=== PATIENT | male | born 1940 | race Caucasian/White ===

== ENCOUNTER 2018-06-21 07:09 | Emergency (ER) | payer MEDICARE, OTHER, SELFPAY ==
--- NOTE | 2018-06-21 07:14 | NUR.NOTE ---
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 last night wile sleeping the biopsy stite started to bleed
--- NOTE | 2018-06-21 07:15 | W.ED.GENAD ---
Discharge Plan Disposition Patient Disposition: HOME Condition: Good Discharge Details Chief Complaint: Laceration Clinical Impression: Postoperative wound hematoma Primary Care Provider: Jessa Cool ED Provider: Carlos Garcia [place] Meds and New Rx's Prescriptions: Continued multivitamin [Daily Vitamin] 1 EACH tablet 1 ea PO DAILY RF: 0 cholecalciferol (vitamin D3) [Vitamin D3] 400 UNIT capsule 400 unit PO DAILY RF: 0 atorvastatin 80 MG tablet 40 mg PO DAILY RF: 0 aspirin [Aspir-81] 81 MG tablet,delayed release (DR/EC) 81 mg PO DAILY RF: 0 Discharge Instructions Additional Instructions: Dressing changes as previously instructed. Direct pressure if further bleeding. Let Dr. Abdul know of your ED visit. Follow-up per his instructions. Return to ED if unable to control bleeding, fever, signs of infection such as increased pain, redness, drainage. Referrals: Fox Abdul MD [MD CONSULTING PHYSICIAN] - Medical Decision Making Direct pressure held. Oozing stopped almost immediately. No active bleeding. Sutures intact. No evidence of infection. Dressing change done. Will have patient follow-up with Dr. Abdul. HPI General Mode of arrival: ambulatory. Date/Time Provider Initiated Documentation: 06/21/18 07:14. Limitations to Documentation: no limitations. Information obtained by: patient. HPI Narrative: Patient here with bleeding from previous procedure. He had a growth removed by Dr. Abdul on Tuesday. Overnight he bled through the dressing. He was supposed to start dressing changes today. He is not on blood thinners other than a baby aspirin a day. He presents to be sure that he did not open up the incision site. Related Data Home Medications Medication Instructions Recorded Confirmed cholecalciferol (vitamin D3) 400 unit PO DAILY 05/29/13 06/21/18 [Vitamin D3] multivitamin [Daily Vitamin] 1 ea PO DAILY 05/29/13 06/21/18 atorvastatin 40 mg PO DAILY tab-cap 04/20/16 06/21/18 aspirin [Aspir-81] 81 mg PO DAILY 10/29/17 06/21/18 Allergies Allergy/AdvReac Type Severity Reaction Status Date / Time No Known Allergies Allergy Unverified 06/21/18 07:18 Review of Systems Constitutional Denies chills and Denies fever(s) Hematologic/Lymphatic Denies easy bleeding and Reports easy bruising [facility] Medical History Compartment syndrome DIVERTICULOSIS Deep venous thrombosis Gout Hyperlipidemia Melanosis coli Peripheral venous insufficiency Polyp of colon Psoriasis STROKE Surgical History BACK OPERATION (~04/2008) Colonoscopy - IV Sedation (06/10/10) Colonoscopy - IV Sedation (06/18/16) Family History Mother Dementia Father Alzheimer's disease Sister Alzheimer's disease Parkinson's disease Social History Smoking/Tobacco Use Status: Former Tobacco Use Exam Const General: cooperative, comfortable and no acute distress Orientation: alert and oriented x3 HENMT Head: normocephalic, hematoma and other (incision frontal scalp intact; slight oozing; hematoma/bruising noted) Skin General skin exam: ecchymosis, no erythema and no fluctuance Other: Incision is clean and intact. Oozing from hematoma underneath.
[2018-06-21 07:17] VITALS: BP 144/68; PULSE 68; RESP 18; TEMP 36.6; O2SAT 99
== END 2018-06-21 07:36 | disposition home or self-care (01) ==
LOC: ER 07:53
PROVIDERS: Emergency Provider Emergency Medicine; PCP Family Medicine
DX: L76.31 Postprocedural hematoma of skin and subcutaneous tissue following a dermatologic procedure (principal); Y83.8 Other surgical procedures as the cause of abnormal reaction of the patient, or of later complication, without mention of misadventure at the time of the procedure
CPT/HCPCS: 99281

== ENCOUNTER 2018-09-11 07:39 | Emergency (ER) | payer MEDICARE, OTHER, SELFPAY ==
[2018-09-11 07:48] VITALS: BP 102/61; PULSE 72; RESP 16; TEMP 36.1; O2SAT 98
--- NOTE | 2018-09-11 08:20 | DI.COMBO_ITS ---
SYMPTOM/DIAGNOSIS: SWELLING, PAIN LT FOOT AND ANKLE, H/O DVT, SKIN WOUND OVER MEDIAL MALLEOLUS LEFT LOWER EXTREMITY ULTRASOUND: The deep veins of the left lower extremity were evaluated sonographically. 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 One of the deep femoral veins does appear to be non compressed suggesting thrombus. The other femoral vein shows compression. The common femoral and popliteal veins show normal compression, augmentation and color flow. The saphenofemoral junction appears intact without evidence of thrombus. Note is made of a benign appearing lymph node measuring 4 by 2 by 0.8 cm. in the left inguinal region. 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 The findings were discussed with the ER on the date of the examination. LEFT ANKLE: Three views. No acute fracture or dislocation is seen. Degenerative changes are seen about the ankle. No radiopaque foreign bodies are seen in the soft tissues. IMPRESSION: No acute abnormality.
--- NOTE | 2018-09-11 08:23 | W.ED.GENAD ---
Discharge Plan Disposition Patient Disposition: HOME Condition: Stable Discharge Details Chief Complaint: Cellulitis Clinical Impression: DVT (deep venous thrombosis), Cellulitis Primary Care Provider: Jessa Cool ED Provider: Nuria Aparicio Home Meds and New Rx's Prescriptions: New Eliquis 5 mg tablet See Rx Instructions .ROUTE .COMPLEX Qty: 70 RF: 0 doxycycline hyclate 100 mg tablet 100 mg PO BID Qty: 19 RF: 0 No Action multivitamin [Daily Vitamin] 1 EACH tablet 1 ea PO DAILY RF: 0 cholecalciferol (vitamin D3) [Vitamin D3] 400 UNIT capsule 400 unit PO DAILY RF: 0 atorvastatin 80 MG tablet 40 mg PO DAILY RF: 0 aspirin [Aspir-81] 81 MG tablet,delayed release (DR/EC) 81 mg PO DAILY RF: 0 Discharge Instructions Instructions: Doxycycline (By mouth), Apixaban (By mouth), Cellulitis (ED), Deep Venous Thrombosis (ED) Additional Instructions: Please return immediately to the emergency department if you develop any new or worsening symptoms or if you become otherwise concerned. It is extremely important that you make an appointment to be seen soon as possible by your primary care doctor in follow-up for this visit. 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 On exam patient is well and nontoxic appearing. Left ankle with superficial abrasion to the medial malleolus, chronic skin changes to the medial ankle and generally to the left foot and left lower leg that patient attributes to DVT with compartment syndrome in the past. Erythema surrounding the medial malleolus the patient reports as new. Generalized edema of the foot and ankle that patient reports as somewhat worse than usual. No posterior calf tenderness. Concern for cellulitis, less concern for bony involvement or DVT but plan for screening labs, x-rays, ultrasound. Doubt gout. Exam/history is not consistent with sepsis, septic arthritis. On ultrasound, area of the femoral vein was found to be noncompressible, suggesting thrombus. I discussed patient presentation and results with hematology on-call [facility], who reviewed patient's medical records from his prior admission there. They recommended anticoagulation with Eliquis 10 mg twice daily for 1 week, then 5 mg twice daily. I also discussed the patient with patient PCP office, who will see patient in follow-up. Plan to treat for cellulitis with doxycycline. I had a lengthy discussion with patient regarding return to emergency department precautions, home care, and importance of outpatient follow-up with his PCP. Patient verbalized understanding the plan was amenable. Patient was discharged home with clear plan for outpatient follow-up. All questions were answered. Medical Records Medical records reviewed: Yes I reviewed the patient's medical records. Imaging Data Radiologic Study: Attestation: I personally reviewed and interpreted this imaging study as follows: Radiologist's impression: LEFT LOWER EXTREMITY ULTRASOUND: The deep veins of the left lower extremity were evaluated sonographically. 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 One of the deep femoral veins does appear to be non compressed suggesting thrombus. The other femoral vein shows compression. The common femoral and popliteal veins show normal compression, augmentation and color flow. The saphenofemoral junction appears intact without evidence of thrombus. Note is made of a benign appearing lymph node measuring 4 by 2 by 0.8 cm. in the left inguinal region. 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 The findings were discussed with the ER on the date of the examination. LEFT ANKLE: Three views. No acute fracture or dislocation is seen. Degenerative changes are seen about the ankle. No radiopaque foreign bodies are seen in the soft tissues. IMPRESSION: No acute abnormality. Lab Data Lab results reviewed: Yes I reviewed the patient's lab results. Laboratory Tests Range/Units 09/11/18 09/11/18 09/11/18 08:27 08:27 08:27 WBC (4.4-10.8) k/cumm 3.73 L RBC (4.50-6.00) m/cumm 3.82 L Hgb (13.5-17.5) g/dL 12.0 L Hct (40.0-50.0) % 35.4 L MCV (80-95) fL 92.7 MCH (27.0-33.0) pg 31.4 MCHC (32.0-36.0) g/dL 33.9 RDW (11.8-14.1) % 15.5 H Plt Count (130-400) x1000/uL 114 L MPV (8.0-11.0) fL 11.8 H Immature Gran % 1.1 Neutrophils % 48.8 Lymphocytes % 28.7 Monocytes % 16.9 Eosinophils % 4.0 Basophils % 0.5 Absolute Neutrophils (1.2-6.7) k/cumm 1.82 Absolute Lymphocytes (1.2-3.4) k/cumm 1.07 L Absolute Monocytes (0.11-0.7) k/cumm 0.63 Absolute Eosinophils (0.0-0.7) k/cumm 0.15 Absolute Basophils (0.0-0.2) k/cumm 0.02 Differential Comment Diff reviewed RBC Morphology Normal PT (9.3-11.0) sec 11.3 H INR (0.9-1.1) 1.1 Sodium (136-145) mmol/L 137 Potassium (3.5-5.1) mmol/L 4.0 Chloride (98-107) mmol/L 101 Carbon Dioxide (21.0-32.0) mmol/L 26.7 Anion Gap (3-11) mmol/L 9.3 BUN (7-18) mg/dL 16 Creatinine (0.70-1.30) mg/dL 1.10 Estimated GFR/1.73 m2 (mL/min/1.73m2) >= 60.00 Glucose (70-100) mg/dL 137 H Calcium (8.5-10.1) mg/dL 8.9 Total Bilirubin (0.2-1.0) mg/dL 1.3 H AST (15-37) U/L 26 ALT (12-78) U/L 32 Alkaline Phosphatase (46-116) U/L 68 Total Protein (6.4-8.2) g/dL 7.4 Albumin (3.4-5.0) g/dL 3.4 She is HPI General Mode of arrival: ambulatory. Date/Time Provider Initiated Documentation: 09/11/18 08:09. Limitations to Documentation: no limitations. Information obtained by: patient, RN notes reviewed and old records reviewed. HPI Narrative: Adan Terrell is a 78-year-old man with a history of CVA, high cholesterol, gout, DVT left leg resulting in compartment syndrome in the past presenting to the emergency department with left ankle pain and swelling. 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 He wears an AFO because of this. Patient reports that he noticed swelling to his left ankle approximately 6 days ago. He also developed pain diffusely in the left ankle over the past 2 to 3 days. He noticed a small abrasion to the inner aspect of his left ankle a few days ago that he believes is from his AFO strap. He denies any trauma. Patient takes aspirin daily but is no longer prescribed blood thinners. He feels otherwise well in his usual state of health. No fevers, shortness of breath, cough, other pain, vomiting, diarrhea. Related Data Home Medications Medication Instructions Recorded Confirmed cholecalciferol (vitamin D3) 400 unit PO DAILY 05/29/13 09/11/18 [Vitamin D3] multivitamin [Daily Vitamin] 1 ea PO DAILY 05/29/13 09/11/18 atorvastatin 40 mg PO DAILY tab-cap 04/20/16 09/11/18 aspirin [Aspir-81] 81 mg PO DAILY 10/29/17 09/11/18 apixaban [Eliquis] See Rx Instructions .ROUTE 09/11/18 .COMPLEX #70 tab doxycycline hyclate 100 mg PO BID #19 tab 09/11/18 Previous Rx's Medication Instructions Recorded apixaban [Eliquis] See Rx Instructions .ROUTE 09/11/18 .COMPLEX #70 tab doxycycline hyclate 100 mg PO BID #19 tab 09/11/18 Allergies Allergy/AdvReac Type Severity Reaction Status Date / Time No Known Allergies Allergy Unverified 09/11/18 07:51 General Stated Complaint: Cellulitis ELY: 3 Review of Systems Review of Systems Constitutional: denies fevers Eyes: denies eye pain ENT: denies facial pain, dental pain, sore throat Cardiovascular: denies chest pain Respiratory: denies SOB, cough GI: denies abdominal pain, vomiting, diarrhea : denies flank pain MSK: denies back pain, neck pain, myalgias, reports left ankle pain and swelling Skin: Reports chronic rash to the left ankle, worse in the past few days Neuro: denies headaches, reports left foot/ankle numbness and weakness at baseline, unchanged [facility] Medical History Compartment syndrome DIVERTICULOSIS Deep venous thrombosis Gout Hyperlipidemia Melanosis coli Peripheral venous insufficiency Polyp of colon Psoriasis STROKE Family History Mother Dementia Father Alzheimer's disease Sister Alzheimer's disease Parkinson's disease Social History Smoking/Tobacco Use Status: Former Tobacco Use Drug use: Never Do you feel safe in your relationship?: Yes Exam Narrative Exam Narrative: Constitutional: well and [id number], pleasant, conversing normally HENT: head atraumatic/normocephalic/normal inspection, mucous membranes moist Eyes: conjunctiva normal, sclera normal, pupils 3mm b/l Neck: no stridor, normal ROM, trachea midline Chest: normal inspection Resp: normal work of breathing, LCTAB Cardio: normal rate, normal rhythm, no murmur appreciated Back: normal inspection, no rash Skin: warm, dry, normal color, no rash Neuro: alert, not altered, grossly non-focal, normal tone Ext: Left ankle with superficial abrasion to the medial malleolus, chronic skin changes to the medial ankle and generally to the left foot and left lower leg that patient attributes to DVT with compartment syndrome in the past. Erythema surrounding the medial malleolus the patient reports as new. Generalized edema of the foot and ankle that patient reports as somewhat worse than usual. No posterior calf tenderness. Well healed surgical scars medial and lateral left lower leg. Compartments soft. Psych: normal mood, normal affect, normal behavior Course Vital Signs Temperature 36.1 C L 09/11/18 07:48 Pulse 72 09/11/18 07:48 Respiratory Rate 16 09/11/18 07:48 Blood Pressure 102/61 09/11/18 07:48 Pulse Oximetry 98 09/11/18 07:48 Temperature 36.1 C L 09/11/18 07:48 Temperature Source Skin 09/11/18 07:48 Pulse 72 09/11/18 07:48 Respiratory Rate 16 09/11/18 07:48 Respiratory Effort Non-Labored 09/11/18 07:48 Blood Pressure 102/61 09/11/18 07:48 Blood Pressure Position Sitting 09/11/18 07:48 Pulse Oximetry 98 09/11/18 07:48 Oxygen Delivery Method Room Air 09/11/18 07:48 Oxygen Flow Rate 0 09/11/18 07:48 Pain Level 7 09/11/18 07:48
--- NOTE | 2018-09-11 08:30 | ED.GENADUL_ITS ---
Discharge Plan Disposition Patient Disposition: HOME Condition: Stable Discharge Details Chief Complaint: Cellulitis Clinical Impression: DVT (deep venous thrombosis), Cellulitis Primary Care Provider: Jessa Cool ED Provider: Nuria Aparicio Home Meds and New Rx's Prescriptions: New Eliquis 5 mg tablet See Rx Instructions .ROUTE .COMPLEX Qty: 70 RF: 0 doxycycline hyclate 100 mg tablet 100 mg PO BID Qty: 19 RF: 0 No Action multivitamin [Daily Vitamin] 1 EACH tablet 1 ea PO DAILY RF: 0 cholecalciferol (vitamin D3) [Vitamin D3] 400 UNIT capsule 400 unit PO DAILY RF: 0 atorvastatin 80 MG tablet 40 mg PO DAILY RF: 0 aspirin [Aspir-81] 81 MG tablet,delayed release (DR/EC) 81 mg PO DAILY RF: 0 Discharge Instructions Instructions: Doxycycline (By mouth), Apixaban (By mouth), Cellulitis (ED), Deep Venous Thrombosis (ED) Additional Instructions: Please return immediately to the emergency department if you develop any new or worsening symptoms or if you become otherwise concerned. It is extremely important that you make an appointment to be seen soon as possible by your primary care doctor in follow-up for this visit. 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 On exam patient is well and nontoxic appearing. Left ankle with superficial abrasion to the medial malleolus, chronic skin changes to the medial ankle and generally to the left foot and left lower leg that patient attributes to DVT with compartment syndrome in the past. Erythema surrounding the medial malleolus the patient reports as new. Generalized edema of the foot and ankle that patient reports as somewhat worse than usual. No posterior calf tenderness. Concern for cellul itis, less concern for bony involvement or DVT but plan for screening labs, x- rays, ultrasound. Doubt gout. Exam/history is not consistent with sepsis, septic arthritis. On ultrasound, area of the femoral vein was found to be noncompressible, suggesting thrombus. I discussed patient presentation and results with hematology on-call [facility], who reviewed patient's medical records from his prior admission there. They recommended anticoagulation with Eliquis 10 mg twice daily for 1 week, then 5 mg twice daily. I also discussed the patient with patient PCP office, who will see patient in follow-up. Plan to treat for cellulitis with doxycycline. I had a lengthy discussion with patient regarding return to emergency department precautions, home care, and importance of outpatient follow-up with his PCP. Patient verbalized understanding the plan was amenable. Patient was discharged home with clear plan for outpatient follow-up. All questions were answered. Medical Records Medical records reviewed: Yes I reviewed the patient's medical records. Imaging Data Radiologic Study: Attestation: I personally reviewed and interpreted this imaging study as follows: Radiologist's impression: LEFT LOWER EXTREMITY ULTRASOUND: The deep veins of the left lower extremity were evaluated sonographically. 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 One of the deep femoral veins does appear to be non compressed suggesting thrombus. The other femoral vein shows compression. The common femoral and popliteal veins show normal compression, augmentation and color flow. The saphenofemoral junction appears intact without evidence of thrombus. Note is made of a benign appearing lymph node measuring 4 by 2 by 0.8 cm. in the left inguinal region. 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 The findings were discussed with the ER on the date of the examination. LEFT ANKLE: Three views. No acute fracture or dislocation is seen. Degenerative changes are seen about the ankle. No radiopaque foreign bodies are seen in the soft tissues. IMPRESSION: No acute abnormality. Lab Data Lab results reviewed: Yes I reviewed the patient's lab results. Laboratory Tests Range/Units 09/11/18 09/11/18 09/11/18 08:27 08:27 08:27 WBC (4.4-10.8) k/cumm 3.73 L RBC (4.50-6.00) m/cumm 3.82 L Hgb (13.5-17.5) g/dL 12.0 L Hct (40.0-50.0) % 35.4 L MCV (80-95) fL 92.7 MCH (27.0-33.0) pg 31.4 MCHC (32.0-36.0) g/dL 33.9 RDW (11.8-14.1) % 15.5 H Plt Count (130-400) x1000/uL 114 L MPV (8.0-11.0) fL 11.8 H Immature Gran % 1.1 Neutrophils % 48.8 Lymphocytes % 28.7 Monocytes % 16.9 Eosinophils % 4.0 Basophils % 0.5 Absolute Neutrophils (1.2-6.7) k/cumm 1.82 Absolute Lymphocytes (1.2-3.4) k/cumm 1.07 L Absolute Monocytes (0.11-0.7) k/cumm 0.63 Absolute Eosinophils (0.0-0.7) k/cumm 0.15 Absolute Basophils (0.0-0.2) k/cumm 0.02 Differential Comment Diff reviewed RBC Morphology Normal PT (9.3-11.0) sec 11.3 H INR (0.9-1.1) 1.1 Sodium (136-145) mmol/L 137 Potassium (3.5-5.1) mmol/L 4.0 Chloride (98-107) mmol/L 101 Carbon Dioxide (21.0-32.0) mmol/L 26.7 Anion Gap (3-11) mmol/L 9.3 BUN (7-18) mg/dL 16 Creatinine (0.70-1.30) mg/dL 1.10 Estimated GFR/1.73 m2 (mL/min/1.73m2) >= 60.00 Glucose (70-100) mg/dL 137 H Calcium (8.5-10.1) mg/dL 8.9 Total Bilirubin (0.2-1.0) mg/dL 1.3 H AST (15-37) U/L 26 ALT (12-78) U/L 32 Alkaline Phosphatase (46-116) U/L 68 Total Protein (6.4-8.2) g/dL 7.4 Albumin (3.4-5.0) g/dL 3.4 She is HPI General Mode of arrival: ambulatory . Date/Time Provider Initiated Documentation: 09/11/18 08:09 . Limitations to Documentation: no limitations . Information obtained by: patient, RN notes reviewed and old records reviewed . HPI Narrative: Adan Terrell is a 78-year-old man with a history of CVA, high cholesterol, gout, DVT left leg resulting in compartment syndrome in the past presenting to the emergency department with left ankle pain and swelling. 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 He wears an AFO because of this. Patient reports that he noticed swelling to his left ankle approximately 6 days ago. He also developed pain diffusely in the left ankle over the past 2 to 3 days. He noticed a small abrasion to the inner aspect of his left ankle a few days ago that he believes is from his AFO strap. He denies any trauma. Patient takes aspirin daily but is no longer prescribed blood thinners. He feels otherwise well in his usual state of health. No fevers, shortness of breath, cough, other pain, vomiting, diarrhea. Related Data Home Medications Medication Instructions Recorded Confirmed cholecalciferol (vitamin D3) 400 unit PO DAILY 05/29/13 09/11/18 [Vitamin D3] multivitamin [Daily Vitamin] 1 ea PO DAILY 05/29/13 09/11/18 atorvastatin 40 mg PO DAILY tab-cap 04/20/16 09/11/18 aspirin [Aspir-81] 81 mg PO DAILY 10/29/17 09/11/18 apixaban [Eliquis] See Rx Instructions .ROUTE 09/11/18 .COMPLEX #70 tab doxycycline hyclate 100 mg PO BID #19 tab 09/11/18 Previous Rx's Medication Instructions Recorded apixaban [Eliquis] See Rx Instructions .ROUTE 09/11/18 .COMPLEX #70 tab doxycycline hyclate 100 mg PO BID #19 tab 09/11/18 Allergies Allergy/AdvReac Type Severity Reaction Status Date / Time No Known Allergies Allergy Unverified 09/11/18 07:51 General Stated Complaint: Cellulitis ELY: 3 Review of Systems Review of Systems Constitutional: denies fevers Eyes: denies eye pain ENT: denies facial pain, dental pain, sore throat Cardiovascular: denies chest pain Respiratory: denies SOB, cough GI: denies abdominal pain, vomiting, diarrhea : denies flank pain MSK: denies back pain, neck pain, myalgias, reports left ankle pain and swelling Skin: Reports chronic rash to the left ankle, worse in the past few days Neuro: denies headaches, reports left foot/ankle numbness and weakness at baseline, unchanged [facility] Medical History Compartment syndrome DIVERTICULOSIS Deep venous thrombosis Gout Hyperlipidemia Melanosis coli Peripheral venous insufficiency Polyp of colon Psoriasis STROKE Family History Mother Dementia Father Alzheimer's disease Sister Alzheimer's disease Parkinson's disease Social History Smoking/Tobacco Use Status: Former Tobacco Use Drug use: Never Do you feel safe in your relationship?: Yes Exam Narrative Exam Narrative: Constitutional: well and [id number], pleasant, conversing normally HENT: head atraumatic/normocephalic/normal inspection, mucous membranes moist Eyes: conjunctiva normal, sclera normal, pupils 3mm b/l Neck: no stridor, normal ROM, trachea midline Chest: normal inspection Resp: normal work of breathing, LCTAB Cardio: normal rate, normal rhythm, no murmur appreciated Back: normal inspection, no rash Skin: warm, dry, normal color, no rash Neuro: alert, not altered, grossly non-focal, normal tone Ext: Left ankle with superficial abrasion to the medial malleolus, chronic skin changes to the medial ankle and generally to the left foot and left lower leg that patient attributes to DVT with compartment syndrome in the past. Erythema surrounding the medial malleolus the patient reports as new. Generalized edema of the foot and ankle that patient reports as somewhat worse than usual. No posterior calf tenderness. Well healed surgical scars medial and lateral left lower leg. Compartments soft. Psych: normal mood, normal affect, normal behavior Course Vital Signs Temperature 36.1 C L 09/11/18 07:48 Pulse 72 09/11/18 07:48 Respiratory Rate 16 09/11/18 07:48 Blood Pressure 102/61 09/11/18 07:48 Pulse Oximetry 98 09/11/18 07:48 Temperature 36.1 C L 09/11/18 07:48 Temperature Source Skin 09/11/18 07:48 Pulse 72 09/11/18 07:48 Respiratory Rate 16 09/11/18 07:48 Respiratory Effort Non-Labored 09/11/18 07:48 Blood Pressure 102/61 09/11/18 07:48 Blood Pressure Position Sitting 09/11/18 07:48 Pulse Oximetry 98 09/11/18 07:48 Oxygen Delivery Method Room Air 09/11/18 07:48 Oxygen Flow Rate 0 09/11/18 07:48 Pain Level 7 09/11/18 07:48
[2018-09-11 08:42] LABS: Abs Immature Grans 0.04 k/cumm (0.0-0.09); Absolute Basophil Count 0.02 k/cumm (0.0-0.2); Absolute Eosinophil Count 0.15 k/cumm (0.0-0.7); Absolute Lymphocyte Count 1.07 k/cumm (1.2-3.4); Absolute Monocyte Count 0.63 k/cumm (0.11-0.7); Absolute Neutrophil Count 1.82 k/cumm (1.2-6.7); Basophils % 0.5; HCT 35.4 % (40.0-50.0); Immature Grans % 1.1; Lymphocytes % 28.7; Mean Corp. HGB Concentration 33.9 g/dL (32.0-36.0); Mean Corpuscular Hemoglobin 31.4 pg (27.0-33.0); Mean Corpuscular Volume 92.7 fL (80-95); Mean Platelet Volume 11.8 fL (8.0-11.0); Monocytes % 16.9; Neutrophils % 48.8; RBC 3.82 m/cumm (4.50-6.00); RBC Distribution Width 15.5 % (11.8-14.1); White Blood Cell Count 3.73 k/cumm (4.4-10.8)
[2018-09-11 08:59] LABS: INR 1.1 (0.9-1.1); Prothrombin Time 11.3 sec (9.3-11.0)
[2018-09-11 09:01] LABS: Platelet Count 114 x1000/uL (130-400)
[2018-09-11 09:02] LABS: Diff Comment Diff Reviewed; RBC Morphology Normal
[2018-09-11 09:03] LABS: ALT 32 U/L (12-78); AST 26 U/L (15-37); Albumin 3.4 g/dL (3.4-5.0); Alkaline Phosphatase 68 U/L (46-116); Anion Gap 9.3 mmol/L (3-11); BUN 16 mg/dL (7-18); Bilirubin, Total 1.3 mg/dL (0.2-1.0); CO2 26.7 mmol/L (21.0-32.0); Calcium 8.9 mg/dL (8.5-10.1); Chloride 101 mmol/L (98-107); Glucose 137 mg/dL (70-100); Sodium 137 mmol/L (136-145); Total Protein 7.4 g/dL (6.4-8.2)
[2018-09-11 14:00] VITALS: BP 118/48; PULSE 65; RESP 16; TEMP 36.1; O2SAT 99
[2018-09-11] MEDS: Apixaban 5 MG TAB 10 MG PO (14:05)
[2018-09-11] MEDS: Doxycycline Hyclate 100 MG CAP PO (14:05)
== END 2018-09-11 14:09 | disposition home or self-care (01) ==
PROVIDERS: Emergency Provider Student in an Organized Health Care Education/Training Program; PCP Family Medicine
DX: I82.412 Acute embolism and thrombosis of left femoral vein (principal); L03.116 Cellulitis of left lower limb; G57.82 Other specified mononeuropathies of left lower limb; M21.372 Foot drop, left foot; Z86.73 Personal history of transient ischemic attack (TIA), and cerebral infarction without residual deficits; Z79.82 Long term (current) use of aspirin
CPT/HCPCS: 36415; 80053; 99284; 73610; 85025; 85610; 93971

== ENCOUNTER 2018-09-14 13:10 | Outpatient (REF) | payer MEDICARE, OTHER, SELFPAY | END 2018-09-14 13:30 | LOC: LBN 13:10 | PROVIDERS: PCP Family Medicine; Visit Provider Podiatrist | DX: L03.115 Cellulitis of right lower limb (principal); L97.319 Non-pressure chronic ulcer of right ankle with unspecified severity | CPT/HCPCS: 87077; 87070; 87186; 87205 ==

== ENCOUNTER 2018-09-19 01:55 | Outpatient (RCR) | payer MEDICARE, OTHER, SELFPAY ==
[2018-09-14] MEDS: cefTRIAXone 2 GM/50 ML BAG IVPB (12:34)
[2018-09-14] MEDS: Normal Saline Flush 10 ML SYR IVP (12:35)
[2018-09-15] MEDS: cefTRIAXone 2 GM/50 ML BAG IVPB (13:03)
[2018-09-15] MEDS: Normal Saline Flush 10 ML SYR IVP (13:03)
[2018-09-16 12:50] VITALS: TEMP 36.5
[2018-09-16] MEDS: cefTRIAXone 2 GM/50 ML BAG IVPB (13:04)
[2018-09-17] MEDS: cefTRIAXone 2 GM/50 ML BAG IVPB (12:55)
[2018-09-17 13:00] VITALS: TEMP 36.5
[2018-09-18] MEDS: cefTRIAXone 2 GM/50 ML BAG IVPB (13:11)
[2018-09-18] MEDS: Normal Saline Flush 10 ML SYR IVP (13:12)
== END 2018-10-13 23:59 | disposition home or self-care (01) ==
LOC: INF 01:55
PROVIDERS: PCP Family Medicine; Visit Provider Podiatrist
DX: L03.116 Cellulitis of left lower limb (principal)
CPT/HCPCS: 96365

== ENCOUNTER 2018-09-19 13:30 | Outpatient (CLI) | payer MEDICARE, OTHER, SELFPAY ==
[2018-09-19 13:52] LABS: HCT 36.4 % (40.0-50.0); Mean Corpuscular Hemoglobin 30.8 pg (27.0-33.0); Mean Corpuscular Volume 93.6 fL (80-95); Mean Platelet Volume 12.3 fL (8.0-11.0); Platelet Count 179 x1000/uL (130-400); RBC 3.89 m/cumm (4.50-6.00); RBC Distribution Width 15.2 % (11.8-14.1); White Blood Cell Count 3.43 k/cumm (4.4-10.8)
[2018-09-19 14:43] LABS: Anion Gap 8.1 mmol/L (3-11); BUN 22 mg/dL (7-18); CO2 28.9 mmol/L (21.0-32.0); Calcium 9.1 mg/dL (8.5-10.1); Chloride 102 mmol/L (98-107); Estimated GFR 58.86 (mL/min/1.73m2); Glucose 135 mg/dL (70-100); Potassium 4.4 mmol/L (3.5-5.1); Sodium 139 mmol/L (136-145)
== END 2018-09-19 13:50 ==
PROVIDERS: PCP Family Medicine; Visit Provider Family Medicine
DX: I82.409 Acute embolism and thrombosis of unspecified deep veins of unspecified lower extremity (principal); R60.0 Localized edema
CPT/HCPCS: 80048; 85027

== ENCOUNTER 2018-09-26 00:50 | Outpatient (CLI) | payer MEDICARE, OTHER, SELFPAY ==
--- NOTE | 2018-09-26 12:48 | DI.US_ITS ---
SYMPTOM/DIAGNOSIS: ACUTE DVT LT LOWER EXTREMITY, I82.402 LEFT LOWER EXTREMITY ULTRASOUND: Comparison is made with 09/11/18. There is now thrombus seen extending into the common femoral vein where previously the clot was seen in one of a duplicated femoral vein. Clot is also seen in the profunda femoral vein. IMPRESSION: Extension of previously noted thrombus into the common femoral and profunda femoral veins.
== END 2018-09-26 01:10 ==
PROVIDERS: PCP Family Medicine; Visit Provider Family Medicine
DX: I82.412 Acute embolism and thrombosis of left femoral vein
CPT/HCPCS: 93971

== ENCOUNTER 2018-10-23 16:44 | Outpatient (REF) | payer MEDICARE, OTHER, SELFPAY | END 2018-10-23 17:04 | LOC: NCHCN 16:44 | PROVIDERS: PCP Family Medicine; Visit Provider Family Medicine | DX: R60.0 Localized edema (principal); I82.409 Acute embolism and thrombosis of unspecified deep veins of unspecified lower extremity ==

== ENCOUNTER 2018-10-24 09:00 | Outpatient (CLI) | payer MEDICARE, OTHER, SELFPAY ==
[2018-10-24 09:25] LABS: HCT 33.5 % (40.0-50.0); HGB 10.9 g/dL (13.5-17.5); Mean Corp. HGB Concentration 32.5 g/dL (32.0-36.0); Mean Corpuscular Volume 95.2 fL (80-95); Mean Platelet Volume 12.2 fL (8.0-11.0); Platelet Count 142 x1000/uL (130-400); RBC 3.52 m/cumm (4.50-6.00); RBC Distribution Width 15.7 % (11.8-14.1)
[2018-10-24 10:36] LABS: Anion Gap 9.2 mmol/L (3-11); BUN 22 mg/dL (7-18); CO2 26.8 mmol/L (21.0-32.0); CREATININE 1.01 mg/dL (0.70-1.30); Calcium 8.6 mg/dL (8.5-10.1); Chloride 103 mmol/L (98-107); Glucose 155 mg/dL (70-100); Sodium 139 mmol/L (136-145)
== END 2018-10-24 09:20 ==
PROVIDERS: PCP Family Medicine; Visit Provider Family Medicine
DX: R60.0 Localized edema (principal); I82.409 Acute embolism and thrombosis of unspecified deep veins of unspecified lower extremity
CPT/HCPCS: 36415; 80048; 85027

== ENCOUNTER 2018-10-30 01:52 | Outpatient (RCR) | payer MEDICARE, OTHER, SELFPAY ==
--- NOTE | 2018-11-05 11:40 | PDOC.CMPRO ---
Care Management Progress Note CM rec'd call from [facility] RN, Mirian stating Dr. Mcdonald had requested patient be seen over the weekend. Mirian reported Dr. Mcdonald was unavailable over the weekend and she required H&P and demographic information prior to opening [facility] for services. JAMES faxed available documentation to Mirian though updated recent documents were unavailable to this junior technical writer.
== END 2018-11-12 23:59 | disposition home or self-care (01) ==
LOC: INF 01:52
PROVIDERS: PCP Family Medicine; Visit Provider Podiatrist
DX: L97.501 Non-pressure chronic ulcer of other part of unspecified foot limited to breakdown of skin (principal); L97.901 Non-pressure chronic ulcer of unspecified part of unspecified lower leg limited to breakdown of skin; I87.2 Venous insufficiency (chronic) (peripheral)
CPT/HCPCS: 99211

== ENCOUNTER 2018-11-28 16:35 | Outpatient (CLI) | payer MEDICARE, OTHER, SELFPAY ==
[2018-11-28 16:54] LABS: HCT 36.4 % (40.0-50.0); HGB 12.3 g/dL (13.5-17.5); Mean Corp. HGB Concentration 33.8 g/dL (32.0-36.0); Mean Corpuscular Hemoglobin 31.9 pg (27.0-33.0); Mean Corpuscular Volume 94.5 fL (80-95); Mean Platelet Volume 12.4 fL (8.0-11.0); Platelet Count 145 x1000/uL (130-400); RBC 3.85 m/cumm (4.50-6.00); RBC Distribution Width 15.6 % (11.8-14.1); White Blood Cell Count 3.32 k/cumm (4.4-10.8)
[2018-11-28 17:34] LABS: Iron 49 ug/dL (50-175); Total Iron Binding Capacity 159 ug/dL (250-450); Transferrin Sat 31 % (20-55)
[2018-11-28 18:01] LABS: Ferritin 737 ng/mL (8-388); Folate 19.8 ng/mL (8.6-20.0); Vitamin B12 949 pg/mL (193-986)
== END 2018-11-28 16:55 ==
PROVIDERS: PCP Family Medicine; Visit Provider Family Medicine
DX: D64.9 Anemia, unspecified (principal)
CPT/HCPCS: 36415; 85027; 82607; 82728; 82746; 83540; 83550

== ENCOUNTER 2019-12-10 03:03 | Outpatient (CLI) | payer MEDICARE, OTHER, SELFPAY ==
[2019-12-10 12:40] LABS: HCT 38.3 % (40.0-50.0); HGB 12.5 g/dL (13.5-17.5); Mean Corp. HGB Concentration 32.6 g/dL (32.0-36.0); Mean Corpuscular Hemoglobin 30.7 pg (27.0-33.0); Mean Corpuscular Volume 94.1 fL (80-95); Mean Platelet Volume 12.5 fL (8.0-11.0); Platelet Count 213 x1000/uL (130-400); RBC 4.07 m/cumm (4.50-6.00); RBC Distribution Width 15.8 % (11.8-14.1)
[2019-12-10 12:56] LABS: ALT 55 U/L (16-63); AST 35 U/L (15-37); Albumin 3.7 g/dL (3.4-5.0); Alkaline Phosphatase 71 U/L (46-116); BUN 15 mg/dL (7-18); Bilirubin, Total 0.8 mg/dL (0.2-1.0); CREATININE 1.03 mg/dL (0.70-1.30); Calculated LDL 51 mg/dL (<100); Chloride 106 mmol/L (98-107); Cholesterol 88 mg/dL (<200); Glucose 98 mg/dL (74-106); HDL Cholesterol 27 mg/dL (40-60); Potassium 4.3 mmol/L (3.5-5.1); Sodium 141 mmol/L (136-145); Total Protein 7.2 g/dL (6.4-8.2); Triglyceride 53 mg/dL (<150)
[2019-12-10 13:06] LABS: Hemoglobin A1C 6.5 % (3.8-5.6)
== END 2019-12-10 03:23 ==
PROVIDERS: PCP Family Medicine; Visit Provider Family Medicine
DX: E78.5 Hyperlipidemia, unspecified (principal); E11.9 Type 2 diabetes mellitus without complications; D46.9 Myelodysplastic syndrome, unspecified
CPT/HCPCS: 36415; 80053; 80061; 85027; 83036

== ENCOUNTER 2020-08-04 15:18 | Outpatient (REF) | payer MEDICARE, OTHER, SELFPAY ==
[2020-08-06 13:59] LABS: COVID-19 RT-PCR UVMMC Result Negative (Negative)
== END 2020-08-04 15:19 | disposition home or self-care (01) ==
LOC: NCHCN 15:18
PROVIDERS: PCP Family Medicine; Visit Provider Acupuncturist
DX: Z20.822 Contact with and (suspected) exposure to COVID-19 (principal); J06.9 Acute upper respiratory infection, unspecified
CPT/HCPCS: U0003

== ENCOUNTER 2020-08-11 15:36 | Outpatient (REF) | payer MEDICARE, OTHER, SELFPAY ==
[2020-08-11 15:38] LABS: HCT 33.8 % (40.0-50.0); HGB 11.2 g/dL (13.5-17.5); MCH 30.9 pg (27.0-33.0); MCHC 33.1 % (32.0-36.0); MCV 93.1 fL (80-95); RBC 3.63 10^6/uL (4.36-5.78); RDW 15.3 % (11.8-14.1); RDW-SD 52.6 fL
[2020-08-11 16:36] LABS: ALT 38 U/L (16-63); AST 28 U/L (15-37); Albumin 2.7 g/dL (3.4-5.0); Alkaline Phosphatase 95 U/L (46-116); Anion Gap 7.9 mmol/L (3-11); BUN 18 mg/dL (7-18); Bilirubin, Total 0.7 mg/dL (0.2-1.0); CO2 28.1 mmol/L (21.0-32.0); CREATININE 0.8 mg/dL (0.70-1.30); Calcium 8.9 mg/dL (8.5-10.1); Chloride 107 mmol/L (98-107); Folate 16.6 ng/mL (8.6-20.0); Glucose 142 mg/dL (74-106); Potassium 4.5 mmol/L (3.5-5.1); Sodium 143 mmol/L (136-145); TSH (W/Ref FT4) 0.77 uIU/mL (0.36-3.74); Vitamin B12 1116 pg/mL (193-986)
== END 2020-08-11 15:37 | disposition home or self-care (01) ==
LOC: NCHCN 15:36
PROVIDERS: PCP Family Medicine; Visit Provider Family Medicine
DX: R53.1 Weakness (principal); R26.89 Other abnormalities of gait and mobility
CPT/HCPCS: 80053; 85027; 82607; 82746; 84443

== ENCOUNTER 2020-08-27 02:00 | Outpatient (CLI) | payer MEDICARE, OTHER, SELFPAY ==
--- NOTE | 2020-08-27 | DI.RAD_ITS ---
EXAM: XR KNEE LT 3V AP,LAT,LATONYA CLINICAL HISTORY: LT KNEE JOINT PAIN, M25.562. TECHNIQUE: 2D digital imaging was performed. COMPARISON: No exams were available for comparison FINDINGS: There is no evidence of acute fracture although there does appear to be a joint effusion and loose in tra-articular bodies in the suprapatellar bursa. There is advanced osteoarthritic degenerative change with [id number] in the lateral compartment; le ss so in the medial compartment. Patellofemoral compartment exhibits moderate-advanced degenerative changes. In please sclerosis noted within the lateral proximal metaphysis of the tibia, questionable significance. IMPRESSION: Advanced osteoarthritic degenerative changes. There appears to be element of mild valgus deformity. DATA REPOSITORY: RADIATION DOSE DELIVERED:
== END 2020-08-27 02:20 ==
PROVIDERS: PCP Family Medicine; Visit Provider Family Medicine
DX: M25.562 Pain in left knee (principal); M17.12 Unilateral primary osteoarthritis, left knee
CPT/HCPCS: 73562

== ENCOUNTER 2020-09-18 15:18 | Outpatient (REF) | payer MEDICARE, SELFPAY ==
[2020-09-18 15:26] LABS: HCT 37.8 % (40.0-50.0); MCH 30.3 pg (27.0-33.0); MCHC 31.7 % (32.0-36.0); MCV 95.5 fL (80-95); Platelet Count 243 10^3/uL (130-400); RBC 3.96 10^6/uL (4.36-5.78); RDW 16.5 % (11.8-14.1); RDW-SD 58.2 fL; WBC 3.01 10^3/uL (4.4-10.8)
[2020-09-18 15:51] LABS: Hemoglobin A1C 6.3 % (<5.7)
[2020-09-18 16:02] LABS: BUN 17 mg/dL (7-18); Chloride 104 mmol/L (98-107); Glucose 126 mg/dL (74-106); Potassium 4.4 mmol/L (3.5-5.1); Sodium 141 mmol/L (136-145)
[2020-09-18 16:34] LABS: Uric Acid 5.6 mg/dL (3.5-7.2)
[2020-09-22 20:39] LABS: Ferritin 1265 ng/mL (26-388)
== END 2020-09-18 15:19 | disposition home or self-care (01) ==
LOC: NCHCN 15:18
PROVIDERS: PCP Family Medicine; Visit Provider Family Medicine
DX: E11.9 Type 2 diabetes mellitus without complications (principal); M10.9 Gout, unspecified; R53.1 Weakness
CPT/HCPCS: 80048; 85027; 82728; 83036; 84550

== ENCOUNTER 2020-10-07 15:07 | Outpatient (REF) | payer MEDICARE, OTHER, SELFPAY ==
[2020-10-07 16:02] LABS: ESR 8 mm/hr (0-20)
[2020-10-07 16:12] LABS: C-Reactive Protein 1.01 mg/dL (0.0-0.3)
[2020-10-07 16:45] LABS: Iron 55 ug/dL (65-175); Total Iron Binding Capacity 159 ug/dL (250-450); Transferrin Sat 35 % (20-55)
[2020-10-07 17:22] LABS: Ferritin 750 ng/mL (26-388)
[2020-10-15 16:23] LABS: Result Summary NEGATIVE; Specimen WB Whole Blood
== END 2020-10-07 15:08 | disposition home or self-care (01) ==
LOC: NCHCN 15:07
PROVIDERS: PCP Family Medicine; Visit Provider Family Medicine
DX: E83.110 Hereditary hemochromatosis (principal); R03.1 Nonspecific low blood-pressure reading; R63.4 Abnormal weight loss; R79.0 Abnormal level of blood mineral; R79.82 Elevated C-reactive protein (CRP)
CPT/HCPCS: 85652; 81256; 82728; 83540; 83550; 86140

== ENCOUNTER → 2020-10-10 09:41 | Outpatient (BNVA) | payer MEDICARE, OTHER, SELFPAY | PROVIDERS: PCP Family Medicine; Referring Provider Family Medicine; Visit Provider Student in an Organized Health Care Education/Training Program | DX: M17.12 Unilateral primary osteoarthritis, left knee (principal); M21.062 Valgus deformity, not elsewhere classified, left knee; Z79.01 Long term (current) use of anticoagulants | CPT/HCPCS: 99214 ==

== ENCOUNTER 2020-10-20 17:24 | Emergency (ER) | payer MEDICARE, OTHER, SELFPAY ==
[2020-10-20 17:26] VITALS: BP 127/72; PULSE 69; RESP 18; TEMP 36.7; O2SAT 96
--- NOTE | 2020-10-20 17:48 | W.ED.GENAD ---
Discharge Plan Disposition Patient Disposition: HOME Condition: Stable Discharge Details Clinical Impression: Posttraumatic wound infection, Cellulitis of forearm, left Primary Care Provider: Jessa Cool ED Provider: Karina Bass Home Meds and New Rx's Prescriptions: New clindamycin HCl 150 mg capsule 450 mg PO TID 7 Days Qty: 63 RF: 0 Continued tamsulosin 0.4 mg capsule 0.4 mg PO DAILY RF: 0 multivitamin [Daily Vitamin] 1 EACH tablet 1 ea PO DAILY RF: 0 cholecalciferol (vitamin D3) [Vitamin D3] 400 UNIT capsule 400 unit PO DAILY RF: 0 atorvastatin 80 MG tablet 40 mg PO DAILY RF: 0 Eliquis 5 mg tablet See Rx Instructions .ROUTE .COMPLEX Qty: 70 RF: 0 Discharge Instructions Instructions: Cellulitis (ED) Additional Instructions: Keep wound clean and dry. Cover wound with bandage if risk of contamination. Otherwise you can keep the wound open to air if resting at home to allow edges to dry and heal. Apply the topical antibiotic ointment to the affected area twice daily. Your antibiotic prescription has been sent electronically to your pharmacy. Call the pharmacy to make sure your prescription is ready before pickup. Take the prescription as directed. Call your primary care doctor's office tomorrow to schedule follow-up appointment for reevaluation in the next 2 to 3 days. Return to the emergency department with any worsening or new concerning symptoms such as fever, increased pain, redness or swelling. Discharge Data Discharge Date/Time-TO BE ENTERED AT DEPARTURE: 10/20/20 18:23 Discharge Physician: Karina Bass Medical Decision Making 80-year-old male presents with left forearm wound sustained 2 months ago now with concern for wound infection. He has a large crust noted to the left dorsal forearm with surrounding erythema, wrist edema, but without significant tenderness and no green discharge noted at this time. There is no evidence of abscess. He is neurovascularly intact. He appears nontoxic. I do not see indication for labs or imaging at this time. Bactroban was applied to the wound and he was given the tube to go. He is given a dose of clindamycin here and prescription sent electronically to his pharmacy. He was advised to rest and elevate his left arm as much as possible. He was advised to call his primary care doctor this week for reevaluation. Patient was placed on care management list to help arrange for a follow-up appointment with his PCP later this week for reevaluation. Usual and customary return precautions given prior to discharge. Medical Records Medical records reviewed: Yes I reviewed the patient's medical records. HPI General Mode of arrival: ambulatory. Date/Time Provider Initiated Documentation: 10/20/20 17:30. Limitations to Documentation: no limitations. Information obtained by: patient. HPI Narrative: Patient is a 80-year-old male with a history of DVT on Eliquis, hyperlipidemia, CVA who presents with redness and swelling around and green drainage from a forearm wound that has been present for the past 2 months. Patient states he tripped and fell hitting his left forearm on the bed frame over 2 months ago for which she was seen at the urgent care at that time and his wound was dressed. He states he had been changing it daily but recently he changes it every 2 to 3 days. He states that the past several days he noticed that there is more swelling and redness around the wound, swelling around his wrist and then green discharge coming from inside the scab of the wound. He denies any fever. He denies any new injury. Related Data Home Medications Medication Instructions Recorded Confirmed cholecalciferol (vitamin D3) 400 unit PO DAILY 05/29/13 10/20/20 [Vitamin D3] multivitamin [Daily Vitamin] 1 ea PO DAILY 05/29/13 10/20/20 atorvastatin 40 mg PO DAILY tab-cap 04/20/16 10/20/20 Eliquis See Rx Instructions .ROUTE 09/11/18 10/20/20 .COMPLEX #70 tab tamsulosin 0.4 mg capsule 0.4 mg PO DAILY 10/10/20 10/20/20 clindamycin HCl 450 mg PO TID 7 Days #63 cap 10/20/20 Previous Rx's Medication Instructions Recorded Eliquis See Rx Instructions .ROUTE 09/11/18 .COMPLEX #70 tab clindamycin HCl 450 mg PO TID 7 Days #63 cap 10/20/20 Allergies Allergy/AdvReac Type Severity Reaction Status Date / Time No Known Allergies Allergy Unverified 10/20/20 17:33 General Stated Complaint: Cellulitis ELY: 3 Review of Systems All systems reviewed & are unremarkable except as noted in HPI and below Constitutional Constitutional: Reports as per HPI, Denies chills and Denies fever(s) Eyes Eyes: Denies blurry vision ENT Ears, Nose, Mouth, and Throat: Denies dizziness, Denies sore throat and Denies throat swelling Cardiovascular Cardiovascular: Denies chest pain and Denies dyspnea Respiratory Respiratory: Denies cough and Denies dyspnea Gastrointestinal Gastrointestinal: Denies abdominal pain, Denies diarrhea and Denies vomiting Genitourinary Genitourinary: Denies hematuria and Denies dysuria Musculoskeletal Musculoskeletal: Denies back pain and Denies numbness Integumentary/Breasts Skin/Breast: Reports lesions and Denies rash Neurologic Neurologic: Denies dizziness, Denies localized weakness and Denies numbness Allergic/Immunologic Allergic/Immunologic: Denies throat swelling [facility] Medical History (Updated 10/20/20 @ 17:50 by Karina Bass DO) Compartment syndrome Deep venous thrombosis DIVERTICULOSIS Gout Hyperlipidemia Melanosis coli Peripheral venous insufficiency LEFT LEG Polyp of colon TUBULAR ADENOMA [id number] ADENOMA Psoriasis STROKE EMBOLIC Surgical History BACK OPERATION (~04/2008) Colonoscopy - IV Sedation (06/10/10) [id number] ADENOMA 06/18/16 no pathological features from ascending colon polyp Colonoscopy - IV Sedation (06/18/16) [id number] ADENOMA 06/18/16 no pathological features from ascending colon polyp Family History Mother Dementia Father Alzheimer's disease Sister Alzheimer's disease Parkinson's disease Social History Smoking/Tobacco Use Status: Former Tobacco Use Smoking risk assessment performed?: Yes Alcohol Intake: current Alcohol Intake frequency: a few times a month Alcohol type: beer Drug use: Never Substance use type: does not use Details: quit smoking 30 yrs ago Do you feel safe in your relationship?: Yes Exam Const General: cooperative and no acute distress HENMT Head: normal to inspection Mouth: oral mucosae normal Eyes General: appearance normal, both eyes and all related structures Neck Neck: normal visual inspection Resp Effort & Inspection: normal respiratory effort and able to speak in complete sentences Cardio Rate: regular rate Skin General skin exam: no rashes or lesions noted Neuro General: patient alert, patient awake and patient oriented x3 Motor: muscle tone normal throughout Extrem Elbow/forearm/wrist images: 1. Green brown crust 2. Erythema 3. Nonpitting edema of L wrist Other: Left radial and ulnar pulses intact. Psych Appearance: grossly normal Affect: normal affect Course Vital Signs Vital signs: Vital Signs Temperature 98.1 F 10/20/20 17:26 Pulse 69 10/20/20 17:26 Respiratory Rate 18 10/20/20 17:26 Blood Pressure 127/72 10/20/20 17:26 Pulse Oximetry 96 10/20/20 17:26 Temperature 98.1 F 10/20/20 17:26 Temperature Source Oral 10/20/20 17:26 Pulse 69 10/20/20 17:26 Respiratory Rate 18 10/20/20 17:26 Respiratory Effort 10/20/20 17:35 Blood Pressure 127/72 10/20/20 17:26 Blood Pressure Position Sitting 10/20/20 17:26 Pulse Oximetry 96 10/20/20 17:26 Oxygen Delivery Method Room Air 10/20/20 17:26 Oxygen Flow Rate 0 10/20/20 17:26 Pain Level 0 10/20/20 17:26
[2020-10-20] MEDS: Clindamycin 150 MG CAP 450 MG PO (18:07)
== END 2020-10-20 18:23 | disposition home or self-care (01) ==
PROVIDERS: Emergency Provider Physician Assistant; PCP Family Medicine
DX: L03.114 Cellulitis of left upper limb (principal); S51.812A Laceration without foreign body of left forearm, initial encounter; W01.190A Fall on same level from slipping, tripping and stumbling with subsequent striking against furniture, initial encounter
CPT/HCPCS: 90471; 99284; 99283

== ENCOUNTER 2021-01-03 09:47 | Inpatient (IN) | payer MEDICARE, OTHER, SELFPAY ==
[2021-01-03] VITALS (17 sets, daily range): BP systolic 97–116; BP diastolic 40–61; PULSE 59–75; RESP 10–26; TEMP 36.5–36.6; O2SAT 95–99
--- NOTE | 2021-01-03 | DI.RAD_ITS ---
Exam(s) XR HIP PELVIS ADULT BL EXAM: XR HIP PELVIS ADULT BL CLINICAL HISTORY: trauma, fall injury pain. TECHNIQUE: 2D digital imaging was performed. COMPARISON: No exams were available for comparison FINDINGS: There is no evidence of pelvic or hip fractures. Sacroiliac joints appear unremarkable. Degenerativ e disc disease in the lower lumbar spine noted. IMPRESSION: No fracture evident. DATA REPOSITORY: RADIATION DOSE DELIVERED:
--- NOTE | 2021-01-03 09:45 | RT.EKG_ITS ---
APPROVED REPORT Exam: Resting ECG Reason for Exam: generalized weakness Patient Location: E HR:62 bpm ECG Measurements Heart Rate 62 AXIS VT 339 P -85 QRSd 89 QRS 76 QT 413 T 84 QTc 420 Conclusion Sinus or ectopic atrial rhythm...P axis (-45,135) Prolonged VT interval...VT >220, V-rate 50- 90 Nonspecific T abnormalities, lateral leads...T <-0.10mV, I aVL V5 V6 Physician: No stemi, no significant st elevation or depression
--- NOTE | 2021-01-03 09:45 | DI.RAD_ITS ---
Exam(s) XR CHEST 2V PA LATERAL EXAM: XR CHEST 2V PA LATERAL CLINICAL HISTORY: weakness. TECHNIQUE: 2D digital imaging was performed. COMPARISON: No exams were available for comparison FINDINGS: Heart size is normal. The mediastinum is not widened. No infiltrates nor pleural effusions. No pulmonary edema. On the lateral view there is a nodule noted anteriorly behind the sternum, measuring approximately 7- 8 millimeters. Probably a granuloma. Not evident on the frontal view. IMPRESSION: 7-8 millimeter retrosternal lung nodule, probably a granuloma.No infiltrates nor pleural effusions. DATA REPOSITORY: RADIATION DOSE DELIVERED:
--- NOTE | 2021-01-03 09:45 | RT.EKG_ITS ---
APPROVED REPORT Exam: Resting ECG Reason for Exam: weakness Patient Location: E HR:67 bpm ECG Measurements Heart Rate 67 AXIS ME 337 P -45 QRSd 88 QRS 74 QT 377 T 82 QTc 399 Conclusion Sinus or ectopic atrial rhythm...P axis (-45,135) Prolonged ME interval...ME >220, V-rate 50- 90 No stemi
--- NOTE | 2021-01-03 09:45 | DI.CT_ITS ---
Exam(s) CT HEAD WO EXAM: CT HEAD WO CLINICAL HISTORY: multiple falls. TECHNIQUE: Imaging Protocol: Axial computed tomography images with coronal and sagittal reformatted images were created and reviewed COMPARISON: No exams were available for comparison FINDINGS: There are no skull fractures nor fluid in the visualized paranasal sinuses. Some mucosal thickening is noted in the left sphenoid sinus. There is no evidence of intracranial hemorrhage, mass effect, or shift of midline structures. There are no extra-axial fluid collections. The ventricles are not enlarged or shifted and there is no blo od within the ventricular system nor within the basal cisterns. Periventricular hypodensity consistent with chronic small vessel disease noted. No evidence of obvio us acute infarct. Calcification in the vertebral arteries at the skull base noted as well as within the intracavernous internal carotid arteries. IMPRESSION: No acute intracranial findings on this noninfused CT scan of the brain. Chronic small-vessel white matter ischemic changes. No obvious acute infarct. No evidence of intrac ranial hemorrhage. RADIATION DOSE DELIVERED: 703.79mGy.cm Total DLP DATA REPOSITORY: All CT scans at this facility are submitted to the National Radiology Data Registry (NRDR) Dose Index Registry (DIR) with the [employer] ([employer]). RADIATION OPTIMIZATION: All CT scans at this facility use at least one of these dose optimization te chniques: automated exposure control; mA and/or kV adjustment per patient size (includes targeted exa ms where dose is matched to clinical indication); or iterative reconstruction.
--- NOTE | 2021-01-03 09:55 | ED.GENADUL_ITS ---
Discharge Plan Disposition Patient Disposition: [facility] INPATIENT Condition: Stable Discharge Details Chief Complaint: GenMedical Clinical Impression: COVID, Falls, Rhabdomyolysis, Weakness Admit Date/Time: 01/03/21 11:38 Admit Provider: Sergio Garcia Attending Provider: Sergio Garcia Primary Care Provider: Jessa Cool ED Provider: Mary Khoury Discharge Instructions Activity:: Activity as Tolerated Equipment/Supplies:: No Equipment Needed Diet:: As Tolerated Discharge Orders Discharge Orders: Discharge Order (Routine); Ordered 01/08/21 Ordered By: Yvonne Fernandez Discharge Data Discharge Date/Time-TO BE ENTERED AT DEPARTURE: 01/03/21 16:37 Medical Decision Making <PASCUAL Huntley - Last Filed: 01/10/21 20:45> Patient is a pleasant 80-year-old gentleman presenting today with chief complaint of weakness. Reports over the past several days he has been developing progressively worsening generalized weakness. Is not noted any focal deficits. No headache. States that he fell twice during a light last night had difficulty getting up. Was able to crawl to a chair to assist himself up last night. However, he was found down by a neighbor who sees him daily this morning who contacted EMS. He denies striking his head. Denies any loss of consciousness. He remembers the fall but is not able to say why he fell. Patient lives in an air conditioned home and has not had any fluid intake in the past several days. Denies any chest pain or shortness of breath. Past medical history pertinent for DVT, hyperlipidemia, peripheral venous insufficiency, CVA. Patient is anticoagulated on Eliquis, unknown he last took this. Initial exam, patient alert and oriented. Not appreciate any immediate neurologic deficit. Patient is covered in feces and states that he suffered incontinence after his fall this morning. Labs reviewed. No leukocytosis. Hemoglobin 12.4 which is baseline for the patient. Lactate within normal limits. Sodium slightly low at 132. Mag is low at 1.7. AST and ALT are both slightly elevated at 90 and 70 respectively which is new for the patient. He does have an elevated CK of 3387. Troponin within normal limits. Primarily concern for rhabdomyolysis at this time. UA is pending. FINDINGS: Brain: Singh-white matter differentiation is normal. There is no mass effect or midline shift. There is no intra-axial hemorrhage. There are mild nonspecific patchy foci of periventricular and subcortical white matter hypodensities, probably due to chronic microvascular ischemic changes.. There is parenchymal volume loss with compensatory dilatation of ventricles, sulci and basilar cisterns. There is no extra-axial fluid collection. Cerebral ventricles: No ventriculomegaly. Paranasal sinuses: Visualized sinuses are unremarkable. No fluid levels. Mastoid air cells: Visualized mastoid air cells are well aerated. Bones/joints: No acute fracture. Soft tissues: Unremarkable. IMPRESSION: No acute intracranial abnormality. Consult with hospitalist regarding admission for rhabdomyolysis. Patient will need continued hydration as well as likely physical therapy evaluation. UA is still pending. He agrees to admission. Patient agrees to this as well. I did discuss CODE STATUS with the patient he would like to be a DNR/DNI. At the time of admission, routine COVID-19 testing was performed and found to be positive. Patient has had no symptoms. Fully vaccinated. Updated hospitalist on this. <John Malhotra DO - Last Filed: 01/03/21 19:08> Patient was seen and assessed in conjunction with Mary Gaffney. Please refer to her physical exam HPI assessment and plan. The patient presented demonstrating weakness, with both an acute and chronic component. Differential and concern is for potential stroke versus other atypical neurologic abnormality. CT scan shows no acute process. [facility] neurology at this time recommends holding off on TPA. Patient will be admitted for further management. I independently performed a history and physical examination of the patient and discussed the management with the midlevel provider. I agree with the current plan of management at the time of signing. HPI <PASCUAL Huntley - Last Filed: 01/10/21 20:45> General Mode of arrival: EMS . Date/Time Provider Initiated Documentation: 01/03/21 09:51 . Limitations to Documentation: no limitations . Information obtained by: patient, EMS and RN notes reviewed . History of Present Illness 80 year old M presents to the emergency department with the chief complaint of fall, weakness, described as moderate, with intensity rated at 1 (patient denies any pain at this time). Quality is described as other (generalized weakness), Patient started experiencing this day(s) No relieving factors improve symptom(s), No exacerbating factors reported . Patient notes weakness; denies confusion, chest pain, fever/chills, headaches, malaise, nausea/vomiting, rash, shortness of breath and syncope. Patient did receive the following treatments prior to arrival, none Related Data Home Medications Medication Instructions Recorded Confirmed cholecalciferol (vitamin D3) 2,000 unit PO DAILY 05/29/13 01/08/21 [Vitamin D3] multivitamin [Daily Vitamin] 1 ea PO DAILY 05/29/13 01/08/21 atorvastatin 40 mg PO DAILY tab-cap 04/20/16 01/08/21 Eliquis See Rx Instructions .ROUTE 09/11/18 01/08/21 .COMPLEX #70 tab tamsulosin 0.4 mg capsule 0.4 mg PO DAILY 10/10/20 01/08/21 acetaminophen 650 mg PO Q4H PRN 01/08/21 01/08/21 ascorbic acid (vitamin C) 1 g PO BID 01/08/21 01/08/21 docusate sodium [Colace] 100 mg PO TID PRN 01/08/21 01/08/21 magnesium 400 mg PO HS PRN 01/08/21 01/08/21 melatonin 6 mg PO HS PRN 01/08/21 01/08/21 zinc sulfate 220 mg PO QAM 01/08/21 01/08/21 Previous Rx's Medication Instructions Recorded Eliquis See Rx Instructions .ROUTE 09/11/18 .COMPLEX #70 tab Allergies Allergy/AdvReac Type Severity Reaction Status Date / Time No Known Allergies Allergy Unverified 10/20/20 17:33 General ELY: 3 Review of Systems <PASCUAL Huntley - Last Filed: 01/10/21 20:45> Constitutional Constitutional: Reports as per HPI, Denies chills, Denies fever(s), Denies headache(s) and Reports lethargy Eyes Eyes: Denies change in vision ENT Ears, Nose, Mouth, and Throat: Denies dizziness and Denies headache(s) Cardiovascular Cardiovascular: Reports as per HPI, Denies dyspnea and Denies dyspnea on exertion Respiratory Respiratory: Reports as per HPI, Denies chest congestion, Denies cough, Denies pain on inspiration, Denies pain with cough, Denies dyspnea and Denies dyspnea on exertion Gastrointestinal Gastrointestinal: Reports as per HPI, Denies abdominal pain, Denies diarrhea, De nies nausea and Denies vomiting Genitourinary Genitourinary: Denies system reviewed and no additional complaints, except as documented (denies change in urinary habits) Musculoskeletal Musculoskeletal: Reports as per HPI and Denies back pain Integumentary/Breasts Skin/Breast: Reports as per HPI, Denies rash, Denies skin swelling, Denies skin ulcer and Reports sores (breakdown on areas from pressure) Neurologic Neurologic: Reports as per HPI, Denies dizziness and Denies headache(s) PFSH <PASCUAL Huntley - Last Filed: 01/10/21 20:45> Medical History (Updated 01/10/21 @ 20:45 by PASCUAL Huntley) Compartment syndrome Deep venous thrombosis DIVERTICULOSIS Gout Hyperlipidemia Melanosis coli Peripheral venous insufficiency LEFT LEG Polyp of colon TUBULAR ADENOMA [id number] ADENOMA Psoriasis STROKE EMBOLIC Surgical History BACK OPERATION (~04/2008) Colonoscopy - IV Sedation (06/10/10) [id number] ADENOMA 06/18/16 no pathological features from ascending colon polyp Colonoscopy - IV Sedation (06/18/16) [id number] ADENOMA 06/18/16 no pathological features from ascending colon polyp Family History Mother Dementia Father Alzheimer's disease Sister Alzheimer's disease Parkinson's disease Social History Smoking/Tobacco Use Status: Former Tobacco Use Smoking risk assessment performed?: Yes Alcohol Intake: current Alcohol Intake frequency: a few times a month Alcohol type: beer Drug use: Never Substance use type: does not use Details: quit smoking 30 yrs ago Do you feel safe at home: Yes Do you feel safe in your relationship?: Yes Exam <PASCUAL Huntley - Last Filed: 01/10/21 20:45> Const General: cooperative, comfortable, no acute distress, well developed and ill appearing acutely Nutritional Appearance: average body habitus and well nourished Orientation: alert, awake and oriented x3 HENMT Head: normal to inspection, no palpable skull fracture, normocephalic and atraumatic Ears: hearing grossly normal bilaterally, external ears normal and TM's normal bilaterally Face and sinus: normal facial exam Mouth: mucous membranes dry (patient appears dry) Eyes General: appearance normal, both eyes and all related structures Neck Neck: normal visual inspection, full ROM and no meningeal signs Chest Chest: normal inspection of the chest, normal palpation of entire chest wall and no crepitus Resp Effort & Inspection: normal respiratory effort, able to speak in complete sentences and no respiratory distress Auscultation: clear to auscultation bilaterally, no rales, no rhonchi and no wheezes Cardio Rate: regular rate Rhythm: regular rhythm Heart Sounds: S1 normal and S2 normal GI Inspection: normal to inspection, no edema and non-distended Palpation: soft, no hepatosplenomegaly, not firm, no guarding, not rigid and nontender Auscultation: normal bowel sounds Back/Spine/Pelvis Thoracic/Lumbar Spine: thoracic and lumbar spine normal to inspection Skin General skin exam: erythema (small areas of pressure erythema ankle, knee, elbow) Neuro General: patient alert, patient awake and patient oriented x3 Cognition: normal cognition Speech: speech normal Motor: muscle tone normal throughout, no pronator drift, no movement abnormalities noted and no fasciculations Sensory Exam: no sensory deficits noted Extrem General: normal to inspection, capillary refill normal, no pedal edema, no calf tenderness and normal gait Psych Appearance: grossly normal and well kempt Mental Status: mental status grossly normal Speech and Movement: speech and movement normal
[2021-01-03] MEDS: Normal Saline 1,000 ML 1000 ML IV (10:33)
[2021-01-03 10:41] LABS: HCT 36.8 % (40.0-50.0); HGB 12.4 g/dL (13.5-17.5); MCH 30.1 pg (27.0-33.0); MCHC 33.7 % (32.0-36.0); MCV 89.3 fL (80-95); Nucleated RBC 0 %; RBC 4.12 10^6/uL (4.36-5.78); RDW 15.9 % (11.8-14.1); RDW-SD 51.8 fL; WBC 5.27 10^3/uL (4.4-10.8)
[2021-01-03 10:52] LABS: INR 1.3 (0.9-1.1); PTT Activated 32.8 sec (21.0-27.5); Prothrombin Time 12.7 sec (9.3-11.0)
[2021-01-03 10:54] LABS: ALT 70 U/L (16-63); AST 90 U/L (15-37); Albumin 3.7 g/dL (3.4-5.0); Alkaline Phosphatase 71 U/L (46-116); Anion Gap 5.5 mmol/L (3-11); BUN 23 mg/dL (7-18); Bilirubin, Total 1.2 mg/dL (0.2-1.0); CO2 25.5 mmol/L (21.0-32.0); CREATININE 1.3 mg/dL (0.70-1.30); Calcium 8.4 mg/dL (8.5-10.1); Chloride 101 mmol/L (98-107); Estimated GFR 53.39 (mL/min/1.73m2); Glucose 90 mg/dL (74-106); Magnesium 1.7 mg/dL (1.8-2.4); Potassium 4.1 mmol/L (3.5-5.1); Sodium 132 mmol/L (136-145); Total Protein 7.5 g/dL (6.4-8.2); Troponin I < 0.05 ng/mL (<0.06)
[2021-01-03 11:01] LABS: Absolute Eosinophil Count 0.11 10^3/uL (0.0-0.7); Absolute Lymphocyte Count 0.69 10^3/uL (1.2-3.4); Absolute Monocyte Count 1.11 10^3/uL (0.1-0.8); Absolute Neutrophil Count 3.37 10^3/uL (1.2-6.7); Bands % 5; Platelet Count 254 10^3/uL (130-400); TSH (W/Ref FT4) 1.75 uIU/mL (0.36-3.74)
[2021-01-03 11:02] LABS: Creatine Kinase 2287 U/L (39-308); Diff Comment Manual Differential
[2021-01-03 11:03] LABS: Poikilocytes 1+
--- NOTE | 2021-01-03 11:07 | DI.VRAD_ITS ---
PROCEDURE INFORMATION: Exam: CT Head Without Contrast Exam date and time: 01/03/2021 9:55 AM Age: 80 years old Clinical indication: Injury or trauma; Fall; Blunt trauma (contusions or hematomas); Consciousness not specified TECHNIQUE: Imaging protocol: Computed tomography of the head without contrast. COMPARISON: No relevant prior studies available. FINDINGS: Brain: Singh-white matter differentiation is normal. There is no mass effect or midline shift. There is no intra-axial hemorrhage. There are mild nonspecific patchy foci of periventricular and subcortical white matter hypodensities, probably due to chronic microvascular ischemic changes.. There is parenchymal volume loss with compensatory dilatation of ventricles, sulci and basilar cisterns. There is no extra-axial fluid collection. Cerebral ventricles: No ventriculomegaly. Paranasal sinuses: Visualized sinuses are unremarkable. No fluid levels. Mastoid air cells: Visualized mastoid air cells are well aerated. Bones/joints: No acute fracture. Soft tissues: Unremarkable. IMPRESSION: No acute intracranial abnormality. Dictated and Authenticated by: Herimnio Lockwood MD. Ordering:MADI Hernandez MD
[2021-01-03 11:45] LABS: Source Nasal/Nares
--- NOTE | 2021-01-03 11:49 | DI.VRAD_ITS ---
PROCEDURE INFORMATION: Exam: XR Chest Exam date and time: 01/03/2021 9:55 AM Age: 80 years old Clinical indication: Other: Weakness TECHNIQUE: Imaging protocol: XR of the chest. Views: 2 views. COMPARISON: No relevant prior studies available. FINDINGS: Lungs: Lungs are hyperinflated . No focal consolidation. Pleural spaces: No pleural effusion. No pneumothorax. Heart/Mediastinum: No cardiomegaly. Bones/joints: No acute osseous abnormality. IMPRESSION: No acute pulmonary process. Dictated and Authenticated by: Herminio Lockwood MD. Ordering:MADI Hernandez MD
--- NOTE | 2021-01-03 12:31 | HPE_ITS ---
Date of service: 01/03/21 Time of Service: 12:33 Assessment and Plan Assessment and plan (1) Ambulatory dysfunction: Status: Acute Assessment and plan: generalized weakness, most likely d/t viral infection PT/OT fall precautions (2) COVID: Status: Acute Assessment and plan: no respiratory symptoms fully vaccinated will give monoclonal antibodies (3) Urinary retention: Status: Acute Assessment and plan: place christian catheter increase tamsulosin (4) Rhabdomyolysis: Status: Acute Assessment and plan: IV hydration follow kidney functions closely avoid nephrotoxic medication follow CPK with fluid bolus as needed. (5) Fall: Status: Acute Assessment and plan: from weakness likely d/t viral infection some skin areas to monitor- right shoulder, left medial malleolous. no obvious deformity or injury but c/o bilateral shoulder and hip pain. shoulder with full range of motion, will image hips and pelvis. apap as needed for pain. (6) DVT prophylaxis: Status: Acute Assessment and plan: fully anticoagulated on apixaban (7) Discharge planning issues: Status: Acute Assessment and plan: could benefit from life line case management following for discharge planning will likely discharge to home with home health services. discussed with DR Garcia History of Present Illness History of Present Illness Chief Complaint: fall injury Narrative: This is a 80 year old male who lives independant who reports he was in his usual state of health and a few days ago developed progressive weakness to the point he was finding it difficult to ambulate and was having falls at home. He denies any unilateral weakness, headache, dizziness or syncope. he denies injury on his falls and states there was no LOC or head injury. On his last fall he was unable to get up and stayed on the floor until his neighbor who checks in on him daily arrived. He states he was down for hours. His work up in the ED shows cpk at 2200, slightly elevated transaminitis, and negative imaging. He was given IV fluid bolus and hospitalist services was called to admit him for ambulatory dysfunction, rhabdomyolysis. On routine covid screening for admission found to be positive. He was asymptomatic from a respiratory standpoint. Review of Systems All systems reviewed & are unremarkable except as noted in HPI and below Constitutional Constitutional: Denies fever(s), Reports frequent falls, Reports lethargy and Reports weakness Cardiovascular Cardiovascular: Denies chest pain, Denies syncope, Denies rapid heart rate and Denies dyspnea Respiratory Respiratory: Denies cough and Denies dyspnea Gastrointestinal Gastrointestinal: Denies abdominal pain and Denies change in stool character Genitourinary Genitourinary: Reports difficulty urinating Musculoskeletal Musculoskeletal: Reports myalgias, Reports arthralgias (bilateral shoulder and hips) and Reports muscle weakness Integumentary/Breasts Skin/Breast: Reports sores (pressure to right shoulder and medial left ankle) Neurologic Neurologic: Denies syncope, Reports frequent falls and Reports weakness [facility] Medical History (Updated 01/03/21 @ 16:30 by Yvonne Fernandez NP) Compartment syndrome Deep venous thrombosis DIVERTICULOSIS Gout Hyperlipidemia Melanosis coli Peripheral venous insufficiency LEFT LEG Polyp of colon TUBULAR ADENOMA [id number] ADENOMA Psoriasis STROKE EMBOLIC Surgical History BACK OPERATION (~04/2008) Colonoscopy - IV Sedation (06/10/10) [id number] ADENOMA 06/18/16 no pathological features from ascending colon polyp Colonoscopy - IV Sedation (06/18/16) [id number] ADENOMA 06/18/16 no pathological features from ascending colon polyp Family History Mother Dementia Father Alzheimer's disease Sister Alzheimer's disease Parkinson's disease Social History Smoking/Tobacco Use Status: Former Tobacco Use Smoking risk assessment performed?: Yes Alcohol Intake: current Alcohol Intake frequency: a few times a month Alcohol type: beer Drug use: Never Substance use type: does not use Details: quit smoking 30 yrs ago Do you feel safe in your relationship?: Yes Meds Allergies and Home Medications Allergies Allergy/AdvReac Type Severity Reaction Status Date / Time No Known Allergies Allergy Unverified 10/20/20 17:33 Home Medications Medication Instructions Recorded Confirmed Type cholecalciferol (vitamin D3) 400 unit PO DAILY 05/29/13 01/03/21 History [Vitamin D3] multivitamin [Daily Vitamin] 1 ea PO DAILY 05/29/13 01/03/21 History atorvastatin 40 mg PO DAILY tab-cap 04/20/16 01/03/21 History Eliquis See Rx Instructions .ROUTE 04/29/19 08/21/21 Rx .COMPLEX #70 tab tamsulosin 0.4 mg capsule 0.4 mg PO DAILY 10/10/20 01/03/21 History Exam Const General: cooperative, comfortable and frail appearing Nutritional Appearance: thin Orientation: alert, awake and oriented x3 HENMT Head: normal to inspection, normocephalic and atraumatic Mouth: oral mucosae normal Chest Chest: normal inspection of the chest Resp Effort & Inspection: normal respiratory effort Auscultation: clear to auscultation bilaterally Cardio Rate: regular rate Rhythm: regular rhythm GI Inspection: normal to inspection Palpation: soft Auscultation: normal bowel sounds Skin Lesions: lesion noted (right shoulder and left ankle) Neuro General: patient alert, patient awake and patient oriented x3 Cognition: normal cognition Speech: speech normal Motor: muscle tone normal throughout Extrem General: normal to inspection and full ROM Results Labs Result diagrams: 01/04/21 07:24 01/04/21 07:24 Labs: Laboratory Results - last 24 hr 01/03/21 01/03/21 01/03/21 10:30 10:30 10:30 WBC RBC Hgb Hct MCV MCH MCHC RDW Plt Count MPV Immature Gran % Neutrophils % Band Neutrophils % Lymphocytes % Monocytes % Eosinophils % Basophils % Nucleated RBC % Absolute Neutrophils Absolute Lymphocytes Absolute Monocytes Absolute Eosinophils Absolute Basophils RBC Morphology Poikilocytosis PT 12.7 H INR 1.3 H APTT 32.8 H VBG Lactate 1.0 Sodium Potassium Chloride Carbon Dioxide Anion Gap BUN Creatinine Estimated GFR/1.73 m2 Glucose Calcium Magnesium Total Bilirubin AST ALT Alkaline Phosphatase Creatine Kinase 2287 H Troponin I Total Protein Albumin TSH 1.75 COVID-19 Source 01/03/21 01/03/21 01/03/21 10:30 10:30 11:40 WBC 5.27 RBC 4.12 L Hgb 12.4 L Hct 36.8 L MCV 89.3 MCH 30.1 MCHC 33.7 RDW 15.9 H Plt Count 254 MPV 13.0 H Immature Gran % 0.0 Neutrophils % 59.0 Band Neutrophils % 5 Lymphocytes % 13.0 Monocytes % 21.0 Eosinophils % 2.0 Basophils % 0.0 Nucleated RBC % 0 Absolute Neutrophils 3.37 Absolute Lymphocytes 0.69 L Absolute Monocytes 1.11 H Absolute Eosinophils 0.11 Absolute Basophils 0.00 RBC Morphology See Below Poikilocytosis 1+ PT INR APTT VBG Lactate Sodium 132 L Potassium 4.1 Chloride 101 Carbon Dioxide 25.5 Anion Gap 5.5 BUN 23 H Creatinine 1.3 Estimated GFR/1.73 m2 53.39 Glucose 90 Calcium 8.4 L Magnesium 1.7 L Total Bilirubin 1.2 H AST 90 H ALT 70 H Alkaline Phosphatase 71 Creatine Kinase Troponin I < 0.05 Total Protein 7.5 Albumin 3.7 TSH COVID-19 Source Nasal/Nares Last Vital Signs Temp 36.6 C 01/03/21 10:01 Pulse 63 01/03/21 11:16 Resp 12 01/03/21 11:20 BP 97/45 L 01/03/21 11:16 Pulse Ox 99 01/03/21 11:20
[2021-01-03 12:39] LABS: COVID-19 PCR POSITIVE (Negative)
[2021-01-03 13:37] LABS: Troponin I < 0.05 ng/mL (<0.06)
[2021-01-03 17:25] LABS: Creatine Kinase 7986 U/L (39-308)
[2021-01-03 17:30] LABS: Bilirubin Negative (Negative); Blood Large (Negative); Clarity Clear (Clear); Glucose Negative (Negative); Ketones 15 mg/dL (Negative); Leukocyte Esterase Negative (Negative); Nitrite Negative (Negative); Urobilinogen 0.2 EU/dL (Up TO 0.2); pH 5.5 (5-8)
[2021-01-03 17:52] LABS: Bacteria Negative HPF (Negative); C & S Indicated? No; Casts 0-2 Hyaline LPF (Negative); Crystals Negative HPF (Negative); Epithelial Cells Negative HPF (Negative); Mucus Trace (Negative); WBC Negative HPF (0-5)
[2021-01-03] MEDS: Lidocaine 2% Jelly 11 ML SYR UR (18:41)
[2021-01-03] MEDS: Lactated Ringers 500 ML IV (18:42)
[2021-01-03] MEDS: Normal Saline 500 ML 50 ML IV (18:51)
[2021-01-03] MEDS: Normal Saline Flush 10 ML SYR IVP (19:36)
[2021-01-03] MEDS: Apixaban 5 MG TAB PO (20:20)
[2021-01-03] MEDS: Atorvastatin 40 MG TAB PO (20:20)
[2021-01-03] MEDS: Acetaminophen 325 MG TAB 650 MG PO (20:21)
[2021-01-03] MEDS: Lactated Ringers 1,000 ML 125 ML IV (22:50)
[2021-01-04 01:00] VITALS: BP 98/52; PULSE 55; RESP 12; TEMP 36.6; O2SAT 99
[2021-01-04 06:31] VITALS: BP 110/47; PULSE 57; TEMP 37; O2SAT 100
[2021-01-04] MEDS: Lactated Ringers 1,000 ML 125 ML IV ×3 (06:33→21:20)
[2021-01-04 07:35] LABS: Abs Immature Grans 0.03 10^3/uL (0.0-0.06); HCT 34.2 % (40.0-50.0); HGB 11.6 g/dL (13.5-17.5); MCH 30.8 pg (27.0-33.0); MCHC 33.9 % (32.0-36.0); MCV 90.7 fL (80-95); MPV 12.2 fL (8.0-11.0); Nucleated RBC 0 %; RBC 3.77 10^6/uL (4.36-5.78); RDW 15.9 % (11.8-14.1); RDW-SD 53.2 fL; WBC 5.06 10^3/uL (4.4-10.8)
[2021-01-04] MEDS: Apixaban 5 MG TAB PO ×2 (07:49→20:40)
[2021-01-04] MEDS: Acetaminophen 325 MG TAB 650 MG PO (07:49)
[2021-01-04] MEDS: Multivitamin TAB 1 TAB PO (07:49)
[2021-01-04] MEDS: Cholecalciferol (Vitamin D3) 400 UNIT TAB PO (07:50)
[2021-01-04] MEDS: Tamsulosin 0.4 MG CAPCR 0.8 MG PO (07:50)
[2021-01-04 08:07] LABS: Absolute Basophil Count 0.05 10^3/uL (0.0-0.2); Absolute Lymphocyte Count 1.11 10^3/uL (1.2-3.4); Absolute Monocyte Count 1.47 10^3/uL (0.1-0.8); Absolute Neutrophil Count 2.33 10^3/uL (1.2-6.7); Bands % 1; Diff Comment Manual Differential; Platelet Count 210 10^3/uL (130-400)
[2021-01-04 08:08] LABS: Poikilocytes 1+
[2021-01-04 08:20] LABS: ALT 110 U/L (16-63); AST 318 U/L (15-37); Albumin 3.1 g/dL (3.4-5.0); Alkaline Phosphatase 59 U/L (46-116); Anion Gap 7.3 mmol/L (3-11); BUN 17 mg/dL (7-18); Bilirubin, Total 0.9 mg/dL (0.2-1.0); CO2 25.7 mmol/L (21.0-32.0); Calcium 8.1 mg/dL (8.5-10.1); Chloride 106 mmol/L (98-107); Glucose 85 mg/dL (74-106); Potassium 4.6 mmol/L (3.5-5.1); Sodium 139 mmol/L (136-145); Total Protein 6.2 g/dL (6.4-8.2)
[2021-01-04 08:38] LABS: Creatine Kinase 7597 U/L (39-308)
--- NOTE | 2021-01-04 11:44 | PGE_ITS ---
Date of Service Date of service: 01/04/21 Time of Service: 11:44 Assessment and Plan Assessment and plan (1) Ambulatory dysfunction: Status: Acute Assessment and plan: generalized weakness, most likely d/t viral infection PT/OT fall precautions (2) COVID: Status: Acute Assessment and plan: no respiratory symptoms fully vaccinated will give monoclonal antibodies (3) Urinary retention: Status: Acute Assessment and plan: place christian catheter increase tamsulosin (4) Rhabdomyolysis: Status: Acute Assessment and plan: IV hydration follow kidney functions closely avoid nephrotoxic medication follow CPK with fluid bolus as needed. (5) Fall: Status: Acute Assessment and plan: from weakness likely d/t viral infection some skin areas to monitor- right shoulder, left medial malleolous. no obvious deformity or injury but c/o bilateral shoulder and hip pain. shoulder with full range of motion, will image hips and pelvis. apap as needed for pain. (6) DVT prophylaxis: Status: Acute Assessment and plan: fully anticoagulated on apixaban (7) Discharge planning issues: Status: Acute Assessment and plan: could benefit from life line case management following for discharge planning will likely discharge to home with home health services. discussed with DR Garcia Subjective Subjective Patient reports: no new complaints and afebrile Interval history since last seen: christian was placed for urinary retention Exam Const General: cooperative, comfortable and frail appearing Nutritional Appearance: thin Orientation: alert, awake and oriented x3 HENMT Head: normal to inspection, normocephalic and atraumatic Mouth: oral mucosae normal Chest Chest: normal inspection of the chest Resp Effort & Inspection: normal respiratory effort Auscultation: clear to auscultation bilaterally Cardio Rate: regular rate Rhythm: regular rhythm GI Inspection: normal to inspection Palpation: soft Auscultation: normal bowel sounds Skin Lesions: lesion noted (right shoulder and left ankle) Neuro General: patient alert, patient awake and patient oriented x3 Cognition: normal cognition Speech: speech normal Motor: muscle tone normal throughout Extrem General: normal to inspection and full ROM Objective Last Vital Signs Temp 37.0 C 01/04/21 06:31 Pulse 57 L 01/04/21 06:31 Resp 12 01/04/21 01:00 BP 110/47 L 01/04/21 06:31 Pulse Ox 100 01/04/21 06:31 Laboratory Results - last 24 hr 01/03/21 01/03/21 01/03/21 11:40 13:05 16:05 WBC RBC Hgb Hct MCV MCH MCHC RDW Plt Count MPV Immature Gran % Neutrophils % Band Neutrophils % Lymphocytes % Monocytes % Eosinophils % Basophils % Nucleated RBC % Absolute Neutrophils Absolute Lymphocytes Absolute Monocytes Absolute Eosinophils Absolute Basophils RBC Morphology Poikilocytosis Sodium Potassium Chloride Carbon Dioxide Anion Gap BUN Creatinine Estimated GFR/1.73 m2 Glucose Calcium Total Bilirubin AST ALT Alkaline Phosphatase Creatine Kinase 7986 H Troponin I < 0.05 Total Protein Albumin Urine Color Urine Clarity Urine pH Ur Specific [place] Urine Protein Urine Ketones Urine Blood Urine Nitrite Urine Bilirubin Urine Urobilinogen Ur Leukocyte Esterase Urine RBC Urine WBC Ur Epithelial Cells Urine Crystals Urine Bacteria Urine Casts Urine Mucus Ur Culture Indicated? Urine Glucose COVID-19 Source Nasal/Nares SARS-CoV-2 (PCR) POSITIVE A* 01/03/21 01/04/21 01/04/21 17:15 07:24 07:24 WBC 5.06 RBC 3.77 L Hgb 11.6 L Hct 34.2 L MCV 90.7 MCH 30.8 MCHC 33.9 RDW 15.9 H Plt Count 210 MPV 12.2 H Immature Gran % See Differential Neutrophils % 45.0 Band Neutrophils % 1 Lymphocytes % 22.0 Monocytes % 29.0 Eosinophils % 2.0 Basophils % 1.0 Nucleated RBC % 0 Absolute Neutrophils 2.33 Absolute Lymphocytes 1.11 L Absolute Monocytes 1.47 H Absolute Eosinophils 0.10 Absolute Basophils 0.05 RBC Morphology See Below Poikilocytosis 1+ Sodium 139 Potassium 4.6 Chloride 106 Carbon Dioxide 25.7 Anion Gap 7.3 BUN 17 D Creatinine 1.0 Estimated GFR/1.73 m2 >= 60.00 Glucose 85 Calcium 8.1 L Total Bilirubin 0.9 AST 318 H ALT 110 H Alkaline Phosphatase 59 Creatine Kinase 7597 H Troponin I Total Protein 6.2 L Albumin 3.1 L Urine Color Yellow Urine Clarity Clear Urine pH 5.5 Ur Specific [place] 1.020 Urine Protein 30 H Urine Ketones 15 H Urine Blood Large H Urine Nitrite Negative Urine Bilirubin Negative Urine Urobilinogen 0.2 Ur Leukocyte Esterase Negative Urine RBC 3-5 H Urine WBC Negative Ur Epithelial Cells Negative Urine Crystals Negative Urine Bacteria Negative Urine Casts 0-2 Hyaline Urine Mucus Trace Ur Culture Indicated? No Urine Glucose Negative COVID-19 Source SARS-CoV-2 (PCR)
[2021-01-04 12:28] VITALS: BP 108/55; PULSE 55; RESP 20; TEMP 36.1; O2SAT 97
[2021-01-04 16:25] VITALS: BP 125/66; PULSE 62; RESP 20; TEMP 37.1; O2SAT 99
[2021-01-04] MEDS: Atorvastatin 40 MG TAB PO (20:40)
[2021-01-04 23:59] VITALS: BP 108/56; PULSE 68; RESP 18; TEMP 38; O2SAT 96
[2021-01-05] MEDS: Acetaminophen 325 MG TAB 650 MG PO ×3 (00:05→23:00)
[2021-01-05 05:01] VITALS: BP 125/46; PULSE 57; RESP 17; TEMP 36.3; O2SAT 98
[2021-01-05] MEDS: Lactated Ringers 1,000 ML 125 ML IV (05:09)
[2021-01-05 07:20] LABS: Abs Immature Grans 0.03 10^3/uL (0.0-0.06); HCT 31.2 % (40.0-50.0); HGB 10.6 g/dL (13.5-17.5); MCH 30.5 pg (27.0-33.0); MCV 89.7 fL (80-95); Nucleated RBC 0 %; RBC 3.48 10^6/uL (4.36-5.78); RDW 15.9 % (11.8-14.1); RDW-SD 52.7 fL; WBC 3.22 10^3/uL (4.4-10.8)
[2021-01-05 07:44] LABS: Absolute Lymphocyte Count 1.13 10^3/uL (1.2-3.4); Absolute Monocyte Count 0.81 10^3/uL (0.1-0.8); Absolute Neutrophil Count 1.26 10^3/uL (1.2-6.7); Bands % 1; Diff Comment Manual Differential; Metamyelocytes % 1; Platelet Count 177 10^3/uL (130-400)
[2021-01-05 07:45] LABS: Anisocytosis 2+
[2021-01-05 07:46] LABS: Poikilocytes 2+
[2021-01-05 08:03] LABS: ALT 98 U/L (16-63); AST 246 U/L (15-37); Alkaline Phosphatase 63 U/L (46-116); Anion Gap 9.8 mmol/L (3-11); BUN 13 mg/dL (7-18); Bilirubin, Total 0.9 mg/dL (0.2-1.0); CO2 25.2 mmol/L (21.0-32.0); CREATININE 0.9 mg/dL (0.70-1.30); Calcium 8.1 mg/dL (8.5-10.1); Chloride 105 mmol/L (98-107); Glucose 92 mg/dL (74-106); Potassium 4.1 mmol/L (3.5-5.1); Sodium 140 mmol/L (136-145)
[2021-01-05 08:04] LABS: Creatine Kinase 3263 U/L (39-308)
[2021-01-05] MEDS: Apixaban 5 MG TAB PO ×2 (08:18→20:28)
[2021-01-05] MEDS: Tamsulosin 0.4 MG CAPCR 0.8 MG PO (08:19)
[2021-01-05] MEDS: Multivitamin TAB 1 TAB PO (08:19)
[2021-01-05] MEDS: Cholecalciferol (Vitamin D3) 400 UNIT TAB PO (08:19)
[2021-01-05 08:23] VITALS: BP 141/57; PULSE 55; RESP 16; TEMP 37; O2SAT 98
--- NOTE | 2021-01-05 10:45 | PT.INIE ---
Date of service: 01/05/21 Time of Service: 10:45 PT Notes Visit Reasons: Rhabmyolysis Physical Therapy Inpatient Initial Evaluation Date: 01/05/2021 Referring Doctor: Briseyda Moreno NP PT Orders: PT CONSULT: Eval/treat. Precautions: Fall. Standard. Activity as tolerated. COVID precautions. Patient Profile/Admitting Diagnosis: Adan is a 80-year-old male who presented to the ED on 01/03/2021 due to generalized weakness and fall x 2 on 01/02/2021. He is diagnosed with ambulatory dysfunction, COVID-19 infection, urinary retention, rhabdomyolysis, and repeated falls. PMHX: Medical History (Updated 01/03/21 @ 16:30 by Yvonne Fernandez NP) Compartment syndrome Deep venous thrombosis DIVERTICULOSIS Gout Hyperlipidemia Melanosis coli Peripheral venous insufficiency LEFT LEG Polyp of colon TUBULAR ADENOMA [id number] ADENOMA Psoriasis STROKE EMBOLIC Surgical History BACK OPERATION (~04/2008) Colonoscopy - IV Sedation (06/10/10) [id number] ADENOMA 06/18/16 no pathological features from ascending colon polyp Colonoscopy - IV Sedation (06/18/16) [id number] ADENOMA 06/18/16 no pathological features from ascending colon polyp Social History/Home Situation: Lives alone in a a privte home with 4 steps to enter, rails on both sides. He has 12 steps to he basement, rails on both sides where he does laundry. He has a lady who comes in once a week for house chores. Independent with all other ADLs. Still drives. Equipment Owned/DME: FWW, S[employer] Subjective: Feels chilly. Reports being terribly weak. Hopeful that he can get to a level where he was abl;e to engage in intermediate to advance level balance exercises as an out patient at [facility]. Objective: General Observation: Chills. Asthenic. Seated on chair. IV access in L UE. Mental Status: Alert and oriented as to person, place, time, and purpose. Able to pay attention, focus, and respond appropriately. Pain: Reports generalized body ache ROM: Right Upper Extremity: Shoulder Flexion WFL. Shoulder abduction WFL. Elbow flexion WFL. Wrist flexion WFL. Functional opening and closing of hand WFL. Left Upper Extremity: Shoulder Flexion WFL. Shoulder abduction WFL. Elbow flexion WFL. Wrist flexion WFL. Functional opening and closing of hand WFL. Right Lower Extremity: Hip flexion WFL. Hip abduction WFL. Knee flexion WFL. Ankle dorsiflexion WFL. Ankle plantarflexion WFL. Left Lower Extremity: Hip flexion WFL. Hip abduction WFL. Knee flexion WFL. Ankle dorsiflexion WFL. Ankle plantarflexion WFL. Strength: Right Upper Extremity: Shoulder flexors 4/5. Shoulder abductors 4/5. Elbow flexors 4/5. Elbow extensors 4/5. Welfare Project Manager strong. Left Upper Extremity: Shoulder flexors 4/5. Shoulder abductors 4/5. Elbow flexors 4/5. Elbow extensors 4/5. Welfare Project Manager strong. Right Lower Extremity: Hip flexors 4-/5. Hip abductors 4-/5. Knee flexors 4-/5. Knee extensors 4-/5. Ankle dorsiflexors 4-/5. Ankle plantarflexors 4-/5. Left Lower Extremity: Hip flexors 4/5. Hip abductors 4/5. Knee flexors 4/5. Knee extensors 4/5. Ankle dorsiflexors 4/5. Ankle plantarflexors 4/5. Bed Mobility/Transfers: Supine to sit SBA with HOB at 30 degrees Sit to stand moderate assist Stand to sit with minimal assist Bed to bedside minimal assist Bed to reclining minimal assist Gait: Instructed patient with level surface ambulation of feet requiring minimal assist. Trunk anteroflexed. Mari decreased. Step height decreased. Step length decreased. No LOB. Mild to moderate SOB. Denies dizziness. Balance: Static Sitting: Normal Dynamic Sitting: Good Static Standing: Fair Dynamic Standing: Fair Special Tests: Mobility Limitations Standardized Measure [facility] AM-PAC 6 clicks Basic Mobility Inpatient Short Form: Raw Score: 18 CMS Score: 47% deficit Informed Consent/Education: Patient was instructed in purpose of PT consult and plan of care. Agreeable to proceed with established PT POC to achieve personal goals. Assessment: Functional mobility decline requiring use of FWW to reduce fall risk. reports fatugue and weakness after ambulation activity. Patient presents with clinical signs and symptoms consistent with current/admitting diagnoses that have resulted to mobility limitations, gait instability, generalized weakness, and overall ADL decline as demonstrated by the following impairment level findings: 1. Decreased strength to B UE/LE major muscle groups with R more affected than the L 2. Impaired standing balance 3. Impaired activity tolerance 4. Shortness of breath 5. Fatigue Impairments are contributing to the following functional limitations: 1. Decline in bed mobility skills 2. Decline in transfer skills 3. Difficulty with ambulation without assistive device and physical assistance 4. Increased completion time for mobility ADL performance 5. Increased risk for falls 6. Difficulty with managing steps alone safely Patient is assessed as a 99417 moderate complexity based on the following: History: -year-old with past medical history as indicated above Examination: Demonstrable impairment in strength, balance, and mobility level with underlying impairments and functional limitations as exhibited above as well as deficit score of 47% utilizing the [facility] Mobility Inpatient Short Form Presentation: Evolving Decision Makin moderate complexity Goals: Goals X1 week 1. Supine-Sit independent 2. Sit-Supine independent 3. Sit-Stand independent 4. Stand-Sit independent with FWW 5. Bed-Chair independent with FWW 6. Chair-Bed independent with FWW 7. Independent gait on level surface with use of FWW for at least 300 feet without report of pain nor dyspnea 8. Independent stair negotiation while holding onto B rails for at least 12 steps without report of pain nor dyspnea 9. Independent with home exercise program 10. Good static and dynamic standing balance/tolerance Plan of Care/Treatment Plan: 1-2x/day, 7 days/week x 1 week. Plan of care has been reviewed with the BLOCK BOLTER MULE OPERATOR providing the service under Physical Therapy direction. Initiate Physical Therapy intervention for pain management as needed, strengthening, bed mobility, transfers, gait, stairs, balance training, and use of assistive device. DISCHARGE RECOMMENDATIONS: Patient will benefit from senior living facility placement for continued skilled physical therapy services in order to progress mobility level, strength, and balance in preparation for a safe discharge to home. TREATMENT CODE/TIME: 98172 x 30 minutes, 25275 x 27 minutes beginning at 10:45 AM. Thank you for the opportunity to participate in the care of this patient. Luz Hurtado PT, DPT, CLT [facility] [place], [place]
--- NOTE | 2021-01-05 12:21 | PDOC.CMIN ---
- If Service Date Differs Date of service: 01/05/21 Time of Service: 12:21 Care Management Initial Assess REASON FOR HOSPITALIZATION:: rhabdomyolysis PAST MEDICAL HISTORY/PAST SURGICAL HISTORY:: Medical History. Compartment syndrome. Deep venous thrombosis. DIVERTICULOSIS. Gout. Hyperlipidemia. Melanosis coli. Peripheral venous insufficiency. LEFT LEG. Polyp of colon. TUBULAR ADENOMA. [id number] ADENOMA. Psoriasis. STROKE. EMBOLIC. Surgical History. BACK OPERATION (~04/2008). Colonoscopy - IV Sedation (06/10/10). [id number] ADENOMA. 06/18/16 no pathological features from ascending colon polyp. Colonoscopy - IV Sedation (06/18/16). [id number] ADENOMA. 06/18/16 no pathological features from ascending colon polyp PREVIOUS FUNCTIONAL STATUS/SOCIAL/FAMILY SUPPORTS:: Adan lives in [facility], [facility]. He has a neighbor who checks in on him daily. He is independent at baseline. CURRENT FUNCTIONAL STATUS:: Adan is currently under precautions for Covid 19. He was found to be Covid+ from routine testing upon admission. CM will not be able to visit in person at this time. Per report, he does not have any respiratory symptoms at this time, and he is receiving monoclonal antibodies currently. His provider feels that he would benefit from [facility], as well as home health services at this time. CM will discuss this with Adan, and will continue to follow. ADVANCE DIRECTIVES:: Adan has a COLST form on file, which states that he is full code, but changed this to DNR/DNI on this admission, in the ED. Has patient been provided with info about the portal/API?: Yes Did the patient sign up for the portal?: No CODE STATUS:: DNR/DNI INSURANCE COVERAGE / FINANCIAL ISSUES:: [employer] CURRENT HOME/COMMUNITY SERVICES/EQUIPMENT:: No current services. His neighbor checks on him daily. PRIMARY CARE PHYSICIAN:: Jessa Cool POTENTIAL DISCHARGE NEEDS:: Evaluations for further needs, discuss [facility], follow up appointments. PATIENT/FAMILY EDUCATION NEEDS:: Review discharge instructions, discussion of self care needs including ask me three. ANTICIPATED BARRIERS TO DISCHARGE:: Evaluate for safe disposition to home. TRANSPORTATION:: Via private vehicle by family vs EMS (Covid + patients cannot utilize RCT). PLAN:: Anticipate Adan will return home when medically cleared. He may benefit from services, and if he is agreeable, CM will coordinate. CM will offer information regarding [facility]. He will follow up with his PCP and discharge plan of care. CM will continue to follow.
[2021-01-05] MEDS: Lactated Ringers 1,000 ML 150 ML IV ×2 (14:00→20:27)
[2021-01-05 14:40] VITALS: BP 104/59; PULSE 65; RESP 18; TEMP 36.8; O2SAT 97
--- NOTE | 2021-01-05 16:04 | PHA.REVIEW ---
Pharmacy Admission Review - Admission Clinical Review (Last Reviewed 10/13/20 @ 08:06 by Donald Jaramillo MD) Discharge planning issues (Acute) DVT prophylaxis (Acute) Fall (Acute) Rhabdomyolysis (Acute) Urinary retention (Acute) COVID (Acute) Ambulatory dysfunction (Acute) No Known Allergies Allergy (Unverified 10/20/20 17:33) Resuscitation Status DNR/DNI Height 6 ft 5 in Weight 92.6 kg - Renal Dosing Renal Dosing: BUN 13 mg/dL (7-18) 01/05/21 06:17 Creatinine 0.9 mg/dL (0.70-1.30) 01/05/21 06:17 Medications needing adjustments: Reviewed (Crcl ~85 mL/min current meds okay) - Anticoagulation Anticoagulation: Hgb 10.6 g/dL (13.5-17.5) L 01/05/21 06:17 Hct 31.2 % (40.0-50.0) L 01/05/21 06:17 Plt Count 177 10^3/uL (130-400) 01/05/21 06:17 INR 1.3 (0.9-1.1) H 01/03/21 10:30 Creatinine 0.9 mg/dL (0.70-1.30) 01/05/21 06:17 DVT Prophylaxis: N/A Therapeutic Anticoagulation: Reviewed Medications: Apixaban - Opiate Usage Evaluate Pain Scale/Pains Meds: N/A - Relevant Labs Sodium 140 mmol/L (136-145) 01/05/21 06:17 Potassium 4.1 mmol/L (3.5-5.1) 01/05/21 06:17 Chloride 105 mmol/L (98-107) 01/05/21 06:17 Magnesium 1.7 mg/dL (1.8-2.4) L 01/03/21 10:30 Electrolytes, C-Reactive P, ESR: Intervened (mag a little low on admission, does not look like any replacement was given, will mention to provider) - DM Control DM Control: Glucose 92 mg/dL (74-106) 01/05/21 06:17 Insulin Dosing: N/A - Heart Failure/PR Heart Failure/PR: Troponin I < 0.05 ng/mL (<0.06) 01/03/21 13:05 EF%, MAGNO's, B-Blockers, Diuretics: Reviewed - BP Control BP Control: Blood Pressure 104/59 Blood Pressure 141/57 Blood Pressure 125/46 If elevated: Reviewed (BP has been low most of admission so far, with an occasional normal or high level.) - Qtc Review If Elevated: N/A (QTc 420 on most recent EKG this admission.) - IV to PO Switch IV Medications: Reviewed - Home Meds Home Med List reviewed: Intervened (Looks like most recent apixaban dosing was 2.5 mg BID per external med history vs 5 mg BID as listed on the home med list. Will mention to provider.) - Current meds Current Medication Order Review: Reviewed - Comments Comments/Follow Ups: Watch BP, mag, labs and for med changes.
[2021-01-05 17:05] VITALS: BP 124/70; PULSE 57; RESP 17; TEMP 37; O2SAT 99
--- NOTE | 2021-01-05 17:11 | W.PM.PROGNOT ---
Date of Service Date of service: 01/05/21 Time of Service: 17:12 Assessment and Plan Assessment and plan (1) COVID: Start date: 01/05/21 Start time: 17:21 Status: Acute Assessment and plan: no respiratory symptoms fully vaccinated received mononuculo antibodies Also increased it D to 2000 mg Add Vitamin C, melatonin (2) Ambulatory dysfunction: Start date: 01/05/21 Start time: 17:27 Status: Acute Assessment and plan: generalized weakness, most likely d/t viral infection PT/OT fall precautions (3) Urinary retention: Start date: 01/05/21 Start time: 17:29 Status: Acute Assessment and plan: place christian catheter increase tamsulosin D/c christian after 3 day increase in tamsulosin with voiding trial (4) Rhabdomyolysis: Start date: 01/05/21 Start time: 17:31 Status: Acute Assessment and plan: IV hydration increase to 150 ml Renal function is normal avoid nephrotoxic medication follow CPK is improving (5) Fall: Start date: 01/05/21 Start time: 17:32 Status: Acute Assessment and plan: Weakness from COVID some skin areas to monitor- right shoulder, left medial malleolous. no obvious deformity or injury but c/o bilateral shoulder and hip pain. shoulder with full range of motion, will image hips and pelvis. apap as needed for pain. (6) DVT prophylaxis: Start date: 01/05/21 Start time: 17:33 Status: Acute Assessment and plan: fully anticoagulated on apixaban (7) Discharge planning issues: Start date: 01/05/21 Start time: 17:33 Status: Acute Assessment and plan: could benefit from [facility] case management following for discharge planning will likely discharge to home with home health services. discussed with DR Gacria Subjective Subjective Patient reports: feels better Interval history since last seen: Patient states feeling better, but continues to have body aches and fatigue. Increase vitamin d, added vit c, added zinc, and melatonin to regimen. CPK is down to 3K from 7K. He states no problem with breathing, Denies CP, SOB, n/v/d. He would like to go home. Increased fluids to 150 an hour. Sitting up in chair and appears to be in no distress. Exam Narrative Exam Narrative: Examined patient over video and through phone conversation. He was sitting up in chair. He stated no SOB. He did feel fatigued with body aches and RECINOS. I explained that this could last for weeks. He also did not understand why he was still here. It was explained about rhabdo and that he needed to be with in acceptable level for him to go home. He is not requiring oxygen. He appears to be comfortable on video and No acute distress. Objective Last Vital Signs Temp 37.0 C 01/05/21 17:05 Pulse 57 L 01/05/21 17:05 Resp 17 01/05/21 17:05 BP 124/70 01/05/21 17:05 Pulse Ox 99 01/05/21 17:05 Laboratory Results - last 24 hr 01/05/21 01/05/21 06:17 06:17 WBC 3.22 L D RBC 3.48 L Hgb 10.6 L Hct 31.2 L MCV 89.7 MCH 30.5 MCHC 34.0 RDW 15.9 H Plt Count 177 MPV 13.0 H Immature Gran % See Differential Neutrophils % 38.0 Band Neutrophils % 1 Lymphocytes % 35.0 Monocytes % 25.0 Eosinophils % 0.0 Basophils % 0.0 Metamyelocytes % 1 Nucleated RBC % 0 Absolute Neutrophils 1.26 Absolute Lymphocytes 1.13 L Absolute Monocytes 0.81 H Absolute Eosinophils 0.00 Absolute Basophils 0.00 RBC Morphology See Below Poikilocytosis 2+ Anisocytosis 2+ Sodium 140 Potassium 4.1 Chloride 105 Carbon Dioxide 25.2 Anion Gap 9.8 BUN 13 Creatinine 0.9 Estimated GFR/1.73 m2 >= 60.00 Glucose 92 Calcium 8.1 L Total Bilirubin 0.9 AST 246 H ALT 98 H Alkaline Phosphatase 63 Creatine Kinase 3263 H Total Protein 6.0 L Albumin 3.0 L
[2021-01-05 20:23] VITALS: BP 129/64; PULSE 63; RESP 18; TEMP 37.1; O2SAT 99
[2021-01-05] MEDS: Atorvastatin 40 MG TAB PO (20:28)
[2021-01-05] MEDS: Ascorbic Acid 500 MG TAB 1000 MG PO (20:28)
[2021-01-05] MEDS: Melatonin 3 MG TAB 6 MG PO (23:00)
[2021-01-05] MEDS: Magnesium Oxide 400 MG TAB PO (23:00)
[2021-01-06 03:22] VITALS: BP 101/51; PULSE 54; RESP 18; TEMP 36.7; O2SAT 96
[2021-01-06] MEDS: Lactated Ringers 1,000 ML 150 ML IV (03:25)
[2021-01-06 08:58] VITALS: BP 114/65; PULSE 53; RESP 18; TEMP 36.4; O2SAT 100
[2021-01-06] MEDS: Zinc Sulfate 220 MG TAB PO (09:02)
[2021-01-06] MEDS: Apixaban 5 MG TAB PO ×2 (09:02→20:26)
[2021-01-06] MEDS: Multivitamin TAB 1 TAB PO (09:02)
[2021-01-06] MEDS: Ascorbic Acid 500 MG TAB 1000 MG PO ×2 (09:02→20:26)
[2021-01-06] MEDS: Tamsulosin 0.4 MG CAPCR 0.8 MG PO (09:02)
[2021-01-06] MEDS: Cholecalciferol (Vitamin D3) 400 UNIT TAB 2000 UNIT PO (09:03)
[2021-01-06] MEDS: Lactated Ringers 1,000 ML 60 ML IV (09:17)
--- NOTE | 2021-01-06 11:14 | W.PM.PROGNOT ---
Date of Service Date of service: 01/06/21 Time of Service: 11:14 Assessment and Plan Assessment and plan (1) Ambulatory dysfunction: Status: Acute Assessment and plan: generalized weakness, most likely d/t viral infection PT/OT fall precautions (2) COVID: Status: Acute Assessment and plan: no respiratory symptoms fully vaccinated will give monoclonal antibodies (3) Urinary retention: Status: Acute Assessment and plan: place christian catheter increase tamsulosin (4) Rhabdomyolysis: Status: Acute Assessment and plan: IV hydration follow kidney functions closely avoid nephrotoxic medication follow CPK with fluid bolus as needed. (5) Fall: Status: Acute Assessment and plan: from weakness likely d/t viral infection some skin areas to monitor- right shoulder, left medial malleolous. no obvious deformity or injury but c/o bilateral shoulder and hip pain. shoulder with full range of motion, will image hips and pelvis. apap as needed for pain. (6) DVT prophylaxis: Status: Acute Assessment and plan: fully anticoagulated on apixaban (7) Discharge planning issues: Status: Acute Assessment and plan: could benefit from [facility] case management following for discharge planning will likely discharge to home with home health services. discussed with DR Garcia Subjective Subjective Interval history since last seen: dry cough, no shortness of breath or hypoxia working with PT, still weak eating and drinking, Exam Const General: cooperative, comfortable and frail appearing Nutritional Appearance: thin Orientation: alert, awake and oriented x3 HENMT Head: normal to inspection, normocephalic and atraumatic Mouth: oral mucosae normal Chest Chest: normal inspection of the chest Resp Effort & Inspection: normal respiratory effort Auscultation: clear to auscultation bilaterally Cardio Rate: regular rate Rhythm: regular rhythm GI Inspection: normal to inspection Palpation: soft Auscultation: normal bowel sounds Skin Lesions: lesion noted (right shoulder and left ankle) Neuro General: patient alert, patient awake and patient oriented x3 Cognition: normal cognition Speech: speech normal Motor: muscle tone normal throughout Extrem General: normal to inspection and full ROM Objective Last Vital Signs Temp 36.4 C L 01/06/21 08:58 Pulse 53 L 01/06/21 08:58 Resp 18 01/06/21 08:58 BP 114/65 01/06/21 08:58 Pulse Ox 100 01/06/21 08:58
--- NOTE | 2021-01-06 13:58 | PT.INTREAT ---
Date of service: 01/06/21 Time of Service: 10:00 PT Notes Visit Reasons: Rhabmyolysis Inpatient Physical Therapy Treatment Note [facility] Date: 01/06/2021 PRECAUTIONS: Fall SUBJECTIVE: Adan is pleasant and agreeable to participating in PT. He reports that he feels very weak, and that he cannot safely return home at this time as he lives alone. He indicates that he is worried about his monthly bills and that he needs to get home to balance his checkbook and pay his bills. He does report that he has a neighbor that may be willing to bring them in for him to do while he is here. OBJECTIVE: PAIN: Patient c/o back pain with gait training and of R hip pain with ther ex completion BED MOBILITY/TRANSFERS Sit-stand: Min A Stand-sit: CGA GAIT Assistive Device: FWW Weight bearing: Full Assist: CGA Distance: 8 steps F/B + 30' Deviation: Slow pacing, forward flexed posture, stiff back THEREX: Patient was instructed in a seated UE and LE strengthening program, as per flow sheet. Patient c/o global stiffness prior to ther ex, easing with exercise completion. ASSESSMENT: Patient tolerated session with complaint R hip and back pain and global stiffness. He was able to tolerate a progression in his ther ex program, although continues to require assist with transfers and CGA with gait training for safety. PLAN: Continue with global strengthening and conditioning for continued progression toward baseline level of function. TREATMENT CODE/TIME: 45 minutes; 16247 x2, 69146 (10:00)
[2021-01-06 14:38] VITALS: BP 157/74; PULSE 61; RESP 20; TEMP 36.6; O2SAT 97
[2021-01-06] MEDS: Acetaminophen 325 MG TAB 650 MG PO ×2 (14:43→22:28)
--- NOTE | 2021-01-06 15:12 | CMPROGNOTE_ITS ---
- If Service Date Differs Date of service: 01/06/21 Time of Service: 15:12 Care Management Progress Note S/O: Adan continues to remain on Covid19 precautions. CM called and discussed discharge plans with Adan. Per PT, he will require short term rehab prior to returning home. There are currently no local facilities which will accept a Covid positive patient. Per provider, he is not yet medically cleared, but if he becomes medically cleared and still requires rehab, he may enter [facility] for a rad rt time until he has a safe disposition home. Adan reports that he was 'very independent' prior to this admission, and plans to return home once he is stable enough to do so. He stated that he has had [facility] in the past, and is considering re activating it. CM provided a brochure for [facility], through his RN, to give him additional information. CM will continue to follow. A: Adan is a 80 year old male admitted to [facility] on 01/03/21 with Rhabdomyolysis. P: Anticipate Adan will return home when medically cleared vs SWB1 if necessary. He may benefit from services, which CM will coordinate. CM offered information regarding [facility]. He will follow up with his PCP and discharge plan of care. CM will continue to follow.
[2021-01-06 20:23] VITALS: BP 116/60; PULSE 53; RESP 18; TEMP 35.9; O2SAT 100
[2021-01-06] MEDS: Atorvastatin 40 MG TAB PO (20:26)
[2021-01-06] MEDS: Melatonin 3 MG TAB 6 MG PO (22:28)
[2021-01-06] MEDS: Magnesium Oxide 400 MG TAB PO (22:28)
[2021-01-07 01:27] VITALS: BP 125/65; PULSE 51; RESP 17; TEMP 35.8; O2SAT 99
[2021-01-07] MEDS: Lactated Ringers 1,000 ML 60 ML IV ×2 (01:34→15:52)
[2021-01-07 06:16] VITALS: BP 119/61; PULSE 54; RESP 18; TEMP 35.4; O2SAT 99
[2021-01-07] MEDS: Ascorbic Acid 500 MG TAB 1000 MG PO ×2 (08:27→20:51)
[2021-01-07] MEDS: Zinc Sulfate 220 MG TAB PO (08:27)
[2021-01-07] MEDS: Apixaban 5 MG TAB PO ×2 (08:27→20:51)
[2021-01-07] MEDS: Tamsulosin 0.4 MG CAPCR 0.8 MG PO (08:27)
[2021-01-07] MEDS: Multivitamin TAB 1 TAB PO (08:28)
[2021-01-07] MEDS: Cholecalciferol (Vitamin D3) 400 UNIT TAB 2000 UNIT PO (08:28)
[2021-01-07 08:29] VITALS: BP 122/68; PULSE 52; RESP 16; TEMP 36; O2SAT 99
[2021-01-07 08:34] LABS: Anion Gap 8.1 mmol/L (3-11); BUN 13 mg/dL (7-18); CO2 26.9 mmol/L (21.0-32.0); CREATININE 0.8 mg/dL (0.70-1.30); Calcium 8.3 mg/dL (8.5-10.1); Chloride 107 mmol/L (98-107); Glucose 92 mg/dL (74-106); HCT 30.9 % (40.0-50.0); HGB 10.3 g/dL (13.5-17.5); MCHC 33.3 % (32.0-36.0); MCV 90.1 fL (80-95); Platelet Count 160 10^3/uL (130-400); Potassium 4.2 mmol/L (3.5-5.1); RBC 3.43 10^6/uL (4.36-5.78); RDW 16.2 % (11.8-14.1); RDW-SD 53.4 fL; Sodium 142 mmol/L (136-145); WBC 3.28 10^3/uL (4.4-10.8)
[2021-01-07 08:37] LABS: Iron 35 ug/dL (65-175); Total Iron Binding Capacity 110 ug/dL (250-450); Transferrin Sat 32 % (20-55)
[2021-01-07 09:00] LABS: Creatine Kinase 572 U/L (39-308)
--- NOTE | 2021-01-07 10:19 | W.PM.PROGNOT ---
Date of Service Date of service: 01/07/21 Time of Service: 10:19 Assessment and Plan Assessment and plan (1) Ambulatory dysfunction: Status: Acute Assessment and plan: generalized weakness, most likely d/t viral infection PT/OT fall precautions (2) COVID: Status: Acute Assessment and plan: no respiratory symptoms fully vaccinated will give monoclonal antibodies (3) Urinary retention: Status: Acute Assessment and plan: place christian catheter increase tamsulosin (4) Rhabdomyolysis: Status: Acute Assessment and plan: IV hydration follow kidney functions closely avoid nephrotoxic medication follow CPK with fluid bolus as needed. (5) Fall: Status: Acute Assessment and plan: from weakness likely d/t viral infection some skin areas to monitor- right shoulder, left medial malleolous. no obvious deformity or injury but c/o bilateral shoulder and hip pain. shoulder with full range of motion, will image hips and pelvis. apap as needed for pain. (6) DVT prophylaxis: Status: Acute Assessment and plan: fully anticoagulated on apixaban (7) Discharge planning issues: Status: Acute Assessment and plan: could benefit from [facility] case management following for discharge planning will likely discharge to home with home health services. discussed with DR Garcia Subjective Subjective Patient reports: no new complaints, feels better, tolerating liquids well, tolerating a regular diet and afebrile; denies shortness of breath Interval history since last seen: dry cough, no shortness of breath or hypoxia working with PT, still weak eating and drinking, Exam Const General: cooperative, comfortable and frail appearing Nutritional Appearance: thin Orientation: alert, awake and oriented x3 HENMT Head: normal to inspection, normocephalic and atraumatic Mouth: oral mucosae normal Chest Chest: normal inspection of the chest Resp Effort & Inspection: normal respiratory effort Auscultation: clear to auscultation bilaterally Cardio Rate: regular rate Rhythm: regular rhythm GI Inspection: normal to inspection Palpation: soft Auscultation: normal bowel sounds Skin Lesions: lesion noted (right shoulder and left ankle) Neuro General: patient alert, patient awake and patient oriented x3 Cognition: normal cognition Speech: speech normal Motor: muscle tone normal throughout Extrem General: normal to inspection and full ROM Objective Last Vital Signs Temp 36 C L 01/07/21 08:29 Pulse 52 L 01/07/21 08:29 Resp 16 01/07/21 08:29 BP 122/68 01/07/21 08:29 Pulse Ox 99 01/07/21 08:29 Laboratory Results - last 24 hr 01/07/21 01/07/21 01/07/21 08:05 08:05 08:05 WBC 3.28 L RBC 3.43 L Hgb 10.3 L Hct 30.9 L MCV 90.1 MCH 30.0 MCHC 33.3 RDW 16.2 H Plt Count 160 MPV 13.0 H Sodium 142 Potassium 4.2 Chloride 107 Carbon Dioxide 26.9 Anion Gap 8.1 BUN 13 Creatinine 0.8 Estimated GFR/1.73 m2 >= 60.00 Glucose 92 Calcium 8.3 L Iron 35 L TIBC 110 L Transferrin % Sat 32 Creatine Kinase 572 H
[2021-01-07 11:41] VITALS: BP 136/45; PULSE 51; RESP 16; TEMP 36.3; O2SAT 99
--- NOTE | 2021-01-07 12:04 | PT.INTREAT ---
Date of service: 01/07/21 Time of Service: 09:55 PT Notes Visit Reasons: Rhabmyolysis Inpatient Physical Therapy Treatment Note [facility] Date: 01/07/2021 PRECAUTIONS: Fall SUBJECTIVE: Adan is pleasant and agreeable to participating in PT. He reports that he continues to feel weak, and that he feels about the same as he did yesterday. OBJECTIVE: Aqua-K to low back for pain/stiffness relief PAIN: Patient c/o back stiffness with gait training and of R hip pain with ther ex completion. BED MOBILITY/TRANSFERS Sit-stand: CGA Stand-sit: SBA GAIT Assistive Device: FWW Weight bearing: Full Assist: CGA Distance: ~90' Deviation: Slow pacing, forward flexed posture, stiff back THEREX: Patient was instructed in a seated UE and LE strengthening program, as per flow sheet. He also completes standing mini squats and weight shifts, and functional [id number]. Patient c/o global stiffness prior to ther ex, easing with exercise completion as well as of R hip pain with ther ex. He tolerated a progression in his ther ex program, tolerating increased reps with all exercises. ASSESSMENT: Patient tolerated session with complaint R hip and back pain and global stiffness. He was able to tolerate a progression in gait distance with FWW support and CGA, as well as in his ther ex program. PLAN: Continue with global strengthening and conditioning for continued progression toward baseline level of function. TREATMENT CODE/TIME: 50 minutes; 00470, [id number] x2 (09:55)
--- NOTE | 2021-01-07 16:04 | PDOC.CMPRO ---
- If Service Date Differs Date of service: 01/07/21 Time of Service: 16:05 Care Management Progress Note S/O: CM spoke to Adan on the phone today, as he remains on precautions for Covid19. He stated that he is doing ok today, but does feel constipated. His RN was in the room with him during the call. He reported that he had a family video call today, which he was very happy about. He stated that he worked with PT today, and was able to walk around the room a few times. He feels that he is improving. CM will continue to follow. A: Adan is a 80 year old male admitted to [facility] on 01/03/21 with Rhabdomyolysis. P: Anticipate Adan will return home when medically cleared vs SWB1 if necessary. He may benefit from services, which CM will coordinate. CM offered information regarding [facility]. He will follow up with his PCP and discharge plan of care. CM will continue to follow.
[2021-01-07 16:18] VITALS: BP 126/65; PULSE 62; RESP 16; TEMP 36.7; O2SAT 99
[2021-01-07] MEDS: Docusate Sodium 100 MG CAP PO (17:22)
[2021-01-07] MEDS: Magnesium Oxide 400 MG TAB PO (20:51)
[2021-01-07] MEDS: Atorvastatin 40 MG TAB PO (20:51)
[2021-01-07] MEDS: Melatonin 3 MG TAB 6 MG PO (20:51)
[2021-01-07 20:54] VITALS: BP 126/56; PULSE 59; RESP 16; TEMP 36.1; O2SAT 99
[2021-01-08] MEDS: Lactated Ringers 1,000 ML 60 ML IV (06:28)
[2021-01-08] MEDS: Acetaminophen 325 MG TAB 650 MG PO (06:39)
[2021-01-08 06:46] VITALS: BP 147/49; PULSE 54; RESP 18; TEMP 36.1; O2SAT 99
[2021-01-08] MEDS: Tamsulosin 0.4 MG CAPCR 0.8 MG PO (08:46)
[2021-01-08] MEDS: Cholecalciferol (Vitamin D3) 400 UNIT TAB 2000 UNIT PO (08:46)
[2021-01-08] MEDS: Zinc Sulfate 220 MG TAB PO (08:46)
[2021-01-08] MEDS: Apixaban 5 MG TAB PO (08:47)
[2021-01-08] MEDS: Ascorbic Acid 500 MG TAB 1000 MG PO (08:47)
[2021-01-08] MEDS: Multivitamin TAB 1 TAB PO (08:48)
--- NOTE | 2021-01-08 09:00 | INDS_ITS ---
Date of service: 01/08/21 Time of Service: 09:33 PT Notes Visit Reasons: Rhabmyolysis Physical Therapy Inpatient Discharge Summary Date: 01/08/2021 Dates of service: 01/05/2021 to 01/07/2021 Referring Doctor: Yvonne Fernandez NP PT Orders: PT CONSULT: Eval/treat Precautions: Fall. Standard. Activity as tolerated. COVID precautions. Patient Profile/Admitting Diagnosis: Adan converted to swing bed level I of care as of today for continued rehabilitation and medical management. Adan is a 80-year-old male who presented to the ED on 01/03/2021 due to generalized weakness and fall x 2 on 01/02/2021. He is diagnosed with ambulatory dysfunction, COVID-19 infection, urinary retention, rhabdomyolysis, and repeated falls. PMHX: Medical History (Updated 01/03/21 @ 16:30 by Yvonne Fernandez NP) Compartment syndrome Deep venous thrombosis DIVERTICULOSIS Gout Hyperlipidemia Melanosis coli Peripheral venous insufficiency LEFT LEG Polyp of colon TUBULAR ADENOMA [id number] ADENOMA Psoriasis STROKE EMBOLIC Surgical History BACK OPERATION (~04/2008) Colonoscopy - IV Sedation (06/10/10) [id number] ADENOMA 06/18/16 no pathological features from ascending colon polyp Colonoscopy - IV Sedation (06/18/16) [id number] ADENOMA 06/18/16 no pathological features from ascending colon polyp Social History/Home Situation: Lives alone in a a private home with 4 steps to enter, rails on both sides. He has 12 steps to the basement, rails on both sides where he does laundry. He has a lady who comes in once a week for house chores. Independent with all other ADLs. Still drives. Equipment Owned/DME: FWW, SPC Subjective: Okay with continuing with PT under swing bed level of care. Feels a lot better. Indicates that he is gaining slowly. States that he had a hard time standing up from the edge of bed with nurses this morning. Agreeable to progressing exercise intensity today using the exercise band. Objective: General Observation: Asthenic. Seated on chair. IV access in R UE. Mental Status: Alert and oriented as to person, place, time, and purpose. Able to pay attention, focus, and respond appropriately. Pain: Denies ROM: Right Upper Extremity: Shoulder Flexion WFL. Shoulder abduction WFL. Elbow flexion WFL. Wrist flexion WFL. Functional opening and closing of hand WFL. Left Upper Extremity: Shoulder Flexion WFL. Shoulder abduction WFL. Elbow flexion WFL. Wrist flexion WFL. Functional opening and closing of hand WFL. Right Lower Extremity: Hip flexion WFL. Hip abduction WFL. Knee flexion WFL. Ankle dorsiflexion WFL. Ankle plantarflexion WFL. Left Lower Extremity: Hip flexion WFL. Hip abduction WFL. Knee flexion WFL. Ankle dorsiflexion absent. Ankle plantarflexion absent. Strength: Right Upper Extremity: Shoulder flexors 4/5. Shoulder abductors 4/5. Elbow flexors 4/5. Elbow extensors 4/5. Greenhouse Specialist strong. Left Upper Extremity: Shoulder flexors 4/5. Shoulder abductors 4/5. Elbow flexors 4/5. Elbow extensors 4/5. Greenhouse Specialist strong. Right Lower Extremity: Hip flexors 4-/5. Hip abductors 4-/5. Knee flexors 4-/5. Knee extensors 4-/5. Ankle dorsiflexors 4-/5. Ankle plantarflexors 4-/5. Left Lower Extremity: Hip flexors 4/5. Hip abductors 4/5. Knee flexors 4/5. Knee extensors 4/5. Ankle dorsiflexors 1/5. Ankle plantarflexors 1/5. THERA EX: Initiated UE/LE strengthening using red exercise band. Worked on increasing ability to perform sit<>stand movement transitions wile at front edge of recliner with good response. Initiated chest expansion exercises combined with deep breathing techniques to maximize respiratory capacity. Bed Mobility/Transfers: Sit to stand stand by assist Stand to sit stand by assist Bed to bedside stand by assist Bed to reclining stand by assist Gait: Instructed patient with level surface ambulation of 100 feet requiring stand by assist inside room. Trunk anteroflexed. Mari increased and much stanle compared to last PT evaluation three days ago. 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 Balance: Static Sitting: Normal Dynamic Sitting: Good Static Standing: Fair Dynamic Standing: Fair Assessment: Improvements in terms of activity tolerance and stability of gait apparent compared to start of care. Patient will benefit from continued services to achieve modified independence with all mobility ADLs in anticipation of going home alone whenever cleared by hospitalist. Exercise tolerance improving. Patient presents with clinical signs and symptoms consistent with current/admitting diagnoses that have resulted to mobility limitations, gait instability, generalized weakness, and overall ADL decline as demonstrated by the following impairment level findings: 1. Decreased strength to B UE/LE major muscle groups with R more affected than the L 2. Impaired standing balance 3. Impaired activity tolerance 4. Shortness of breath 5. Fatigue Impairments are continuing to contribute to the following functional limitations: 1. Difficulty with ambulation without assistive device 2. Increased completion time for mobility ADL performance 3. Increased risk for falls 4. Difficulty with managing steps alone safely Goals: Goals X1 week 1. Supine-Sit independent NOT MET 2. Sit-Supine independent NOT MET 3. Sit-Stand independent NOT MET 4. Stand-Sit independent with FWW NOT MET 5. Bed-Chair independent with FWW NOT MET 6. Chair-Bed independent with FWW NOT MET 7. Independent gait on level surface with use of FWW for at least 300 feet without report of pain nor dyspnea NOT MET 8. Independent stair negotiation while holding onto B rails for at least 12 steps without report of pain nor dyspnea ONCE COVID PRECAUTIONS ARE LIFTED --NOT MET 9. Independent with home exercise program NOT MET 10. Good static and dynamic standing balance/tolerance NOT MET DISCHARGE RECOMMENDATIONS: Patient will benefit from home health PT services in order to progress mobility level using least restrictive assistive ambulatory device, assess home safety, identify additional equipment needs, and establish a functional maintenance program that will increase ability of patient to remain at home. TREATMENT CODE/TIME: GA Thank you for the opportunity to participate in the care of this patient. Luz Hurtado PT, DPT, CLT [facility] [place], [place]
--- NOTE | 2021-01-08 10:11 | DSE_ITS ---
Date of service: 01/08/21 Time of Service: 10:11 DS: Diagnosis Discharge Diagnosis (1) Ambulatory dysfunction: Status: Acute (2) COVID: Status: Acute (3) Urinary retention: Status: Acute (4) Rhabdomyolysis: Status: Acute (5) Fall: Status: Acute Discharge Plan Disposition Patient Disposition: [facility] SWING BED LEVEL 1 Condition: Stable Discharge Details Reason For Visit: Rhabmyolysis Admit Date/Time: 01/03/21 11:38 Admit Provider: Sergio Garcia Attending Provider: Sergio Garcia Primary Care Provider: Jessa [facility] Course Hospital Course: This is a 80 year old male who lives independent who reports he was in his usual state of health but suddenly developed progressive weakness to the point he was finding it difficult to ambulate and was having falls at home. On his last fall he was unable to get up and waited on the ground till his neighbor showed up to check on him. He was transported by EMS to ED for evaluation. His work up in the ED shows cpk at 2200, slightly elevated transaminitis, and negative imaging. He was given IV fluid bolus and hospitalist services admitted him for ambulatory dysfunction, rhabdomyolysis. On routine covid screening for admission he was found to be positive. He was asymptomatic from a respiratory standpoint. He was given casirivimab/imdevimab and his respiratory status remained stable. he had no oxygen requirements. He began working with physical therapy and slowly progressing. His CPK did raise to 7000k but began normalizing with IV fluids, but his kidney function remained normal. His IV fluids were discontinued. He was eating and drinking. he has been working with physical therapy and remains too weak to safely be discharged to home. recommendations are for swing level rehab. he will not be accepted at any other facility as he is covid positive. he will remain here for ongoing PT/OT until he is stable for discharge to home. will likely need home health services at discharge. discharged with DR Garcia Home Meds and New Rx's Prescriptions: No Action tamsulosin 0.4 mg capsule 0.4 mg PO DAILY RF: 0 multivitamin [Daily Vitamin] 1 EACH tablet 1 ea PO DAILY RF: 0 cholecalciferol (vitamin D3) [Vitamin D3] 400 UNIT capsule 2,000 unit PO DAILY RF: 0 atorvastatin 80 MG tablet 40 mg PO DAILY RF: 0 ascorbic acid (vitamin C) 1,000 mg Tablet 1 g PO BID RF: 0 melatonin 3 mg Tablet 6 mg PO HS PRNRF: 0 acetaminophen 650 mg Tablet 650 mg PO Q4H PRNRF: 0 docusate sodium [Colace] 100 mg Capsule 100 mg PO TID PRNRF: 0 zinc sulfate 220 mg Capsule 220 mg PO QAM RF: 0 magnesium 200 mg Tablet 400 mg PO HS PRNRF: 0 Eliquis 5 mg tablet See Rx Instructions .ROUTE .COMPLEX Qty: 70 RF: 0 Discharge Instructions Instructions: Rhabdomyolysis (DC) Activity:: Activity as Tolerated Equipment/Supplies:: No Equipment Needed Diet:: As Tolerated Discharge Orders Discharge Orders: Discharge Order (Routine); Ordered 01/08/21 Ordered By: Yvonne Fernandez Discharge Data Discharge Date/Time-TO BE ENTERED AT DEPARTURE: 01/08/21 13:47 DS: Summary Time Spent with Patient providing and/or coordinating discharge services: Greater than 30 minutes Status at Discharge Functional status at discharge: uses cane/walker Overall status at discharge: patient is progressing back to baseline Mental Status: mental status grossly normal Speech and Movement: speech and movement normal Mood: congruent mood Affect: normal affect Exam Const General: cooperative, comfortable and frail appearing Nutritional Appearance: thin Orientation: alert, awake and oriented x3 HENMT Head: normal to inspection, normocephalic and atraumatic Mouth: oral mucosae normal Chest Chest: normal inspection of the chest Resp Effort & Inspection: normal respiratory effort Auscultation: clear to auscultation bilaterally Cardio Rate: regular rate Rhythm: regular rhythm GI Inspection: normal to inspection Palpation: soft Auscultation: normal bowel sounds Skin Lesions: lesion noted (right shoulder and left ankle) Neuro General: patient alert, patient awake and patient oriented x3 Cognition: normal cognition Speech: speech normal Motor: muscle tone normal throughout Extrem General: normal to inspection and full ROM Psych Mental Status: mental status grossly normal Speech and Movement: speech and movement normal Mood: congruent mood Affect: normal affect DS: Data Vitals/I&O Vitals and I&O: Vital Signs Temperature 36.1 C L 01/08/21 06:46 Temperature Source Tympanic 01/08/21 06:46 Pulse 54 L 01/08/21 06:46 Pulse Rhythm Regular 01/07/21 16:37 Pulse 64 01/03/21 11:20 Respiratory Rate 18 01/08/21 06:46 Respiratory Effort Non-Labored 01/08/21 02:14 Respiratory Depth Normal 01/08/21 02:14 Respiratory Pattern Normal 01/08/21 02:14 Blood Pressure 147/49 H 01/08/21 06:46 Blood Pressure Mean 58 01/03/21 11:16 Blood Pressure Position Supine 01/03/21 10:01 Pulse Oximetry 99 01/08/21 06:46 Oxygen Delivery Method Room Air 01/08/21 06:46 Oxygen Flow Rate 0 01/08/21 06:46 Pain Level 6 01/08/21 06:46 Intake & Output 01/07/21 01/07/21 01/08/21 11:59 23:59 11:59 Intake Total 1417 / 2995 1578 / 2995 1316 / 1316 Output Total 1750 / 2775 1025 / 2775 2650 / 2650 Balance -333 / 220 553 / 220 -1334 / -1334 Intake: IV 977 / 1835 858 / 1835 876 / 876 Oral 440 / 1160 720 / 1160 440 / 440 Output: Urine 1750 / 2775 1025 / 2775 2650 / 2650 Other: Urine Color Yellow Pale Yellow Yellow Urine Appearance Clear Clear Clear Comment done during am care Stool Size Moderate Stool Characteristics Formed [place] PFSH Medical History (Updated 01/03/21 @ 16:30 by Yvonne Fernandez NP) Compartment syndrome Deep venous thrombosis DIVERTICULOSIS Gout Hyperlipidemia Melanosis coli Peripheral venous insufficiency LEFT LEG Polyp of colon TUBULAR ADENOMA [id number] ADENOMA Psoriasis STROKE EMBOLIC Surgical History BACK OPERATION (~04/2008) Colonoscopy - IV Sedation (06/10/10) [id number] ADENOMA 06/18/16 no pathological features from ascending colon polyp Colonoscopy - IV Sedation (06/18/16) [id number] ADENOMA 06/18/16 no pathological features from ascending colon polyp Family History Mother Dementia Father Alzheimer's disease Sister Alzheimer's disease Parkinson's disease Social History Smoking/Tobacco Use Status: Former Tobacco Use Smoking risk assessment performed?: Yes Alcohol Intake: current Alcohol Intake frequency: a few times a month Alcohol type: beer Drug use: Never Substance use type: does not use Details: quit smoking 30 yrs ago Do you feel safe in your relationship?: Yes
[2021-01-08] MEDS: Normal Saline Flush 10 ML SYR IVP (10:53)
[2021-01-08 12:10] VITALS: BP 105/56; PULSE 56; RESP 16; TEMP 36.5; O2SAT 99
--- NOTE | 2021-01-08 16:34 | CMPROGNOTE_ITS ---
- If Service Date Differs Date of service: 01/08/21 Time of Service: 16:34 Care Management Progress Note S/O: Per provider, Adan is medically cleared, and is ready to transition to SWB1. CM called Adan to discuss this with him, go over the contract, and answer any questions that he had about him going into swing bed from his acute status. 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 CM brought the paper to his RN to bring in to him, as well as a copy of his SWB packet, which he agreed to verbally. He will be in SWB for 7-10 days to continue to work with PT in order to gain strength and independence with mobility prior to returning home. CM will continue to follow. A: Adan is a 80 year old male admitted to [facility] on 01/03/21 with Rhabdomyolysis. P: Anticipate Adan will enter SWB1 to continue working with PT. He may benefit from services, which CM will coordinate. CM offered information regarding [facility]. He will follow up with his PCP and discharge plan of care. CM will continue to follow.
== END 2021-01-08 13:47 | disposition swing bed (61) | DRG 178 ==
LOC: ER 10:17 → MS 13:34
PROVIDERS: Nurse Practitioner Acute Care; Admitting Provider Family Medicine; Emergency Provider Physician Assistant; PCP Family Medicine; Visit Provider Family Medicine
DX: U07.1 COVID-19 (principal); M62.82 Rhabdomyolysis; R53.1 Weakness; R29.6 Repeated falls; R33.9 Retention of urine, unspecified; R26.2 Difficulty in walking, not elsewhere classified; W19.XXXA Unspecified fall, initial encounter; Z86.718 Personal history of other venous thrombosis and embolism; E78.5 Hyperlipidemia, unspecified; I87.2 Venous insufficiency (chronic) (peripheral); Z86.73 Personal history of transient ischemic attack (TIA), and cerebral infarction without residual deficits; Z79.01 Long term (current) use of anticoagulants; M10.9 Gout, unspecified; K57.90 Diverticulosis of intestine, part unspecified, without perforation or abscess without bleeding; L40.9 Psoriasis, unspecified; Z87.891 Personal history of nicotine dependence
CPT/HCPCS: 36415; 36416; 73521; 80048; 80053; 82550; 82962; 85027; 87635; 93005; 96360; 97110; 97162; 97530; 99285; 70450; 71046; 81003; 81015; 83540; 83550; 83605; 83735; 84443; 84484; 85025; 85610; 85730; 93010; 99223; 99232; 99233; 99239; J3490

== ENCOUNTER 2021-01-08 13:47 | Inpatient (IN) | payer MEDICARE, OTHER, SELFPAY ==
[2021-01-08 15:18] VITALS: BP 147/63; PULSE 52; RESP 16; TEMP 36.2; O2SAT 100
[2021-01-08 15:23] VITALS: BP 147/63; PULSE 52; RESP 16; TEMP 36.2; O2SAT 100
[2021-01-08 15:28] VITALS: BP 147/63; PULSE 56; RESP 16; TEMP 36.2; O2SAT 100
--- NOTE | 2021-01-08 15:31 | W.PM.HP.N ---
Date of service: 01/08/21 Time of Service: 15:32 Assessment and Plan Assessment and plan (1) Ambulatory dysfunction: Status: Acute Assessment and plan: admitted to [facility] level care for PT/OT. (2) Urinary retention: Status: Acute Assessment and plan: indwelling christian catheter placed (3) Rhabdomyolysis: Status: Resolved Assessment and plan: resolved now (4) COVID: Status: Acute Assessment and plan: no respiratory symptoms fully vaccinated received monoclonal antibodies (5) DVT prophylaxis: Status: Acute Assessment and plan: fully anticoagulated on apixaban (6) Discharge planning issues: Status: Acute Assessment and plan: could benefit from [facility] case management following for discharge planning will likely discharge to home with home health services. discussed with DR Garcia History of Present Illness History of Present Illness Chief Complaint: generalized weakness Narrative: This is a 80 year old male who lives independent who reports he was in his usual state of health but suddenly developed progressive weakness to the point he was finding it difficult to ambulate and was having falls at home. On his last fall he was unable to get up and waited on the ground till his neighbor showed up to check on him. He was transported by EMS to ED for evaluation. His work up in the ED shows cpk at 2200, slightly elevated transaminitis, and negative imaging. He was given IV fluid bolus and hospitalist services admitted him for ambulatory dysfunction, rhabdomyolysis. On routine covid screening for admission he was found to be positive. He was asymptomatic from a respiratory standpoint. He was given casirivimab/imdevimab and his respiratory status remained stable. he had no oxygen requirements. He began working with physical therapy and slowly progressing. His CPK did raise to 7000k but began normalizing with IV fluids, but his kidney function remained normal. His IV fluids were discontinued. He was eating and drinking. he has been working with physical therapy and remains too weak to safely be discharged to home. recommendations are for [facility] level rehab. he will not be accepted at any other facility as he is covid positive. he will remain here for ongoing PT/OT until he is stable for discharge to home. will likely need home health services at discharge. Review of Systems All systems reviewed & are unremarkable except as noted in HPI and below [facility] Medical History (Updated 01/08/21 @ 15:36 by Yvonne Fernandez NP) Compartment syndrome Deep venous thrombosis DIVERTICULOSIS Gout Hyperlipidemia Melanosis coli Peripheral venous insufficiency LEFT LEG Polyp of colon TUBULAR ADENOMA [id number] ADENOMA Psoriasis STROKE EMBOLIC Surgical History BACK OPERATION (~04/2008) Colonoscopy - IV Sedation (06/10/10) [id number] ADENOMA 06/18/16 no pathological features from ascending colon polyp Colonoscopy - IV Sedation (06/18/16) [id number] ADENOMA 06/18/16 no pathological features from ascending colon polyp Family History Mother Dementia Father Alzheimer's disease Sister Alzheimer's disease Parkinson's disease Social History Smoking/Tobacco Use Status: Former Tobacco Use Smoking risk assessment performed?: Yes Alcohol Intake: current Alcohol Intake frequency: a few times a month Alcohol type: beer Drug use: Never Substance use type: does not use Details: quit smoking 30 yrs ago Do you feel safe in your relationship?: Yes Meds Allergies and Home Medications Allergies Allergy/AdvReac Type Severity Reaction Status Date / Time No Known Allergies Allergy Unverified 10/20/20 17:33 Home Medications Medication Instructions Recorded Confirmed Type cholecalciferol (vitamin D3) 2,000 unit PO DAILY 05/29/13 01/08/21 History [Vitamin D3] multivitamin [Daily Vitamin] 1 ea PO DAILY 05/29/13 01/08/21 History atorvastatin 40 mg PO DAILY tab-cap 04/20/16 01/08/21 History Eliquis See Rx Instructions .ROUTE 09/11/18 01/08/21 Rx .COMPLEX #70 tab tamsulosin 0.4 mg capsule 0.4 mg PO DAILY 10/10/20 01/08/21 History acetaminophen 650 mg PO Q4H PRN 01/08/21 01/08/21 History ascorbic acid (vitamin C) 1 g PO BID 01/08/21 01/08/21 History docusate sodium [Colace] 100 mg PO TID PRN 01/08/21 01/08/21 History magnesium 400 mg PO HS PRN 01/08/21 01/08/21 History melatonin 6 mg PO HS PRN 01/08/21 01/08/21 History zinc sulfate 220 mg PO QAM 01/08/21 01/08/21 History Exam Const General: cooperative, comfortable, no acute distress and frail appearing Nutritional Appearance: thin Orientation: alert, awake and oriented x3 HENMT Head: normal to inspection, normocephalic and atraumatic Mouth: oral mucosae normal Resp Effort & Inspection: normal respiratory effort Auscultation: clear to auscultation bilaterally Cardio Rate: regular rate Rhythm: regular rhythm GI Inspection: normal to inspection Palpation: soft Skin General skin exam: no rashes or lesions noted Neuro General: patient alert, patient awake, patient oriented x3 and no focal motor deficits Extrem General: normal to inspection, full ROM and no pedal edema Results Last Vital Signs Temp 36.2 C L 01/08/21 15:18 Pulse 52 L 01/08/21 15:18 Resp 16 01/08/21 15:18 BP 147/63 H 01/08/21 15:18 Pulse Ox 100 01/08/21 15:18
--- NOTE | 2021-01-08 16:41 | IN_ITS ---
Date of service: 01/08/21 Time of Service: 16:41 PT Notes Swing Level I Physical Therapy Initial Evaluation Date: 01/08/2021 Referring Doctor: Yvonne Fernandez NP PT Orders: PT CONSULT: Eval/treat Precautions: Fall. Standard. Activity as tolerated. COVID precautions. Patient Profile/Admitting Diagnosis: Adan converted to swig bed level I of care as of today for continued rehabilitation and medical management. Adan is a 80-year-old male who presented to the ED on 01/03/2021 due to generalized weakness and fall x 2 on 01/02/2021. He is diagnosed with ambulatory dysfunction, COVID-19 infection, urinary retention, rhabdomyolysis, and repeated falls. PMHX: Medical History (Updated 01/03/21 @ 16:30 by Yvonne Fernandez NP) Compartment syndrome Deep venous thrombosis DIVERTICULOSIS Gout Hyperlipidemia Melanosis coli Peripheral venous insufficiency LEFT LEG Polyp of colon TUBULAR ADENOMA [id number] ADENOMA Psoriasis STROKE EMBOLIC Surgical History BACK OPERATION (~04/2008) Colonoscopy - IV Sedation (06/10/10) [id number] ADENOMA 06/18/16 no pathological features from ascending colon polyp Colonoscopy - IV Sedation (06/18/16) [id number] ADENOMA 06/18/16 no pathological features from ascending colon polyp Social History/Home Situation: Lives alone in a a private home with 4 steps to enter, rails on both sides. He has 12 steps to the basement, rails on both sides where he does laundry. He has a lady who comes in once a week for house chores. Independent with all other ADLs. Still drives. Equipment Owned/DME: FWW, SPC Subjective: Feels a lot better. Indicates that he is gaining slowly. States that he had a hard time standing up from the edge of bed with nurses this morning. Agreeable to progressing exercise intensity today using the exercise band. Objective: General Observation: Asthenic. Seated on chair. IV access in R UE. Mental Status: Alert and oriented as to person, place, time, and purpose. Able to pay attention, focus, and respond appropriately. Pain: Denies ROM: Right Upper Extremity: Shoulder Flexion WFL. Shoulder abduction WFL. Elbow flexion WFL. Wrist flexion WFL. Functional opening and closing of hand WFL. Left Upper Extremity: Shoulder Flexion WFL. Shoulder abduction WFL. Elbow flexion WFL. Wrist flexion WFL. Functional opening and closing of hand WFL. Right Lower Extremity: Hip flexion WFL. Hip abduction WFL. Knee flexion WFL. Ankle dorsiflexion WFL. Ankle plantarflexion WFL. Left Lower Extremity: Hip flexion WFL. Hip abduction WFL. Knee flexion WFL. Ankle dorsiflexion absent. Ankle plantarflexion absent. Strength: Right Upper Extremity: Shoulder flexors 4/5. Shoulder abductors 4/5. Elbow flexors 4/5. Elbow extensors 4/5. Flame Hardening Machine Setter strong. Left Upper Extremity: Shoulder flexors 4/5. Shoulder abductors 4/5. Elbow f lexors 4/5. Elbow extensors 4/5. Flame Hardening Machine Setter strong. Right Lower Extremity: Hip flexors 4-/5. Hip abductors 4-/5. Knee flexors 4-/5. Knee extensors 4-/5. Ankle dorsiflexors 4-/5. Ankle plantarflexors 4-/5. Left Lower Extremity: Hip flexors 4/5. Hip abductors 4/5. Knee flexors 4/5. Knee extensors 4/5. Ankle dorsiflexors 1/5. Ankle plantarflexors 1/5. THERA EX: Initiated UE/LE strengthening using red exercise band. Worked on increasing ability to perform sit<>stand movement transitions wile at front edge of recliner with good response. Initiated chest expansion exercises combined with deep breathing techniques to maximize respiratory capacity. Bed Mobility/Transfers: Sit to stand stand by assist Stand to sit stand by assist Bed to bedside stand by assist Bed to reclining stand by assist Gait: Instructed patient with level surface ambulation of 100 feet requiring stand by assist inside room. Trunk anteroflexed. Mari increased and much stanle compared to last PT evaluation three days ago. 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 Balance: Static Sitting: Normal Dynamic Sitting: Good Static Standing: Fair Dynamic Standing: Fair Special Tests: Mobility Limitations Standardized Measure [facility] AM-PAC 6 clicks Basic Mobility Inpatient Short Form: Raw Score: 23 CMS Score: 11% deficit Informed Consent/Education: Patient was instructed in purpose of PT consult and continued plan of care. Agreeable to proceed with established PT POC to achieve personal goals. Assessment: Improvements in terms of activity tolerance and stability of gait apparent compared to start of care. Patient will benefit from continued services to achieve modified independence with all mobility ADLs in anticipation of going home alone whenever cleared by hospitalist. Exercise tolerance improving. Patient presents with clinical signs and symptoms consistent with current/admitting diagnoses that have resulted to mobility limitations, gait in stability, generalized weakness, and overall ADL decline as demonstrated by the following impairment level findings: 1. Decreased strength to B UE/LE major muscle groups with R more affected than the L 2. Impaired standing balance 3. Impaired activity tolerance 4. Shortness of breath 5. Fatigue Impairments are contributing to the following functional limitations: 1. Difficulty with ambulation without assistive device and physical assistance 2. Increased completion time for mobility ADL performance 3. Increased risk for falls 4. Difficulty with managing steps alone safely Patient is assessed as a 58972 moderate complexity based on the following: History: -year-old with past medical history as indicated above Examination: Demonstrable impairment in strength, balance, and mobility level with underlying impairments and functional limitations as exhibited above as well as deficit score of 47% utilizing the [facility] Mobility Inpatient Short Form Presentation: Evolving Decision Makin moderate complexity Goals: Goals X1 week 1. Supine-Sit independent 2. Sit-Supine independent 3. Sit-Stand independent 4. Stand-Sit independent with FWW 5. Bed-Chair independent with FWW 6. Chair-Bed independent with FWW 7. Independent gait on level surface with use of FWW for at least 300 feet without report of pain nor dyspnea 8. Independent stair negotiation while holding onto B rails for at least 12 steps without report of pain nor dyspnea ONCE COVID PRECAUTIONS ARE LIFTED 9. Independent with home exercise program 10. Good static and dynamic standing balance/tolerance Plan of Care/Treatment Plan: 1-2x/day, 7 days/week x 1 week. Plan of care has been reviewed with the CHAMBER [employer] DIVISION MANAGER providing the service under Physical Therapy direction. Initiate Physical Therapy intervention for pain management as needed, strengthening, bed mobility, transfers, gait, stairs, balance training, and use of assistive device. DISCHARGE RECOMMENDATIONS: Patient will benefit from home health PT services in order to progress mobility level using least restrictive assistive ambulatory device, assess home safety, identify additional equipment needs, and establish a functional maintenance program that will increase ability of patient to remain at home. TREATMENT CODE/TIME: 92171 x 15 minutes, 68150 x 15 minutes, 57038 x 16 minutes beginning at 9:33 AM. Thank you for the opportunity to participate in the care of this patient. Luz Hurtado PT, DPT, CLT [facility] [place], [place]
--- NOTE | 2021-01-08 16:46 | PDOC.CMPRO ---
- If Service Date Differs Date of service: 01/08/21 Time of Service: 16:46 Care Management Progress Note S/O: Per provider, Adan is medically cleared, and is ready to transition to SWB1. CM called Adan to discuss this with him, go over the contract, and answer any questions that he had about him going into swing bed from his acute status. 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 CM brought the paper to his RN to bring in to him, as well as a copy of his SWB packet, which he agreed to verbally. He will be in SWB for 7-10 days to continue to work with PT in order to gain strength and independence with mobility prior to returning home. CM will continue to follow. A: Adan is a 80 year old male admitted to [facility] on 01/03/21 with Rhabdomyolysis. P: Anticipate Adan will enter SWB1 to continue working with PT. He may benefit from services, which CM will coordinate. CM offered information regarding [facility]. He will follow up with his PCP and discharge plan of care. CM will continue to follow.
--- NOTE | 2021-01-08 16:47 | CMSCP_ITS ---
- If Service Date Differs Date of service: 01/08/21 Time of Service: 16:47 Swingbed Plan of Care Plan of care: SWING BED PROGRAM ACTIVITIES/DISCHARGE PLAN OF CARE ACTIVITIES PLAN Date: 01/08/21 Identified Need: Individualized needs. Adan likes to read, and enjoys reading t he paper. He likes to video chat with family/friends when available. Intervention/Plan: CM will provide Adan with the paper as often as possible. CM will also provide him with books to read while in SWB. He has a TV in his room, as well as a phone. He has the option to video chat with his family/friends when requested. Initials KM DISCHARGE PLAN Date: 01/08/21 Identified Need: Gain strength and independence with mobility prior to returning home with supports. Intervention/Plan: Adan will work with PT daily to progress toward his goal of returning home once he is more independent with mobility. Initials HONORIO
--- NOTE | 2021-01-08 16:54 | CM.SBPSYCH ---
- If Service Date Differs Date of service: 01/08/21 Time of Service: 16:54 SB Psychosocial/Act.Assessment - Hospital Admission Admission Date: 01/03/21 Admission From:: Home Diagnosis:: Rhabdomyolysis - Swing Bed Admission Swing Bed Admit Date:: 01/08/21 Swing Bed Level of Care: Level 1/SNF - Social Supports PREVIOUS FUNCTIONAL STATUS/SOCIAL/FAMILY SUPPORTS:: Adan lives in [facility], alone. He has a neighbor who checks in on him daily. He is independent at baseline. - Prior to Admission Living Arrangements/Environment Prior to Admission:: Adan lives alone in a house in [place], [place]. He has a neighbor who lives across the street and checks on him daily. He used to have [employer], but let it lapse. He intends to reactivate it. 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 Reading:: Adan is an avid reader, spending most of his time reading, mostly fiction. - Present Functional Status Physical Abilities:: limited currently Cognitive:: intact Communication:: very good, clear communication verbally Behavior:: appropriate, cooperative - Medical History PAST MEDICAL HISTORY/PAST SURGICAL HISTORY:: Medical History. Compartment syndrome. Deep venous thrombosis. DIVERTICULOSIS. Gout. Hyperlipidemia. Melanosis coli. Peripheral venous insufficiency. LEFT LEG. Polyp of colon. TUBULAR ADENOMA. [id number] ADENOMA. Psoriasis. STROKE. EMBOLIC. Surgical History. BACK OPERATION (~04/2008). Colonoscopy - IV Sedation (06/10/10). [id number] ADENOMA. 06/18/16 no pathological features from ascending colon polyp. Colonoscopy - IV Sedation (06/18/16). [id number] ADENOMA. 06/18/16 no pathological features from ascending colon polyp - Admission Data Reason for Swing Bed Admission:: Adan continues to require rehab in order to gain strength and independence with mobility. Discharge Plan:: Adan will return home when he has met his goals with PT to gain strength and independence with mobility. Assessment: Adan will enter SWB 1 to continue to work with PT daily in order to gain strength and independence with mobility. Once he has met his goals, he will return home with new RN, PT, OT, BIOFUELS PRODUCT MANAGER. has provided information for [employer], which he plans to reactivate upon discharge. Statuary Painter: Clemencia Hamilton Date Assessment was completed:: 01/08/21
[2021-01-08] MEDS: Docusate Sodium 100 MG CAP PO ×2 (17:18→21:33)
[2021-01-08] MEDS: Diclofenac 1% Gel 100 GM TUBE TP ×2 (17:18→21:34)
[2021-01-08] MEDS: Melatonin 3 MG TAB 6 MG PO (21:32)
[2021-01-08] MEDS: Magnesium Oxide 400 MG TAB PO (21:32)
[2021-01-08] MEDS: Acetaminophen 325 MG TAB 650 MG PO (21:32)
[2021-01-08] MEDS: Apixaban 5 MG TAB PO (21:33)
[2021-01-08] MEDS: Ascorbic Acid 500 MG TAB 1000 MG PO (21:33)
[2021-01-08] MEDS: Atorvastatin 40 MG TAB PO (21:33)
[2021-01-08] MEDS: Normal Saline Flush 10 ML SYR IVP (21:34)
[2021-01-08 21:40] VITALS: BP 105/48; PULSE 65; RESP 18; TEMP 36.2; O2SAT 98
[2021-01-08 22:16] VITALS: O2SAT 95
--- NOTE | 2021-01-09 | DI.CT_ITS ---
Exam(s) CT LOWER EXTREMITY RT WO EXAM: CT LOWER EXTREMITY RT WO CLINICAL HISTORY: Fall. Right greater trochanter area pain. TECHNIQUE: Imaging Protocol: Axial computed tomography images with coronal and sagittal reformatted images were created and reviewed. COMPARISON: CR XR HIP PELVIS ADULT BL from 01/03/2021 CR XR HIP PELVIS ADULT BL from 01/03/2021 FINDINGS: Bones: The osseous structures and articular surfaces are intact. Bony alignment is satisfactory. N o cellulitic or osteomyelitic changes are identified. Degenerative changes are seen at the hip. The bones are osteopenic. No lytic or sclerotic lesions are identified. Soft Tissues: There is a hematoma involving the right gluteus medius muscle. There is a Moore esme ter in place. Atherosclerosis is present. Small bilateral hydroceles are present. IMPRESSION: 1. No acute fracture or dislocation. 2. Hematoma involving the right gluteus medius muscle. RADIATION DOSE DELIVERED: 224.92mGy.cm Total DLP 224.92mGy.cm Total DLP 224.92mGy.cm Total DLP 224.92mGy.cm Total DLP DATA REPOSITORY: All CT scans at this facility are submitted to the National Radiology Data Registry (NRDR) Dose Index Registry (DIR) with the [employer] (ACR). RADIATION OPTIMIZATION: All CT scans at this facility use at least one of these dose optimization te chniques: automated exposure control; mA and/or kV adjustment per patient size (includes targeted exa ms where dose is matched to clinical indication); or iterative reconstruction.
[2021-01-09 02:15] VITALS: BP 164/87; PULSE 96; RESP 32; TEMP 36.8; O2SAT 95
[2021-01-09] MEDS: Acetaminophen 325 MG TAB 650 MG PO (04:33)
[2021-01-09] MEDS: Tamsulosin 0.4 MG CAPCR 0.8 MG PO (08:36)
[2021-01-09] MEDS: Ascorbic Acid 500 MG TAB 1000 MG PO ×2 (08:36→21:33)
[2021-01-09] MEDS: Zinc Sulfate 220 MG TAB PO (08:36)
[2021-01-09] MEDS: Cholecalciferol (Vitamin D3) 1,000 UNIT TAB 2000 UNITS PO (08:37)
[2021-01-09] MEDS: Apixaban 5 MG TAB PO ×2 (08:37→21:35)
[2021-01-09] MEDS: Multivitamin TAB 1 TAB PO (08:37)
[2021-01-09] MEDS: Diclofenac 1% Gel 100 GM TUBE TP ×4 (08:38→21:36)
[2021-01-09 08:58] VITALS: BP 113/60; PULSE 53; RESP 16; TEMP 36.2; O2SAT 99
--- NOTE | 2021-01-09 09:02 | PT.INTREAT ---
Date of service: 01/09/21 Time of Service: 07:25 PT Notes Visit Reasons: SWINGBED Inpatient Physical Therapy Treatment Note [facility] Date: 01/09/2021 PRECAUTIONS: Fall SUBJECTIVE: Adan states that he isn't sure how he's feeling today, but that he is feeling stronger OBJECTIVE: Aqua-K to low back for pain/stiffness relief PAIN: Patient c/o R hip pain with ther ex completion and gait training. BED MOBILITY/TRANSFERS Supine-sit: I with HOB flat Sit-stand: CGA/SBA Stand-sit: SBA Bed-chair: SBA Chair-bed: SBA GAIT Assistive Device: FWW Weight bearing: Full Assist: SBA Distance: 60' x2 Deviation: Slow pacing, anteroflexed posture, R hip pain, seated rest x1 THEREX: Patient was instructed in a seated resisted UE and LE strengthening program, as per flow sheet. He also completes functional [id number]. Patient c/o global stiffness prior to ther ex, easing with exercise completion as well as of R hip pain with ther ex. ASSESSMENT: Patient tolerated session with complaint R hip pain with ther ex and gait training, limiting his ability to progress at this time. He demonstrates ability to complete transfers with SBA only, demonstrating increased strength. PLAN: Continue with global strengthening and conditioning for continued progression toward baseline level of function. TREATMENT CODE/TIME: 50 minutes; 50898 x2, 19040 (07:25)
--- NOTE | 2021-01-09 09:14 | OT.INIE ---
Occupational Therapy Notes Inpatient Occupational Therapy Evaluation Date: 01/09/21 Referring Doctor:Dr. Garcia OT Orders: Non-URgent Precautions: Fall, DNR/DNI, COVID restrictions PATIENT PROFILE/ADMITTING DIAGNOSIS: Pt is a 80 year old male who was admitted to [facility] for the following dx including COVID, DVT prophylaxis, Fall, Rhabdomyolysis, Urinary retention, COVID, ambulatory dysfunction, cellulitis for (L) forearm. Past Medical History: Medical History (Updated 01/08/21 @ 15:36 by Yvonne Fernandez NP) Compartment syndrome Deep venous thrombosis DIVERTICULOSIS Gout Hyperlipidemia Melanosis coli Peripheral venous insufficiency LEFT LEG Polyp of colon TUBULAR ADENOMA [id number] ADENOMA Psoriasis STROKE EMBOLIC Surgical History BACK OPERATION (~04/2008) Colonoscopy - IV Sedation (06/10/10) [id number] ADENOMA 06/18/16 no pathological features from ascending colon polyp Colonoscopy - IV Sedation (06/18/16) [id number] ADENOMA 06/18/16 no pathological features from ascending colon polyp Social History/Home Situation: Pt states that he lives alone in a private home. He has 4 steps to enter and he reports that he has stairs to the 2nd floor of his home which he does not go up too and stairs to his basement. He is concerned about the stairs to his basement as this is where his shower and laundry room is. He notes that this is his biggest limitation about returning home and his increased pain in his hip which his decreasing his functional (I) for his (B) LE. Equipment owned/DME: fabiana curtis, [employer] SUBJECTIVE: Pt was sitting in chair when OT arrived. He was agreeable to OT session and notes that he is feeling ok today. OBJECTIVE: General Observation: Pleasant, no IV connected Mental Status: A&Ox3 Pain: c/o pain in (R) hip ROM: RUE AROM WFL L UE AROM WFL STRENGTH: RUE 4/5 throughout LUE 4/5 throughout FUNCTIONAL MOBILITY/ADLS: Sit-supine SBA Sit-Stand SBA BATHING Pt would like to hold on this as he is wanting to finish his breakfast. DRESSING Pt was sitting in chair when OT arrived he attempted to don and doff his socks which he is unable to perform due to pain. TOILETING NT but pt states that he has been able to perform this with (A) to the bathroom. EATING Pt was sitting in chair when OT arrived, he had his breakfast and was able to bring food to mouth (I). He is able to drink (I). BALANCE: Static sitting Good Dynamic Sitting Good SPECIAL TESTS: Daily Activity Limitations Standardized Measure [facility] AM -PAC ?6 clicks? Daily Activity Inpatient Short Form: Raw score: 19 Standardized score: 40.22 CMS score: 42.80% INFORMED CONSENT/EDUCATION: Pt instructed in purpose of OT Consult and plan of care. ASSESSMENT: Patient is a 80-year-old male referred to occupational therapy services with diagnosis of COVID, DVT prophylaxis, Fall, Rhabdomyolysis, Urinary retention, COVID, ambulatory dysfunction, cellulitis for (L) forearm. Patient presents with clinical signs and symptoms consistent with dx, as demonstrated by the following impairment level findings/functional limitations: Impairments in ADL/IADL and leisure activities, pain in (R) hip, unable to perform his (R) LE dressing, decreased functional activity tolerance, inability to reach his feet without pain. AMPAC score 19 Patient is assessed as a Moderate 68141 complexity based on the following: History: see above Examination: see functional limitations as noted above Presentation: evolving Decision Making: AMPAC score 19 GOALS Goals x1 week 1. Grooming standing at sink (I) with brushing teeth 2. Dressing sitting in chair (I) UE/LE 3. Toileting (I) 5. Eating (I) PLAN OF CARE/TREATMENT PLAN: 1x/day, 5 days/ week x 1week Initiate Occupational Therapy Services for bathing, dressing, grooming, toileting, eating, transfer training. DISCHARGE RECOMMENDATIONS Home with HH OT for assessment of pts bathroom set up for adaptive equipment recommendations and increased functional (I) and safety. TREATMENT TIME/MINUTES/CODES 38551, 30 minutes (08:45) Zulma Lorenzana OTR/[facility]
[2021-01-09] MEDS: Acetaminophen 500 MG TAB 1000 MG PO ×2 (14:27→21:33)
--- NOTE | 2021-01-09 17:08 | DI.VRAD_ITS ---
PROCEDURE INFORMATION: Exam: CT Right Lower Extremity Without Contrast, Hip Exam date and time: 01/09/2021 3:50 PM Age: 80 years old Clinical indication: Hip; Patient HX: Fall, right greater trochanter area pain TECHNIQUE: Imaging protocol: CT of the Right lower extremity without contrast was performed. Exam focused on the hip. COMPARISON: CR XR HIP PELVIS ADULT BL 01/03/2021 3:29 PM FINDINGS: Tubes, catheters and devices: Moore catheter drains the bladder. Bones/joints: Bone mineralization appears decreased. Alignment is anatomic. No evidence for fracture. Soft tissues: There is increased attenuation and enlargement of the anterior aspect of the right gluteus medius muscle consistent with hematoma. Vasculature: Moderate to severe atherosclerotic change present in the vasculature. Reproductive: Minimal bilateral hydroceles present. IMPRESSION: Right-sided hematoma of the anterior gluteus medius muscle. No evidence for fracture. Dictated and Authenticated by: Abiola Champion MD. Ordering:MADIHA Hill MD
[2021-01-09] MEDS: Normal Saline Flush 10 ML SYR IVP (17:18)
[2021-01-09 17:44] VITALS: BP 105/60; PULSE 55; RESP 20; TEMP 36.1; O2SAT 99
[2021-01-09] MEDS: Melatonin 3 MG TAB 6 MG PO (21:33)
[2021-01-09] MEDS: Magnesium Oxide 400 MG TAB PO (21:35)
[2021-01-09] MEDS: Atorvastatin 40 MG TAB PO (21:35)
[2021-01-10] MEDS: Cholecalciferol (Vitamin D3) 1,000 UNIT TAB 2000 UNITS PO (09:16)
[2021-01-10] MEDS: Tamsulosin 0.4 MG CAPCR 0.8 MG PO (09:16)
[2021-01-10] MEDS: Ascorbic Acid 500 MG TAB 1000 MG PO ×2 (09:16→19:55)
[2021-01-10] MEDS: Apixaban 5 MG TAB PO ×2 (09:16→19:56)
[2021-01-10] MEDS: Zinc Sulfate 220 MG TAB PO (09:17)
[2021-01-10] MEDS: Normal Saline Flush 10 ML SYR IVP ×2 (09:17→21:24)
[2021-01-10] MEDS: Acetaminophen 500 MG TAB 1000 MG PO ×3 (09:17→19:55)
[2021-01-10] MEDS: Diclofenac 1% Gel 100 GM TUBE TP ×3 (09:17→19:58)
[2021-01-10] MEDS: Multivitamin TAB 1 TAB PO (09:17)
[2021-01-10 09:32] VITALS: BP 110/65; PULSE 58; RESP 18; TEMP 35.7; O2SAT 97
--- NOTE | 2021-01-10 10:59 | PT.INTREAT ---
PT Notes Visit Reasons: Priti- Joel positive 01/10/2021 SUBJECTIVE: Adan states his biggest complaint is of R hip pain. Otherwise doing much better. OBJECTIVE: TRANSFERS Sit to stand: SBA Stand to sit: SBA GAIT Device: FWW Weight bearing: Full Assist: SBA Distance: 75'x2 Deviation: R hip discomfort slowing him down, forward flexed at trunk THEREX: Seated resisted UE strengthening exercises as noted on flow sheet. See flow sheet for specifics. ASSESSMENT: Tolerates PT well today. Encouraged continued use of FWW to take pressure off the R hip. Ends with heat to the R hip. PLAN: Continue current POC. Treatment time: 35 minutes India Sawyer PTA Clinic location: [facility] [place], [place]
[2021-01-10] MEDS: Melatonin 3 MG TAB 6 MG PO (21:24)
[2021-01-10] MEDS: Magnesium Oxide 400 MG TAB PO (21:24)
[2021-01-11 06:58] VITALS: BP 103/53; PULSE 55; RESP 14; TEMP 36.4; O2SAT 99
[2021-01-11] MEDS: Tamsulosin 0.4 MG CAPCR 0.8 MG PO (08:58)
[2021-01-11] MEDS: Apixaban 5 MG TAB PO ×2 (09:02→19:57)
[2021-01-11] MEDS: Ascorbic Acid 500 MG TAB 1000 MG PO ×2 (09:02→19:57)
[2021-01-11] MEDS: Zinc Sulfate 220 MG TAB PO (09:02)
[2021-01-11] MEDS: Multivitamin TAB 1 TAB PO (09:02)
[2021-01-11] MEDS: Cholecalciferol (Vitamin D3) 1,000 UNIT TAB 2000 UNITS PO (09:02)
[2021-01-11] MEDS: Diclofenac 1% Gel 100 GM TUBE TP ×4 (09:03→19:57)
[2021-01-11] MEDS: Acetaminophen 500 MG TAB 1000 MG PO ×2 (09:03→19:57)
--- NOTE | 2021-01-11 12:04 | PT.INTREAT ---
PT Notes Visit Reasons: Rabdo- Covid positive 01/11/2021 SUBJECTIVE: Pt stating he wants to go home. He feels he can manage at home at this point. No difficulty getting out of bed this morning. He does not have pain in the R hip today mostly stiffness from sitting too long. He was able to lift his R leg out of bed without help or pain this morning. OBJECTIVE: TRANSFERS Sit to stand: I Stand to sit: I GAIT Device: FWW Weight bearing: Full Assist: S Distance: 100'x2 Deviation: No pain complaints THEREX: Seated UE strengthening utilizing thera band. Refer to flow sheet. Pt performing LE strengthening independently ASSESSMENT: No pain complaints throughout. Able to independently get up out of chair today. Functionally it appears that Adan is back to baseline level of function. Encouraged pt to utilize FWW at home to unweight the right hip as necessary. He may benefit from outpatient referral once he tests negative for COVID. PLAN: Recommend home with services. Will follow up tomorrow for recheck. Direct time: 30 minutes [id number], [id number] India Sawyer PTA Clinic location: [facility] [place], [place]
[2021-01-11 19:59] VITALS: BP 117/66; PULSE 60; RESP 18; TEMP 36.4; O2SAT 98
[2021-01-11] MEDS: Magnesium Oxide 400 MG TAB PO (22:30)
[2021-01-11] MEDS: Melatonin 3 MG TAB 6 MG PO (22:30)
--- NOTE | 2021-01-12 08:06 | OT.INTREAT ---
Date of service: 01/12/21 Time of Service: 07:35 Occupational Therapy Notes Occupational Therapy Inpatient Treatment Note Date: 01/12/21 PRECAUTIONS: Fall, standard, DNR/DNI SUBJECTIVE: Pt was lying in bed when OT arrived, he was agreeable to OT session and notes that he is doing well. OBJECTIVE: PAIN:c/o pain in (R) hip FUNCTIONAL MOBILITY Rolling L/R: (I) Supine-sit: (I) Sit-stand: CGA Stand-sit: CGA Bed-Chair: CGA DRESSING: Lower Extremity: OT educated and trained pt in donning and doffing his socks with a sock aide. He is able to perform this at baseline but with his hip pain this is bothersome to him. OT provided pt with sock aide and step by step instructions. He is able to perform this (I). He is tall and the ropes are shorter which does still present with some hip bend but overall he tolerated this well. OT will continue to work with pt on his socks and LE dressing and monitor as symptoms allow. ASSESSMENT/PLAN: Pt is doing better, he notes that he is moving more and his hip is sore but he is doing well. He notes that he is (I) with bathing he just does a sponge bath sitting in his chair. He is not interested in performing his bathing but was receptive to performance of his sock aide today. TREATMENT CODES/TIME: 38903m1, 25 minutes (07:35) Zulma Lorenzana, OTR/L [facility]
[2021-01-12] MEDS: Diclofenac 1% Gel 100 GM TUBE TP ×3 (08:11→19:49)
[2021-01-12] MEDS: Ascorbic Acid 500 MG TAB 1000 MG PO ×2 (08:11→19:49)
[2021-01-12] MEDS: Tamsulosin 0.4 MG CAPCR 0.8 MG PO (08:12)
[2021-01-12] MEDS: Multivitamin TAB 1 TAB PO (08:12)
[2021-01-12] MEDS: Cholecalciferol (Vitamin D3) 1,000 UNIT TAB 2000 UNITS PO (08:12)
[2021-01-12] MEDS: Zinc Sulfate 220 MG TAB PO (08:12)
[2021-01-12] MEDS: Acetaminophen 500 MG TAB 1000 MG PO ×3 (08:12→19:49)
[2021-01-12] MEDS: Apixaban 5 MG TAB PO ×2 (08:12→19:49)
[2021-01-12 08:21] VITALS: BP 132/65; PULSE 54; RESP 16; O2SAT 99
[2021-01-12] MEDS: Polyethylene Glycol 3350 17 GM PACKET PO (09:44)
[2021-01-12] MEDS: Docusate Sodium 100 MG CAP PO ×2 (09:44→19:48)
--- NOTE | 2021-01-12 15:52 | PT.INTREAT ---
Date of service: 01/12/21 Time of Service: 11:10 PT Notes Visit Reasons: Rabdo- Covid positive Inpatient Physical Therapy Treatment Note [facility] Date: 01/12/2021 PRECAUTIONS: COVID+ SUBJECTIVE: Adan is pleasant and agreeable to participating in PT. He reports that he is feeling much better and stronger and is looking forward to going home, hopefully tomorrow. He reports that his only concerns about going home are his low toilet and having a flight of stairs to get to the shower. OBJECTIVE: PAIN: No c/o pain BED MOBILITY/TRANSFERS Sit-stand: I Stand-sit: I GAIT: Assistive Device: FWW Weight bearing: Full Assist: S Distance: 60' x2 Deviation: No pain THEREX: Patient was instructed in a seated resisted UE strengthening and standing LE program, as per flow sheet. He also completes functional [id number] x10. TOILETING: Patient practiced sit<>stand transfers from low toilet surface for home setup simulation. ASSESSMENT: Patient tolerated session well, without complaint. He demonstrates improved strength, tolerating increased reps with his ther ex program, as well as improved activity tolerance, requiring fewer rests between exercises. PLAN: Continue with global strengthening for improved mobility and activity tolerance, and add stair training when off COVID precautions. TREATMENT CODE/TIME: 30 minutes; 72004, 45482 (11:10)
[2021-01-12] MEDS: Milk of Magnesia 30 ML CUP PO (19:48)
[2021-01-12] MEDS: Melatonin 3 MG TAB 6 MG PO (21:27)
[2021-01-12] MEDS: Magnesium Oxide 400 MG TAB PO (21:27)
[2021-01-13 09:08] VITALS: BP 121/61; PULSE 60; RESP 20; TEMP 36; O2SAT 98
[2021-01-13] MEDS: Acetaminophen 500 MG TAB 1000 MG PO ×2 (09:47→19:13)
[2021-01-13] MEDS: Tamsulosin 0.4 MG CAPCR 0.8 MG PO (09:48)
[2021-01-13] MEDS: Cholecalciferol (Vitamin D3) 1,000 UNIT TAB 2000 UNITS PO (09:48)
[2021-01-13] MEDS: Zinc Sulfate 220 MG TAB PO (09:48)
[2021-01-13] MEDS: Ascorbic Acid 500 MG TAB 1000 MG PO ×2 (09:49→19:13)
[2021-01-13] MEDS: Multivitamin TAB 1 TAB PO (09:50)
[2021-01-13] MEDS: Normal Saline Flush 10 ML SYR IVP (09:50)
[2021-01-13] MEDS: Apixaban 5 MG TAB PO ×2 (09:50→19:14)
[2021-01-13] MEDS: Diclofenac 1% Gel 100 GM TUBE TP ×2 (09:53→19:12)
--- NOTE | 2021-01-13 11:25 | PT.INPN ---
Date of service: 01/13/21 Time of Service: 11:25 PT Notes Visit Reasons: Rabdo- Covid positive Swing Level I Physical Therapy Progress Note Date: 01/13/2021 Date of service: 01/05/2021 through 01/13/2021 Referring Doctor: Yvonne Fernandez NP PT Orders: PT CONSULT: Eval/treat Precautions: Fall. Standard. Activity as tolerated. Cleared to walk in the hallway with FWW and needed assisatnce as of today. Patient Profile/Admitting Diagnosis: Adan converted to [facility] bed level I of care as of today for continued rehabilitation and medical management. Adan is a 80-year-old male who presented to the ED on 01/03/2021 due to generalized weakness and fall x 2 on 01/02/2021. He is diagnosed with ambulatory dysfunction, COVID-19 infection, urinary retention, rhabdomyolysis, and repeated falls. Subjective: Reports that he is confident about going home alone anytime. Agreeable to PT coming in to continue working with him and address some safety issues he may have at home. Reports discomfort on the R hip with ambulation at about 3-4/10. Objective: General Observation: Asthenic. Supine in bed. IV access in R UE. Mental Status: Alert and oriented as to person, place, time, and purpose. Able to pay attention, focus, and respond appropriately. Pain: 3-4/10 pain in R hip and thigh. ROM: Right Upper Extremity: Shoulder Flexion WFL. Shoulder abduction WFL. Elbow flexion WFL. Wrist flexion WFL. Functional opening and closing of hand WFL. Left Upper Extremity: Shoulder Flexion WFL. Shoulder abduction WFL. Elbow flexion WFL. Wrist flexion WFL. Functional opening and closing of hand WFL. Right Lower Extremity: Hip flexion WFL. Hip abduction WFL. Knee flexion WFL. Ankle dorsiflexion WFL. Ankle plantarflexion WFL. Left Lower Extremity: Hip flexion WFL. Hip abduction WFL. Knee flexion WFL. Ankle dorsiflexion absent. Ankle plantarflexion absent. Strength: Right Upper Extremity: Shoulder flexors 4/5. Shoulder abductors 4/5. Elbow flexors 4/5. Elbow extensors 4/5. Distribution Clerk strong. Left Upper Extremity: Shoulder flexors 4/5. Shoulder abductors 4/5. Elbow flexors 4/5. Elbow extensors 4/5. Distribution Clerk strong. Right Lower Extremity: Hip flexors 4/5. Hip abductors 4/5. Knee flexors 4/5. Knee extensors 4/5. Ankle dorsiflexors 4-/5. Ankle plantarflexors 4-/5. Left Lower Extremity: Hip flexors 4/5. Hip abductors 4/5. Knee flexors 4/5. Knee extensors 4/5. Ankle dorsiflexors 1/5. Ankle plantarflexors 1/5. Bed Mobility/Transfers: Sit to stand independent Stand to sit independent Bed to bedside independent Bed to reclining independent Gait: Instructed patient with level surface ambulation of 250 feet+ 300 feet requiring supervision. Trunk anteroflexed. Mari increased and much stanle compared to last PT evaluation three days ago. 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 Stairs: Up and down 18 x 4 steps and 12 x 6 steps while holding onto B rails with step-to gait pattern and supervision only. THERA EX: Worked on standing level strengthening exercises to achive increased I with mobility ADLs: heel raises, partial squats Balance: Static Sitting: Normal Dynamic Sitting: Good Static Standing: Fair Dynamic Standing: Fair Assessment: Improvements in terms of activity tolerance and stability of gait apparent compared to start of care. Patient will benefit from continued services to achieve modified independence with all mobility ADLs in anticipation of going home alone whenever cleared by hospitalist. Exercise tolerance improving. Patient presents with clinical signs and symptoms consistent with current/admitting diagnoses that have resulted to mobility limitations, gait instability, generalized weakness, and overall ADL decline as demonstrated by the following impairment level findings: 1. Decreased strength to B UE/LE major muscle groups with R more affected than the L 2. Impaired standing balance 3. Impaired activity tolerance Impairments are contributing to the following functional limitations: 1. Difficulty with ambulation without assistive device 2. Increased completion time for mobility ADL performance 3. Increased risk for falls 4. Difficulty with managing steps alone safely Patient is assessed as a 46094 moderate complexity based on the following: History: 80-year-old male with past medical history as indicated above Examination: Demonstrable impairment in strength, balance, and mobility level with underlying impairments and functional limitations as exhibited above Presentation: Evolving Decision Makin moderate complexity Goals: Goals X1 week 1. Supine-Sit independent MET 2. Sit-Supine independent MET 3. Sit-Stand independent MET 4. Stand-Sit independent with FWW MET 5. Bed-Chair independent with FWW MET 6. Chair-Bed independent with FWW MET 7. Independent gait on level surface with use of FWW for at least 300 feet without report of pain nor dyspnea NOT MET 8. Independent stair negotiation while holding onto B rails for at least 12 steps without report of pain nor dyspnea ONCE COVID PRECAUTIONS ARE LIFTED NOT MET 9. Independent with home exercise program NOT MET 10. Good static and dynamic standing balance/tolerance NOT MET Plan of Care/Treatment Plan: 1-2x/day, 7 days/week x 1 week. Plan of care has been reviewed with the SHAREPOINT NET DEVELOPER providing the service under Physical Therapy direction. Continue with physical Therapy intervention for pain management as needed, strengthening, bed mobility, transfers, gait, stairs, balance training, and use of assistive device. DISCHARGE RECOMMENDATIONS: Patient will benefit from home health PT services in order to progress mobility level using least restrictive assistive ambulatory device, assess home safety, identify additional equipment needs, and establish a functional maintenance program that will increase ability of patient to remain at home. TREATMENT CODE/TIME: 74028 x 20 minutes, 32749 x 18 minutes beginning at 11:25 AM. Thank you for the opportunity to participate in the care of this patient. Luz Hurtado PT, DPT, CLT [facility] [place], [place]
--- NOTE | 2021-01-13 15:18 | CMDISCH_ITS ---
- If Service Date Differs Date of service: 01/13/21 Time of Service: 15:18 LACE Index Scoring Tool - Questions: Length of Stay (in days): 7 - 13 Acuity (Admit via E.D.?): Yes E.D. Visits: 2 - Answers: Total Score: 10 Risk of Readmission: High Risk Care Management Discharge Reason for Hospitalization: Rhabdo - Covid Positive Discharge Plan: Adan will return home today with new orders for HH RN, PT, OT, CLAY MACHINE OPERATOR. called [facility] today to inform them of his discharge. He will have a friend drive him home via private vehicle. He will follow up with Urology, his PCP, and his discharge plan of care. He is happy to be going home. Patient/Family Education Needs: Review discharge instructions regarding activity levels and medications, discussion of self care needs including ask me three. Services Needed at Discharge: Home Health Care Services ([facility] RN, PT, OT CLAY MACHINE OPERATOR)
--- NOTE | 2021-01-13 15:31 | PT.INTREAT ---
Date of service: 01/13/21 Time of Service: 14:45 PT Notes Visit Reasons: Rabdo- Covid positive Inpatient Physical Therapy Treatment Note [facility] Date: 01/13/2021 PRECAUTIONS: Previously COVID+ (off precautions 01/13) SUBJECTIVE: Adan is pleasant and agreeable to participating in PT. He reports that he continues to struggle with urinating, which is delaying when he can return to home. He feels much stronger and is happy to be able to get out of his room and walk in the hallways. OBJECTIVE: PAIN: No c/o pain BED MOBILITY/TRANSFERS Supine-sit: I Sit-stand: I Stand-sit: I Bed-chair: I Chair-bed: I GAIT: Assistive Device: FWW Weight bearing: Full Assist: S Distance: 750' Deviation: Cueing throughout for improved posture ASSESSMENT: Patient tolerated a progression in gait distance with FWW support and supervision, although requires cueing throughout for improved posture. PLAN: Continue with global strengthening for improved mobility and activity tolerance. TREATMENT CODE/TIME: 20 minutes; 21498 (14:45)
--- NOTE | 2021-01-13 15:42 | W.PM.PROGNOT ---
Date of Service Date of service: 01/13/21 Time of Service: 15:42 Subjective Subjective Interval history since last seen: Patient seen briefly. While he was retaining urine last night, he is not today. He is not interested in the christian catheter. Nursing brought to my attention two wounds on his lower extremities which were present on admission - one on L ankle and the other on R calf. These now appear to have erythema around them to the point that I feel he would benefit from addition of an antibiotic. No wound care consult is available until . The patient is being initiated on keflex. HE agrees to stay for the next 24 hrs to ensure that the erythema looks better prior to his discharge. Objective Last Vital Signs Temp 36 C L 01/13/21 09:08 Pulse 60 01/13/21 09:08 Resp 20 01/13/21 09:08 BP 121/61 01/13/21 09:08 Pulse Ox 98 01/13/21 09:08
[2021-01-13] MEDS: Cephalexin 500 MG CAP PO (19:13)
[2021-01-13] MEDS: Melatonin 3 MG TAB 6 MG PO (21:00)
[2021-01-13] MEDS: Magnesium Oxide 400 MG TAB PO (21:00)
[2021-01-14] MEDS: Cholecalciferol (Vitamin D3) 1,000 UNIT TAB 2000 UNITS PO (08:03)
[2021-01-14] MEDS: Multivitamin TAB 1 TAB PO (08:03)
[2021-01-14] MEDS: Cephalexin 500 MG CAP PO ×2 (08:03→14:32)
[2021-01-14] MEDS: Zinc Sulfate 220 MG TAB PO (08:04)
[2021-01-14] MEDS: Apixaban 5 MG TAB PO (08:04)
[2021-01-14] MEDS: Diclofenac 1% Gel 100 GM TUBE TP (08:04)
[2021-01-14] MEDS: Tamsulosin 0.4 MG CAPCR 0.8 MG PO (08:04)
[2021-01-14] MEDS: Ascorbic Acid 500 MG TAB 1000 MG PO (08:04)
[2021-01-14] MEDS: Normal Saline Flush 10 ML SYR IVP (08:05)
[2021-01-14 08:47] VITALS: BP 120/58; PULSE 74; RESP 19; TEMP 36.6; O2SAT 98
--- NOTE | 2021-01-14 10:23 | PT.INDS ---
Date of service: 01/14/21 Time of Service: 10:23 PT Notes Visit Reasons: Rhabdomyolysis, COVID-19 disease, falls Physical Therapy Inpatient Discharge Summary Date: 01/14/2021 Date of service: 01/08/2021 through 01/14/2021 Referring Doctor: Yvonne Fernandez NP PT Orders: PT CONSULT: Eval/treat Precautions: Fall. Standard. Activity as tolerated. Cleared to walk in the hallway with FWW and needed assisatnce as of today. Patient Profile/Admitting Diagnosis: Adan converted to [facility] bed level I of care as of today for continued rehabilitation and medical management. Adan is a 80-year-old male who presented to the ED on 01/03/2021 due to generalized weakness and fall x 2 on 01/02/2021. He is diagnosed with ambulatory dysfunction, COVID-19 infection, urinary retention, rhabdomyolysis, and repeated falls. Subjective: Reports that he is confident about going home alone anytime. Agreeable to PT coming in to continue working with him and address some safety issues he may have at home. Reports discomfort on the R hip with ambulation at about 3-4/10. Objective: General Observation: Asthenic. Supine in bed. IV access in R UE. Mental Status: Alert and oriented as to person, place, time, and purpose. Able to pay attention, focus, and respond appropriately. Pain: 3-4/10 pain in R hip and thigh. ROM: Right Upper Extremity: Shoulder Flexion WFL. Shoulder abduction WFL. Elbow flexion WFL. Wrist flexion WFL. Functional opening and closing of hand WFL. Left Upper Extremity: Shoulder Flexion WFL. Shoulder abduction WFL. Elbow flexion WFL. Wrist flexion WFL. Functional opening and closing of hand WFL. Right Lower Extremity: Hip flexion WFL. Hip abduction WFL. Knee flexion WFL. Ankle dorsiflexion WFL. Ankle plantarflexion WFL. Left Lower Extremity: Hip flexion WFL. Hip abduction WFL. Knee flexion WFL. Ankle dorsiflexion absent. Ankle plantarflexion absent. Strength: Right Upper Extremity: Shoulder flexors 4/5. Shoulder abductors 4/5. Elbow flexors 4/5. Elbow extensors 4/5. Field Sales Representative strong. Left Upper Extremity: Shoulder flexors 4/5. Shoulder abductors 4/5. Elbow flexors 4/5. Elbow extensors 4/5. Field Sales Representative strong. Right Lower Extremity: Hip flexors 4/5. Hip abductors 4/5. Knee flexors 4/5. Knee extensors 4/5. Ankle dorsiflexors 4-/5. Ankle plantarflexors 4-/5. Left Lower Extremity: Hip flexors 4/5. Hip abductors 4/5. Knee flexors 4/5. Knee extensors 4/5. Ankle dorsiflexors 1/5. Ankle plantarflexors 1/5. Bed Mobility/Transfers: Sit to stand independent Stand to sit independent Bed to bedside independent Bed to reclining independent Gait: Instructed patient with level surface ambulation of 300 feet+ 300 feet requiring supervision. Trunk anteroflexed. Mari increased and much stanle compared to last PT evaluation three days ago. 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 Stairs: Up and down 18 x 4 steps and 12 x 6 steps while holding onto B rails with step-to gait pattern and supervision only. THERA EX: NuStep x 8 minutes with resistance of 9. Balance: Static Sitting: Normal Dynamic Sitting: Good Static Standing: Fair Dynamic Standing: Fair Assessment: Improvements in terms of activity tolerance and stability of gait apparent compared to start of care. Patient will benefit from continued services to achieve modified independence with all mobility ADLs in anticipation of going home alone whenever cleared by hospitalist. Exercise tolerance improving. Patient presents with clinical signs and symptoms consistent with current/admitting diagnoses that have resulted to mobility limitations, gait instability, generalized weakness, and overall ADL decline as demonstrated by the following impairment level findings: 1. Decreased strength to B UE/LE major muscle groups with R more affected than the L 2. Impaired standing balance 3. Impaired activity tolerance Impairments are contributing to the following functional limitations: 1. Difficulty with ambulation without assistive device 2. Increased completion time for mobility ADL performance 3. Increased risk for falls 4. Difficulty with managing steps alone safely Goals: Goals X1 week 1. Supine-Sit independent MET 2. Sit-Supine independent MET 3. Sit-Stand independent MET 4. Stand-Sit independent with FWW MET 5. Bed-Chair independent with FWW MET 6. Chair-Bed independent with FWW MET 7. Independent gait on level surface with use of FWW for at least 300 feet without report of pain nor dyspnea NOT MET 8. Independent stair negotiation while holding onto B rails for at least 12 steps without report of pain nor dyspnea ONCE COVID PRECAUTIONS ARE LIFTED NOT MET 9. Independent with home exercise program NOT MET 10. Good static and dynamic standing balance/tolerance NOT MET DISCHARGE RECOMMENDATIONS: Patient will benefit from home health PT services in order to progress mobility level using least restrictive assistive ambulatory device, assess home safety, identify additional equipment needs, and establish a functional maintenance program that will increase ability of patient to remain at home. TREATMENT CODE/TIME: 73751 x 30 minutes, 65582 x 15 minutes beginning at 10:23 AM. Thank you for the opportunity to participate in the care of this patient. Luz Hurtado PT, DPT, CLT [facility] [place], [place]
--- NOTE | 2021-01-14 14:11 | DSE_ITS ---
Date of service: 01/14/21 Time of Service: 14:11 DS: Diagnosis Discharge Diagnosis (1) COVID-19: Status: Acute (2) Rhabdomyolysis: Status: Resolved (3) Ambulatory dysfunction: Status: Acute (4) Urinary retention: Status: Resolved (5) Traumatic hematoma of buttock: Status: Acute (6) Pulmonary nodule: Status: Chronic Asessment and Plan: will need outpatient follow up (7) Healing wound present on both lower extremities: Status: Chronic Asessment and Plan: with mild surrounding erythema c/w cellulitis Discharge Plan Disposition Patient Disposition: HOME W/HOME HEALTH SERVICE Condition: Improving Discharge Details Reason For Visit: Rhabdomyolysis, COVID-19 disease, falls Admit Date/Time: 01/08/21 13:47 Admit Provider: Sergio Garcia Attending Provider: Sergio Garcia Primary Care Provider: Jessa Cool Hospital Course Hospital Course: Mr Terrell is a 80 year old male with PMHx of prior embolic CVA, DVT on eliquis, PAD, hyperlipidemia on statin therapy, who was fully vaccinated against COVID-19 (Moderna) and was admitted to [facility] hospitalist service on 01/03/21 with rhabdomyolysis and weakness with falls in setting of acute COVID-19 disease as well as statin therapy. The patient was treated with IV hydration. From the stand point of COVID-19, he had only mild respiratory symptoms (cough) and diarrhea. He did not have hypoxia on this admission. When his rhabdomyolysis had resolved, he was transitioned to Swing bed level 1 status on 01/08/21 for continued physical therapy. On 01/13/21, erythema was noted around his chronic BLE wounds with eschar (L ankle, right tibial surface). He was initiated on PO keflex, with which the erythema is already receding. Wound care recommendations at this time are: leave RLE wound open to air. L ankle wound: cleanse and cover with mepilex Q3 days. The patient will need to follow up with general surgery clinic to ensure that these wound continue to heal well. He is ready for discharge home today with new home health RN, PT, OT, SCREW MACHINE SETTER. Care for patient as well as completion of his discharge summary on day of discharge took 40 minutes. Home Meds and New Rx's Prescriptions: New Acetaminophen [Tylenol] 1,000 mg PO TID PRN PRNQty: 0 RF: 0 cephalexin 500 mg Capsule 500 mg PO TID Qty: 21 RF: 0 diclofenac sodium 1 % Gel 2 g topical QID Qty: 100 RF: 0 loperamide 2 mg Capsule 2 mg PO QLOOSE PRNQty: 0 RF: 0 melatonin 3 mg Tablet 6 mg PO HS PRN PRN (Reason: sleep) Qty: 60 RF: 0 Continued tamsulosin 0.4 mg capsule 0.4 mg PO DAILY RF: 0 multivitamin [Daily Vitamin] 1 EACH tablet 1 ea PO DAILY RF: 0 cholecalciferol (vitamin D3) [Vitamin D3] 400 UNIT capsule 400 unit PO DAILY RF: 0 Eliquis 5 mg tablet See Rx Instructions .ROUTE .COMPLEX Qty: 70 RF: 0 Discontinued atorvastatin 80 MG tablet 40 mg PO DAILY RF: 0 Discharge Instructions Instructions: Cephalexin (By mouth), Rhabdomyolysis (DC), COVID-19 (Coronavirus Disease 2019) (DC) Additional Instructions: Follow up with your PCP in 1-2 weeks. Follow up with general surgery for your wounds. Return to the hospital with any fever, bleeding, chest pain, or shortness of breath. Care Plan Goals: Home with new home health nursing, PT, OT, SCREW MACHINE SETTER Referrals: Meera Aly MD [ [facility] STAFF PHYSICIAN] - (bilateral lower extremity wounds) Jessa Cool MD [Primary Care Provider] - Activity:: Activity as Tolerated Equipment/Supplies:: No Equipment Needed Diet:: As Tolerated Discharge Orders Discharge Orders: Discharge Order (Routine); Ordered 01/14/21 Ordered By: Raquel Rajan DS: Summary Time Spent with Patient providing and/or coordinating discharge services: Greater than 30 minutes Status at Discharge Functional status at discharge: uses cane/walker Overall status at discharge: patient is progressing back to baseline Mental Status: mental status grossly normal Speech and Movement: speech and movement normal Mood: congruent mood Affect: normal affect Exam Narrative Exam Narrative: General: Pleasant elderly male, A&Ox3, comfortable in a chair HEENT: EOMI, MMM Heart: RRR, no m/r/g Lungs: CTAB Abdomen: soft, nontender, nondistended Extremities: L medial ankle wound with mild surrounding erythema; mild surrounding erythema wound r tibial surface; both with eschar. +1 pedal pulses B Psych Mental Status: mental status grossly normal Speech and Movement: speech and movement normal Mood: congruent mood Affect: normal affect DS: Data Vitals/I&O Vitals and I&O: Vital Signs Temperature 36.6 C 01/14/21 08:47 Temperature Source Tympanic 01/14/21 08:47 Pulse 74 01/14/21 08:47 Pulse Rhythm Regular 01/09/21 08:58 Respiratory Rate 19 01/14/21 08:47 Respiratory Effort Non-Labored 01/14/21 08:00 Respiratory Depth Normal 01/14/21 08:00 Respiratory Pattern Normal 01/14/21 08:00 Blood Pressure 120/58 L 01/14/21 08:47 Pulse Oximetry 98 01/14/21 08:47 Oxygen Delivery Method Room Air 01/14/21 08:47 Oxygen Flow Rate 0 01/14/21 08:47 Pain Level 0 01/14/21 08:47 Comment 01/13/21 09:08 Intake & Output 01/13/21 01/14/21 01/14/21 23:59 11:59 23:59 Intake Total 200 / 200 480 / 480 Output Total 900 / 3000 675 / 900 225 / 900 Balance -700 / -2800 -195 / -420 -225 / -420 Intake: Oral 200 / 200 480 / 480 Output: Urine 900 / 2275 675 / 900 225 / 900 Other: Urine Color Pale Pale Yellow Yellow Urine Appearance Clear Clear Clear Urine Odor None None Comment no catheter in place unmeasured incontinent and continent of urine. Stool Size Moderate Stool Characteristics Formed Brown Voiding Methods Urinal Urinal Urinal Data Completed and Pending Completed studies during hospitalization [Text1]: CT RLE 01/09/21: 1. No acute fracture or dislocation. 2. Hematoma involving the right gluteus medius muscle. XR R hip: No fracture evident. CT head 01/03/21: No acute intracranial findings on this noninfused CT scan of the brain. Chronic small-vessel white matter ischemic changes. No obvious acute infarct. No evidence of intracranial hemorrhage. CXR 01/03/21: 7-8 millimeter retrosternal lung nodule, probably a granuloma.No infiltrates nor pleural effusion [facility] Medical History (Updated 01/14/21 @ 14:40 by Raquel Rajan MD) Compartment syndrome Deep venous thrombosis DIVERTICULOSIS Gout Hyperlipidemia Melanosis coli Peripheral venous insufficiency LEFT LEG Polyp of colon TUBULAR ADENOMA [id number] ADENOMA Psoriasis STROKE EMBOLIC Surgical History BACK OPERATION (~04/2008) Colonoscopy - IV Sedation (06/10/10) [id number] ADENOMA 06/18/16 no pathological features from ascending colon polyp Colonoscopy - IV Sedation (06/18/16) [id number] ADENOMA 06/18/16 no pathological features from ascending colon polyp Family History Mother Dementia Father Alzheimer's disease Sister Alzheimer's disease Parkinson's disease Social History Smoking/Tobacco Use Status: Former Tobacco Use Smoking risk assessment performed?: Yes Alcohol Intake: current Alcohol Intake frequency: a few times a month Alcohol type: beer Drug use: Never Substance use type: does not use Details: quit smoking 30 yrs ago Do you feel safe at home: Yes Do you feel safe in your relationship?: Yes
--- NOTE | 2021-01-14 14:14 | WOUNDCONS_ITS ---
- If Service Date Differs Date of service: 01/14/21 Time of Service: 13:45 Wound Initial Evaluation Narrative: Consult placed for wounds on bilateral lower extremities. Wound on r outer upper leg, around the fibula head measures 2 cm x 1 cm and is covered by an intact dark brown eschar. no drainage noted, no fluctuance noted. Some induration noted surrounding the primary wound. Redness noted by the MD yesterday and pt was placed on keflex and area was marked. The redness has receeded from the borders slightly. Pt denies pain to the area. The left medial malleolus wound consists of two open areas. The distal area measures 1.5 cm x 0.8 cm. The proximal area measures 1 cm x 0.6 cm. Both areas have no drainage noted. Dry gauze on wound at this time. Slight redness noted around periphery. No induration or increased warmth noted. Redness receeding from prior border as marked. - Wound Left medial malleolus Wound Type: Pressure Ulcer Pressure Ulcer Stage: Eschar/Unstageable Wound Length: 1.5 cm Wound Width: 0.8 cm Wound Drainage Amount: None Additional Other Comments: measurements from distal area. Proximal area measures 1 cm x 0.6 cm. Right outer leg/ fibula head Wound Type: Pressure Ulcer Pressure Ulcer Stage: Eschar/Unstageable Wound Length: 2 cm Wound Width: 1 cm - Pain Pain Level: 0 - Recomendation Recomendation:: Right outer leg/ fibula head- Leave [employer]. Please monitor for increasing signs of infection and report to provider. If area becomes boggy or eschar begins to unattatch, report to provider. Left medial malleolus- Cleanse with ns, pat dry, apply mepilex with border. Change q 3 days and PRN. Please report any increasing signs of infection to provider. Follow up with general surgery for wound check.
[2021-01-14] MEDS: Acetaminophen 500 MG TAB 1000 MG PO (14:32)
--- NOTE | 2021-01-14 14:41 | PDOC.HHF2F ---
Home Health Certification Home Health Certification: 1. Encounter Date and Reason I certify that Adan Terrell was seen by Raquel Rajan on 01/14/21 and that I had a [id number] encounter with this patient that meets the physician face to face encounter requirements. 2. Clinical Findings Supporting Skilled Need and Homebound Status I certify that home health services are medically necessary, include either intermittent assisted and/or physical/speech therapy, and that this patient is homebound in that absences from the home require considerable and taxing effort and are infrequent or of short duration, or are attributable to the need to receive medical care. [X] (a) Attached documentation from encounter provides clinical findings supporting skilled need and homebound status (including what assistance patient requires to leave the home). The encounter with the patient was in whole, or in part, for the following medical condition, which is the primary reason for home health care: Rhabdomyolysis, COVID-19 disease, falls Shelter: recent admission for COVID-19 with rhabdomyolysis, R buttock hematoma while on anticoagulation, h/o DVT. Wounds BLE - will need wound care evaluation. L ankle wound: cleanse and apply mepilex Q3 days. R tibial surface wound - leave open to air. 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 Certification and Authentication I certify that I composed the above information based on my clinical judgement relating to this patient's medical condition and, if applicable, clinical findings communicated to me by the NPP or inpatient physician who performed the Home Health Referral. All further orders will be obtained through Dr Cool (Community Based Physician - PCP)
[2021-01-14 15:48] VITALS: BP 131/67; PULSE 63; RESP 20; TEMP 36.5; O2SAT 100
== END 2021-01-14 17:00 | disposition home health service (06) | DRG 555 ==
PROVIDERS: Admitting Provider Family Medicine; PCP Family Medicine; Visit Provider Family Medicine
DX: R26.2 Difficulty in walking, not elsewhere classified (principal); U07.1 COVID-19; R33.9 Retention of urine, unspecified; S30.0XXD Contusion of lower back and pelvis, subsequent encounter; R91.1 Solitary pulmonary nodule; R29.6 Repeated falls; M10.9 Gout, unspecified; E78.5 Hyperlipidemia, unspecified; K57.30 Diverticulosis of large intestine without perforation or abscess without bleeding; Z86.718 Personal history of other venous thrombosis and embolism; I87.2 Venous insufficiency (chronic) (peripheral); Z86.73 Personal history of transient ischemic attack (TIA), and cerebral infarction without residual deficits; L40.9 Psoriasis, unspecified; W19.XXXD Unspecified fall, subsequent encounter
CPT/HCPCS: 97110; 97162; 97166; 97530; 97535; 99306; 99316; 73700

== ENCOUNTER 2021-01-21 14:35 | Outpatient (REF) | payer MEDICARE, OTHER, SELFPAY | END 2021-01-21 14:36 | disposition home or self-care (01) | LOC: NCHCN 14:35 | PROVIDERS: PCP Family Medicine; Visit Provider Family Medicine | DX: M99.06 Segmental and somatic dysfunction of lower extremity (principal) | CPT/HCPCS: 87070; 87205 ==

== ENCOUNTER → 2021-01-27 10:20 | Outpatient (BNVA) | payer MEDICARE, OTHER, SELFPAY | PROVIDERS: PCP Family Medicine; Referring Provider Family Medicine; Visit Provider Surgery | DX: L89.529 Pressure ulcer of left ankle, unspecified stage (principal); L89.899 Pressure ulcer of other site, unspecified stage | CPT/HCPCS: 99202; 99213 ==

== ENCOUNTER → 2021-02-02 13:57 | Outpatient (BNVA) | payer MEDICARE, OTHER, SELFPAY | PROVIDERS: PCP Family Medicine; Referring Provider Family Medicine; Visit Provider Urology | DX: R33.8 Other retention of urine (principal) | CPT/HCPCS: 99204; 99215 ==

== ENCOUNTER 2021-02-19 01:45 | Outpatient (CLI) | payer MEDICARE, OTHER, SELFPAY ==
--- NOTE | 2021-02-19 | DI.US_ITS ---
Exam(s) US SOFT TISSUE EXTREMITY EXAM: US SOFT TISSUE EXTREMITY CLINICAL HISTORY: ABSCESS RT LOWER LEG L02.415, LOOKING FOR DEPTH/FLUID COLLECTION. TECHNIQUE: Ultrasound was performed using standard protocol. COMPARISON: No exams were available for comparison FINDINGS: Sonographic assessment utilizing grayscale and color Doppler imaging was performed and targeted to th e area of clinical concern. There is edema seen in the soft tissues in the right lower leg. But no drainable focal fluid collect ion is identified. IMPRESSION: No sonographic evidence of a drainable fluid collection in the right lower leg. DATA REPOSITORY:
== END 2021-02-19 02:05 ==
PROVIDERS: PCP Family Medicine; Visit Provider Family Medicine
DX: L02.415 Cutaneous abscess of right lower limb (principal)
CPT/HCPCS: 76881

== ENCOUNTER 2021-02-20 12:39 | Outpatient (REF) | payer MEDICARE, OTHER, SELFPAY ==
[2021-02-20 14:01] LABS: HCT 30.8 % (40.0-50.0); MCH 30.8 pg (27.0-33.0); MCHC 32.5 % (32.0-36.0); MCV 94.8 fL (80-95); MPV 12.7 fL (8.0-11.0); Platelet Count 324 10^3/uL (130-400); RBC 3.25 10^6/uL (4.36-5.78); RDW 16.6 % (11.8-14.1); RDW-SD 58.4 fL; WBC 3.03 10^3/uL (4.4-10.8)
[2021-02-20 14:18] LABS: Iron 64 ug/dL (65-175); Total Iron Binding Capacity 172 ug/dL (250-450); Transferrin Sat 37 % (20-55)
[2021-02-20 14:20] LABS: Hemoglobin A1C 5.8 % (<5.7)
[2021-02-20 14:32] LABS: Ferritin 803 ng/mL (26-388)
== END 2021-02-20 12:40 | disposition home or self-care (01) ==
LOC: NCHCN 12:39
PROVIDERS: PCP Family Medicine; Visit Provider Family Medicine
DX: R63.4 Abnormal weight loss (principal); R79.0 Abnormal level of blood mineral; E11.9 Type 2 diabetes mellitus without complications
CPT/HCPCS: 85027; 82728; 83036; 83540; 83550

== ENCOUNTER → 2021-02-27 11:22 | Outpatient (BNVA) | payer MEDICARE, OTHER, SELFPAY | PROVIDERS: PCP Family Medicine; Referring Provider Family Medicine; Visit Provider Physical Therapy Assistant | DX: S81.801A Unspecified open wound, right lower leg, initial encounter (principal); W19.XXXA Unspecified fall, initial encounter | CPT/HCPCS: 11042 ==

== ENCOUNTER 2021-03-24 01:06 | Outpatient (CLI) | payer MEDICARE, SELFPAY ==
--- NOTE | 2021-03-24 | DI.US_ITS ---
Exam(s) US AAA SCREENING EXAM: US AAA SCREENING CLINICAL HISTORY: SCREENING FOR AAA, FORMER SMOKER, PREVENTIVE HEALTH CARE,Z00.00 COMPARISON: No exams were available for comparison FINDINGS: Abdominal Aorta: Proximal: 2.4 x 2.6 cm Mid: 2.5 x 2.6 cm Distal: 2.0 x 2.4 cm Iliac's: Right: 1.2 x 1.3 cm Left: 1.4 x 1.4 cm Atherosclerosis is present. IMPRESSION: No evidence of abdominal aortic aneurysm. DATA REPOSITORY:
== END 2021-03-24 01:26 ==
PROVIDERS: PCP Family Medicine; Visit Provider Family Medicine
DX: Z13.6 Encounter for screening for cardiovascular disorders (principal); Z87.891 Personal history of nicotine dependence
CPT/HCPCS: 76706

== ENCOUNTER → 2021-04-03 10:01 | Outpatient (BNVA) | payer MEDICARE, OTHER, SELFPAY | PROVIDERS: PCP Family Medicine; Referring Provider Family Medicine; Visit Provider Urology | DX: N40.1 Benign prostatic hyperplasia with lower urinary tract symptoms (principal); R33.8 Other retention of urine | CPT/HCPCS: 81003; 99213 ==

== ENCOUNTER 2021-06-27 10:35 | Emergency (ER) | payer MEDICARE, OTHER, SELFPAY ==
[2021-06-27 10:42] VITALS: BP 91/42; PULSE 74; RESP 16; TEMP 37.3; O2SAT 97
--- NOTE | 2021-06-27 10:57 | W.ED.GENAD ---
Discharge Plan Disposition Patient Disposition: HOME Condition: Stable Discharge Details Clinical Impression: UTI (urinary tract infection), Ureterolithiasis, Weakness, Bilateral leg weakness Primary Care Provider: Jessa Cool ED Provider: Karina Bass Home Meds and New Rx's Prescriptions: New levofloxacin 750 mg tablet 750 mg PO DAILY 4 Days Qty: 4 0RF Continued atorvastatin 40 mg tablet 40 mg PO DAILY 0RF multivitamin [Daily Vitamin] 1 EACH tablet 1 ea PO DAILY 0RF cholecalciferol (vitamin D3) [Vitamin D3] 400 UNIT capsule 400 unit PO DAILY 0RF tamsulosin 0.4 mg capsule 0.8 mg PO DAILY Qty: 180 3RF Acetaminophen [Tylenol] 1,000 mg PO TID PRN PRNQty: 0 0RF Eliquis 5 mg tablet See Rx Instructions .ROUTE .COMPLEX Qty: 70 0RF Rx Instructions: take 10 mg by mouth twice daily for 7 days; then 5 mg twice daily No Action melatonin 3 mg tablet 3 - 6 mg PO HS 0RF Label Comments: TAKE TWO TABLETS BY MOUTH AT BEDTIME NEEDED FOR SLEEP Discharge Instructions Instructions: Kidney Stones (ED), Urinary Tract Infection in Men (ED) Additional Instructions: Your lab work today noted evidence of mild decreased kidney function and a suspected bladder infection. Your imaging today noted evidence of a 5 mm stone within your left lower ureter which is the tube that connects your kidney to your bladder. As you have no associated pain, Dr. Kauffman feels that this is likely a stone that is not causing a blockage within your ureter. He is recommending that you call the urology office on Tuesday to schedule a follow-up appointment for reevaluation. The remainder of your imaging including a chest x-ray and CT scan of your head were unremarkable. Drink plenty of fluids and get plenty of rest. A prescription for an antibiotic has been sent electronically to your pharmacy. You were given 1 dose of an antibiotic here in the emergency department. Take your next dose starting tomorrow. Follow-up with your primary care doctor in 1 week for reevaluation and for recheck of your kidney function if needed. Return to the emergency department with any worsening or new concerning symptoms. 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 Blood pressure hypotensive on arrival, 91/42. This is lower compared to previous blood pressures here. He is oriented x3 and appears comfortable and nontoxic. He has no obvious focal deficits and has range of motion of all extremities but with weakness noted 4/5 in the bilateral lower extremities. Differential diagnosis includes UTI, pneumonia, dehydration, viral syndrome, deconditioning. History and presentation does not appear consistent with CVA but considering patient's age will obtain CT, chest x-ray, screening labs, urinalysis, Covid swab, CK and give fluids and attempt to ambulate. Patient states he would prefer to go home if possible. Labs reviewed. White blood cell count 11.51. Creatinine 2.0, increased from baseline of 0.8. Magnesium 1.7, will replete. Troponin negative. CK 454. Urinalysis notes 10-20 WBCs and RBCs with moderate leukocyte esterase but appears contaminated. CT lumbar spine notes: IMPRESSION: 1. No evidence of acute fracture or injury. 2. Postoperative changes. 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 3. Left ureterovesical junction stone with mild hydroureteronephrosis. 4. Bladder wall thickening as described. CT head and chest x-ray negative for acute findings. Patient reassessed at bedside and he admits to occasional back pain but denies any pain at present. Will obtain repeat clean-catch urine but if unable, will obtain a straight cath urine. Patient was able to ambulate using a walker which he uses at times for ambulation and stated he felt much better. He denied any dizziness and stated leg weakness was significantly improved. Patient states he would like to go home Case and imaging results discussed with Dr. Kauffman and as patient is pain-free, the stone may be nonobstructing. Recommends antibiotics if he has a UTI. If patient remains pain-free and feels comfortable going home, recommend follow-up with urology on Tuesday. Straight cath urine sample notes greater than 50 WBCs, rare bacteria and small leukocyte esterase. We will treat for UTI. Urine culture sent. He was given a dose of Levaquin here and prescription sent electronically to his pharmacy. Patient was placed on Dr. Kauffman's list for follow up. Advised to follow-up with his PCP for further evaluation of his leg weakness if it does not improve or worsens. Usual and customary return precautions given prior to discharge. A repeat BMP and CK was obtained prior to discharge and pt preferred to leave as ride waiting for him prior to results obtained. Patient states he would prefer to go home at this time. Disposition decision made weighing the risks and benefits of hospitalization versus outpatient treatment, the risk for further decompensation, and the patient's wishes. 1700 --CK elevated to 1422, Cr 2.1, slightly increased from 2. Called patient at home and no answer, left message. Attempted second call and patient's friend answered. Advised to bring patient to the ED for plan for admission. Medical Records Medical records reviewed: Yes I reviewed the patient's medical records. Imaging Data Radiologic Study: Radiologist's impression: CT Lumbar Spine Without Contrast Exam date and time: 06/27/2021 11:58 AM Age: 80 years old Clinical indication: Other: Bilat leg weakness, R/O acute injury TECHNIQUE: Imaging protocol: Computed tomography images of the lumbar spine without contrast. Radiation optimization: All CT scans at this facility use at least one of these dose optimization techniques: automated exposure control; mA and/or kV adjustment per patient size (includes targeted exams where dose is matched to clinical indication); or iterative reconstruction. COMPARISON: US AAA SCREENING 03/24/2021 12:46 PM FINDINGS: Vertebrae: No acute lumbar fracture. Old fractures of left L2 and L3 transverse prostheses. There is mild levoscoliosis. There is curvilinear and more diffuse calcification within the thecal sac from L4 distally which is consistent with calcific arachnoiditis. Discs/Spinal canal/Neural foramina: There are diffuse degenerative changes with marginal mainly anterolateral osteophytes, facet degenerative changes, disc height loss, and disc bulges. There is lumbar spinal stenosis which is greatest L3-L4 and L4-L5 and likely moderate. There are postoperative changes with laminectomy at L4-L5. Lungs: Opacities in left greater than right posterior lung bases favored to be atelectasis or scarring. Kidneys and ureters: There are bilateral renal cysts and nonobstructive intrarenal stones. There is mild left hydroureteronephrosis with 5.6 mm stone at ureterovesical junction. There is associated periureteral and perinephric stranding. Bladder: There is bladder wall thickening. This can be related to incomplete distention, cystitis, or chronic outlet obstruction. Please correlate clinically. Vasculature: Atherosclerotic aorta. Soft tissues: Unremarkable. IMPRESSION: 1. No evidence of acute fracture or injury. 2. Postoperative changes. 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 3. Left ureterovesical junction stone with mild hydroureteronephrosis. 4. Bladder wall thickening as described. ?XR Chest Exam date and time: 06/27/2021 12:34 PM Age: 80 years old Clinical indication: Other: Weakness TECHNIQUE: Imaging protocol: XR of the chest. Views: 2 views. COMPARISON: CR XR CHEST 2V PA LATERAL 01/03/2021 10:56 AM FINDINGS: Lungs: Lungs are hyperinflated . No focal consolidation. Pleural spaces: Unremarkable. No pleural effusion. No pneumothorax. Heart/Mediastinum: No significant cardiomegaly. Bones/joints: No acute findings. There are diffuse enthesopathic changes consistent with benign diffuse idiopathic skeletal hyperostosis (DISH). IMPRESSION: No acute finding. CT Head Without Contrast Exam date and time: 06/27/2021 11:58 AM Age: 80 years old Clinical indication: Other: Bilat leg weakness, R/O CVA TECHNIQUE: Imaging protocol: Computed tomography of the head without contrast. Radiation optimization: All CT scans at this facility use at least one of these dose optimization techniques: automated exposure control; mA and/or kV adjustment per patient size (includes targeted exams where dose is matched to clinical indication); or iterative reconstruction. COMPARISON: CT HEAD WO 01/03/2021 10:56 AM FINDINGS: Brain: There is no acute intracranial hemorrhage. There is lucency in the cerebral white matter, likely microvascular disease although non-specific. No evidence of mass. There is no mass effect or midline shift. Singh white differentiation is intact. There are no extra-axial fluid collections. Cerebral ventricles: The ventricles and sulci are enlarged, consistent with volume loss / atrophy. No hydrocephalus. Paranasal sinuses: Minimal scattered mucosal thickening in paranasal sinuses. No air-fluid levels or evidence of acute sinusitis. Mastoid air cells:? No significant mastoid effusion. Vasculature: There is vascular calcification. Bones/joints: Degenerative changes are noted at C1-C2 with partially calcified soft tissue adjacent to odontoid. Soft tissues: Unremarkable as visualized. IMPRESSION: 1. No evidence of acute intracranial abnormality. No evidence of acute infarction, hemorrhage, or mass. 2. Atrophy and microvascular disease. ECG Data Attestation: I personally reviewed and interpreted this ECG (s) as follows: Interpretation: Rate of 77, sinus, no acute ST elevation or depression. QTc 408. HPI General Mode of arrival: ambulatory. Date/Time Provider Initiated Documentation: 06/27/21 10:55. Limitations to Documentation: no limitations. Information obtained by: patient. HPI Narrative: Patient is a 80-year-old male with a history of prior embolic CVA, DVT on eliquis, PAD, hyperlipidemia on statin therapy presents from home for generalized weakness leg symptoms with increased weakness in both legs since this morning. Patient states he had been feeling fine until this morning when he was sitting in a chair and attempted to get up but states he could not due to leg weakness. He states he attempted to move himself from a rocking chair to a smaller chair and lowered himself to the ground but was unable to get up. He states he laid on the ground for approximately 1 hour. He states his neighbor checked on him and called the ambulance. He denies any fall or injury this morning. He states he has not felt significant weakness since his diagnosis of Covid in December and denies any known exposure to Covid. He denies any recent illness including fever, vomiting, diarrhea, coughing, chest pain, abdominal pain, shortness of breath or back pain. He denies any new medications. He states he is normally quite independent at home and drives himself to the store and cooks his own meals. Related Data Home Medications Medication Instructions Recorded Confirmed cholecalciferol (vitamin D3) 10 400 unit PO DAILY 05/29/13 06/27/21 mcg (400 unit) capsule (Vitamin D3) multivitamin (Daily Vitamin) 1 ea PO DAILY 05/29/13 06/27/21 apixaban 5 mg tablet (Eliquis) See Rx Instructions .ROUTE 09/11/18 06/27/21 .COMPLEX #70 tab Acetaminophen [Tylenol] 1,000 mg PO TID PRN PRN #0 01/14/21 06/27/21 atorvastatin 40 mg tablet 40 mg PO DAILY 02/27/21 06/27/21 tamsulosin 0.4 mg capsule 0.8 mg PO DAILY #180 cap 03/23/21 06/27/21 levofloxacin 750 mg tablet 750 mg PO DAILY 4 Days #4 tab 06/27/21 06/27/21 melatonin 3 mg tablet 3 - 6 mg PO HS 06/27/21 06/27/21 Previous Rx's Medication Instructions Recorded apixaban 5 mg tablet (Eliquis) See Rx Instructions .ROUTE 09/11/18 .COMPLEX #70 tab Acetaminophen [Tylenol] 1,000 mg PO TID PRN PRN #0 01/14/21 tamsulosin 0.4 mg capsule 0.8 mg PO DAILY #180 cap 03/23/21 levofloxacin 750 mg tablet 750 mg PO DAILY 4 Days #4 tab 06/27/21 Allergies Allergy/AdvReac Type Severity Reaction Status Date / Time No Known Allergies Allergy Unverified 06/27/21 18:17 paper tape Allergy Intermediate skin Uncoded 06/27/21 18:17 breakdown General Stated Complaint: GenMedical ELY: 3 Review of Systems All systems reviewed & are unremarkable except as noted in HPI and below Constitutional Constitutional: Denies chills, Denies excessive sweating, Denies fatigue, Denies fever(s), Reports weakness and Denies weight loss Eyes Eyes: Reports system reviewed and no additional complaints, except as documented and Denies blurry vision ENT Ears, Nose, Mouth, and Throat: Denies vertigo, Denies dizziness, Denies otalgia, Denies nasal congestion, Denies sore throat and Denies throat swelling Cardiovascular Cardiovascular: Denies chest pain, Denies syncope, Denies rapid heart rate and Denies dyspnea Respiratory Respiratory: Denies chest congestion, Denies cough, Denies pain on inspiration and Denies dyspnea Gastrointestinal Gastrointestinal: Denies abdominal pain, Denies diarrhea and Denies vomiting Genitourinary Genitourinary: Denies hematuria, Denies dysuria and Denies flank pain Musculoskeletal Musculoskeletal: Denies back pain, Denies joint swelling and Reports muscle weakness (bilateral leg weakness) Integumentary/Breasts Skin/Breast: Denies lesions and Denies rash Neurologic Neurologic: Denies behavioral changes, Denies confusion, Denies vertigo, Denies dizziness, Denies syncope, Denies localized weakness and Reports weakness Psychiatric Psychiatric: Denies behavioral changes, Denies confusion and Denies depression Endocrine Endocrine: Denies excessive sweating and Denies fatigue Hematologic/Lymphatic Hematologic/Lymphatic: Denies easy bruising and Denies lymphadenopathy Allergic/Immunologic Allergic/Immunologic: Denies throat swelling PFSH All Active Problems (Updated 06/28/21 @ 15:57 by Raquel Rajan MD) Hydronephrosis (Acute) Ambulatory dysfunction (Acute) Back pain (Acute) UTI (urinary tract infection) (Acute) Ureterolithiasis (Acute) Weakness (Acute) Bilateral leg weakness (Acute) Rhabdomyolysis (Acute) Bilateral leg weakness (Acute) Acute kidney injury (Acute) Fall at home (Acute) Abrasion of sacral region (Acute) BPH loc w urin obs/LUTS (Acute) Leg wound, right (Acute) Pulmonary nodule (Chronic) Traumatic hematoma of buttock (Acute) COVID-19 (Acute) Healing wound present on both lower extremities (Chronic) Falls (Acute) Rhabdomyolysis (Acute) Weakness (Acute) Discharge planning issues (Acute) DVT prophylaxis (Acute) Fall (Acute) COVID (Acute) Ambulatory dysfunction (Acute) Posttraumatic wound infection (Acute) Cellulitis of forearm, left (Acute) Genu valgum, acquired (Acute) Unilateral primary osteoarthritis, left knee (Acute) Personal history of colonic polyps (Acute) Medical History (Updated 06/28/21 @ 15:57 by Raquel Rajan MD) Compartment syndrome Deep venous thrombosis DIVERTICULOSIS Gout Hyperlipidemia Melanosis coli Peripheral venous insufficiency LEFT LEG Polyp of colon TUBULAR ADENOMA [id number] ADENOMA Psoriasis STROKE EMBOLIC Urinary retention Surgical History (Updated 06/28/21 @ 15:49 by Raquel Rajan MD) BACK OPERATION (~04/2008) h/o GBS epidural abscess, treated at [facility] [place] in 2007 Colonoscopy - IV Sedation (06/10/10) [id number] ADENOMA 06/18/16 no pathological features from ascending colon polyp Colonoscopy - IV Sedation (06/18/16) [id number] ADENOMA 06/18/16 no pathological features from ascending colon polyp Family History Mother Dementia Father Alzheimer's disease Sister Alzheimer's disease Parkinson's disease Social History Smoking/Tobacco Use Status: Former Tobacco Use Smoking risk assessment performed?: Yes Alcohol Intake: former Drug use: Never Substance use type: does not use Details: quit smoking 30 yrs ago Do you feel safe at home: Yes Do you feel safe in your relationship?: Yes Exam Const General: cooperative and healthy appearing Orientation: alert and awake HENMT Head: normal to inspection Ears: hearing grossly normal bilaterally, external ears normal and TM's normal bilaterally General nose exam: external nose normal Face and sinus: normal facial exam Mouth: oral mucosae normal Teeth and gingiva: dentition normal Throat: posterior oropharynx normal Eyes General: appearance normal, both eyes and all related structures Eyelids: eyelids normal Pupils: PERRL EOM: EOM intact bilaterally Neck Neck: normal visual inspection Lymphatic: no lymphadenopathy noted Chest Chest: normal inspection of the chest Resp Effort & Inspection: normal respiratory effort and able to speak in complete sentences Auscultation: clear to auscultation bilaterally Cardio Rate: regular rate Rhythm: regular rhythm GI Inspection: normal to inspection Palpation: soft, not firm, no guarding, no hepatosplenomegaly, no masses and nontender Auscultation: normal bowel sounds Male General Exam: Yes normal external exam Penis: normal penis Scrotum: scrotum normal Testes: normal, no testicular mass, no testicular swelling and no testicular tenderness Back/Spine/Pelvis Back: no CVA tenderness Skin General skin exam: no rashes or lesions noted Neuro General: patient alert and patient awake Cognition: normal cognition Speech: speech normal Gait: normal gait Motor: muscle tone normal throughout Sensory Exam: no sensory deficits noted Extrem General: normal to inspection, full ROM and capillary refill normal Psych Appearance: grossly normal Mental Status: mental status grossly normal Speech and Movement: speech and movement normal Affect: normal affect Thought Process: normal Course Vital Signs Vital signs: Vital Signs Temperature 99.1 F 06/27/21 10:42 Pulse 74 06/27/21 10:42 Respiratory Rate 16 06/27/21 10:42 Blood Pressure 91/42 L 06/27/21 10:42 Pulse Oximetry 97 06/27/21 10:42 Temperature 99.1 F 06/27/21 10:42 Temperature Source Temporal Artery Scan 06/27/21 10:42 Pulse 74 06/27/21 10:42 Respiratory Rate 16 06/27/21 10:42 Respiratory Effort Non-Labored 06/27/21 10:48 Blood Pressure 91/42 L 06/27/21 10:42 Blood Pressure Position Sitting 06/27/21 10:42 Pulse Oximetry 97 06/27/21 10:42 Oxygen Delivery Method Room Air 06/27/21 10:42 Oxygen Flow Rate 0 06/27/21 10:42 Pain Level 0 06/27/21 10:42
--- NOTE | 2021-06-27 11:00 | RT.EKG_ITS ---
APPROVED REPORT Exam: Resting ECG Reason for Exam: weakness Patient Location: E HR:77 bpm ECG Measurements Heart Rate 77 AXIS AZ 302 P 119 QRSd 88 QRS 71 QT 359 T 84 QTc 408 Conclusion Sinus rhythm...normal P axis, V-rate 60- 99 Prolonged AZ interval...AZ >220, V-rate 50- 90 Anteroseptal infarct, age indeterminate...Q >35mS, T neg, V1-V2. Sinus. Normal axis. Artifact V1-2. No STEMI. I have reviewed and interpreted ECG and agree with software generated interpretation.
[2021-06-27 11:08] LABS: Abs Immature Grans 0.19 10^3/uL (0.0-0.06); Absolute Basophil Count 0.02 10^3/uL (0.0-0.2); Absolute Eosinophil Count 0.13 10^3/uL (0.0-0.7); Absolute Lymphocyte Count 0.79 10^3/uL (1.2-3.4); Absolute Monocyte Count 1.22 10^3/uL (0.1-0.8); Basophils % 0.2; Eosinophils % 1.1; HCT 34.8 % (40.0-50.0); HGB 11.7 g/dL (13.5-17.5); Immature Grans % 1.7; Lymphocytes % 6.9; MCH 30.3 pg (27.0-33.0); MCHC 33.6 % (32.0-36.0); MCV 90.2 fL (80-95); MPV 12.4 fL (8.0-11.0); Monocytes % 10.6; Neutrophils % 79.5; Nucleated RBC 0 %; RBC 3.86 10^6/uL (4.36-5.78); RDW 15.9 % (11.8-14.1); RDW-SD 52.3 fL; WBC 11.51 10^3/uL (4.4-10.8)
[2021-06-27 11:10] LABS: Absolute Neutrophil Count 9.15 10^3/uL (1.2-6.7)
[2021-06-27 11:21] LABS: ALT 31 U/L (16-63); AST 38 U/L (15-37); Albumin 3.4 g/dL (3.4-5.0); Alkaline Phosphatase 88 U/L (46-116); Anion Gap 8.6 mmol/L (3-11); BUN 37 mg/dL (7-18); Bilirubin, Total 1.3 mg/dL (0.2-1.0); CO2 24.4 mmol/L (21.0-32.0); Calcium 8.8 mg/dL (8.5-10.1); Chloride 101 mmol/L (98-107); Estimated GFR 32.48 (mL/min/1.73m2); Glucose 84 mg/dL (74-106); Magnesium 1.7 mg/dL (1.8-2.4); Potassium 4.3 mmol/L (3.5-5.1); Sodium 134 mmol/L (136-145); Total Protein 7.7 g/dL (6.4-8.2); Troponin I < 50 ng/L (<or=60)
[2021-06-27 11:25] LABS: Diff Comment Agrees w/ Instrument; Platelet Count 308 10^3/uL (130-400); RBC Morphology Normal
[2021-06-27 11:36] VITALS: RESP 20
--- NOTE | 2021-06-27 11:45 | DI.CT_ITS ---
Exam(s) CT HEAD WO EXAM: CT HEAD WO CLINICAL HISTORY: bilateral leg weakness, r/o acute cva. TECHNIQUE: Imaging Protocol: Axial computed tomography images with coronal and sagittal reformatted images were created and reviewed COMPARISON: CT CT HEAD WO from 01/03/2021 FINDINGS: Ventricles and Extra axial spaces: Normal in size and morphology for the patient's age. Hemorrhage: None. Cerebral parenchyma: No acute territorial infarct is present. There are areas of decreased attenuati on in the white matter most consistent with small vessel ischemic disease. Midline shift: None. Brainstem/Cerebellum: Normal. Calvarium: Normal. Visualized Paranasal sinuses/Mastoids: Mild mucosal thickening in the left sphenoid sinus. The remai marita visualized paranasal sinuses are clear as are the mastoid air cells. Soft Tissues: Unremarkable. IMPRESSION: No acute intracranial process. RADIATION DOSE DELIVERED: Total DLP DATA REPOSITORY: All CT scans at this facility are submitted to the National Radiology Data Registry (NRDR) Dose Index Registry (DIR) with the [employer] ([employer]). RADIATION OPTIMIZATION: All CT scans at this facility use at least one of these dose optimization te chniques: automated exposure control; mA and/or kV adjustment per patient size (includes targeted exa ms where dose is matched to clinical indication); or iterative reconstruction.
--- NOTE | 2021-06-27 11:45 | DI.CT_ITS ---
Exam(s) CT LUMBAR SPINE WO EXAM: CT LUMBAR SPINE WO CLINICAL HISTORY: b/l leg weakness, r/o acute injury. TECHNIQUE: Imaging Protocol: Axial computed tomography images with coronal and sagittal reformatted images were created and reviewed COMPARISON: MR MRI - LUMBAR SPINE WO CONTRAST from 08/27/[address] HEAD WO from 06/27/2021 FINDINGS: Bones: The last intervertebral disc space is designated the L5/S1 level for the numbering purpose of this examination. The vertebral body heights are well maintained. There is a mild left convex scolio sis of the lumbar spine. There is also mild reversal of the normal lumbar lordosis. There is no acu te fracture or subluxation. Marked degenerative changes are present throughout the lumbar spine with disc space narrowing, vacuum discs, facet arthropathy and endplate osteophytes. Multilevel central spinal canal stenosis is seen. The findings are most marked at L3-4 and L4-L5. There are old united and nonunited right rib fractures. There also old transverse process fractures in the lumbar spine. Soft Tissues: The visualized SI joints and sacrum are will maintained. The paraspinal soft tissues a re unremarkable. There is a small infiltrate seen in the left lung base. There is a 6 mm stone at th e left UVJ causing mild hydronephrosis. There is bilateral nephrolithiasis. Bilateral renal cysts a re present. There is colonic diverticulosis but no evidence of acute diverticulitis. There is thick ening of the wall of the urinary bladder. This may be due to incomplete distension, cystitis or medical records clerk dawn bladder outlet obstruction. IMPRESSION: 1. No acute fracture or subluxation in the lumbar spine. 2. Marked degenerative changes in the lumbar spine causing central spinal canal stenosis as described above. 3. 6 mm left UVJ stone causing mild hydronephrosis. 4. Urinary bladder wall thickening. This may be due to incomplete distension, cystitis or chronic bl adder outlet obstruction. RADIATION DOSE DELIVERED: 839.74mGy.cm Total DLP 839.74mGy.cm Total DLP DATA REPOSITORY: All CT scans at this facility are submitted to the National Radiology Data Registry (NRDR) Dose Index Registry (DIR) with the [employer] ([employer]). RADIATION OPTIMIZATION: All CT scans at this facility use at least one of these dose optimization te chniques: automated exposure control; mA and/or kV adjustment per patient size (includes targeted exa ms where dose is matched to clinical indication); or iterative reconstruction.
--- NOTE | 2021-06-27 11:55 | DI.RAD_ITS ---
Exam(s) XR CHEST 2V PA LATERAL EXAM: XR CHEST 2V PA LATERAL CLINICAL HISTORY: weakness, r/o acute disease TECHNIQUE: 2D digital imaging was performed of the chest. Four images were obtained. PA and latera l views were obtained. COMPARISON: CR,XR XR CHEST 2V PA LATERAL from 01/03/2021 FINDINGS: MEDIASTINUM: Normal. HEART: Normal. PULMONARY VASCULATURE: Normal. LUNGS: Clear. The calcified granuloma are again seen in appear to lie in the right mid lung. The roseline ngs are hyperinflated suggesting underlying COPD. PLEURAL SPACE: No pleural effusion or pneumothorax. BONE:Within normal limits for the patient's age. OTHER FINDINGS:Normal. IMPRESSION: No acute pulmonary findings. DATA REPOSITORY: RADIATION DOSE DELIVERED:
[2021-06-27 12:14] LABS: Creatine Kinase 454 U/L (39-308)
--- NOTE | 2021-06-27 12:38 | DI.VRAD_ITS ---
PROCEDURE INFORMATION: Exam: CT Head Without Contrast Exam date and time: 06/27/2021 11:58 AM Age: 80 years old Clinical indication: Other: Bilat leg weakness, R/O CVA TECHNIQUE: Imaging protocol: Computed tomography of the head without contrast. Radiation optimization: All CT scans at this facility use at least one of these dose optimization techniques: automated exposure control; mA and/or kV adjustment per patient size (includes targeted exams where dose is matched to clinical indication); or iterative reconstruction. COMPARISON: CT HEAD WO 01/03/2021 10:56 AM FINDINGS: Brain: There is no acute intracranial hemorrhage. There is lucency in the cerebral white matter, likely microvascular disease although non-specific. No evidence of mass. There is no mass effect or midline shift. Singh white differentiation is intact. There are no extra-axial fluid collections. Cerebral ventricles: The ventricles and sulci are enlarged, consistent with volume loss / atrophy. No hydrocephalus. Paranasal sinuses: Minimal scattered mucosal thickening in paranasal sinuses. No air-fluid levels or evidence of acute sinusitis. Mastoid air cells: No significant mastoid effusion. Vasculature: There is vascular calcification. Bones/joints: Degenerative changes are noted at C1-C2 with partially calcified soft tissue adjacent to odontoid. Soft tissues: Unremarkable as visualized. IMPRESSION: 1. No evidence of acute intracranial abnormality. No evidence of acute infarction, hemorrhage, or mass. 2. Atrophy and microvascular disease. Dictated and Authenticated by: Emilee Peralta MD. Ordering:SUZI Collins MD
--- NOTE | 2021-06-27 12:44 | DI.VRAD_ITS ---
PROCEDURE INFORMATION: Exam: XR Chest Exam date and time: 06/27/2021 12:34 PM Age: 80 years old Clinical indication: Other: Weakness TECHNIQUE: Imaging protocol: XR of the chest. Views: 2 views. COMPARISON: CR XR CHEST 2V PA LATERAL 01/03/2021 10:56 AM FINDINGS: Lungs: Lungs are hyperinflated . No focal consolidation. Pleural spaces: Unremarkable. No pleural effusion. No pneumothorax. Heart/Mediastinum: No significant cardiomegaly. Bones/joints: No acute findings. There are diffuse enthesopathic changes consistent with benign diffuse idiopathic skeletal hyperostosis (DISH). IMPRESSION: No acute finding. Dictated and Authenticated by: Emilee Peralta MD. Ordering:SUZI Collins MD
[2021-06-27] MEDS: Normal Saline 500 ML IV (12:50)
--- NOTE | 2021-06-27 12:59 | DI.VRAD_ITS ---
PROCEDURE INFORMATION: Exam: CT Lumbar Spine Without Contrast Exam date and time: 06/27/2021 11:58 AM Age: 80 years old Clinical indication: Other: Bilat leg weakness, R/O acute injury TECHNIQUE: Imaging protocol: Computed tomography images of the lumbar spine without contrast. Radiation optimization: All CT scans at this facility use at least one of these dose optimization techniques: automated exposure control; mA and/or kV adjustment per patient size (includes targeted exams where dose is matched to clinical indication); or iterative reconstruction. COMPARISON: US AAA SCREENING 03/24/2021 12:46 PM FINDINGS: Vertebrae: No acute lumbar fracture. Old fractures of left L2 and L3 transverse prostheses. There is mild levoscoliosis. There is curvilinear and more diffuse calcification within the thecal sac from L4 distally which is consistent with calcific arachnoiditis. Discs/Spinal canal/Neural foramina: There are diffuse degenerative changes with marginal mainly anterolateral osteophytes, facet degenerative changes, disc height loss, and disc bulges. There is lumbar spinal stenosis which is greatest L3-L4 and L4-L5 and likely moderate. There are postoperative changes with laminectomy at L4-L5. Lungs: Opacities in left greater than right posterior lung bases favored to be atelectasis or scarring. Kidneys and ureters: There are bilateral renal cysts and nonobstructive intrarenal stones. There is mild left hydroureteronephrosis with 5.6 mm stone at ureterovesical junction. There is associated periureteral and perinephric stranding. Bladder: There is bladder wall thickening. This can be related to incomplete distention, cystitis, or chronic outlet obstruction. Please correlate clinically. Vasculature: Atherosclerotic aorta. Soft tissues: Unremarkable. IMPRESSION: 1. No evidence of acute fracture or injury. 2. Postoperative changes. 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 3. Left ureterovesical junction stone with mild hydroureteronephrosis. 4. Bladder wall thickening as described. Dictated and Authenticated by: Emilee Peralta MD. Ordering:SUZI Collins MD
[2021-06-27] MEDS: MAGNESIUM SULFATE 1 GM/100 ML BAG IVPB (13:02)
[2021-06-27 13:39] LABS: Bilirubin Negative (Negative); Blood Moderate (Negative); Clarity Sl Cloudy (Clear); Glucose Negative (Negative); Ketones Negative (Negative); Leukocyte Esterase Moderate (Negative); Nitrite Negative (Negative); Specific Gravity 1.015 (1.005-1.025); Urobilinogen 0.2 EU/dL (Up TO 0.2)
[2021-06-27 13:40] VITALS: BP 116/41; PULSE 74; RESP 16; TEMP 37; O2SAT 97
[2021-06-27 13:50] LABS: Epithelial Cells Moderate HPF (Negative)
[2021-06-27 13:51] LABS: Bacteria Rare HPF (Negative); C & S Indicated? No/Sq. Contamination; Casts Negative LPF (Negative); Crystals Negative HPF (Negative); Mucus Moderate (Negative)
[2021-06-27] MEDS: Lidocaine 2% Jelly 6 ML SYR (14:24)
[2021-06-27 14:40] LABS: Bilirubin Negative (Negative); Blood Moderate (Negative); Clarity Sl Cloudy (Clear); Glucose Negative (Negative); Ketones Negative (Negative); Leukocyte Esterase Small (Negative); Nitrite Negative (Negative); Specific Gravity 1.015 (1.005-1.025); Urobilinogen 0.2 EU/dL (Up TO 0.2)
[2021-06-27 14:50] LABS: Bacteria Rare HPF (Negative); C & S Indicated? Yes; Crystals Negative HPF (Negative); Epithelial Cells Negative HPF (Negative); Mucus Negative (Negative); Other Cells Few Renal (Negative); WBC >50 HPF (0-5)
[2021-06-27 15:03] VITALS: BP 117/54; PULSE 75; TEMP 36.6; O2SAT 96
[2021-06-27] MEDS: levoFLOXacin 500 MG, levoFLOXacin 250 MG 750 MG PO (15:08)
--- NOTE | 2021-06-27 15:51 | NUR.NOTE ---
Faxed a referral to Urology for kidney stone and UTI p/Dr. Guerrero, placed in [facility] box
[2021-06-27 16:04] LABS: Anion Gap 6.7 mmol/L (3-11); BUN 37 mg/dL (7-18); CO2 26.3 mmol/L (21.0-32.0); CREATININE 2.1 mg/dL (0.70-1.30); Calcium 8.8 mg/dL (8.5-10.1); Chloride 100 mmol/L (98-107); Creatine Kinase 1422 U/L (39-308); Glucose 145 mg/dL (74-106); Potassium 4.7 mmol/L (3.5-5.1); Sodium 133 mmol/L (136-145)
[2021-06-27 16:05] LABS: COVID-19 PCR Negative (Negative)
[2021-06-27 16:07] LABS: Source Nasal/Nares
== END 2021-06-27 15:30 | disposition home or self-care (01) ==
LOC: ER 15:07
PROVIDERS: Emergency Provider Physician Assistant; PCP Family Medicine
DX: N39.0 Urinary tract infection, site not specified (principal); B96.89 Other specified bacterial agents as the cause of diseases classified elsewhere; N20.1 Calculus of ureter; R53.1 Weakness; Z86.16 Personal history of COVID-19; I95.9 Hypotension, unspecified
CPT/HCPCS: 36415; 80048; 80053; 82550; 87635; 93005; 96361; 96365; 99284; 99285; 70450; 71046; 72131; 81003; 81015; 83735; 84484; 85025; 87086; 93010; J3475

== ENCOUNTER 2021-06-27 18:07 | Inpatient (IN) | payer MEDICARE, OTHER, SELFPAY ==
[2021-06-27] VITALS (94 sets, daily range): BP systolic 95–192; BP diastolic 37–166; PULSE 64–161; RESP 10–28; TEMP 36.4–37.3; O2SAT 88–97
--- NOTE | 2021-06-27 18:10 | ED.GENADUL_ITS ---
Discharge Plan Disposition Patient Disposition: [facility] INPATIENT Condition: Stable Discharge Details Clinical Impression: Rhabdomyolysis, Bilateral leg weakness, Acute kidney injury, Fall at home, Abr asion of sacral region Primary Care Provider: Jessa Cool ED Provider: Karina Bass Home Meds and New Rx's Prescriptions: No Action atorvastatin 40 mg tablet 40 mg PO DAILY 0RF multivitamin [Daily Vitamin] 1 EACH tablet 1 ea PO DAILY 0RF cholecalciferol (vitamin D3) [Vitamin D3] 400 UNIT capsule 400 unit PO DAILY 0RF tamsulosin 0.4 mg capsule 0.8 mg PO DAILY Qty: 180 3RF Acetaminophen [Tylenol] 1,000 mg PO TID PRN PRNQty: 0 0RF melatonin 3 mg tablet 3 - 6 mg PO HS 0RF Label Comments: TAKE TWO TABLETS BY MOUTH AT BEDTIME NEEDED FOR SLEEP Eliquis 5 mg tablet See Rx Instructions .ROUTE .COMPLEX Qty: 70 0RF Rx Instructions: take 10 mg by mouth twice daily for 7 days; then 5 mg twice daily levofloxacin 750 mg tablet 750 mg PO DAILY 4 Days Qty: 4 0RF Medical Decision Making 80-year-old male seen here earlier today for bilateral leg weakness diagnosed with UTI and potentially incidental left UV J stone presents for fall per EMS. He had been called at home by me just prior to his fall to advise him to come to the emergency department for admission for an elevated CK level concerning for rhadbomyolysis. Patient's lab work earlier today noted a UTI and he was started on Levaquin. He had a CK level of 454 and a creatinine of 2, increased from recent 0.8. He additionally had an unremarkable chest x-ray and CT head and a CT lumbar spine which incidentally noted a 5.6 mm left UVJ stone. He had no pain at that time and Dr. Kauffman recommended outpatient follow-up and treatment of UTI. Patient was able to ambulate and felt better and requested to go home. I advised rechecking a CK level prior to discharge and patient's ride was here and he preferred to go home before waiting for results. His CK level resulted 1422 after discharge. I called patient at home and was able to speak with his friend Charan Mancuso advising him to return pt to the ER for admission. While I was on the phone, patient fell in the bathroom. He initially denied any complaints of any recent illness to me earlier today in the ED but now states he has had a couple episodes of watery brown diarrhea this week and 3 episodes total today. This may account for his generalized and worsening leg weakness. He denies any reported syncope or head injury. His vitals are within normal limits, his blood pressure is mildly hypotensive but improved compared to earlier today. He has what appears to be either a superficial abrasion or a stage II ulcer to the sacrum. Denies any pain in this area so potentially less likely acute trauma. He does have surrounding erythema which may indicate more a pressure ulcer. Will refer for CT sacrum to rule out fracture. There is no other evidence of trauma. Will repeat limited to reassess creatinine and CK. Patient is agreeable to admission. Labs and imaging reviewed. White blood cell count 10. Hemoglobin 11. Glucose 72. Creatinine 2.1, CK now up to 1923. CT pelvic notes: IMPRESSION: 1. Degenerative lumbosacral spine changes. 2. No evidence of pelvic fracture or diastasis. No hip fracture or dislocation. 3. Nonspecific bladder wall thickening. Cannot exclude cystitis. There is a small focal air bubble in the superior bladder within a diverticulum. See sagittal image 40. See coronal image 13. Recommend correlation with urinalysis. Patient also is noted to have a 6 mm bladder calculus. 4. Enlarged right inguinal lymph node measuring 2.3 x 2.1 cm. Patient eating and drinking at this time. Discussed at bedside and he is a full code. Previous records note that he is DNR/DNI. Case discussed with hospitalist accepts patient for admission to the hospital for rhabdomyolysis with plan for IV hydration and PT eval. Medical Records Medical records reviewed: Yes I reviewed the patient's medical records. Imaging Data Radiologic Study: Radiologist's impression: CT Pelvis Without Contrast; Skeletal Exam date and time: 06/27/2021 6:44 PM Age: 80 years old Clinical indication: Other: Post fall, abrasion over sacrum, R/O FX TECHNIQUE: Imaging protocol: Computed tomography images of the pelvis without contrast. Exam focused on the skeletal structures. COMPARISON: CR XR HIP PELVIS ADULT BL 01/03/2021 3:29 PM FINDINGS: Stomach and bowel: Unremarkable appearance of large bowel within the colon. Bladder: Nonspecific mild urinary bladder wall thickening circumferentially. Maximal thickness approximately 6 mm. Cannot exclude cystitis. Recommend correlation with urinalysis. There is a posterior left bladder calcification measuring 7 mm suggesting a bladder calculus. There is a small diverticulum of the bladder dome measuring approximately 13 mm. A small air bubble is seen within this diverticulum. Cannot exclude a urinary tract infection. Aorta: Atherosclerotic aortoiliac calcium. Lymph nodes: Nonspecific right inguinal lymph node measuring 2.3 x 2.1 cm. Bones/joints: Severe lower lumbar spine degenerative disease at L4-L5 and L5-S1. No sacral fracture. Sacroiliac joints without diastasis. Mild degenerative changes of the sacroiliac joints. No evidence of pelvic fracture. No diastasis of pubic symphysis. Bilateral hips are unremarkable. No fracture or dislocation. Soft tissues: Unremarkable. IMPRESSION: 1. Degenerative lumbosacral spine changes. 2. No evidence of pelvic fracture or diastasis. No hip fracture or dislocation. 3. Nonspecific bladder wall thickening. Cannot exclude cystitis. There is a small focal air bubble in the superior bladder within a diverticulum. See sagittal image 40. See coronal image 13. Recommend correlation with urinalysis. Patient also is noted to have a 6 mm bladder calculus. 4. Enlarged right inguinal lymph node measuring 2.3 x 2.1 cm. Lab Data Lab results reviewed: Yes I reviewed the patient's lab results. Labs: Laboratory Tests Range/Units 06/27/21 06/27/21 18:10 18:10 WBC (4.4-10.8) 10^3/uL 10.68 RBC (4.36-5.78) 10^6/uL 3.87 L Hgb (13.5-17.5) g/dL 11.5 L Hct (40.0-50.0) % 35.2 L MCV (80-95) fL 91.0 MCH (27.0-33.0) pg 29.7 MCHC (32.0-36.0) % 32.7 RDW (11.8-14.1) % 15.9 H Plt Count (130-400) 10^3/uL 304 MPV (8.0-11.0) fL 12.6 H Immature Gran % 1.7 Neutrophils % 85.7 Lymphocytes % 5.1 Monocytes % 6.7 Eosinophils % 0.6 Basophils % 0.2 Nucleated RBC % % 0 Absolute Neutrophils (1.2-6.7) 10^3/uL 9.15 H Absolute Lymphocytes (1.2-3.4) 10^3/uL 0.55 L Absolute Monocytes (0.1-0.8) 10^3/uL 0.72 Absolute Eosinophils (0.0-0.7) 10^3/uL 0.06 Absolute Basophils (0.0-0.2) 10^3/uL 0.02 Sodium (136-145) mmol/L 133 L Potassium (3.5-5.1) mmol/L 4.5 Chloride (98-107) mmol/L 100 Carbon Dioxide (21.0-32.0) mmol/L 24.3 Anion Gap (3-11) mmol/L 8.7 BUN (7-18) mg/dL 41 H Creatinine (0.70-1.30) mg/dL 2.1 H Estimated GFR/1.73 m2 (mL/min/1.73m2) 30.70 Glucose (74-106) mg/dL 72 L D Calcium (8.5-10.1) mg/dL 8.7 Total Bilirubin (0.2-1.0) mg/dL 1.4 H AST (15-37) U/L 79 H ALT (16-63) U/L 47 Alkaline Phosphatase (46-116) U/L 89 Creatine Kinase (39-308) U/L 1923 H Total Protein (6.4-8.2) g/dL 7.9 Albumin (3.4-5.0) g/dL 3.3 L HPI General Mode of arrival: ambulatory . Date/Time Provider Initiated Documentation: 06/27/21 18:10 . Limitations to Documentation: no limitations . Information obtained by: patient . HPI Narrative: Patient is a 80-year-old male who was seen here earlier today for generalized weakness more significant in his bilateral legs with difficulty standing at home earlier today and found to have a UTI and a nonobstructing 5 mm left UVJ stone presents for fall at home. Patient was called at home after he left here earlier today had a repeat CK and BMP drawn just prior to discharge and declined to wait for results. He was called at home to report that his CK level had increased and was advised to return to the ED for admission to the hospital for potential rhabdomyolysis. A call was placed and message left on his voicemail. A second call was placed and I was speaking to his friend Charan Mancuso over the phone while patient was in the bathroom. While waiting on hold, patient's friend heard a thump in the bathroom and patient had fallen. I advised Charan Mancuso to call 911 if needed or that he bring patient to the hospital himself if able for evaluation for the fall and otherwise for admission for rhabdomyolysis. Patient denies any head injury during the fall. Earlier today patient had denied any recent illness including vomiting or diarrhea. Patient now states he has had a couple episodes of watery brown diarrhea this week and 2 episodes earlier today and one episode this evening just prior to fall. He denies any syncopal episode prior to the fall. He denies chest pain, shortness of breath, abdominal pain, neck pain, back pain, arm or leg pain. Related Data Home Medications Medication Instructions Recorded Confirmed cholecalciferol (vitamin D3) 10 400 unit PO DAILY 05/29/13 06/27/21 mcg (400 unit) capsule (Vitamin D3) multivitamin (Daily Vitamin) 1 ea PO DAILY 05/29/13 06/27/21 apixaban 5 mg tablet (Eliquis) See Rx Instructions .ROUTE 09/11/18 06/27/21 .COMPLEX #70 tab Acetaminophen [Tylenol] 1,000 mg PO TID PRN PRN #0 01/14/21 06/27/21 atorvastatin 40 mg tablet 40 mg PO DAILY 02/27/21 06/27/21 tamsulosin 0.4 mg capsule 0.8 mg PO DAILY #180 cap 03/23/21 06/27/21 levofloxacin 750 mg tablet 750 mg PO DAILY 4 Days #4 tab 06/27/21 06/27/21 melatonin 3 mg tablet 3 - 6 mg PO HS 06/27/21 06/27/21 Previous Rx's Medication Instructions Recorded apixaban 5 mg tablet (Eliquis) See Rx Instructions .ROUTE 09/11/18 .COMPLEX #70 tab Acetaminophen [Tylenol] 1,000 mg PO TID PRN PRN #0 01/14/21 tamsulosin 0.4 mg capsule 0.8 mg PO DAILY #180 cap 03/23/21 levofloxacin 750 mg tablet 750 mg PO DAILY 4 Days #4 tab 06/27/21 Allergies Allergy/AdvReac Type Severity Reaction Status Date / Time No Known Allergies Allergy Unverified 06/27/21 18:17 paper tape Allergy Intermediate skin Uncoded 06/27/21 18:17 breakdown General ELY: 3 Review of Systems All systems reviewed & are unremarkable except as noted in HPI and below Constitutional Constitutional: Reports as per HPI, Denies chills and Denies fever(s) Eyes Eyes: Denies blurry vision ENT Ears, Nose, Mouth, and Throat: Denies dizziness, Denies sore throat and Denies throat swelling Cardiovascular Cardiovascular: Denies chest pain and Denies dyspnea Respiratory Respiratory: Denies cough and Denies dyspnea Gastrointestinal Gastrointestinal: Denies abdominal pain, Reports diarrhea and Denies vomiting Genitourinary Genitourinary: Denies hematuria and Denies dysuria Musculoskeletal Musculoskeletal: Denies back pain and Denies numbness Integumentary/Breasts Skin/Breast: Denies lesions and Denies rash Neurologic Neurologic: Denies dizziness, Denies localized weakness and Denies numbness Allergic/Immunologic Allergic/Immunologic: Denies throat swelling PFSH All Active Problems (Updated 06/27/21 @ 19:47 by Karina Bass DO) UTI (urinary tract infection) (Acute) Ureterolithiasis (Acute) Weakness (Acute) Bilateral leg weakness (Acute) Rhabdomyolysis (Acute) Bilateral leg weakness (Acute) Acute kidney injury (Acute) Fall at home (Acute) Abrasion of sacral region (Acute) BPH loc w urin obs/LUTS (Acute) Leg wound, right (Acute) Pulmonary nodule (Chronic) Traumatic hematoma of buttock (Acute) COVID-19 (Acute) Healing wound present on both lower extremities (Chronic) Falls (Acute) Rhabdomyolysis (Acute) Weakness (Acute) Discharge planning issues (Acute) DVT prophylaxis (Acute) Fall (Acute) COVID (Acute) Ambulatory dysfunction (Acute) Posttraumatic wound infection (Acute) Cellulitis of forearm, left (Acute) Genu valgum, acquired (Acute) Unilateral primary osteoarthritis, left knee (Acute) Personal history of colonic polyps (Acute) Medical History (Updated 06/27/21 @ 19:47 by Karina Bass DO) Compartment syndrome Deep venous thrombosis DIVERTICULOSIS Gout Hyperlipidemia Melanosis coli Peripheral venous insufficiency LEFT LEG Polyp of colon TUBULAR ADENOMA [id number] ADENOMA Psoriasis STROKE EMBOLIC Urinary retention Surgical History BACK OPERATION (~04/2008) Colonoscopy - IV Sedation (06/10/10) [id number] ADENOMA 06/18/16 no pathological features from ascending colon polyp Colonoscopy - IV Sedation (06/18/16) [id number] ADENOMA 06/18/16 no pathological features from ascending colon polyp Family History Mother Dementia Father Alzheimer's disease Sister Alzheimer's disease Parkinson's disease Social History Smoking/Tobacco Use Status: Former Tobacco Use Smoking risk assessment performed?: Yes Alcohol Intake: former Drug use: Never Substance use type: does not use Details: quit smoking 30 yrs ago Do you feel safe at home: Yes Do you feel safe in your relationship?: Yes Exam Const General: cooperative and healthy appearing Orientation: alert, awake and oriented x3 HENMT Head: normal to inspection Ears: hearing grossly normal bilaterally, external ears normal and TM's normal bilaterally General nose exam: external nose normal Face and sinus: normal facial exam Mouth: oral mucosae normal Teeth and gingiva: dentition normal Throat: posterior oropharynx normal Eyes General: appearance normal, both eyes and all related structures Eyelids: eyelids normal Pupils: PERRL EOM: EOM intact bilaterally Neck Neck: normal visual inspection Lymphatic: no lymphadenopathy noted Chest Chest: normal inspection of the chest Resp Effort & Inspection: normal respiratory effort and able to speak in complete sentences Auscultation: clear to auscultation bilaterally Cardio Rate: regular rate Rhythm: regular rhythm GI Inspection: normal to inspection Palpation: soft, not firm, no guarding, no hepatosplenomegaly, no masses and nontender Auscultation: normal bowel sounds Back/Spine/Pelvis Back/spine/pelvis image: 1. 2cm x 2mm superficial laceration noted overlying sacrum, nontender 2. Surrounding erythema, nonblanching, appears more c/w stage 1 ulcer Skin General skin exam: no rashes or lesions noted Neuro General: patient alert, patient awake and patient oriented x3 Cognition: normal cognition Speech: speech normal Gait: normal gait Motor: muscle tone normal throughout Sensory Exam: no sensory deficits noted Extrem General: normal to inspection, full ROM and capillary refill normal Other: No pain with range of motion or tenderness to palpation of bilateral upper or lower extremities. Psych Appearance: grossly normal Mental Status: mental status grossly normal Speech and Movement: speech and movement normal Affect: normal affect Thought Process: normal
--- NOTE | 2021-06-27 18:36 | DI.CT_ITS ---
Exam(s) CT PELVIC WO EXAM: CT PELVIC WO CLINICAL HISTORY: s/p fall, abrasion over sacrum, r/o fx. TECHNIQUE: Imaging Protocol: Axial computed tomography images with coronal and sagittal reformatted images were created and reviewed. COMPARISON: No exams were available for comparison FINDINGS: Bones: The osseous structures and articular surfaces are intact. Bony alignment is satisfactory. N o cellulitic or osteomyelitic changes are identified. Degenerative changes are seen in the lower lum bar spine. Postsurgical changes are seen in the lower lumbar spine. No lytic or sclerotic lesions a re identified. Soft Tissues: There is a 6 mm left UVJ stone causing mild hydronephrosis. There is a trace amount of fluid in the pelvis. There is atherosclerosis of the abdominal aorta and its runoff. There is a sm all focus of air in the urinary bladder. This may be be due to recent catheterization. Infection ca nnot be excluded. Please correlate clinically. There does appear to be mild circumferential thicken ing of the urinary bladder wall. IMPRESSION: 1. No acute fracture or subluxation. 2. 6 mm left UVJ stone with mild hydronephrosis. 3. Nonspecific urinary bladder wall thickening. Cystitis cannot be excluded. There is a small focus of air in the urinary bladder. This may be due to recent catheterization however infection cannot b e excluded. Please correlate clinically. RADIATION DOSE DELIVERED: 380.79mGy.cm Total DLP 380.79mGy.cmTotal DLP DATA REPOSITORY: All CT scans at this facility are submitted to the National Radiology Data Registry (NRDR) Dose Index Registry (DIR) with the [employer] (A[employer]). RADIATION OPTIMIZATION: All CT scans at this facility use at least one of these dose optimization te chniques: automated exposure control; mA and/or kV adjustment per patient size (includes targeted exa ms where dose is matched to clinical indication); or iterative reconstruction.
[2021-06-27] MEDS: Normal Saline 500 ML IV (18:39)
[2021-06-27 18:56] LABS: Abs Immature Grans 0.18 10^3/uL (0.0-0.06); Absolute Basophil Count 0.02 10^3/uL (0.0-0.2); Absolute Eosinophil Count 0.06 10^3/uL (0.0-0.7); Absolute Lymphocyte Count 0.55 10^3/uL (1.2-3.4); Absolute Monocyte Count 0.72 10^3/uL (0.1-0.8); Absolute Neutrophil Count 9.15 10^3/uL (1.2-6.7); Basophils % 0.2; Eosinophils % 0.6; HCT 35.2 % (40.0-50.0); HGB 11.5 g/dL (13.5-17.5); Immature Grans % 1.7; Lymphocytes % 5.1; MCH 29.7 pg (27.0-33.0); MCHC 32.7 % (32.0-36.0); MPV 12.6 fL (8.0-11.0); Monocytes % 6.7; Neutrophils % 85.7; Nucleated RBC 0 %; Platelet Count 304 10^3/uL (130-400); RBC 3.87 10^6/uL (4.36-5.78); RDW 15.9 % (11.8-14.1); RDW-SD 52.5 fL; WBC 10.68 10^3/uL (4.4-10.8)
[2021-06-27 19:11] LABS: ALT 47 U/L (16-63); AST 79 U/L (15-37); Albumin 3.3 g/dL (3.4-5.0); Alkaline Phosphatase 89 U/L (46-116); Anion Gap 8.7 mmol/L (3-11); BUN 41 mg/dL (7-18); Bilirubin, Total 1.4 mg/dL (0.2-1.0); CO2 24.3 mmol/L (21.0-32.0); CREATININE 2.1 mg/dL (0.70-1.30); Calcium 8.7 mg/dL (8.5-10.1); Chloride 100 mmol/L (98-107); Potassium 4.5 mmol/L (3.5-5.1); Sodium 133 mmol/L (136-145); Total Protein 7.9 g/dL (6.4-8.2)
[2021-06-27 19:12] LABS: Creatine Kinase 1923 U/L (39-308)
[2021-06-27 19:20] LABS: Glucose 72 mg/dL (74-106)
--- NOTE | 2021-06-27 19:40 | DI.VRAD_ITS ---
PROCEDURE INFORMATION: Exam: CT Pelvis Without Contrast; Skeletal Exam date and time: 06/27/2021 6:44 PM Age: 80 years old Clinical indication: Other: Post fall, abrasion over sacrum, R/O FX TECHNIQUE: Imaging protocol: Computed tomography images of the pelvis without contrast. Exam focused on the skeletal structures. COMPARISON: CR XR HIP PELVIS ADULT BL 01/03/2021 3:29 PM FINDINGS: Stomach and bowel: Unremarkable appearance of large bowel within the colon. Bladder: Nonspecific mild urinary bladder wall thickening circumferentially. Maximal thickness approximately 6 mm. Cannot exclude cystitis. Recommend correlation with urinalysis. There is a posterior left bladder calcification measuring 7 mm suggesting a bladder calculus. There is a small diverticulum of the bladder dome measuring approximately 13 mm. A small air bubble is seen within this diverticulum. Cannot exclude a urinary tract infection. Aorta: Atherosclerotic aortoiliac calcium. Lymph nodes: Nonspecific right inguinal lymph node measuring 2.3 x 2.1 cm. Bones/joints: Severe lower lumbar spine degenerative disease at L4-L5 and L5-S1. No sacral fracture. Sacroiliac joints without diastasis. Mild degenerative changes of the sacroiliac joints. No evidence of pelvic fracture. No diastasis of pubic symphysis. Bilateral hips are unremarkable. No fracture or dislocation. Soft tissues: Unremarkable. IMPRESSION: 1. Degenerative lumbosacral spine changes. 2. No evidence of pelvic fracture or diastasis. No hip fracture or dislocation. 3. Nonspecific bladder wall thickening. Cannot exclude cystitis. There is a small focal air bubble in the superior bladder within a diverticulum. See sagittal image 40. See coronal image 13. Recommend correlation with urinalysis. Patient also is noted to have a 6 mm bladder calculus. 4. Enlarged right inguinal lymph node measuring 2.3 x 2.1 cm. Dictated and Authenticated by: Hemanth Verdin MD. Ordering:SUZI Collins MD
--- NOTE | 2021-06-27 20:57 | HPE_ITS ---
Assessment and Plan Assessment and plan (1) UTI (urinary tract infection): Status: Acute Assessment and plan: He was started on levofloxacin at home but I think I will start him on amoxicillin here. Because of the tendon risks with levofloxacin other drugs like it I will hold off using it until we get his culture back. He does not appear to be septic at this time. (2) Ureterolithiasis: Status: Acute Assessment and plan: His CT scan showed mild hydronephrosis with a 6 mm UPJ stone. The recent CT scan of his pelvis was interpreted as showing a bladder stone but I think this is in the UV junction. He does not appear to have moved since earlier study today. (3) Weakness: Status: Acute Assessment and plan: Etiology of his weakness is not clear but I think he is dehydrated. He will be given intravenous fluids for the rhabdomyolysis as well as the dehydration. (4) Rhabdomyolysis: Status: Acute Assessment and plan: He was down for some time earlier today but I do not think we can rely on his history to provide that information. He thought he was only down for couple hours. I think it was probably more than that. His CK is up to 1900 now and will be rechecked in the morning. He will be given intravenous fluids to hydrate him and to hopefully reverse his kidney injury. (5) Acute kidney injury: Status: Acute Assessment and plan: His baseline creatinine is about 0.8. It is over 2 now. He will be hydrated and his labs be rechecked in the morning. (6) Abrasion of sacral region: Status: Acute Assessment and plan: He had a CT of his pelvis and no fracture was seen. (7) Diarrhea: Status: Acute Assessment and plan: Stool samples have been ordered. Will await the results of the studies. He will be placed on a regular diet. History of Present Illness History of Present Illness Chief Complaint: weakness Narrative: This 80-year-old male is here because of weakness and falls. He does by himself. He says he lives in the area his whole life. He has no family they are here but has a sister and nephew in [place], nieces and nephews in [facility]. He has never been and has no children. He is not sure who is healthcare agent would be but thinks it might be his niece. When asked him why he was here he says the following and has had a awful day. He was here earlier today and was found to have mildly elevated creatinine and CPK level. He was diagnosed with a urinary tract infection as well as a ureterovesical stone on the left. Is also been having diarrhea. He says he has had diarrhea for the last few days. He may have fallen a week ago but in asking more questions is not really clear that he did fall a week ago. Who presented here earlier today because of weakness and was diagnosed with a urinary tract in [facility] and was discharged on levofloxacin. His repeat CK level came back higher and he was called to come back in but while a friend was on the phone he fell in the bathroom but did not hurt himself. 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 He says he normally gets along very well at home by himself. He has not been around anyone else been sick. Has had no Covid exposure that he is aware of. He has been vaccinated. He has not been traveling. He has not been on any recent antibiotics except for today. He did seem a bit confused about the timeline of his illness. He could not remember who given the antibiotic for his urine but he saw the same doctor here twice today. Review of Systems Constitutional Constitutional: Denies body ache(s), Denies chills, Denies fever(s), Denies headache(s) and Reports weakness ENT Ears, Nose, Mouth, and Throat: Denies headache(s) and Reports disequilibrium Cardiovascular Cardiovascular: Denies chest pain, Denies rapid heart rate, Denies palpitations and Denies dyspnea Respiratory Respiratory: Denies cough, Denies dyspnea and Denies wheezing Gastrointestinal Gastrointestinal: Denies abdominal pain, Reports diarrhea, Denies nausea and Denies vomiting Genitourinary Genitourinary: Denies oliguria, Denies difficulty urinating, Denies nocturia and Denies urinary urgency Neurologic Neurologic: Denies abnormal speech, Denies confusion, Denies headache(s), Repor ts lack of coordination, Denies localized weakness, Reports disequilibrium and Reports weakness Psychiatric Psychiatric: Denies confusion Endocrine Endocrine: Denies palpitations Allergic/Immunologic Allergic/Immunologic: Denies wheezing PFSH All Active Problems (Updated 06/27/21 @ 21:15 by Adan Lawrence MD) Diarrhea (Acute) UTI (urinary tract infection) (Acute) Ureterolithiasis (Acute) Weakness (Acute) Bilateral leg weakness (Acute) Rhabdomyolysis (Acute) Bilateral leg weakness (Acute) Acute kidney injury (Acute) Fall at home (Acute) Abrasion of sacral region (Acute) BPH loc w urin obs/LUTS (Acute) Leg wound, right (Acute) Pulmonary nodule (Chronic) Traumatic hematoma of buttock (Acute) COVID-19 (Acute) Healing wound present on both lower extremities (Chronic) Falls (Acute) Rhabdomyolysis (Acute) Weakness (Acute) Discharge planning issues (Acute) DVT prophylaxis (Acute) Fall (Acute) COVID (Acute) Ambulatory dysfunction (Acute) Posttraumatic wound infection (Acute) Cellulitis of forearm, left (Acute) Genu valgum, acquired (Acute) Unilateral primary osteoarthritis, left knee (Acute) Personal history of colonic polyps (Acute) Medical History (Updated 06/27/21 @ 21:15 by Adan Lawrence MD) Compartment syndrome Deep venous thrombosis DIVERTICULOSIS Gout Hyperlipidemia Melanosis coli Peripheral venous insufficiency LEFT LEG Polyp of colon TUBULAR ADENOMA [id number] ADENOMA Psoriasis STROKE EMBOLIC Urinary retention Surgical History BACK OPERATION (~04/2008) Colonoscopy - IV Sedation (06/10/10) [id number] ADENOMA 06/18/16 no pathological features from ascending colon polyp Colonoscopy - IV Sedation (06/18/16) [id number] ADENOMA 06/18/16 no pathological features from ascending colon polyp Family History Mother Dementia Father Alzheimer's disease Sister Alzheimer's disease Parkinson's disease Social History Smoking/Tobacco Use Status: Former Tobacco Use Smoking risk assessment performed?: Yes Alcohol Intake: former Drug use: Never Substance use type: does not use Details: quit smoking 30 yrs ago Do you feel safe at home: Yes Do you feel safe in your relationship?: Yes Meds Allergies and Home Medications Allergies Allergy/AdvReac Type Severity Reaction Status Date / Time No Known Allergies Allergy Unverified 06/27/21 18:17 paper tape Allergy Intermediate skin Uncoded 06/27/21 18:17 breakdown Home Medications Medication Instructions Recorded Confirmed Type cholecalciferol (vitamin D3) 10 400 unit PO DAILY 05/29/13 06/27/21 History mcg (400 unit) capsule (Vitamin D3) multivitamin (Daily Vitamin) 1 ea PO DAILY 05/29/13 06/27/21 History apixaban 5 mg tablet (Eliquis) See Rx Instructions .ROUTE 09/11/18 06/27/21 Rx .COMPLEX #70 tab Acetaminophen [Tylenol] 1,000 mg PO TID PRN PRN #0 01/14/21 06/27/21 Rx atorvastatin 40 mg tablet 40 mg PO DAILY 02/27/21 06/27/21 History tamsulosin 0.4 mg capsule 0.8 mg PO DAILY #180 cap 03/23/21 06/27/21 Rx levofloxacin 750 mg tablet 750 mg PO DAILY 4 Days #4 tab 06/27/21 06/27/21 Rx melatonin 3 mg tablet 3 - 6 mg PO HS 06/27/21 06/27/21 History Exam Const Other: He appears frail and older than his stated age. [facility] Mouth: oral mucosa abnormal (Mouth is dry) Eyes Pupils: PERRL EOM: EOM intact bilaterally Neck Neck: normal visual inspection and no lymphadenopathy Thyroid: thyroid normal Resp Auscultation: clear to auscultation bilaterally, no rales and no wheezes Cardio Rate: regular rate Rhythm: regular rhythm Heart Sounds: S1 normal, S2 normal, no gallops and no murmurs GI Palpation: soft, no hepatosplenomegaly, no pulsatile masses and nontender Skin Other: He appears to have some chronic skin changes of his left foot and ankle. Neuro Other: He did have difficulty relating some history as noted above. He does have some weakness of his left hand and weakness of dorsiflexion of his left foot. The strength is normal bilaterally. Right upper extremity strength is normal. He can elevate both legs off the exam table without difficulty. Extrem General: normal to inspection, no pedal edema and calf tenderness Results Labs Result diagrams: 06/27/21 18:10 06/27/21 18:10 Labs: Laboratory Results - last 24 hr 06/27/21 06/27/21 18:10 18:10 WBC 10.68 RBC 3.87 L Hgb 11.5 L Hct 35.2 L MCV 91.0 MCH 29.7 MCHC 32.7 RDW 15.9 H Plt Count 304 MPV 12.6 H Immature Gran % 1.7 Neutrophils % 85.7 Lymphocytes % 5.1 Monocytes % 6.7 Eosinophils % 0.6 Basophils % 0.2 Nucleated RBC % 0 Absolute Neutrophils 9.15 H Absolute Lymphocytes 0.55 L Absolute Monocytes 0.72 Absolute Eosinophils 0.06 Absolute Basophils 0.02 Sodium 133 L Potassium 4.5 Chloride 100 Carbon Dioxide 24.3 Anion Gap 8.7 BUN 41 H Creatinine 2.1 H Estimated GFR/1.73 m2 30.70 Glucose 72 L D Calcium 8.7 Total Bilirubin 1.4 H AST 79 H ALT 47 Alkaline Phosphatase 89 Creatine Kinase 1923 H Total Protein 7.9 Albumin 3.3 L Last Vital Signs Temp 36.7 C 06/27/21 18:00 Pulse 74 06/27/21 20:02 Resp 26 H 06/27/21 20:15 BP 97/71 L 06/27/21 20:02 Pulse Ox 88 L 06/27/21 19:12
[2021-06-27 21:39] LABS: TSH (W/Ref FT4) 1.31 uIU/mL (0.36-3.74)
[2021-06-27] MEDS: Normal Saline 1,000 ML 125 ML IV (21:51)
[2021-06-27] MEDS: Melatonin 3 MG TAB PO (22:34)
[2021-06-27] MEDS: Acetaminophen 500 MG TAB 1000 MG PO (22:34)
[2021-06-28] MEDS: traMADol 50 MG TAB PO (01:50)
[2021-06-28 07:24] LABS: Abs Immature Grans 0.21 10^3/uL (0.0-0.06); HCT 32.7 % (40.0-50.0); MCH 30.6 pg (27.0-33.0); MCHC 33.6 % (32.0-36.0); MCV 90.8 fL (80-95); MPV 12.7 fL (8.0-11.0); Nucleated RBC 0 %; RDW-SD 53.5 fL; WBC 12.84 10^3/uL (4.4-10.8)
[2021-06-28 07:27] VITALS: BP 110/65; PULSE 62; RESP 17; TEMP 37.7; O2SAT 96
[2021-06-28] MEDS: Normal Saline 1,000 ML 125 ML IV ×2 (07:40→15:58)
[2021-06-28] MEDS: Apixaban 5 MG TAB PO ×2 (07:41→20:11)
[2021-06-28] MEDS: Tamsulosin 0.4 MG CAPCR 0.8 MG PO (07:41)
[2021-06-28] MEDS: Amoxicillin 875 MG TAB PO (07:41)
[2021-06-28 07:57] LABS: Anion Gap 9.6 mmol/L (3-11); BUN 41 mg/dL (7-18); CO2 21.4 mmol/L (21.0-32.0); CREATININE 2.1 mg/dL (0.70-1.30); Calcium 8.4 mg/dL (8.5-10.1); Chloride 102 mmol/L (98-107); Creatine Kinase 1647 U/L (39-308); Glucose 75 mg/dL (74-106); Magnesium 1.8 mg/dL (1.8-2.4); Potassium 4.3 mmol/L (3.5-5.1); Sodium 133 mmol/L (136-145)
[2021-06-28 08:14] LABS: Absolute Basophil Count 0.13 10^3/uL (0.0-0.2); Absolute Eosinophil Count 0.26 10^3/uL (0.0-0.7); Absolute Lymphocyte Count 0.26 10^3/uL (1.2-3.4); Absolute Monocyte Count 0.64 10^3/uL (0.1-0.8); Absolute Neutrophil Count 11.17 10^3/uL (1.2-6.7); Bands % 3; Platelet Count 244 10^3/uL (130-400)
[2021-06-28 08:15] LABS: Diff Comment Manual Differential; Metamyelocytes % 3; RBC Morphology Normal
--- NOTE | 2021-06-28 08:22 | INITIAL_ITS ---
- If Service Date Differs Date of service: 06/28/21 Time of Service: 08:22 Care Management Initial Assess REASON FOR HOSPITALIZATION:: UTI, Ureterolithiasis, Rhabdomyolysis, Abrasion of sacral region, Weakness, Diarrhea, Dehydration PAST MEDICAL HISTORY/PAST SURGICAL HISTORY:: Diarrhea (Acute). UTI (urinary tract infection) (Acute). Ureterolithiasis (Acute). Weakness (Acute). Bilateral leg weakness (Acute). Rhabdomyolysis (Acute). Bilateral leg weakness (Acute). Acute kidney injury (Acute). Fall at home (Acute). Abrasion of sacral region (Acute). BPH loc w urin obs/LUTS (Acute). Leg wound, right (Acute). Pulmonary nodule (Chronic). Traumatic hematoma of buttock (Acute). COVID-19 (Acute). Healing wound present on both lower extremities (Chronic). Falls (Acute). Rhabdomyolysis (Acute). Weakness (Acute). Discharge planning issues (Acute). DVT prophylaxis (Acute). Fall (Acute). COVID (Acute). Ambulatory dysfunction (Acute). Posttraumatic wound infection (Acute). Cellulitis of forearm, left (Acute). Genu valgum, acquired (Acute). Unilateral primary osteoarthritis, left knee (Acute). Personal history of colonic polyps (Acute). Medical History (Updated 06/27/21 @ 21:15 by Adan Lawrence MD). Compartment syndrome. Deep venous thrombosis. DIVERTICULOSIS. Gout. Hyperlipidemia. Melanosis coli. Peripheral venous insufficiency. LEFT LEG. Polyp of colon. TUBULAR ADENOMA. [id number] ADENOMA. Psoriasis. STROKE. EMBOLIC. Urinary retention. Surgical History . BACK OPERATION (~04/2008). Colonoscopy - IV Sedation (06/10/10). [id number] ADENOMA. 06/18/16 no pathological features from ascending colon polyp. Colonoscopy - IV Sedation (06/18/16). [id number] ADENOMA. 06/18/16 no pathological features from ascending colon polyp PREVIOUS FUNCTIONAL STATUS/SOCIAL/FAMILY SUPPORTS:: Adan lives alone in [facility]. He has never been or had children. He has a neighbor (Natalio Gaspar) that lives across the street, who reportedly checks on him daily at 0900 for coffee. Adan also identifies, Charan Mancuso as a supportive friend of his who lives in [place]. Adan drives and is independent at baseline. CURRENT FUNCTIONAL STATUS:: Adan was sitting up in his chair when CM met with him. He was alert and oriented and easily engaged in conversation. He reports that he's been falling frequently at home. Because of this, he drives himself to Nicanor Reis's office three times a week for PT. He feels out patient PT is working well for him. Adan shares that his primary goal is to be independent at home for as long as possible. He is agreeable to SNF placement for continued PT, but only if absolutely neccessary. ADVANCE DIRECTIVES:: Advance directives on file from 04/2008, Primary HCA is . ALT. Agent is Melissa Harris. Forms provided to pt, he will update if desired. COLST on File Has patient been provided with info about the portal/API?: Yes Did the patient sign up for the portal?: No CODE STATUS:: Full Code INSURANCE COVERAGE / FINANCIAL ISSUES:: [facility]/ [employer] CURRENT HOME/COMMUNITY SERVICES/EQUIPMENT:: Has a LifeLine, FWW and a cane. His neighbor checks on him daily. No community services. No MOW. PRIMARY CARE PHYSICIAN:: Jessa Cool POTENTIAL DISCHARGE NEEDS:: Evaluations for further needs, follow up appointments. PATIENT/FAMILY EDUCATION NEEDS:: Review discharge instructions, limitations, medications and plan to follow up with community providers. ask me three. TRANSPORTATION:: via private vehicle with family PLAN:: Anticipate Adan will discharge to SNF for short term rehab vs return home with New [facility] services when medically ready. Adan will follow up with community providers and discharge plan of care. CM will continue to follow.
[2021-06-28] MEDS: cefTRIAXone 1 GM/50 ML BAG IVPB ×2 (10:47→16:43)
[2021-06-28 15:20] VITALS: BP 122/56; PULSE 67; RESP 17; TEMP 37.9; O2SAT 98
--- NOTE | 2021-06-28 15:32 | W.PM.PROGNOT ---
Date of Service Date of service: 06/28/21 Time of Service: 15:34 Assessment and Plan Assessment and plan (1) UTI (urinary tract infection): Status: Acute Assessment and plan: Complicated UTI, present on admission. Urine C&S with mixed GP fuentes. Has evidence of urinary retention and an obstructive calculus. Now has a borderline fever. Urology is consulted as outpatient, but the patient was not showing signs of infection then and is now, so he might require an intervention. Abx adjusted to high dose ceftriaxone. Voiding trial. Will likely require a christian catheter. Blood cultures pending. (2) Weakness: Status: Acute Assessment and plan: Could be due to his UTI. However, given suspected infection, worsening back pain, h/o back surgery for an epidural abscess, BLE weakness, urinary retention and fecal incontinence, one of my big concerns is recurrence of epidural abscess. MRI lumbar spine w/wo contrast is ordered for first thing tomorrow am. The patient's abx were adjusted to high dose ceftriaxone to treat empirically for this. (3) Rhabdomyolysis: Status: Acute Assessment and plan: CPK better. Continue IVF. (4) Ureterolithiasis: Status: Acute Assessment and plan: 6 mm L UVJ stone with mild hydronephrosis. As above - urology consulted. (5) Hydronephrosis: Status: Acute Assessment and plan: As above (6) Acute kidney injury: Status: Acute Assessment and plan: Cr did not budge overnight with IVF. Could be multifactorial - due to UTI, hydronephrosis, dehydration. Addressing all of the above. (7) Diarrhea: Status: Resolved Assessment and plan: Should it recur, stool studies are pending. (8) Back pain: Status: Acute Assessment and plan: As above (9) Bilateral leg weakness: Status: Acute Assessment and plan: As above (10) Abrasion of sacral region: Status: Acute Assessment and plan: CT pelvis negative. May require a wound care consult (11) Ambulatory dysfunction: Status: Acute Assessment and plan: As above. Rule out lumbar spine pathology. PT consulted. (12) DVT prophylaxis: Status: Acute Assessment and plan: On therapeutic eliquis for h/o DVT/PE. (13) Discharge planning issues: Status: Acute Assessment and plan: FUll code Consult palliative care PT consulted. May require xfer to a tertiary center and SNF on discharge. Subjective Subjective Interval history since last seen: Mr Terrell states that he is feeling a little bit better. No dizziness, chest pain, shortness of breath, nausea. Diarrhea has not recurred. Reports lower back pain. States he has a h/o low back surgery at [facility] in 2007 for an infection. Leg weakness started 3 days ago.Prior to this was going to the gym. Denies saddle anesthesia. Endorses fecal incontinence only with diarrhea. 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 The organism was GBS. Exam Narrative Exam Narrative: General: Pleasant elderly male who is A&Ox3, but forgetful HEENT: EOMI, MMM Heart: RRR, no m/r/g Lungs: CTAB Abdomen: soft, nontender, nondistended Back: lower back midline incision is well-healed. Extremities: 3-4/5 strength in BLEs, +1 pedal pulse in L foot (cold), +2 pedal pulse in R foot; chronic venous stasis dermatitis. Objective Last Vital Signs Temp 37.9 C H 06/28/21 15:20 Pulse 67 06/28/21 15:20 Resp 17 06/28/21 15:20 BP 122/56 L 06/28/21 15:20 Pulse Ox 98 06/28/21 15:20 Laboratory Results - last 24 hr 06/27/21 06/27/21 06/27/21 18:10 18:10 18:10 WBC 10.68 RBC 3.87 L Hgb 11.5 L Hct 35.2 L MCV 91.0 MCH 29.7 MCHC 32.7 RDW 15.9 H Plt Count 304 MPV 12.6 H Immature Gran % 1.7 Neutrophils % 85.7 Band Neutrophils % Lymphocytes % 5.1 Monocytes % 6.7 Eosinophils % 0.6 Basophils % 0.2 Metamyelocytes % Nucleated RBC % 0 Absolute Neutrophils 9.15 H Absolute Lymphocytes 0.55 L Absolute Monocytes 0.72 Absolute Eosinophils 0.06 Absolute Basophils 0.02 RBC Morphology Sodium 133 L Potassium 4.5 Chloride 100 Carbon Dioxide 24.3 Anion Gap 8.7 BUN 41 H Creatinine 2.1 H Estimated GFR/1.73 m2 30.70 Glucose 72 L D Calcium 8.7 Magnesium Total Bilirubin 1.4 H AST 79 H ALT 47 Alkaline Phosphatase 89 Creatine Kinase 1923 H Total Protein 7.9 Albumin 3.3 L TSH 1.31 06/28/21 06/28/21 06:25 06:25 WBC 12.84 H RBC 3.60 L Hgb 11.0 L Hct 32.7 L MCV 90.8 MCH 30.6 MCHC 33.6 RDW 16.0 H Plt Count 244 MPV 12.7 H Immature Gran % See Differential Neutrophils % 84.0 Band Neutrophils % 3 Lymphocytes % 2.0 Monocytes % 5.0 Eosinophils % 2.0 Basophils % 1.0 Metamyelocytes % 3 Nucleated RBC % 0 Absolute Neutrophils 11.17 H Absolute Lymphocytes 0.26 L Absolute Monocytes 0.64 Absolute Eosinophils 0.26 Absolute Basophils 0.13 RBC Morphology Normal Sodium 133 L Potassium 4.3 Chloride 102 Carbon Dioxide 21.4 Anion Gap 9.6 BUN 41 H Creatinine 2.1 H Estimated GFR/1.73 m2 30.70 Glucose 75 Calcium 8.4 L Magnesium 1.8 Total Bilirubin AST ALT Alkaline Phosphatase Creatine Kinase 1647 H Total Protein Albumin TSH
[2021-06-28] MEDS: Lidocaine 2% Jelly 11 ML SYR UR (15:49)
[2021-06-28 15:52] LABS: Lab Add On Test DONE
[2021-06-28 17:20] LABS: Procalcitonin 5.5 ng/mL
[2021-06-28] MEDS: Nystatin POWDER 15 GM JAR TP (22:41)
[2021-06-29] MEDS: Normal Saline 1,000 ML 125 ML IV ×2 (00:16→08:31)
[2021-06-29 04:38] VITALS: BP 109/52; PULSE 64; RESP 15; TEMP 36.7; O2SAT 98
[2021-06-29 07:17] LABS: Abs Immature Grans 0.08 10^3/uL (0.0-0.06); Absolute Basophil Count 0.01 10^3/uL (0.0-0.2); Absolute Eosinophil Count 0.04 10^3/uL (0.0-0.7); Absolute Monocyte Count 0.94 10^3/uL (0.1-0.8); Absolute Neutrophil Count 5.38 10^3/uL (1.2-6.7); Basophils % 0.1; Eosinophils % 0.6; HCT 28.5 % (40.0-50.0); HGB 9.7 g/dL (13.5-17.5); Immature Grans % 1.1; Lymphocytes % 9.8; MCH 30.1 pg (27.0-33.0); MCV 88.5 fL (80-95); MPV 12.9 fL (8.0-11.0); Monocytes % 13.1; Neutrophils % 75.3; Nucleated RBC 0 %; Platelet Count 183 10^3/uL (130-400); RBC 3.22 10^6/uL (4.36-5.78); RDW 16.6 % (11.8-14.1); RDW-SD 53.4 fL; WBC 7.15 10^3/uL (4.4-10.8)
[2021-06-29 07:34] LABS: Anion Gap 9.2 mmol/L (3-11); BUN 30 mg/dL (7-18); CO2 19.8 mmol/L (21.0-32.0); CREATININE 1.2 mg/dL (0.70-1.30); Calcium 8.1 mg/dL (8.5-10.1); Chloride 103 mmol/L (98-107); Creatine Kinase 747 U/L (39-308); Estimated GFR 58.56 (mL/min/1.73m2); Glucose 77 mg/dL (74-106); Magnesium 1.6 mg/dL (1.8-2.4); Potassium 3.8 mmol/L (3.5-5.1); Sodium 132 mmol/L (136-145)
[2021-06-29 07:40] LABS: Diff Comment Diff Reviewed; RBC Morphology Normal
[2021-06-29] MEDS: Tamsulosin 0.4 MG CAPCR 0.8 MG PO (07:42)
[2021-06-29] MEDS: Nystatin POWDER 15 GM JAR TP ×3 (07:43→19:48)
--- NOTE | 2021-06-29 08:00 | DI.MRI_ITS ---
Exam(s) MR LUMBAR SPINE WO/W EXAM: MR LUMBAR SPINE WO/W CLINICAL HISTORY: lower back pain, h/o epidural abscess in 2007. TECHNIQUE: Multiplanar multisequence MRI of the Lumbar spine was performed. COMPARISON: MR MRI - LUMBAR SPINE WO CONTRAST from 08/27/2009 MR MRI - L LOWER EXT WO AND W CON from 09/03/[address] LOWER EXTREMITY RT WO from 01/09/[address] PELVIC WO from 06/27/2021 FINDINGS: Conus medullaris is at normal level. There is no evidence of conus mass nor subjacent clumping of in trathecal nerve roots to suggest arachnoiditis. The distal thecal sac appears unremarkable.There is no evidence of Tarlov intrasacral cysts nor other significant findings within the sacral canal Bones:There are no compression fractures evident. 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 With respect to the individual levels... T12-L1: Unremarkable L1-2: Moderate disc height loss. Mild annular bulging posteriorly. Central canal dimensions are lower normal. No significant foraminal stenosis. L2-3: Mild disc height loss. There is increased signal in the anterior aspect the disc space, without enhancement at this level. Posteriorly there is no significant disc herniation. Central canal dimens ions are lower normal. No significant foraminal stenosis.Mild degenerative changes in the facet joint s. L3-4: This level now exhibits fusion across the disc space, particularly on the right side. There is annular bulging. Mild-moderate central spinal canal stenosis. Moderate-severe foraminal stenosis on t he right side. Mild-moderate foraminal stenosis on the left side. Mild facet arthropathy. L4-5: Advanced disc space narrowing, more so on the right than the left side. There is a disc protrus ion posterolateral right extending posteriorly 5 millimeters, approximately 7 millimeters wide and wi th caudal extension approximately 6 millimeters. This occupies the right lateral recess and impresses the thecal sac. This finding was not evident on the 2010 MRI. Moderate central canal stenosis. Moder ate foraminal stenosis on the right side and left side. Facet arthropathy-moderate. L5-S1: This level exhibits advanced disc space narrowing, relatively uniform. Posterior bony ridging. Central canal dimensions are lower normal. No significant foraminal stenosis. Mild facet degenerativ e changes. Soft tissues: There is a cyst in the prior side superior pole of the left kidney noted. This measur es approximately 5 cm by 3.7 cm. There is a smaller cyst in the posterior cortex of the opposite-rig ht kidney noted which measures approximately 1.5 cm. IMPRESSION: 1. Compared to 2010 there is again evidence of multilevel laminectomies. There is no evidence of new abnormal fluid collection such is epidural abscess, as per request. There has been some progression o f degenerative disc disease. In addition, there is a posterolateral right disc herniation at L4-5 lev el. Also significant canal stenosis and foraminal stenosis at this level. 2. There is some fusion across the L3-4 disc space on the right side mild central canal stenosis. Mod erate-severe foraminal stenosis on the right side. Mild-moderate foraminal stenosis on the left side 3. There is a non expansile bone lesion left side of L3 vertebral body. This has appearance of a prob able hemangioma although is more evident on the 2010 study. Findings discussed by phone with the hospitalist 06/29/2021 p.m. DATA REPOSITORY:
[2021-06-29 08:21] VITALS: BP 115/57; PULSE 54; RESP 17; TEMP 36.2; O2SAT 98
[2021-06-29] MEDS: cefTRIAXone 2 GM/50 ML BAG IVPB (08:31)
--- NOTE | 2021-06-29 09:54 | IN_ITS ---
Date of service: 06/29/21 Time of Service: 09:54 PT Notes Visit Reasons: Acute rhabdomyolysis, SELENE, Fall, Leg weakness Inpatient Physical Therapy Initial Evaluation Date: 06/29/2021 Referring Doctor: Raquel Rajan MD PT Orders: PT CONSULT: Eval/treat Precautions: Fall. Standard. Activity as tolerated. AFO on L with all ambulation activities. Patient Profile/Admitting Diagnosis: Adan is a 80-year-old male who presented to the ED on 06/27/2021 due to BLE weakness and fall. He is diagnosed with urinary tract infection, ureteric lithiasis, rhabdomyolysis, acute kidney injury, abrasion of sacral region, diarrhea, and repeated falls. PMHX: All Active Problems?(Updated 06/27/21 @ 21:15 by Adan Lawrence MD) Diarrhea (Acute) UTI (urinary tract infection) (Acute) Ureterolithiasis (Acute) Weakness (Acute) Bilateral leg weakness (Acute) Rhabdomyolysis (Acute) Bilateral leg weakness (Acute) Acute kidney injury (Acute) Fall at home (Acute) Abrasion of sacral region (Acute) BPH loc w urin obs/LUTS (Acute) Leg wound, right (Acute) Pulmonary nodule (Chronic) Traumatic hematoma of buttock (Acute) COVID-19 (Acute) Healing wound present on both lower extremities (Chronic) Falls (Acute) Rhabdomyolysis (Acute) Weakness (Acute) Discharge planning issues (Acute) DVT prophylaxis (Acute) Fall (Acute) COVID (Acute) Ambulatory dysfunction (Acute) Posttraumatic wound infection (Acute) Cellulitis of forearm, left (Acute) Genu valgum, acquired (Acute) Unilateral primary osteoarthritis, left knee (Acute) Personal history of colonic polyps (Acute) Medical History?(Updated 06/27/21 @ 21:15 by Adan Lawrence MD) Compartment syndrome Deep venous thrombosis DIVERTICULOSIS Gout Hyperlipidemia Melanosis coli Peripheral venous insufficiency LEFT LEG Polyp of colon TUBULAR ADENOMA [id number] ADENOMA Psoriasis STROKE EMBOLIC Urinary retention Surgical History? BACK OPERATION (~04/2008) Colonoscopy - IV Sedation (06/10/10) [id number] ADENOMA 06/18/16 no pathological features from ascending colon polyp Colonoscopy - IV Sedation (06/18/16) [id number] ADENOMA 06/18/16 no pathological features from ascending colon polyp Social History/Home Situation: Lives alone in a a private home with 4 steps to enter, rails on both sides. He has 12 steps to the basement, rails on both sides where he does laundry. He has a lady who comes in once a week for house chores. Independent with all other ADLs. Still drives. Equipment Owned/DME: FWW, SPC Subjective: Agreeable to PT consult. Indincates that he has at least fallen 2-3 times in the past month or so. Objective: General Observation: Asthenic. Supine in bed. Wound dressing to sacrum. Moore catheter in place. Telemetry monitoring in place Mental Status: Alert and oriented as to person, place, time, and purpose. Able to pay attention, focus, and respond appropriately. Pain: Denies ROM: Right Upper Extremity: ? Shoulder Flexion WFL. Shoulder abduction WFL. Elbow flexion WFL. Wrist flexion WFL. Functional opening and closing of hand WFL. Left Upper Extremity:? Shoulder Flexion WFL. Shoulder abduction WFL. Elbow flexion WFL. Wrist flexion WFL. Functional opening and closing of hand WFL. Right Lower Extremity: Hip flexion WFL. Hip abduction WFL. Knee flexion WFL. Ankle dorsiflexion WFL. Ankle plantarflexion WFL. Left Lower Extremity: Hip flexion WFL. Hip abduction WFL. Knee flexion WFL. Ankle dorsiflexion absent. Ankle plantarflexion absent. Strength: Right Upper Extremity: Shoulder flexors 4/5. Shoulder abductors 4/5. Elbow flexors 4/5. Elbow extensors 4/5. Creative Assistant strong. Left Upper Extremity: Shoulder flexors 4/5. Shoulder abductors 4/5. Elbow flexors 4/5. Elbow extensors 4/5. Creative Assistant strong. Right Lower Extremity: Hip flexors 4-/5. Hip abductors 4-/5. Knee flexors 4-/5. Knee extensors 4-/5. Ankle dorsiflexors 4-/5. Ankle plantarflexors 4-/5. Left Lower Extremity: Hip flexors 4/5. Hip abductors 4/5. Knee flexors 4/5. Knee extensors 4/5. Ankle dorsiflexors 1/5. Ankle plantarflexors 1/5. Bed Mobility/Transfers: Sit to stand contact-guard assist Stand to sit stand by assist Bed to reclining contact-guard assist Gait: Instructed patient with level surface ambulation of 40 feet requiring contact-guard inside room. Trunk anteroflexed. Mari i decreased Decreased DF on the L due to pre-existing weakness from previous stroke. Balance: Static Sitting: Normal Dynamic Sitting: Normal Static Standing: Fair Dynamic Standing: Fair Special Tests: Mobility Limitations Standardized Measure [facility] AM-PAC 6 clicks Basic Mobility Inpatient Short Form: Raw Score: 18? CMS Score: 47% deficit ? ? Informed Consent/Education:? Patient was instructed in purpose of PT consult and continued plan of care. Agreeable to proceed with established PT POC to achieve personal goals. Assessment: Adan requires the use of a front wheeled walker and assistance of 1 caregiver for all mobility ADL performance due to functional mobility decline. Patient presents with clinical signs and symptoms consistent with current/admitting diagnoses that have resulted to mobility limitations, gait instability, generalized weakness, and overall ADL decline as demonstrated by the following impairment level findings: 1.? Decreased strength to B UE/LE major muscle groups with R more affected than the L 2.? Impaired standing balance 3.? Impaired activity tolerance 4.? Shortness of breath 5.? Fatigue Impairments are contributing to the following functional limitations: 1.? Difficulty with ambulation without assistive device and physical assistance 2.? Increased completion time for mobility ADL performance 3.? Increased risk for falls 4.? Difficulty with managing steps alone safely Patient is assessed as a 08250 moderate complexity based on the following: History: -year-old? with past medical history as indicated above Examination: Demonstrable impairment in strength, balance, and mobility level with underlying impairments and functional limitations as exhibited above as well as deficit score of 47% utilizing the [facility] Mobility Inpatient Short Form Presentation: Evolving Decision Makin moderate complexity Goals: Goals X1 week 1. Supine-Sit independent 2. Sit-Supine independent 3. Sit-Stand independent 4. Stand-Sit independent with FWW 5. Bed-Chair independent with FWW 6. Chair-Bed independent with FWW 7. Independent gait on level surface with use of FWW for at least 300 feet without report of pain nor dyspnea 8. Independent stair negotiation while holding onto B rails for at least 12 steps without report of pain nor dyspnea? 9. Independent with home exercise program 10. Good static and dynamic standing balance/tolerance Plan of Care/Treatment Plan: 1-2x/day, 7 days/week x 1 week. Plan of care has been reviewed with the ORAL SURGERY ASSISTANT providing the service under Physical Therapy direction. Initiate Physical Therapy intervention for pain management as needed, strengthening, bed mobility, transfers, gait, stairs, balance training, and use of assistive device. DISCHARGE RECOMMENDATIONS: [] Home with no services [] [X] Home with services. Patient will benefit from home health PT services in order to progress mobility level using least restrictive assistive ambulatory device, assess home safety, identify additional equipment needs, and establish a functional maintenance program that will increase ability of patient to remain at home. [] Home with outpatient PT [] [] SNF for continued rehabilitation [] [] Assisted Care [] [] SNF versus LTC based on ability to participate and progress [] TREATMENT CODE/TIME: 12135 x 20 minutes, 70457 x 11 minutes beginning at 9:54 AM. Thank you for the opportunity to participate in the care of this patient. Luz Hurtado PT, DPT, CLT [facility] [place], [place]
[2021-06-29] MEDS: MAGNESIUM SULFATE 2 GM/50 ML BAG IVPB (10:08)
[2021-06-29] MEDS: Normal Saline Flush 10 ML SYR IVP ×4 (11:14→19:47)
--- NOTE | 2021-06-29 11:37 | W.UROLOGYCON ---
Date of service: 06/29/21 Time of Service: 11:37 Assessment and Plan Assessment and plan (1) Ureterolithiasis: Status: Acute Assessment and plan: Based on his image studies, it appears that he does have a left distal ureteral stone. It is hard to find an association of the left ureteral stone with his other symptoms however. He has right sided discomfort, leg weakness and urinary retention. Typically, a distal left ureteral stone would cause left flank or groin pain and urinary frequency or urgency. I do not find any evidence of urinary tract infection that would make me take him to the operating room urgently today. Looking into other possible etiologies for his primary complaints (he is scheduled for an MRI later today) would seem to be a higher priority. I went ahead and discontinued his n.p.o. order for today. We could always make him n.p.o. after midnight for tomorrow depending on the MRI findings. History of Present Illness History of Present Illness Chief Complaint: Left Ureteral stone Narrative: This is a 80-year-old gentleman who was previously seen in my office for issues with urinary retention/incomplete bladder emptying. The patient developed a breakthrough Covid infection in December 2020. He then became dehydrated and weak. He sustained several falls at home and developed a hematoma and ultimately had rhabdo myelolysis. During that hospitalization, he had residual urines over 600 cc. Prior to the admission, he was on tamsulosin 0.4 mg daily. His dose of tamsulosin was doubled and he was able to void on his own. When I saw him for follow-up in the office, his residual urine had dropped to less than 100 cc. He presented to the emergency room this weekend with weakness in both legs and a fall. He has some chronic back pain and new complaints of right hip pain and difficulty raising the right leg. He does not have any left flank or hip pain. He has had urinary frequency in the past, but at this point, he has had difficulty voiding. He has a sensation of needing to void but was unable to initiate a stream. A Moore catheter is currently in place. He tells me that he was having significant diarrhea at the time of his admission. He was not aware of any fever or chills. On his presentation to the emergency room, his urinalysis showed microscopic hematuria and was suggestive of urinary tract infection. His urine culture however is growing gram-positive fuentes. His blood cultures are still pending. A pelvic CT scan demonstrates a left distal ureteral stone at the level of the ureterovesical junction. There is mild hydronephrosis. The kidneys are not imaged on the study. Review of Systems Narrative: No fevers or chills No vision change or dysphasia No diabetes or thyroid dysfunction No shortness of breath, cough or hemoptysis No chest pain or palpitations No nausea, vomiting, hepatitis, ulcers, jaundice No seizures, strokes or peripheral neuropathy Hx DVT. No bleeding disorders or anemia No gout PFSH All Active Problems (Updated 06/28/21 @ 15:57 by Raquel Rajan MD) Hydronephrosis (Acute) Ambulatory dysfunction (Acute) Back pain (Acute) UTI (urinary tract infection) (Acute) Ureterolithiasis (Acute) Weakness (Acute) Bilateral leg weakness (Acute) Rhabdomyolysis (Acute) Bilateral leg weakness (Acute) Acute kidney injury (Acute) Fall at home (Acute) Abrasion of sacral region (Acute) BPH loc w urin obs/LUTS (Acute) Leg wound, right (Acute) Pulmonary nodule (Chronic) Traumatic hematoma of buttock (Acute) COVID-19 (Acute) Healing wound present on both lower extremities (Chronic) Falls (Acute) Rhabdomyolysis (Acute) Weakness (Acute) Discharge planning issues (Acute) DVT prophylaxis (Acute) Fall (Acute) COVID (Acute) Ambulatory dysfunction (Acute) Posttraumatic wound infection (Acute) Cellulitis of forearm, left (Acute) Genu valgum, acquired (Acute) Unilateral primary osteoarthritis, left knee (Acute) Personal history of colonic polyps (Acute) Medical History (Updated 06/28/21 @ 15:57 by Raquel Rajan MD) Compartment syndrome Deep venous thrombosis DIVERTICULOSIS Gout Hyperlipidemia Melanosis coli Peripheral venous insufficiency LEFT LEG Polyp of colon TUBULAR ADENOMA [id number] ADENOMA Psoriasis STROKE EMBOLIC Urinary retention Surgical History (Updated 06/28/21 @ 15:49 by Raquel Rajan MD) BACK OPERATION (~04/2008) h/o GBS epidural abscess, treated at [facility] in 2007 Colonoscopy - IV Sedation (06/10/10) [id number] ADENOMA 06/18/16 no pathological features from ascending colon polyp Colonoscopy - IV Sedation (06/18/16) [id number] ADENOMA 06/18/16 no pathological features from ascending colon polyp Family History Mother Dementia Father Alzheimer's disease Sister Alzheimer's disease Parkinson's disease Social History Smoking/Tobacco Use Status: Former Tobacco Use Smoking risk assessment performed?: Yes Alcohol Intake: former Drug use: Never Substance use type: does not use Details: quit smoking 30 yrs ago Do you feel safe at home: Yes Do you feel safe in your relationship?: Yes Exam Narrative Exam Narrative: He does not appear septic or toxic His vital signs are documented elsewhere There is no CVA tenderness His bladder is not distended. A Moore catheter is in place and is draining clear urine He is awake and alert I reviewed the CT scan on the PACS system. There appears to be a 6 mm stone at the left ureterovesical junction. There is mild hydronephrosis. Results Last Vital Signs Temp 36.2 C L 06/29/21 08:21 Pulse 54 L 06/29/21 08:21 Resp 17 06/29/21 08:21 BP 115/57 L 06/29/21 08:21 Pulse Ox 98 06/29/21 08:21 Labs Result diagrams: 06/29/21 07:00 06/29/21 07:00 Labs: Laboratory Results - last 24 hr 06/28/21 06/28/21 06/28/21 06:25 06:25 06:25 WBC RBC Hgb Hct MCV MCH MCHC RDW Plt Count MPV Immature Gran % Neutrophils % Lymphocytes % Monocytes % Eosinophils % Basophils % Nucleated RBC % Absolute Neutrophils Absolute Lymphocytes Absolute Monocytes Absolute Eosinophils Absolute Basophils RBC Morphology Sodium Potassium Chloride Carbon Dioxide Anion Gap BUN Creatinine Estimated GFR/1.73 m2 Glucose Calcium Magnesium Creatine Kinase C-Reactive Protein 16.90 H Procalcitonin 5.5 Add-On Test Request DONE 06/29/21 06/29/21 07:00 07:00 WBC 7.15 D RBC 3.22 L Hgb 9.7 L Hct 28.5 L MCV 88.5 MCH 30.1 MCHC 34.0 RDW 16.6 H Plt Count 183 MPV 12.9 H Immature Gran % 1.1 Neutrophils % 75.3 Lymphocytes % 9.8 Monocytes % 13.1 Eosinophils % 0.6 Basophils % 0.1 Nucleated RBC % 0 Absolute Neutrophils 5.38 Absolute Lymphocytes 0.70 L Absolute Monocytes 0.94 H Absolute Eosinophils 0.04 Absolute Basophils 0.01 RBC Morphology Normal Sodium 132 L Potassium 3.8 Chloride 103 Carbon Dioxide 19.8 L Anion Gap 9.2 BUN 30 H D Creatinine 1.2 D Estimated GFR/1.73 m2 58.56 Glucose 77 Calcium 8.1 L Magnesium 1.6 L Creatine Kinase 747 H C-Reactive Protein Procalcitonin Add-On Test Request Imaging CT scan - pelvis: report reviewed and image reviewed
[2021-06-29] MEDS: Gadoterate meglumine 20 ML VIAL 17 ML IVP (12:08)
--- NOTE | 2021-06-29 15:41 | PT.INTREAT ---
Date of service: 06/29/21 Time of Service: 14:12 PT Notes Visit Reasons: Acute rhabdomyolysis, SELENE, Fall, Leg weakness Inpatient Physical Therapy Treatment Note [facility] Date: 06/29/2021 PRECAUTIONS: Fall, Activity as tolerated SUBJECTIVE: Adan is pleasant and agreeable to participating in PT. He feels weak and that his mobility has decreased, which he finds frustrating. He understands that he may require short-term rehab prior to returning to home. OBJECTIVE: PAIN: Patient c/o pain in proximal end of R LE BED MOBILITY/TRANSFERS Sit-stand: Min A Stand-sit: SBA GAIT Assistive Device: FWW Weight bearing: Full Assist: SBA Distance: 200' Deviation: Anteroflexed trunk, improved camilla ASSESSMENT: Patient tolerated session without complaint. He was able to tolerate a progression in gait distance with FWW support and SBA. PLAN: Continue with gait training and global strengthening for improved mobility. TREATMENT CODE/TIME: 24 minutes; 51985 x2 (14:12)
[2021-06-29 16:11] VITALS: BP 127/61; PULSE 61; RESP 16; TEMP 36.3; O2SAT 99
--- NOTE | 2021-06-29 16:34 | CMPROGNOTE_ITS ---
- If Service Date Differs Date of service: 06/29/21 Time of Service: 16:34 Care Management Progress Note S/O: Adan was sitting in his chair when CM met with him. He shares with CM that he's been falling frequently and recognizes that his mobility has decreased. He has been seeing [facility] a few times a week. He is agreeable to SNF placement. Referrals are pending at the [facility]. A: 80 year old male admitted to [facility] on 06/27/21 for UTI, Ureterolithiasis, Rhabdomyolysis, Abrasion of sacral region, Weakness, Diarrhea, Dehydration. P:Anticipate Adan will discharge to SNF for short term rehab vs return home with New [facility] services when medically ready. SNF referrals are pending at the [facility]. Adan will follow up with community providers and discharge plan of care. CM will continue to follow.
--- NOTE | 2021-06-29 18:30 | W.PM.PROGNOT ---
Date of Service Date of service: 06/29/21 Time of Service: 18:31 Assessment and Plan Assessment and plan (1) UTI (urinary tract infection): Status: Acute Assessment and plan: Complicated UTI, present on admission. Urine C&S with mixed GP fuentes. Blood cultures are pending. Has evidence of urinary retention and an obstructive calculus. S/p christian catheter. Probably going for cystoscopy/stent tomorrow. Continue empiric ceftriaxone. NPO after midnight. (2) Weakness: Status: Acute Assessment and plan: Could be due to his UTI; however, there is also evidence of disc herniation at L4-L5 pinching nerve root exiting there, per radiology, which is likely contributing to the sx. There is no evidence of epidural abscess. I will discuss the MRI with spine surgery, but per radiology none of the findings were severe. Continue PT. I am starting neurontin and prn methocarbamol. (3) Rhabdomyolysis: Status: Acute Assessment and plan: CPK improved and Cr is much better. D/c IVF. (4) Ureterolithiasis: Status: Acute Assessment and plan: 6 mm L UVJ stone with mild hydronephrosis. As above - probably cysto/stent tomorrow. 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 Could be multifactorial - due to UTI, hydronephrosis, dehydration, rhabdomyolysis. (8) Diarrhea: Status: Resolved (9) Back pain: Status: Acute Assessment and plan: As above (10) Bilateral leg weakness: Status: Acute Assessment and plan: As above (11) Abrasion of sacral region: Status: Acute Assessment and plan: CT pelvis negative. May require a wound care consult (12) Ambulatory dysfunction: Status: Acute Assessment and plan: As above. PT consulted. Will discuss with spine surgery. (13) DVT prophylaxis: Status: Acute Assessment and plan: On therapeutic eliquis for h/o DVT/PE. (14) Discharge planning issues: Status: Acute Assessment and plan: Full code Palliative consulted. PT consulted. Discussed with Dr Llamas and Dr Kauffman. Subjective Subjective Interval history since last seen: No improvement in strength today - still has a hard time getting up from the chair, though was able to work with PT. Denies dizziness, chest pain, shortness of breath, nausea. Endorses painful spasms/episodic pain in his right thigh. Exam Narrative Exam Narrative: General: Pleasant elderly male who is A&Ox3, but forgetful, looks better today HEENT: EOMI, MMM Heart: RRR, no m/r/g Lungs: CTAB Abdomen: soft, nontender, nondistended Extremities: 4/5 strength in BLEs, no edema Objective Last Vital Signs Temp 36.3 C L 06/29/21 16:11 Pulse 61 06/29/21 16:11 Resp 16 06/29/21 16:11 BP 127/61 06/29/21 16:11 Pulse Ox 99 06/29/21 16:11 Laboratory Results - last 24 hr 06/29/21 06/29/21 07:00 07:00 WBC 7.15 D RBC 3.22 L Hgb 9.7 L Hct 28.5 L MCV 88.5 MCH 30.1 MCHC 34.0 RDW 16.6 H Plt Count 183 MPV 12.9 H Immature Gran % 1.1 Neutrophils % 75.3 Lymphocytes % 9.8 Monocytes % 13.1 Eosinophils % 0.6 Basophils % 0.1 Nucleated RBC % 0 Absolute Neutrophils 5.38 Absolute Lymphocytes 0.70 L Absolute Monocytes 0.94 H Absolute Eosinophils 0.04 Absolute Basophils 0.01 RBC Morphology Normal Sodium 132 L Potassium 3.8 Chloride 103 Carbon Dioxide 19.8 L Anion Gap 9.2 BUN 30 H D Creatinine 1.2 D Estimated GFR/1.73 m2 58.56 Glucose 77 Calcium 8.1 L Magnesium 1.6 L Creatine Kinase 747 H Objective Narrative Objective Narrative: MRI lumbar spine w/w/o contrast; 1. Compared to 2009 there is again evidence of multilevel laminectomies. There is no evidence of new abnormal fluid collection such is epidural abscess, as per request. There has been some progression of degenerative disc disease. In addition, there is a posterolateral right disc herniation at L4-5 level. Also significant canal stenosis and foraminal stenosis at this level. 2. There is some fusion across the L3-4 disc space on the right side mild central canal stenosis. Moderate-severe foraminal stenosis on the right side. Mild-moderate foraminal stenosis on the left side 3. There is a non expansile bone lesion left side of L3 vertebral body. This has appearance of a probable hemangioma although is more evident on the 2010 study.
[2021-06-29 19:37] VITALS: BP 118/66; PULSE 65; RESP 17; TEMP 36.6; O2SAT 98
[2021-06-29] MEDS: Gabapentin 100 MG CAP PO (19:47)
[2021-06-29] MEDS: traMADol 50 MG TAB PO (20:04)
[2021-06-29] MEDS: Methocarbamol 750 MG TAB PO (20:38)
[2021-06-29] MEDS: Melatonin 3 MG TAB PO (22:28)
[2021-06-29 23:56] VITALS: BP 116/68; PULSE 66; RESP 17; TEMP 36.6; O2SAT 98
[2021-06-30] VITALS (13 sets, daily range): BP systolic 67–135; BP diastolic 29–75; PULSE 52–59; RESP 11–19; TEMP 35.6–36.8; O2SAT 96–99; BMI 21.4
[2021-06-30 07:10] LABS: Abs Immature Grans 0.11 10^3/uL (0.0-0.06); Absolute Basophil Count 0.01 10^3/uL (0.0-0.2); Absolute Eosinophil Count 0.17 10^3/uL (0.0-0.7); Absolute Lymphocyte Count 1.02 10^3/uL (1.2-3.4); Absolute Monocyte Count 0.82 10^3/uL (0.1-0.8); Absolute Neutrophil Count 3.65 10^3/uL (1.2-6.7); Basophils % 0.2; Eosinophils % 2.9; HCT 27.1 % (40.0-50.0); HGB 9.3 g/dL (13.5-17.5); Immature Grans % 1.9; Lymphocytes % 17.6; MCHC 34.3 % (32.0-36.0); MCV 87.4 fL (80-95); MPV 13.2 fL (8.0-11.0); Monocytes % 14.2; Neutrophils % 63.2; Nucleated RBC 0 %; Platelet Count 173 10^3/uL (130-400); RDW 16.8 % (11.8-14.1); RDW-SD 53.8 fL; WBC 5.78 10^3/uL (4.4-10.8)
[2021-06-30 07:25] LABS: Anion Gap 10.6 mmol/L (3-11); BUN 26 mg/dL (7-18); C-Reactive Protein 15.26 mg/dL (0.0-0.3); CO2 19.4 mmol/L (21.0-32.0); Calcium 8.4 mg/dL (8.5-10.1); Chloride 104 mmol/L (98-107); Creatine Kinase 258 U/L (39-308); Glucose 108 mg/dL (74-106); Magnesium 1.9 mg/dL (1.8-2.4); Sodium 134 mmol/L (136-145)
--- NOTE | 2021-06-30 07:41 | W.PM.PROGNOT ---
Date of Service Date of service: 06/30/21 Time of Service: 07:42 Assessment and Plan Assessment and plan (1) Ureterolithiasis: Status: Acute Assessment and plan: I am not certain how much his left ureteral stone is contributing to his overall clinical picture. His right leg pain and urinary retention certainly could be due to to his disc herniation. We do not have any other obvious source of his initial fever or white blood count. He certainly has improved with antibiotics and hydration leading me to believe that he had some type of bacterial infection contributing to his initial presentation (in spite of his negative cultures). I think it is reasonable to address his ureteral stone surgically to at least take it out of the list of potential contributing factors. We will contact the operating room to work on scheduling a time for his procedure today. Subjective Subjective Interval history since last seen: He continues with right leg pain and weakness. He does not have much in terms of the left flank pain. He is not currently febrile. His white blood count has been decreasing with antibiotics. Exam Narrative Exam Narrative: His vital signs are documented elsewhere His urine is grossly clear in his catheter His blood cultures are negative His lumbar MRI shows disc herniation with no evidence of abscess. Objective Last Vital Signs Temp 36.5 C 06/30/21 03:31 Pulse 58 L 06/30/21 03:31 Resp 16 06/30/21 03:31 BP 103/55 L 06/30/21 03:31 Pulse Ox 96 06/30/21 03:31 Laboratory Results - last 24 hr 06/30/21 06/30/21 06:45 06:45 WBC 5.78 RBC 3.10 L Hgb 9.3 L Hct 27.1 L MCV 87.4 MCH 30.0 MCHC 34.3 RDW 16.8 H Plt Count 173 MPV 13.2 H Immature Gran % 1.9 Neutrophils % 63.2 Lymphocytes % 17.6 Monocytes % 14.2 Eosinophils % 2.9 Basophils % 0.2 Nucleated RBC % 0 Absolute Neutrophils 3.65 Absolute Lymphocytes 1.02 L Absolute Monocytes 0.82 H Absolute Eosinophils 0.17 Absolute Basophils 0.01 Sodium 134 L Potassium 4.0 Chloride 104 Carbon Dioxide 19.4 L Anion Gap 10.6 BUN 26 H Creatinine 1.0 Estimated GFR/1.73 m2 >= 60.00 Glucose 108 H Calcium 8.4 L Magnesium 1.9 Creatine Kinase 258 C-Reactive Protein 15.26 H
[2021-06-30 07:57] LABS: Procalcitonin 2.3 ng/mL
--- NOTE | 2021-06-30 08:58 | W.ANESPRE ---
General Info Date of Service Date Performed: 06/30/21 Height: 6 ft 5 in Weight: 82.024 kg Body Mass Index (BMI): 21.4 Surgical Procedure: Operation Date: 06/30/21 12:40 Proposed Procedure Side Surgeon p Cystoscopy/Possible Laser/Retrograde/Ureteroscopy/Possible Stent Left Kyler Kauffman MD Meds Allergies and Home Medications Allergies Allergy/AdvReac Type Severity Reaction Status Date / Time No Known Allergies Allergy Unverified 06/27/21 18:17 paper tape Allergy Intermediate skin Uncoded 06/27/21 18:17 breakdown Home Medication Medication Instructions Recorded cholecalciferol (vitamin D3) 10 400 unit PO DAILY 05/29/13 mcg (400 unit) capsule (Vitamin D3) multivitamin (Daily Vitamin) 1 ea PO DAILY 05/29/13 apixaban 5 mg tablet (Eliquis) See Rx Instructions .ROUTE 09/11/18 .COMPLEX #70 tab Acetaminophen [Tylenol] 1,000 mg PO TID PRN PRN #0 01/14/21 atorvastatin 40 mg tablet 40 mg PO DAILY 02/27/21 tamsulosin 0.4 mg capsule 0.8 mg PO DAILY #180 cap 03/23/21 levofloxacin 750 mg tablet 750 mg PO DAILY 4 Days #4 tab 06/27/21 melatonin 3 mg tablet 3 - 6 mg PO HS 06/27/21 Current Visit Medications: Current Medications Generic Name Dose Route Start Last Admin Trade Name Freq PRN Reason Stop Dose Admin Acetaminophen 1,000 mg 06/27/21 21:43 06/27/21 22:34 Acetaminophen 500 Mg Tab PO 1,000 mg TID PRN PRN Administration Apixaban 5 mg 06/28/21 08:30 06/28/21 20:11 Apixaban 5 Mg Tab PO 5 mg BID NANCY Administration Gabapentin 100 mg 06/29/21 20:00 06/29/21 19:47 Gabapentin 100 Mg Cap PO 100 mg TID NANCY Administration Sodium Chloride 500 mls @ 0 mls/hr 06/27/21 19:33 Saline 500ml Bag IV PRN PRN As Directed Ceftriaxone Sodium/Dextrose 2 gm in 50 mls @ 100 mls/hr 06/30/21 08:30 Rocephin IVPB DAILY NANCY IV Miscellaneous Supplies 1 each 06/27/21 19:45 Iv Access IV DIRECTED NANCY Melatonin 3 - 6 mg 06/27/21 22:00 06/29/21 22:28 Melatonin 3 Mg Tab PO 3 mg HS NANCY Administration Methocarbamol 750 mg 06/29/21 18:28 06/29/21 20:38 Methocarbamol 750 Mg Tab PO 750 mg QID PRN PRN Administration Nystatin 0 gm 06/28/21 20:00 06/29/21 19:48 Nystatin Powder 15 Gm Jar TP 1 applic TID NANCY Administration Sodium Chloride 0 ml 06/27/21 19:33 06/29/21 19:47 Normal Saline Flush 10 Ml Syr IVP 10 ml PRN PRN Administration Tamsulosin HCl 0.8 mg 06/28/21 08:30 06/29/21 07:42 Tamsulosin 0.4 Mg Capcr PO 0.8 mg DAILY NANCY Administration Tramadol HCl 50 mg 06/28/21 00:57 06/29/21 20:04 Tramadol 50 Mg Tab PO 50 mg QID PRN PRN Administration PFSH Active Problems Active Problems: Problem Status Onset Code Herniation of intervertebral disc between L4 and L5 M51.26 Hydronephrosis N13.30 Ambulatory dysfunction R26.2 Back pain M54.9 Diarrhea R19.7 UTI (urinary tract infection) N39.0 Ureterolithiasis N20.1 Weakness R53.1 Bilateral leg weakness R29.898 Rhabdomyolysis M62.82 Bilateral leg weakness R29.898 Acute kidney injury N17.9 Fall at home W19.XXXA, Y92.009 Abrasion of sacral region S30.810A 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 Leg wound, right S81.801A Pulmonary nodule R91.1 Traumatic hematoma of buttock S30.0XXA COVID-19 U07.1 Healing wound present on both lower extremities Falls W19.XXXA Rhabdomyolysis M62.82 Weakness R53.1 Discharge planning issues Z02.9 DVT prophylaxis Z29.9 Fall W19.XXXA Rhabdomyolysis M62.82 COVID U07.1 Ambulatory dysfunction R26.2 Posttraumatic wound infection T14.8XXA, L08.9 Cellulitis of forearm, left L03.114 Genu valgum, 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, left knee M17.12 Personal history of colonic polyps Z86.010 Medical History Medical History (Updated 06/29/21 @ 18:39 by Raquel Rajan MD) Compartment syndrome Deep venous thrombosis DIVERTICULOSIS Gout Hyperlipidemia Melanosis coli Peripheral venous insufficiency LEFT LEG Polyp of colon TUBULAR ADENOMA [id number] ADENOMA Psoriasis STROKE EMBOLIC Urinary retention Surgical History Surgical History (Updated 06/28/21 @ 15:49 by Raquel Rajan MD) BACK OPERATION (~04/2008) h/o GBS epidural abscess, treated at [facility] in 2007 Colonoscopy - IV Sedation (06/10/10) [id number] ADENOMA 06/18/16 no pathological features from ascending colon polyp Colonoscopy - IV Sedation (06/18/16) [id number] ADENOMA 06/18/16 no pathological features from ascending colon polyp Tobacco Smoking/Tobacco Use Status: Former Tobacco Use Alcohol Alcohol Intake: former Substance Use Substance use: Never Substance use type: does not use Details: quit smoking 30 yrs ago Vital Signs and Lab Results Vital Signs Most Recent Vital Signs in EMR: Most Recent Vital Signs Temp Pulse Resp BP Pulse Ox 35.9 C L 53 L 16 107/57 L 97 06/30/21 08:12 06/30/21 08:12 06/30/21 08:12 06/30/21 08:12 06/30/21 08:12 Point of Care Results Point of Care Results: Finger Stick Blood Glucose 115 06/27/21 20:47 Lab Results Result Diagrams: 06/30/21 06:45 06/30/21 06:45 Blood Type / Crossmatch: No Data to Display Complete Blood Count: White Blood Count 5.78 10^3/uL (4.4-10.8) 06/30/21 06:45 06/30/21 Red Blood Count 3.10 10^6/uL (4.36-5.78) L 06/30/21 06:45 06/30/21 Hemoglobin 9.3 g/dL (13.5-17.5) L 06/30/21 06:45 06/30/21 Hematocrit 27.1 % (40.0-50.0) L 06/30/21 06:45 06/30/21 Platelet Count 173 10^3/uL (130-400) 06/30/21 06:45 06/30/21 Complete Metabolic Panel: Sodium Level 134 mmol/L (136-145) L 06/30/21 06:45 06/30/21 Potassium Level 4.0 mmol/L (3.5-5.1) 06/30/21 06:45 06/30/21 Chloride Level 104 mmol/L (98-107) 06/30/21 06:45 06/30/21 Carbon Dioxide Level 19.4 mmol/L (21.0-32.0) L 06/30/21 06:45 06/30/21 Blood Urea Nitrogen 26 mg/dL (7-18) H 06/30/21 06:45 06/30/21 Creatinine 1.0 mg/dL (0.70-1.30) 06/30/21 06:45 06/30/21 Estimated GFR/1.73 m2 >= 60.00 (mL/min/1.73m2) 06/30/21 06:45 06/30/21 Magnesium Level 1.9 mg/dL (1.8-2.4) 06/30/21 06:45 06/30/21 Calcium Level 8.4 mg/dL (8.5-10.1) L 06/30/21 06:45 06/30/21 Albumin 3.3 g/dL (3.4-5.0) L 06/27/21 18:10 06/27/21 Glucose Level 108 mg/dL (74-106) H 06/30/21 06:45 06/30/21 C-Reactive Protein 15.26 mg/dL (0.0-0.3) H 06/30/21 06:45 06/30/21 Liver Function Panel: Alanine Aminotransferase (ALT/SGPT) 47 U/L (16-63) 06/27/21 18:10 06/27/21 Aspartate Amino Transf (AST/SGOT) 79 U/L (15-37) H 06/27/21 18:10 06/27/21 Coagulation Panel: No Data to Display Cardiac Panel: Troponin I < 50 ng/L (<or=60) 06/27/21 Creatine Kinase 258 U/L (39-308) 06/30/21 Arterial Blood Gas: No Data to Display Venous Blood Gas: No Data to Display Pancreas Panel: No Data to Display Thyroid Panel: Thyroid Stimulating Hormone (TSH) 1.31 uIU/mL (0.36-3.74) 06/27/21 18:10 06/27/21 Infectious Disease: Coronavirus (COVID-19)(PCR) Negative (Negative) 06/27/21 12:10 06/27/21 Coronavirus 2019 Source Nasal/Nares 06/27/21 12:10 06/27/21 Blood Cultures: No Data to Display Toxicology Panel: No Data to Display Anesthesia Assessment and Plan Anesthesia History Personal History: No History of Anesthesia Complications Family History: No Family History of Anesthesia Complications Exercise Tolerance Exercise Tolerance: Metabolic Equivalents>4 Pertinent Negatives Pertinent Negatives: No Major Cardiovascular Symptoms or Complaints and No Major Pulmonary Symptoms or Complaints Cardiac & Pulmonary Exam Cardiac Exam: Normal S1/S2 Heart Sounds Pulmonary Exam: Clear Bilateral Breath Sounds Implantable Cardiac Device Does patient have a Pacemaker or an ICD?: No Airway Exam Known Difficult Airway: No Mallampati Class: 2 Mouth Opening: Narrow (< 3cm) Thyromental Distance: Greater than 3 cm Neck Range of Motion: Full ROM Neck Circumference: Normal Teeth Condition: Normal Dentition ASA Classification ASA Score: ASA 3 Emergency Case?: No NPO Status NPO Status: NPO Clears >2 hours, Solids >8 hours Anesthesia Plan Resuscitation Status: Full Code Anesthesia Technique: General Anesthesia Airway Planned: Natural Airway Monitors Used: Standard Monitors
[2021-06-30] MEDS: Normal Saline Flush 10 ML SYR IVP ×2 (09:35→19:41)
[2021-06-30] MEDS: cefTRIAXone 2 GM/50 ML BAG IVPB (09:36)
[2021-06-30] MEDS: Nystatin POWDER 15 GM JAR TP ×3 (09:37→19:40)
--- NOTE | 2021-06-30 11:15 | DI.RAD_ITS ---
Exam(s) XR RETROGRADE IN OR EXAM: XR RETROGRADE IN OR CLINICAL HISTORY: ureterolithiasis. TECHNIQUE: 2D digital imaging was performed. COMPARISON: No exams were available for comparison FINDINGS: Fluoroscopy was provided intraoperatively during urologic procedure. See procedure report for details. Total fluoroscopy time 9 seconds Cumulative dose= 1.86mGy IMPRESSION: DATA REPOSITORY: RADIATION DOSE DELIVERED:
--- NOTE | 2021-06-30 11:32 | CMPROGNOTE_ITS ---
- If Service Date Differs Date of service: 06/30/21 Time of Service: 11:32 Care Management Progress Note S/O: Adan went to the OR today for a cysto and ureteral stent placement. He tolerated the procedure well but was sleepy afterwards so CM was unable to meet with him. He continues to have pain and weakness in his RLE but, per [facility] provider, there is no need for surgery at this time. He will continue to be treated medically; steroids may be considered. It has been recommended that Adan go to a SNF for short term rehab prior to returning home and referrals were sent. Adan has received a bed offer from both the [facility] and Rehab. A: 80 year old male admitted to [facility] on 06/27/21 for UTI, Ureterolithiasis, Rhabdomyolysis, Abrasion of sacral region, Weakness, Diarrhea, Dehydration. P:Anticipate Adan will discharge to SNF for short term rehab prior to vs returning home.. SNF referrals were sent to the [facility] and [facility] and [facility]hab and bed offers were received from both. Adan will follow up with community providers and discharge plan of care once he returns home. CM will continue to follow.
[2021-06-30] MEDS: Lactated Ringers 1,000 ML 30 ML IV (11:50)
[2021-06-30] MEDS: Omnipaque 300 MG/ML 50 ML BTL (12:23)
[2021-06-30] MEDS: Lidocaine 2% Jelly 6 ML SYR (12:23)
--- NOTE | 2021-06-30 12:27 | W.PM.OP ---
Date of service: 06/30/21 Time of Service: 12:27 Operative Note Operative Note DATE OF PROCEDURE: 06/30/21 PRE-OP DIAGNOSIS: Left ureteral stone Left ureteral stone - recently passed into bladder PROCEDURE: Cystoscopy, evacuation of bladder stone, left retrograde pyelogram, insert left ureteral stent SURGEON: Kyler Kauffman ANESTHESIA TYPE: General:No Airway Refer to Anesthesia Record ESTIMATED BLOOD LOSS: 5 PATHOLOGY: other (stone for chemical analysis) COMPLICATIONS: None Patient was transported to: PACU Patient's condition: stable Implants: 6 Albanian by 22 to 30 cm left ureteral stent (safety string taped to christian catheter) 16 Albanian christian catheter with 10 cc sterile water in balloon Indications: This is a 80-year-old gentleman who presented to the emergency room with upper extremity weakness, back pain and multiple falls. He was evaluated with a pelvic CT which demonstrated a left distal ureteral stone. Most of his symptoms and discomfort involve the right side, so it was not clear just how much his left ureteral stone was contributing to his initial presentation. He did however have a low-grade fever and elevated white blood count. His urine culture showed gram-positive fuentes and his blood cultures were negative. Clinically he has improved with antibiotics. In case his stone was contributing to some type of bacterial infection, he agreed to ureteroscopy and stone manipulation. Findings: stone in bladder left ureteral orifice markedly edematous likely related to recently passed stone Procedure Description: Patient was brought to the operating room on 06/30/2021. After successful induction of general anesthesia, he was placed in the dorsal lithotomy position. His indwelling Christian catheter was removed. His genitalia was prepped and draped. 2% Xylocaine jelly was instilled into the urethra to act as a local anesthetic. A 22 Albanian rigid cystoscope was passed through the urethra into the bladder. The urethra and bladder were inspected with a 30 degree lens. The pendulous, bulbar and membranous urethra's appeared normal with no strictures. Prostatic urethra showed lateral lobe enlargement but no significant median lobe. The bladder neck was then entered and the bladder mucosa was inspected. The bladder was moderately trabeculated. The right ureteral orifice appeared normal but the left orifice was markedly edematous with bullae present. A stone was seen within the lumen of the bladder. The stone was evacuated and sent to pathology for chemical analysis. I then attempted to cannulate the left ureteral orifice with an access catheter. I was unable to do so with the catheter itself, but I was able to pass a Glidewire into the orifice and advanced the catheter over the wire. A retrograde pyelogram was then performed by injecting Omnipaque through the access catheter under fluoroscopic guidance. The ureter and collecting system remained dilated, so we elected to place a ureteral stent. The ureteral access catheter was removed leaving the wire in place. A 6 Albanian ureteral stent was advanced over the wire. The proximal end of the stent was curled in one of the upper pole calyxes and the distal and was curled within the bladder. We left the safety string in place and the strings through the urethra. A 16 Albanian Christian catheter was then reinserted through the urethra into the bladder. The catheter balloon was inflated with 10 cc of sterile water. The catheter was hooked to gravity drainage. The safety string was taped to the exterior of the Christian catheter using Steri-Strips. We will plan on removing the catheter and stent together in 3 to 5 days. The patient tolerated this procedure well with no complications. He was taken to the recovery room in stable condition.
[2021-06-30] MEDS: Gabapentin 100 MG CAP PO ×2 (14:07→19:38)
--- NOTE | 2021-06-30 14:17 | W.ANESPOSTOP ---
Postoperative Evaluation Date, Time and Location Date Performed: 06/30/21 Time Performed: 14:17 Patient Location: Day Surgery Unit Vital Signs Most Recent Imported Vital Signs: Most Recent Vital Signs Temp Pulse Resp BP Pulse Ox 36.0 C L 55 L 17 118/66 99 06/30/21 14:05 06/30/21 14:05 06/30/21 14:05 06/30/21 14:05 06/30/21 14:05 Pain Score Most Recent Pain Score: Most Recent Pain Score Pain Level 0 06/30/21 14:05 Assessment Mental Status: Awake (Alert & Oriented to Patient Baseline) Airway and Respiratory Function: Patent airway with normal (patient baseline) respiratory exam Cardiovascular Function: Hemodynamically Stable Hydration Status: Adequately Hydrated Nausea & Vomiting: No Nausea or Vomiting Pain: Pt. Denies Any Pain Peripheral Nerve Block: Patient did not receive a nerve block
--- NOTE | 2021-06-30 16:27 | W.PM.PROGNOT ---
Date of Service Date of service: 06/30/21 Time of Service: 16:27 Assessment and Plan Assessment and plan (1) UTI (urinary tract infection): Status: Acute Assessment and plan: Complicated UTI, present on admission, with evidence of urinary retention and an obstructive L ureteral calculus. Urine C&S with mixed GP fuentes. Blood cultures with NGTD. S/p cysto/L ureteral stent and stone retrieval from the bladder today (appeared to have just passed). Continue empiric ceftriaxone. VT on 07/02/21. (2) Weakness: Status: Acute Assessment and plan: Could be due to his UTI; however, there is also evidence of disc herniation at L4-L5 pinching nerve root exiting there, per radiology, which is likely contributing to the sx. There is no evidence of epidural abscess. Per spine surgery at [facility], no need for surgical intervention. Continue to treat UTI, working with PT, symptomatic care. Consider steroids. Continue PT. Continue neurontin and prn methocarbamol. (3) Rhabdomyolysis: Status: Resolved Assessment and plan: Cr is at baseline. Off of IVF. CPK normalized. 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 multifactorial - due to UTI, hydronephrosis, dehydration, rhabdomyolysis. (8) Diarrhea: Status: Resolved Assessment and plan: Should it recur, stool studies are pending. (9) Back pain: Status: Acute Assessment and plan: As above (10) Bilateral leg weakness: Status: Acute Assessment and plan: As above (11) Abrasion of sacral region: Status: Acute Assessment and plan: CT pelvis negative. May require a wound care consult (12) Ambulatory dysfunction: Status: Acute Assessment and plan: As above. Continue PT (13) DVT prophylaxis: Status: Acute Assessment and plan: On therapeutic eliquis for h/o DVT/PE. (14) Discharge planning issues: Status: Acute Assessment and plan: Full code Palliative consulted. PT consulted. Discussed with Dr Kauffman and Ana Paula/nurse for [facility] spine communicating Dr Sol's opinion. Subjective Subjective Interval history since last seen: Mr Terrell is s/p cysto/L ureteral stent today. Stone was retrieved from the bladder. Overall the patient is feeling better. Denies dizziness, chest pain, shortness of breath, nausea. RLE persists, but is better. Overall, strength is better. MRI was reviewed with [facility] spine: recommendations were to treat medically; no surgical interventioned deemed necessary. A steroid burst could be considered. Exam Narrative Exam Narrative: General: Pleasant elderly male who is A&Ox3, laying comfortably in bed, looks better HEENT: EOMI, MMM Heart: RRR, no m/r/g Lungs: CTAB Abdomen: soft, nontender, nondistended : christian catheter with dark red urine Extremities: 4/5 strength in BLEs, no edema Objective Last Vital Signs Temp 35.6 C L 06/30/21 15:41 Pulse 54 L 06/30/21 15:41 Resp 15 06/30/21 15:41 BP 132/74 06/30/21 15:41 Pulse Ox 98 06/30/21 15:41 Laboratory Results - last 24 hr 06/30/21 06/30/21 06/30/21 06:45 06:45 06:45 WBC 5.78 RBC 3.10 L Hgb 9.3 L Hct 27.1 L MCV 87.4 MCH 30.0 MCHC 34.3 RDW 16.8 H Plt Count 173 MPV 13.2 H Immature Gran % 1.9 Neutrophils % 63.2 Lymphocytes % 17.6 Monocytes % 14.2 Eosinophils % 2.9 Basophils % 0.2 Nucleated RBC % 0 Absolute Neutrophils 3.65 Absolute Lymphocytes 1.02 L Absolute Monocytes 0.82 H Absolute Eosinophils 0.17 Absolute Basophils 0.01 Sodium 134 L Potassium 4.0 Chloride 104 Carbon Dioxide 19.4 L Anion Gap 10.6 BUN 26 H Creatinine 1.0 Estimated GFR/1.73 m2 >= 60.00 Glucose 108 H Calcium 8.4 L Magnesium 1.9 Creatine Kinase 258 C-Reactive Protein 15.26 H Procalcitonin 2.3
[2021-06-30] MEDS: Melatonin 3 MG TAB PO (22:03)
[2021-07-01 03:42] VITALS: BP 118/65; PULSE 55; RESP 15; TEMP 36.7; O2SAT 98
[2021-07-01 06:57] LABS: HCT 28.3 % (40.0-50.0); HGB 9.5 g/dL (13.5-17.5); MCH 29.7 pg (27.0-33.0); MCHC 33.6 % (32.0-36.0); MCV 88.4 fL (80-95); Nucleated RBC 0 %; RDW 16.9 % (11.8-14.1); RDW-SD 54.7 fL; WBC 5.76 10^3/uL (4.4-10.8)
[2021-07-01 07:14] LABS: Absolute Basophil Count 0.06 10^3/uL (0.0-0.2); Absolute Eosinophil Count 0.35 10^3/uL (0.0-0.7); Absolute Lymphocyte Count 1.38 10^3/uL (1.2-3.4); Absolute Monocyte Count 0.29 10^3/uL (0.1-0.8); Absolute Neutrophil Count 3.63 10^3/uL (1.2-6.7); Atypical Lymphocytes % 6; Bands % 1; Diff Comment Manual Differential; Metamyelocytes % 1; Platelet Count 186 10^3/uL (130-400)
[2021-07-01 07:15] LABS: Poikilocytes 2+
[2021-07-01 07:18] LABS: Anion Gap 10.4 mmol/L (3-11); BUN 22 mg/dL (7-18); C-Reactive Protein 12.37 mg/dL (0.0-0.3); CO2 20.6 mmol/L (21.0-32.0); CREATININE 0.9 mg/dL (0.70-1.30); Calcium 8.8 mg/dL (8.5-10.1); Chloride 105 mmol/L (98-107); Glucose 106 mg/dL (74-106); Magnesium 1.8 mg/dL (1.8-2.4); Potassium 3.9 mmol/L (3.5-5.1); Sodium 136 mmol/L (136-145)
[2021-07-01 07:43] VITALS: BP 126/68; PULSE 57; RESP 18; TEMP 36; O2SAT 96
[2021-07-01] MEDS: Methocarbamol 750 MG TAB PO ×2 (07:51→19:29)
--- NOTE | 2021-07-01 08:47 | PDOC.CMPRO ---
- If Service Date Differs Date of service: 07/01/21 Time of Service: 08:47 Care Management Progress Note S/O: Adan went to the OR yesterday for a cysto and ureteral stent placement. A 24 hour voiding trial was started today. He will continue to be treated with IV ABX. Recommendation is that Adan go to a SNF for short term rehab prior to returning home and referrals were sent. Adan has received a bed offer from both the [facility] and Rehab, when he is medically ready. A: 80 year old male admitted to [facility] on 06/27/21 for UTI, Ureterolithiasis, Rhabdomyolysis, Abrasion of sacral region, Weakness, Diarrhea, Dehydration. P:Anticipate Adan will discharge to SNF for short term rehab prior to vs returning home.. SNF referrals were sent to the [facility] and [facility] and bed offers were received from both. Adan will follow up with community providers and discharge plan of care once he returns home. CM will continue to follow.
[2021-07-01] MEDS: Tamsulosin 0.4 MG CAPCR 0.8 MG PO (09:33)
[2021-07-01] MEDS: cefTRIAXone 2 GM/50 ML BAG IVPB (09:33)
[2021-07-01] MEDS: Gabapentin 100 MG CAP PO ×3 (09:33→19:30)
[2021-07-01] MEDS: Normal Saline Flush 10 ML SYR IVP ×3 (10:13→19:28)
[2021-07-01] MEDS: Nystatin POWDER 15 GM JAR TP ×2 (10:15→19:31)
[2021-07-01 11:37] VITALS: BP 103/56; PULSE 53; RESP 18; TEMP 36; O2SAT 98
--- NOTE | 2021-07-01 15:26 | W.PM.PROGNOT ---
Date of Service Date of service: 07/01/21 Time of Service: 15:26 Assessment and Plan Assessment and plan (1) UTI (urinary tract infection): Status: Acute Assessment and plan: Complicated UTI, present on admission, with evidence of urinary retention and an obstructive L ureteral calculus. Urine C&S with mixed GP fuentes. Blood cultures with NGTD. Clinically improving. S/p cysto/L ureteral stent and stone retrieval from the bladder 06/30/21. Continue empiric ceftriaxone. VT tomorrow. (2) Weakness: Status: Acute Assessment and plan: Improving. Could be due to his UTI; however, there is also evidence of disc herniation at L4-L5 pinching nerve root exiting there, per radiology, which is likely contributing to the sx. There is no evidence of epidural abscess. Per spine surgery at [facility] [place], no need for surgical intervention. Continue to treat UTI, working with PT, symptomatic care. As he is improving, there is no role for steroids. Continue PT. Continue neurontin and prn methocarbamol. (3) Rhabdomyolysis: Status: Resolved Assessment and plan: Cr is at baseline. Off of IVF. CPK normalized. 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 multifactorial - due to UTI, hydronephrosis, dehydration, rhabdomyolysis. (8) Diarrhea: Status: Resolved Assessment and plan: Should it recur, stool studies are pending. (9) Back pain: Status: Acute Assessment and plan: As above (10) Bilateral leg weakness: Status: Acute Assessment and plan: As above (11) Abrasion of sacral region: Status: Acute Assessment and plan: CT pelvis negative. Continue routine wound care. (12) Ambulatory dysfunction: Status: Acute Assessment and plan: As above. Continue PT (13) DVT prophylaxis: Status: Acute Assessment and plan: On therapeutic eliquis for h/o DVT/PE. (14) Discharge planning issues: Status: Acute Assessment and plan: Full code Palliative care consulted. PT consulted. May require SNF on discharge, but this will depend on his strength closer to day of discharge. Subjective Subjective Interval history since last seen: Mr Terrell states that he is feeling better. His energy level is better. He is able to get up from bed/chair easier, but still needs assistance. Denies dizziness, chest pain, shortness of breath, nausea. Had some spasms in the muscles of his LLE today, but these resolved with muscle relaxant. Exam Narrative Exam Narrative: General: Pleasant elderly male who is A&Ox3, sitting up in a chair, looks brighter HEENT: EOMI, MMM Heart: RRR, no m/r/g Lungs: CTAB Abdomen: soft, nontender, nondistended Extremities: 4/5 strength in BLEs, no edema Objective Last Vital Signs Temp 36.0 C L 07/01/21 11:37 Pulse 53 L 07/01/21 11:37 Resp 18 07/01/21 11:37 BP 103/56 L 07/01/21 11:37 Pulse Ox 98 07/01/21 11:37 Laboratory Results - last 24 hr 07/01/21 07/01/21 06:15 06:15 WBC 5.76 RBC 3.20 L Hgb 9.5 L Hct 28.3 L MCV 88.4 MCH 29.7 MCHC 33.6 RDW 16.9 H Plt Count 186 MPV Immature Gran % 0.0 Neutrophils % 62.0 Band Neutrophils % 1 Lymphocytes % 18.0 Atypical Lymphs % 6 Monocytes % 5.0 Eosinophils % 6.0 Basophils % 1.0 Metamyelocytes % 1 Nucleated RBC % 0 Absolute Neutrophils 3.63 Absolute Lymphocytes 1.38 Absolute Monocytes 0.29 Absolute Eosinophils 0.35 Absolute Basophils 0.06 RBC Morphology See Below Poikilocytosis 2+ Sodium 136 Potassium 3.9 Chloride 105 Carbon Dioxide 20.6 L Anion Gap 10.4 BUN 22 H Creatinine 0.9 Estimated GFR/1.73 m2 >= 60.00 Glucose 106 Calcium 8.8 Magnesium 1.8 C-Reactive Protein 12.37 H
[2021-07-01 15:29] VITALS: BP 118/61; PULSE 63; RESP 18; TEMP 36; O2SAT 98
[2021-07-01] MEDS: Docusate Sodium 100 MG CAP PO ×2 (15:43→19:28)
--- NOTE | 2021-07-01 16:08 | PT.INTREAT ---
Date of service: 07/01/21 Time of Service: 13:12 PT Notes Visit Reasons: Acute rhabdomyolysis, SELENE, Fall, Leg weakness Inpatient Physical Therapy Treatment Note [facility] Date: 07/01/2021 PRECAUTIONS: Fall, activity as tolerated SUBJECTIVE: Adan is pleasant and agreeable to participating in PT. He states that he is feeling much better today, although continues to have R hip pain. OBJECTIVE: PAIN: Patient c/o R hip pain with ther ex BED MOBILITY/TRANSFERS Sit-stand: Min A from low recliner surface Stand-sit: SBA GAIT Assistive Device: FWW Weight bearing: Full Assist: SBA Distance: 200' Deviation: Anteroflexed trunk with cueing for improved posture THEREX: Patient was instructed in a LE strengthening program, completed in a seated position, as per flow sheet. He demonstrates LE weakness R>L. ASSESSMENT: Patient tolerated session with complaint of R hip pain with therex completion. PLAN: Continue with global strengthening and gait and transfer training for improved activity tolerance and mobility. TREATMENT CODE/TIME: 34 minutes; 32256, 60319 (13:12)
--- NOTE | 2021-07-01 17:25 | PHA.REVIEW ---
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 (Acute) Hydronephrosis (Acute) Ambulatory dysfunction (Acute) Back pain (Acute) UTI (urinary tract infection) (Acute) Ureterolithiasis (Acute) Weakness (Acute) Bilateral leg weakness (Acute) Fall at home (Acute) Abrasion of sacral region (Acute) Discharge planning issues (Acute) DVT prophylaxis (Acute) No Known Allergies Allergy (Unverified 06/27/21 18:17) paper tape Allergy (Intermediate, Uncoded 06/27/21 18:17) skin breakdown Resuscitation Status Full Code Height 6 ft 5 in Weight 82.024 kg - Renal Dosing Renal Dosing: BUN 22 mg/dL (7-18) H 07/01/21 06:15 Creatinine 0.9 mg/dL (0.70-1.30) 07/01/21 06:15 Medications needing adjustments: Reviewed - Anticoagulation Anticoagulation: Hgb 9.5 g/dL (13.5-17.5) L 07/01/21 06:15 Hct 28.3 % (40.0-50.0) L 07/01/21 06:15 Plt Count 186 10^3/uL (130-400) 07/01/21 06:15 Creatinine 0.9 mg/dL (0.70-1.30) 07/01/21 06:15 DVT Prophylaxis: Intervened Medications: Apixaban (on hold due to OR on 06/30? Notified MD to evaluate continuation) - Opiate Usage Evaluate Pain Scale/Pains Meds: Reviewed (tramadol PRN) - Relevant Labs Sodium 136 mmol/L (136-145) 07/01/21 06:15 Potassium 3.9 mmol/L (3.5-5.1) 07/01/21 06:15 Chloride 105 mmol/L (98-107) 07/01/21 06:15 Magnesium 1.8 mg/dL (1.8-2.4) 07/01/21 06:15 C-Reactive Protein 12.37 mg/dL (0.0-0.3) H 07/01/21 06:15 Electrolytes, C-Reactive P, ESR: Reviewed - DM Control DM Control: Glucose 106 mg/dL (74-106) 07/01/21 06:15 Insulin Dosing: N/A - BP Control BP Control: Blood Pressure 118/61 Blood Pressure 103/56 Blood Pressure 126/68 If elevated: Reviewed - Qtc Review If Elevated: N/A - IV to PO Switch IV Medications: Reviewed - Home Meds Home Med List reviewed: Intervened Relevent Home Meds Not ordered & why?: not ordered: atorvastatin, MVI; corrected eliquis dose -- takes 2.5mg BID as prophylaxis - Current meds Current Medication Order Review: Reviewed
[2021-07-01] MEDS: Acetaminophen 500 MG TAB 1000 MG PO (19:29)
[2021-07-01] MEDS: Apixaban 2.5 MG TAB PO (19:29)
[2021-07-01 19:59] VITALS: BP 131/65; PULSE 57; RESP 18; TEMP 36.8; O2SAT 99
[2021-07-01 23:55] VITALS: BP 120/62; PULSE 64; RESP 18; TEMP 36.6; O2SAT 98
[2021-07-02 03:54] VITALS: BP 118/64; PULSE 62; RESP 18; TEMP 36.1; O2SAT 98
[2021-07-02 07:02] LABS: HCT 29.9 % (40.0-50.0); HGB 9.9 g/dL (13.5-17.5); MCH 29.6 pg (27.0-33.0); MCHC 33.1 % (32.0-36.0); MCV 89.5 fL (80-95); MPV 12.7 fL (8.0-11.0); Nucleated RBC 0 %; Platelet Count 213 10^3/uL (130-400); RBC 3.34 10^6/uL (4.36-5.78); RDW 17.1 % (11.8-14.1); RDW-SD 55.9 fL
[2021-07-02 07:29] LABS: Anion Gap 8.1 mmol/L (3-11); BUN 18 mg/dL (7-18); CO2 22.9 mmol/L (21.0-32.0); CREATININE 0.9 mg/dL (0.70-1.30); Calcium 8.8 mg/dL (8.5-10.1); Chloride 109 mmol/L (98-107); Glucose 96 mg/dL (74-106); Magnesium 1.8 mg/dL (1.8-2.4); Potassium 4.1 mmol/L (3.5-5.1); Sodium 140 mmol/L (136-145)
[2021-07-02 07:43] VITALS: BP 124/68; PULSE 55; RESP 17; TEMP 36; O2SAT 97
[2021-07-02 07:47] LABS: WBC 5.79 10^3/uL (4.4-10.8)
[2021-07-02 07:48] LABS: Absolute Basophil Count 0.06 10^3/uL (0.0-0.2); Absolute Eosinophil Count 0.29 10^3/uL (0.0-0.7); Absolute Lymphocyte Count 1.62 10^3/uL (1.2-3.4); Absolute Monocyte Count 0.87 10^3/uL (0.1-0.8); Absolute Neutrophil Count 2.95 10^3/uL (1.2-6.7); Atypical Lymphocytes % 6; Diff Comment Manual Differential
[2021-07-02 07:49] LABS: Poikilocytes 2+
[2021-07-02] MEDS: cefTRIAXone 2 GM/50 ML BAG IVPB (08:33)
[2021-07-02] MEDS: Gabapentin 100 MG CAP PO ×3 (08:34→19:19)
[2021-07-02] MEDS: Tamsulosin 0.4 MG CAPCR 0.8 MG PO (08:34)
[2021-07-02] MEDS: Nystatin POWDER 15 GM JAR TP ×3 (08:34→19:43)
[2021-07-02] MEDS: Apixaban 2.5 MG TAB PO ×2 (08:34→19:19)
[2021-07-02] MEDS: Docusate Sodium 100 MG CAP PO ×2 (08:34→19:19)
[2021-07-02] MEDS: Normal Saline Flush 10 ML SYR IVP ×3 (08:34→19:19)
--- NOTE | 2021-07-02 09:26 | PTTR_ITS ---
Date of service: 07/02/21 Time of Service: 09:26 PT Notes Visit Reasons: Acute rhabdomyolysis, SELENE, Fall, Leg weakness Inpatient Physical Therapy Treatment Note [facility] Date: 07/02/2021 PRECAUTIONS: Fall. Activity as tolerated. AFO on the L with ambulation. SUBJECTIVE: Agreeable to PT consult. Wanted to see how he does without the AFO as he feels that it really does not help with walking. Wants to show this PT how he walks without it and then tomorrow with it. Complained of increased fatigue today. Continues to report pain and weakness in the R hip OBJECTIVE: ? PAIN: R hip pain about 5-6/10 with bed mobility tasks BED MOBILITY/TRANSFERS: Supine to sit contact guard assist with report of pain in the R hip Sit to supine minimal assist for stability and to prevent R LE from sliding off edge of bed ? Sit to stand stand by assist, able to stand using B UE after three attempts ? Stand-sit stand by assist ? GAIT? Assistive Device: FWW? Weight bearing: Full Assist: SBA ? Distance:? 150 feet + 150 feet? Deviation: Cueing provided to decreased excessive trunk flexion ? THEREX: LAQ on B LE x 10, Unable to perform seated hip flexion on R but completed x 10 reps on the L side. STAIRS: Up and down six 4 inch step forward with 7 steps of holding onto bilateral rails with step to gait pattern requiring contact-guard assist. Needed cueing for safe technique. Limited ability to dorsiflex at the ankle on the L due to pre-existing DF weakness on the L? ASSESSMENT:? Patient requires continued rehabilitation in a SNF to increase strength and activity tolerance while facilitating independence with bed mobility, transfer, and ambulation task performance. DISCHARGE RECOMMENDATIONS: [] Home with no services [] [] Home with services [specify] [] Home with outpatient PT [] [X] SNF for continued rehabilitation. Patient will benefit from jail facility placement for continued skilled physical therapy services in order to progress mobility level, strength, and balance in preparation for a safe discharge to home. [] Pen[facility]iary [facility] [] [] SNF versus LTC based on ability to participate and progress [] TREATMENT CODE/TIME: 42775 x 20 minutes, 51419 x 11 minutes beginning at 9:26 AM.
--- NOTE | 2021-07-02 09:44 | CMPROGNOTE_ITS ---
- If Service Date Differs Date of service: 07/02/21 Time of Service: 09:44 Care Management Progress Note S/O: Adan is day #2 s/p cysto and ureteral stent placement. Adan continues to require symptomatic care and IV ABX. He is working with PT to improve activity tolerance and mobility. Adan would like to discharge home when medically able but agrees to SNF if needed. He is connected with [facility] for outpatient therapy. Adan has received a bed offer from both the [facility] and Rehab, if SNF is needed at time of discharge a new prior auth will be needed. A: 80 year old male admitted to [facility] on 06/27/21 for UTI, Ureterolithiasis, Rhabdomyolysis, Abrasion of sacral region, Weakness, Diarrhea, Dehydration. P:Anticipate Adan will discharge home with New [facility] RN/PT/OT/HUB CUTTER APPRENTICE via private vehicle with friend vs SNF for short term rehab prior to returning home. SNF referrals were sent to the [facility] and [facility] and Rehab and bed offers were received from both. Adan will follow up with community providers and discharge plan of care. CM will continue to follow.
--- NOTE | 2021-07-02 11:56 | W.NUTRFU ---
Date of service: 07/02/21 Time of Service: 11:56 Nutrition Note NOTE: Adan is following regular meal plan with excellent po intake. Meeting nutrient and fluid needs. Will follow and support. Time Spent in Nutritional Counseling and Treatment: 0
[2021-07-02 11:57] VITALS: BP 138/54; PULSE 52; RESP 15; TEMP 35.8; O2SAT 98
--- NOTE | 2021-07-02 12:05 | W.PM.PROGNOT ---
Date of Service Date of service: 07/02/21 Time of Service: 12:05 Assessment and Plan Assessment and plan (1) Ureterolithiasis: Status: Acute Assessment and plan: His stone has been extracted and his stent has been removed. We will recommend a renal ultrasound in 4 to 6 weeks to make sure the hydronephrosis has resolved. Hopefully he will be able to void on his own. If not, we may need to replace his Moore catheter. Subjective Subjective Interval history since last seen: He is a bit discouraged and that he feels like he is getting weaker and his ambulation is not as good as he was hoping. He continues to have difficulty with his right leg. He does not have any left flank pain. His catheter was removed earlier today. He has not felt the need to void as of yet. Exam Narrative Exam Narrative: He does not appear set or toxic His abdomen is soft. His bladder is not distended. He is awake and alert Objective Last Vital Signs Temp 35.8 C L 07/02/21 11:57 Pulse 52 L 07/02/21 11:57 Resp 15 07/02/21 11:57 BP 138/54 L 07/02/21 11:57 Pulse Ox 98 07/02/21 11:57 Laboratory Results - last 24 hr 07/02/21 07/02/21 06:38 06:38 WBC 5.79 RBC 3.34 L Hgb 9.9 L Hct 29.9 L MCV 89.5 MCH 29.6 MCHC 33.1 RDW 17.1 H Plt Count 213 MPV 12.7 H Immature Gran % 0.0 Neutrophils % 51.0 Lymphocytes % 22.0 Atypical Lymphs % 6 Monocytes % 15.0 Eosinophils % 5.0 Basophils % 1.0 Nucleated RBC % 0 Absolute Neutrophils 2.95 Absolute Lymphocytes 1.62 Absolute Monocytes 0.87 H Absolute Eosinophils 0.29 Absolute Basophils 0.06 RBC Morphology See Below Poikilocytosis 2+ Sodium 140 Potassium 4.1 Chloride 109 H Carbon Dioxide 22.9 Anion Gap 8.1 BUN 18 Creatinine 0.9 Estimated GFR/1.73 m2 >= 60.00 Glucose 96 Calcium 8.8 Magnesium 1.8
[2021-07-02] MEDS: Senna TAB 1 TAB PO (14:17)
--- NOTE | 2021-07-02 15:19 | PT.INTREAT ---
PT Notes Visit Reasons: Acute rhabdomyolysis, SELENE, Fall, Leg weakness Subjective: C/o anterior right thigh pain when ever he tries to change position, severe when transitioning getting out of bed. Objective: Rx time: 1:30-2:00 p.m. Units: [id number] Functional ability: SBA with ambulation Jazmin x 1 Supine (HOB 45 deg) to EOB, EOB to supine (HOB 0 deg) with 1 rail Treatment: Therapeutic activities: Task to improve functional performance and stability with transfers 150ft ambulation, FWW, SBA, cues to stand tall, use glutes STS x 10 from high plinth Standing toe tap 6 L 10 x, R attempt x5 but unable due to weakness - to improve step up attempts Standing march x 10 to improve step over and stair climbing attempts Seat to luis daniel side push off, to improve sidelying to EOB attempts x 10 luis daniel LAQ x 20 Bridging x 20 to improve sit to stand strength Supine glute sets to inhibit R hip flexor - offering good pain relief Assessment: Suffering from R hip flexor strain, due to compensation over use with core and hip girdle weakness. This responded well to glute antagonist activation and lying supine to stretch it out - encourage patient to do this frequently. Unfortunately, I think this will be a nagging issue due to his weakness. Plan: BID per POC. Focus of R hip flexor pain inhibition, bed mobility training and practice, hip extension strengthening to stabilize with transfers and ambulation.
[2021-07-02 15:31] VITALS: BP 143/58; PULSE 54; RESP 16; TEMP 36; O2SAT 98
--- NOTE | 2021-07-02 16:41 | PGE_ITS ---
Date of Service Date of service: 07/02/21 Time of Service: 16:41 Assessment and Plan Assessment and plan (1) UTI (urinary tract infection): Status: Acute Assessment and plan: Complicated UTI, present on admission, with evidence of urinary retention and an obstructive L ureteral calculus. Urine C&S with mixed GP fuentes. Blood cultures with NGTD. Clinically improving. S/p cysto/L ureteral stent and stone retrieval from the bladder 06/30/21. Continue empiric ceftriaxone. undergoing voiding trial at this time. (2) Weakness: Status: Acute Assessment and plan: Improving. Could be due to his UTI; however, there is also evidence of disc herniation at L4-L5 pinching nerve root exiting there, per radiology, which is likely contributing to the sx. There is no evidence of epidural abscess. Per spine surgery at [facility], no need for surgical intervention. Continue to treat UTI, working with PT, symptomatic care. As he is improving, there is no role for steroids. Continue PT. Continue neurontin and prn methocarbamol. (3) Rhabdomyolysis: Status: Resolved Assessment and plan: Cr is at baseline. Off of IVF. CPK normalized. 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 multifactorial - due to UTI, hydronephrosis, dehydration, rhabdomyolysis. (8) Diarrhea: Status: Resolved Assessment and plan: Should it recur, stool studies are pending. (9) Back pain: Status: Acute Assessment and plan: As above (10) Bilateral leg weakness: Status: Acute Assessment and plan: As above (11) Abrasion of sacral region: Status: Acute Assessment and plan: CT pelvis negative. Continue routine wound care. (12) Ambulatory dysfunction: Status: Acute Assessment and plan: As above. Continue PT (13) DVT prophylaxis: Status: Acute Assessment and plan: On therapeutic eliquis for h/o DVT/PE. (14) Discharge planning issues: Status: Acute Assessment and plan: Full code Palliative care consulted. PT consulted. May require SNF on discharge, but this will depend on his strength closer to day of discharge. Subjective Subjective Interval history since last seen: Mr Terrell states he feels discouraged today. This is because he is worried he will have to go to SNF and because after his christian catheter was removed, on first PVR there were 526 cc left in the bladder. Denies dizziness, chest pain, shortness of breath, nausea. Exam Narrative Exam Narrative: General: Pleasant elderly male who is A&Ox3, sitting up in a chair, looks upset HEENT: EOMI, MMM Heart: RRR, no m/r/g Lungs: CTAB Abdomen: soft, nontender, nondistended Extremities: 4/5 strength in BLEs, no edema Objective Last Vital Signs Temp 36 C L 07/02/21 15:31 Pulse 54 L 07/02/21 15:31 Resp 16 07/02/21 15:31 BP 143/58 H 07/02/21 15:31 Pulse Ox 98 07/02/21 15:31 Laboratory Results - last 24 hr 07/02/21 07/02/21 06:38 06:38 WBC 5.79 RBC 3.34 L Hgb 9.9 L Hct 29.9 L MCV 89.5 MCH 29.6 MCHC 33.1 RDW 17.1 H Plt Count 213 MPV 12.7 H Immature Gran % 0.0 Neutrophils % 51.0 Lymphocytes % 22.0 Atypical Lymphs % 6 Monocytes % 15.0 Eosinophils % 5.0 Basophils % 1.0 Nucleated RBC % 0 Absolute Neutrophils 2.95 Absolute Lymphocytes 1.62 Absolute Monocytes 0.87 H Absolute Eosinophils 0.29 Absolute Basophils 0.06 RBC Morphology See Below Poikilocytosis 2+ Sodium 140 Potassium 4.1 Chloride 109 H Carbon Dioxide 22.9 Anion Gap 8.1 BUN 18 Creatinine 0.9 Estimated GFR/1.73 m2 >= 60.00 Glucose 96 Calcium 8.8 Magnesium 1.8
[2021-07-02] MEDS: Acetaminophen 500 MG TAB 1000 MG PO (19:17)
[2021-07-02] MEDS: Methocarbamol 750 MG TAB PO (19:19)
[2021-07-02 19:30] VITALS: BP 145/71; PULSE 60; RESP 16; TEMP 36; O2SAT 99
[2021-07-02 22:45] VITALS: BP 125/61; PULSE 61; RESP 16; TEMP 36.1; O2SAT 99
[2021-07-03] MEDS: Lidocaine 2% Jelly 11 ML SYR UR (03:04)
[2021-07-03] MEDS: Acetaminophen 500 MG TAB 1000 MG PO ×2 (03:25→18:35)
[2021-07-03] MEDS: Methocarbamol 750 MG TAB PO ×2 (03:26→18:38)
[2021-07-03] MEDS: Bisacodyl 5 MG TABEC PO (03:26)
[2021-07-03 03:30] VITALS: BP 143/58; PULSE 52; RESP 16; TEMP 36.2; O2SAT 98
[2021-07-03 08:03] VITALS: BP 123/53; PULSE 66; RESP 16; TEMP 36.1; O2SAT 95
--- NOTE | 2021-07-03 09:18 | W.PM.PROGNOT ---
Date of Service Date of service: 07/03/21 Time of Service: :18 Assessment and Plan Assessment and plan (1) BPH loc w urin obs/LUTS: Status: Acute Assessment and plan: There is a chance that his voiding function may improve with improvement in his bowel function and ambulation. He is already on maximum dose of alpha blockers, so additional alpha blockers would not be helpful. We can consider adding in a 5 alpha reductase inhibitor, but the effects of that particular class of medicine takes 6 to 12 months. In the short run, continuing with intermittent catheterization makes the most sense to me. That gives the patient a chance to void on his own and allows us to see if he is progressing toward emptying his bladder any more efficiently. Depending on discharge planning and the patient's disposition, we may need to replace an indwelling catheter and give him voiding trials as an outpatient (especially if he goes to a facility where CICcan not be done). Once his bowel function and ambulation are optimized, if he continues to have difficulty emptying his bladder, we can consider surgical treatments such as a transurethral resection of the prostate. Subjective Subjective Interval history since last seen: The patient tells me that his leg feels better this morning. He also had a bowel movement for the first time in about a week. He has been able to sense when he needs to void, but has not always been able to void. He required straight cath multiple times overnight for volumes between 500 cc and 900 cc. He has had some incontinent episodes as well. He is already on a maximum dose of tamsulosin. Exam Narrative Exam Narrative: He is sitting up in chair. He looks comfortable His vital signs are documented elsewhere He is awake and alert Objective Last Vital Signs Temp 36.1 C L 07/03/21 08:03 Pulse 66 07/03/21 08:03 Resp 16 07/03/21 08:03 BP 123/53 L 07/03/21 08:03 Pulse Ox 95 07/03/21 08:03
[2021-07-03] MEDS: Normal Saline Flush 10 ML SYR IVP (09:27)
[2021-07-03] MEDS: cefTRIAXone 2 GM/50 ML BAG IVPB (09:27)
[2021-07-03] MEDS: Nystatin POWDER 15 GM JAR TP ×3 (09:28→19:41)
[2021-07-03] MEDS: Apixaban 2.5 MG TAB PO ×2 (09:28→19:41)
[2021-07-03] MEDS: Tamsulosin 0.4 MG CAPCR 0.8 MG PO (09:28)
[2021-07-03] MEDS: Gabapentin 100 MG CAP PO ×3 (09:28→19:40)
--- NOTE | 2021-07-03 09:42 | PDOC.CMPRO ---
- If Service Date Differs Date of service: 07/03/21 Time of Service: 09:42 Care Management Progress Note S/O: Adan is day #3 s/p cysto and ureteral stent placement. Adan continues to require symptomatic care and IV ABX. Adan will continue to work with PT over the weekend in an effort to improve activity tolerance and mobility. Adan may be able to discharge home Tuesday depending on his progress. Adan has received a bed offer from both the [facility] and Rehab, if SNF is needed at time of discharge. A: 80 year old male admitted to [facility] on 06/27/21 for UTI, Ureterolithiasis, Rhabdomyolysis, Abrasion of sacral region, Weakness, Diarrhea, Dehydration. P:Anticipate Adan will discharge home with New [facility] RN/PT/OT/CHAINSTITCH HEMMER via private vehicle with friend vs SNF for short term rehab prior to returning home. SNF referrals were sent to the [facility] and Rehab and bed offers were received from both. Adan will follow up with community providers and discharge plan of care. CM will continue to follow.
--- NOTE | 2021-07-03 11:41 | PT.INTREAT ---
PT Notes Visit Reasons: Acute rhabdomyolysis, SELENE, Fall, Leg weakness Subjective: Adan states that he's feeling much better today. He walked the loop with nursing this morning and states that it felt great. Objective: Rx time: 11:00-11:40 Units: [id number] Functional ability: SBA with ambulation Jazmin sit-stand from recliner. CGA from elevated plinth. Treatment: Therapeutic activities: Task to improve functional performance and stability with transfers Ambulation 150'x1, 100'x1, FWW, CGA, cues to stand tall, use glutes STS 5x2 from high plinth Standing toe tap 6, 10x each side, with bilat UE support to FWW- to improve step up attempts/stair management Standing march x 10 to improve step over and stair climbing attempts Hip PREs, 10x each for improved functional stability with swing phase of gait LAQ x 20 Seated glute sets 10x Assessment: Improving activity tolerance. Continued difficulty with functional mobility, particularly sit-stand and stair management. Will likely require brief rehab stay prior to returning home. Plan: BID per POC. Focus of R hip flexor pain inhibition, bed mobility training and practice, hip extension strengthening to stabilize with transfers and ambulation.
--- NOTE | 2021-07-03 14:33 | W.PM.PROGNOT ---
Date of Service Date of service: 07/03/21 Time of Service: 14:34 Assessment and Plan Assessment and plan (1) UTI (urinary tract infection): Start date: 07/03/21 Start time: 13:00 Status: Acute Assessment and plan: Complicated UTI, present on admission, with evidence of urinary retention and an obstructive L ureteral calculus. Urine C&S with mixed GP fuentes. Blood cultures with NGTD. Clinically improving. S/p cysto/L ureteral stent and stone retrieval from the bladder 06/30/21. Continue empiric ceftriaxone. undergoing voiding trial (2) Weakness: Start date: 07/03/21 Start time: 13:00 Status: Acute Assessment and plan: Improving. Could be due to his UTI; however, there is also evidence of disc herniation at L4-L5 pinching nerve root exiting there, per radiology, which is likely contributing to the sx. There is no evidence of epidural abscess. Per spine surgery at [facility], no need for surgical intervention. Continue to treat UTI, working with PT, symptomatic care. As he is improving, there is no role for steroids. Continue neurontin and prn methocarbamol. (3) Rhabdomyolysis: Start date: 07/03/21 Start time: 13:00 Status: Resolved Assessment and plan: Cr is at baseline. Off of IVF. CPK normalized. 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 multifactorial - due to UTI, hydronephrosis, dehydration, rhabdomyolysis. (8) Diarrhea: Start date: 07/03/21 Start time: 13:00 Status: Resolved Assessment and plan: Should it recur, stool studies are pending. (9) Back pain: Start date: 07/03/21 Start time: 13:00 Status: Acute Assessment and plan: As above (10) Bilateral leg weakness: Start date: 07/03/21 Start time: 13:00 Status: Acute Assessment and plan: As above (11) Abrasion of sacral region: Start date: 07/03/21 Start time: 13:00 Status: Acute Assessment and plan: CT pelvis negative. Continue routine wound care. (12) Ambulatory dysfunction: Start date: 07/03/21 Start time: 13:00 Status: Acute Assessment and plan: As above. Continue PT (13) DVT prophylaxis: Start date: 07/03/21 Start time: 13:00 Status: Acute Assessment and plan: On therapeutic eliquis for h/o DVT/PE. (14) Discharge planning issues: Start date: 07/03/21 Start time: 13:00 Status: Acute Assessment and plan: Full code Palliative care consulted. PT consulted. May require SNF on discharge, but this will depend on his strength closer to day of discharge. Discussed with Dr. Rajan Subjective Subjective Patient reports: no new complaints Interval history since last seen: doing ok, sitting up in chair. Will stay through the weekend to work with PT to gain strength Exam Narrative Exam Narrative: General: Pleasant elderly male who is A&Ox3, sitting up in a chair, looks ok HEENT: EOMI, MMM Heart: RRR, no m/r/g Lungs: CTAB Abdomen: soft, nontender, nondistended Extremities: 4/5 strength in BLEs, no edema Objective Last Vital Signs Temp 36.1 C L 07/03/21 08:03 Pulse 66 07/03/21 08:03 Resp 16 07/03/21 08:03 BP 123/53 L 07/03/21 08:03 Pulse Ox 95 07/03/21 08:03
[2021-07-03 15:11] VITALS: BP 113/51; PULSE 54; RESP 18; TEMP 35.5; O2SAT 99
--- NOTE | 2021-07-03 16:28 | PT.INTREAT ---
PT Notes Visit Reasons: Acute rhabdomyolysis, SELENE, Fall, Leg weakness Inpatient Physical Therapy Treatment Note [facility] Date: 07/03/21 SUBJECTIVE: Pt reports dong well this afternoon. OBJECTIVE: Sit-stand: Min assist Stand-sit: CGA GAIT Assistive Device: FWW Weight bearing: Full Assist: CGA Distance: 175ft and 100ft THEREX: Pt completed UE and LE strengthening ther ex as per flow sheet and sit to stands as per flow sheet. ASSESSMENT: Pt tolerated today's session well. PLAN: Cont to pregress as per alon as per PT POC. TREATMENT CODE/TIME: 4-4:25 (SOSA TP) (25)
--- NOTE | 2021-07-03 17:31 | CHAPLAIN ---
Adan was sitting up in a chair when I visited this afternoon. He easily engaged in a conversation and shared some personal history. Adan brew up in [facility] and lives about [place] mile from [place] hospital. His sister and niece are his only family he said, and they live out of town and have been in touch by phone. According to Care Management notes, a neighbor checks on Adan every day. Adan told me about the blood clot he had in his lower right legs several years ago. He went to [place] where the clot was removed and the blood supply was restored to his lower leg, but at one point he thought his leg might be amputated. I will continue to visit.
[2021-07-03 19:25] VITALS: BP 138/61; PULSE 56; RESP 18; TEMP 36.6; O2SAT 96
[2021-07-03] MEDS: traMADol 50 MG TAB PO (19:40)
[2021-07-03] MEDS: Docusate Sodium 100 MG CAP PO (19:40)
[2021-07-03] MEDS: Melatonin 3 MG TAB PO (21:16)
[2021-07-03 23:26] VITALS: BP 105/55; PULSE 58; RESP 14; TEMP 36.4; O2SAT 97
[2021-07-04] VITALS (7 sets, daily range): BP systolic 120–136; BP diastolic 54–66; PULSE 55–79; RESP 16–18; TEMP 36–36.7; O2SAT 96–100
[2021-07-04] MEDS: Acetaminophen 500 MG TAB 1000 MG PO ×2 (05:59→23:25)
[2021-07-04] MEDS: Methocarbamol 750 MG TAB PO ×2 (06:00→22:02)
[2021-07-04 06:16] LABS: Abs Immature Grans 0.32 10^3/uL (0.0-0.06); Absolute Basophil Count 0.03 10^3/uL (0.0-0.2); Absolute Eosinophil Count 0.33 10^3/uL (0.0-0.7); Absolute Lymphocyte Count 1.78 10^3/uL (1.2-3.4); Absolute Monocyte Count 0.74 10^3/uL (0.1-0.8); Absolute Neutrophil Count 2.79 10^3/uL (1.2-6.7); Basophils % 0.5; Eosinophils % 5.5; HCT 29.9 % (40.0-50.0); Immature Grans % 5.3; Lymphocytes % 29.7; MCH 29.6 pg (27.0-33.0); MCHC 33.4 % (32.0-36.0); MCV 88.5 fL (80-95); MPV 12.4 fL (8.0-11.0); Monocytes % 12.4; Neutrophils % 46.6; Nucleated RBC 0 %; Platelet Count 242 10^3/uL (130-400); RBC 3.38 10^6/uL (4.36-5.78); RDW 17.2 % (11.8-14.1); WBC 5.99 10^3/uL (4.4-10.8)
[2021-07-04 06:23] LABS: BUN 17 mg/dL (7-18); CREATININE 0.9 mg/dL (0.70-1.30); Chloride 106 mmol/L (98-107); Glucose 89 mg/dL (74-106); Magnesium 1.7 mg/dL (1.8-2.4); Potassium 3.8 mmol/L (3.5-5.1); Sodium 139 mmol/L (136-145)
[2021-07-04 06:42] LABS: Diff Comment Diff Reviewed
[2021-07-04 06:43] LABS: Poikilocytes 2+
[2021-07-04] MEDS: cefTRIAXone 2 GM/50 ML BAG IVPB (09:09)
[2021-07-04] MEDS: Gabapentin 100 MG CAP PO ×3 (09:09→20:52)
[2021-07-04] MEDS: Tamsulosin 0.4 MG CAPCR 0.8 MG PO (09:09)
[2021-07-04] MEDS: Apixaban 2.5 MG TAB PO ×2 (09:09→20:52)
[2021-07-04] MEDS: Normal Saline Flush 10 ML SYR IVP (09:10)
[2021-07-04] MEDS: Nystatin POWDER 15 GM JAR TP ×3 (09:13→20:55)
--- NOTE | 2021-07-04 10:00 | PT.INTREAT ---
PT Notes Visit Reasons: Acute rhabdomyolysis, SELENE, Fall, Leg weakness 07/04/2021 SUBJECTIVE: Notes he has had a hard morning with pain and spasm in the R anterior hip. He was also incontinent to stool this AM. He does want to participate in PT to the best of his ability today. OBJECTIVE: TRANSFERS Sit to stand: Min A from low chair Stand to sit: CGA GAIT Device: FWW Weight bearing: Full Assist: CGA Distance: 150'x2 Deviation: Forward flexed at the truck THEREX: Seated and standing LE strengthening activities. Defer hip flexion on the R due to aggravation of leg pain. See flow sheet for specifics. ASSESSMENT: Tolerates PT well today despite having a tough morning. He is motivated to improve his current situation. PLAN: Continue current POC. Treatment time: 25' [id number], [id number] India Sawyer PTA Clinic location: [facility] [place], [place]
[2021-07-04] MEDS: Magnesium Oxide 400 MG TAB 800 MG PO (10:17)
--- NOTE | 2021-07-04 13:07 | PGE_ITS ---
Date of Service Date of service: 07/04/21 Time of Service: 11:00 Assessment and Plan Assessment and plan (1) UTI (urinary tract infection): Start date: 07/04/21 Start time: 11:30 Status: Acute Assessment and plan: Complicated UTI, present on admission, with evidence of urinary retention and an obstructive L ureteral calculus. Urine C&S with mixed GP fuentes. Blood cultures with NGTD. Clinically improving. Will finish last dose of ceftriaxone tomorrow day 5 S/p cysto/L ureteral stent and stone retrieval from the bladder 06/30/21. undergoing voiding trial he will need christian if continues to need intermittent catherization. (2) Weakness: Start date: 07/04/21 Start time: 11:30 Status: Acute Assessment and plan: Improving. Could be due to his UTI; however, there is also evidence of disc herniation at L4-L5 pinching nerve root exiting there, per radiology, which is likely contributing to the sx. There is no evidence of epidural abscess. Per spine surgery at [facility], no need for surgical intervention. Continue to treat UTI, working with PT, symptomatic care. As he is improving, there is no role for steroids. Continue neurontin and prn methocarbamol. (3) Rhabdomyolysis: Start date: 07/04/21 Start time: 11:30 Status: Resolved Assessment and plan: Cr is at baseline. Off of IVF. CPK normalized. 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 multifactorial - due to UTI, hydronephrosis, dehydration, rhabdomyolysis. (8) Diarrhea: Start date: 07/04/21 Start time: 11:30 Status: Resolved Assessment and plan: Should it recur, stool studies are pending. (9) Back pain: Start date: 07/04/21 Start time: 11:30 Status: Acute Assessment and plan: As above (10) Bilateral leg weakness: Start date: 07/04/21 Start time: 11:30 Status: Acute Assessment and plan: As above (11) Abrasion of sacral region: Start date: 07/04/21 Start time: 30 Status: Acute Assessment and plan: CT pelvis negative. Continue routine wound care. (12) Ambulatory dysfunction: Start date: 07/04/21 Start time: :30 Status: Acute Assessment and plan: As above. Continue PT, Patient will likely need SNIF (13) DVT prophylaxis: Start date: 07/04/21 Start time: : Status: Acute Assessment and plan: On therapeutic eliquis for h/o DVT/PE. (14) Discharge planning issues: Start date: 07/04/21 Start time: Status: Acute Assessment and plan: Full code Palliative care consulted. PT consulted. Will likely require SNIF Discussed with Dr. Pillai Subjective Subjective Patient reports: no new complaints Interval history since last seen: Sitting up in chair. still feeling weak. If he continues to need to be straight cathed through the weekend he will have christian placed on Tuesday and see Dr. Kauffman as an outpatient. Large BM today. continue bm regimen and ambulation with PT. No new complaints Exam Narrative Exam Narrative: General: Pleasant elderly male who is A&Ox3, sitting up in a chair, looks much happier, he did have BM HEENT: EOMI, MMM Heart: RRR, no m/r/g Lungs: CTAB Abdomen: soft, nontender, nondistended Extremities: 4/5 strength in BLEs, no edema Objective Last Vital Signs Temp 36.5 C 07/04/21 11:30 Pulse 79 07/04/21 11:30 Resp 16 07/04/21 11:30 BP 125/55 L 07/04/21 11:30 Pulse Ox 96 07/04/21 11:30 Laboratory Results - last 24 hr 07/04/21 07/04/21 06:06 06:06 WBC 5.99 RBC 3.38 L Hgb 10.0 L Hct 29.9 L MCV 88.5 MCH 29.6 MCHC 33.4 RDW 17.2 H Plt Count 242 MPV 12.4 H Immature Gran % 5.3 Neutrophils % 46.6 Lymphocytes % 29.7 Monocytes % 12.4 Eosinophils % 5.5 Basophils % 0.5 Nucleated RBC % 0 Absolute Neutrophils 2.79 Absolute Lymphocytes 1.78 Absolute Monocytes 0.74 Absolute Eosinophils 0.33 Absolute Basophils 0.03 RBC Morphology See Below Poikilocytosis 2+ Sodium 139 Potassium 3.8 Chloride 106 Carbon Dioxide 27.0 Anion Gap 6.0 BUN 17 Creatinine 0.9 Estimated GFR/1.73 m2 >= 60.00 Glucose 89 Calcium 9.0 Magnesium 1.7 L
[2021-07-04] MEDS: traMADol 50 MG TAB PO (20:50)
[2021-07-04] MEDS: Melatonin 3 MG TAB PO (21:09)
[2021-07-05] VITALS (7 sets, daily range): BP systolic 100–116; BP diastolic 34–62; PULSE 51–64; RESP 16–18; TEMP 35.1–36.6; O2SAT 95–99
[2021-07-05 06:07] LABS: Magnesium 1.7 mg/dL (1.8-2.4)
--- NOTE | 2021-07-05 08:22 | PT.INTREAT ---
PT Notes Visit Reasons: Acute rhabdomyolysis, SELENE, Fall, Leg weakness 07/05/21 SUBJECTIVE: Pt noting the R hip feels better this morning. He continued to have trouble getting OOB and nursing had to assist with the R leg. He notes he does want to go home but rehab may be a better option for him until he feels a little better. OBJECTIVE: TRANSFERS Sit to stand: Min A(although improved from yesterday) Stand to sit: CGA GAIT Device: FWW Weight bearing: Full Assist: CGA Distance: 200' Deviation: Relies heavily on the FWW THEREX: As noted on flow sheet for UE/LE strengthening exercises in seated and standing position. See flow sheet. ASSESSMENT: Pt appears to be more comfortable today in regards to R quad/hip flexor region. He continues to rely heavily on the FWW with ambulation and static standing. Unable to stand unsupported. Pt will benefit from continued strengthening for improved safety with functional mobility. PLAN: Continue per POC. Treatment time: 25' [id number], [id number] India Sawyer PTA Clinic location: [facility] [place], [place]
[2021-07-05] MEDS: Apixaban 2.5 MG TAB PO ×2 (08:38→19:39)
[2021-07-05] MEDS: Nystatin POWDER 15 GM JAR TP ×2 (08:38→19:39)
[2021-07-05] MEDS: Tamsulosin 0.4 MG CAPCR 0.8 MG PO (08:38)
[2021-07-05] MEDS: Gabapentin 100 MG CAP PO ×3 (08:38→19:39)
[2021-07-05] MEDS: cefTRIAXone 2 GM/50 ML BAG IVPB (08:39)
[2021-07-05] MEDS: Normal Saline Flush 10 ML SYR IVP ×2 (08:39→11:46)
[2021-07-05] MEDS: MAGNESIUM SULFATE 2 GM/50 ML BAG IVPB (09:21)
--- NOTE | 2021-07-05 13:15 | W.PM.PROGNOT ---
Date of Service Date of service: 07/05/21 Time of Service: 13:15 Assessment and Plan Assessment and plan (1) UTI (urinary tract infection): Start date: 07/05/21 Start time: 13:34 Status: Resolved Assessment and plan: Finished antibiotics. Patient continued to have PVR over 400 therefore christian placed. Urine clear and yellow. Feels great (2) Weakness: Start date: 07/05/21 Start time: 13:34 Status: Acute Assessment and plan: Improving. Patient is still weak but feels better he has a positive outlook. Encouraged about going to rehab (3) Rhabdomyolysis: Start date: 07/05/21 Start time: 13:34 Status: Resolved Assessment and plan: Cr is at baseline. Off of IVF. CPK normalized. 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 multifactorial - due to UTI, hydronephrosis, dehydration, rhabdomyolysis. (8) Diarrhea: Start date: 07/05/21 Start time: 13:34 Status: Resolved Assessment and plan: Should it recur, stool studies are pending. (9) Back pain: Start date: 07/05/21 Start time: 13:34 Status: Acute Assessment and plan: As above (10) Bilateral leg weakness: Start date: 07/05/21 Start time: 13:34 Status: Acute Assessment and plan: Improving with PT He only c/o spasms and pain occasionally to right thigh, continue robaxin and will add voltaren as needed for pain (11) Abrasion of sacral region: Start date: 07/05/21 Start time: 13:34 Status: Acute Assessment and plan: CT pelvis negative. Continue routine wound care. (12) Ambulatory dysfunction: Start date: 07/05/21 Start time: 13:34 Status: Acute Assessment and plan: As above. Continue PT, Patient knows and is willing to go to SNIF, he is encouraged about getting stronger. (13) DVT prophylaxis: Start date: 07/05/21 Start time: 13:34 Status: Acute Assessment and plan: On therapeutic eliquis for h/o DVT/PE. (14) Discharge planning issues: Start date: 07/05/21 Start time: 13:34 Status: Acute Assessment and plan: Full code Palliative care consulted. PT consulted. Will lrequire SNIF Discussed with Dr. Pillai Subjective Subjective Patient reports: feels better Interval history since last seen: Patient sitting up in chair, looks good, he states he feels really well. Christian placed, as he continues to have PVR of over 400 ml and he requires SNIF. He will do a voiding trial with Dr. Kauffman as an outpatient. He does have pain to his left thigh when trying to move, and spasms. Robaxin for spasm, will give voltaren gel prn for pain. Exam Narrative Exam Narrative: General: Pleasant elderly male who is A&Ox3, sitting up in a chair, looks much happier, he feels good HEENT: EOMI, MMM Heart: RRR, no m/r/g Lungs: CTAB Abdomen: soft, nontender, nondistended Extremities: 4/5 strength in BLEs, no edema : christian catheter in place draining clear yellow urine Objective Last Vital Signs Temp 35.1 C L 07/05/21 11:43 Pulse 51 L 07/05/21 11:43 Resp 16 07/05/21 11:43 BP 105/62 07/05/21 11:43 Pulse Ox 95 07/05/21 11:43 Laboratory Results - last 24 hr 07/05/21 05:42 Magnesium 1.7 L
[2021-07-05] MEDS: Diclofenac 1% Gel 100 GM TUBE TP (19:40)
[2021-07-05] MEDS: Melatonin 3 MG TAB PO (21:22)
[2021-07-05] MEDS: Methocarbamol 750 MG TAB PO (21:25)
[2021-07-06 03:42] VITALS: BP 104/56; PULSE 54; RESP 16; TEMP 36.4; O2SAT 98
[2021-07-06 06:53] LABS: Abs Immature Grans 0.34 10^3/uL (0.0-0.06); HGB 10.1 g/dL (13.5-17.5); MCH 30.1 pg (27.0-33.0); MCHC 33.7 % (32.0-36.0); MCV 89.3 fL (80-95); Nucleated RBC 0 %; RBC 3.36 10^6/uL (4.36-5.78); RDW 16.9 % (11.8-14.1); RDW-SD 54.6 fL; WBC 5.81 10^3/uL (4.4-10.8)
[2021-07-06 07:11] LABS: Anion Gap 6.4 mmol/L (3-11); BUN 22 mg/dL (7-18); CO2 27.6 mmol/L (21.0-32.0); Calcium 8.8 mg/dL (8.5-10.1); Chloride 105 mmol/L (98-107); Glucose 89 mg/dL (74-106); Magnesium 2.2 mg/dL (1.8-2.4); Potassium 4.4 mmol/L (3.5-5.1); Sodium 139 mmol/L (136-145)
[2021-07-06] MEDS: Tamsulosin 0.4 MG CAPCR 0.8 MG PO (07:36)
[2021-07-06] MEDS: Apixaban 2.5 MG TAB PO ×2 (07:36→19:15)
[2021-07-06] MEDS: Gabapentin 100 MG CAP PO ×3 (07:36→19:15)
[2021-07-06 07:41] LABS: Platelet Count 267 10^3/uL (130-400)
[2021-07-06 07:42] LABS: Absolute Basophil Count 0.06 10^3/uL (0.0-0.2); Absolute Eosinophil Count 0.17 10^3/uL (0.0-0.7); Absolute Lymphocyte Count 2.09 10^3/uL (1.2-3.4); Absolute Monocyte Count 10.63 10^3/uL (0.1-0.8); Absolute Neutrophil Count 2.44 10^3/uL (1.2-6.7); Bands % 2; Diff Comment Manual Differential
[2021-07-06 07:43] LABS: Poikilocytes 2+
--- NOTE | 2021-07-06 08:01 | PGE_ITS ---
Date of Service Date of service: 07/06/21 Time of Service: 08:08 Assessment and Plan Assessment and plan (1) BPH loc w urin obs/LUTS: Status: Acute Assessment and plan: I am still hopeful full that he will be able to void as his mobility improves. Once his placement is finalized, we can arrange for a voiding trial and a follow-up bladder scan. He will also need a follow-up for renal ultrasound in about a month to make sure his hydronephrosis has resolved. Subjective Subjective Interval history since last seen: He required continued intermittent catheterization, but it seems like his residuals have gradually decreased. When his catheter was replaced yesterday, his residual was about 400 cc. Earlier in his hospitalization, his residuals were up around 700 to 900 cc He expects to go to a intermediate facility for continued rehab. Exam Narrative Exam Narrative: He does not appear septic or toxic His vital signs are documented elsewhere He is awake and alert Objective Last Vital Signs Temp 36.4 C L 07/06/21 03:42 Pulse 54 L 07/06/21 03:42 Resp 16 07/06/21 03:42 BP 104/56 L 07/06/21 03:42 Pulse Ox 98 07/06/21 03:42 Laboratory Results - last 24 hr 07/06/21 07/06/21 06:20 06:20 WBC 5.81 RBC 3.36 L Hgb 10.1 L Hct 30.0 L MCV 89.3 MCH 30.1 MCHC 33.7 RDW 16.9 H Plt Count 267 MPV 13.0 H Immature Gran % See Differential Neutrophils % 40.0 Band Neutrophils % 2 Lymphocytes % 36.0 Monocytes % 183.0 Eosinophils % 3.0 Basophils % 1.0 Nucleated RBC % 0 Absolute Neutrophils 2.44 Absolute Lymphocytes 2.09 Absolute Monocytes 10.63 H Absolute Eosinophils 0.17 Absolute Basophils 0.06 RBC Morphology See Below Poikilocytosis 2+ Sodium 139 Potassium 4.4 Chloride 105 Carbon Dioxide 27.6 Anion Gap 6.4 BUN 22 H Creatinine 1.0 Estimated GFR/1.73 m2 >= 60.00 Glucose 89 Calcium 8.8 Magnesium 2.2
--- NOTE | 2021-07-06 08:03 | W.PALLCONSUL ---
Date of service: 07/06/21 Time of Service: 08:03 History of Present Illness History of Present Illness Chief Complaint: weakness Narrative: From Naveen walker P: History of Present Illness?Chief Complaint: weakness?Narrative: This 80-year-old male is here because of weakness and falls.? He does by himself.? He says he lives in the area his whole life.? He has no family they are here but has a sister and nephew in [place], nieces and nephews in [place].? He has never been and has no children.? He is not sure who is healthcare agent would be but thinks it might be his niece.? When asked him why he was here he says the following and has had a awful day.? He was here earlier today and was found to have mildly elevated creatinine and CPK level.? He was diagnosed with a urinary tract infection as well as a ureterovesical stone on the left.? Is also been having diarrhea.? He says he has had diarrhea for the last few days.? He may have fallen a week ago but in asking more questions is not really clear that he did fall a week ago.? Who presented here earlier today because of weakness and was diagnosed with a urinary tract infection and was discharged on levofloxacin.? His repeat CK level came back higher and he was called to come back in but while a friend was on the phone he fell in the bathroom but did not hurt himself.? 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 He says he normally gets along very well at home by himself.? He has not been around anyone else been sick.? Has had no Covid exposure that he is aware of.? He has been vaccinated.? He has not been traveling.? He has not been on any recent antibiotics except for today.? He did seem a bit confused about the timeline of his illness.? He could not remember who given the antibiotic for his urine but he saw the same doctor here twice today. Interim hx: He states he is feeling much better but will be going to the [facility] soon for rehab. He plans to work very hard at so he can return home safely. He has been through this in marvin past and needed to stay at a rehab for 2 months. He states that he would want his niece to be his health care agent and was ready to complete the paperwork. Additionally he had discussed his thoughts around CPR if his heart and lungs stopped. He didn't understand that CPR included intubation and connecting to a ventilator. He felt he had strong bones so chest compressions were acceptable to him. 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 He is planning on going to [facility] tomorrow. We completed his Health Care Agent form. He designated his niece. KASHMIR completed after much discussion. He does NOT want intubation but was willing to have chest compressions and cardioversion. Thank you jaydon freitas for this consult. He was a delightful man and I enjoyed our talk. Review of Systems Narrative: He plans to work hard with PT to increase his stregnth SOmewhat SOB, but plans to work hard to improve. No abdominal pain. 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 (Acute) Hydronephrosis (Acute) Ambulatory dysfunction (Acute) Back pain (Acute) Ureterolithiasis (Acute) Weakness (Acute) Bilateral leg weakness (Acute) Bilateral leg weakness (Acute) Fall at home (Acute) Abrasion of sacral region (Acute) BPH loc w urin obs/LUTS (Acute) Leg wound, right (Acute) Pulmonary nodule (Chronic) Traumatic hematoma of buttock (Acute) COVID-19 (Acute) Healing wound present on both lower extremities (Chronic) Falls (Acute) Rhabdomyolysis (Acute) Weakness (Acute) Discharge planning issues (Acute) DVT prophylaxis (Acute) Fall (Acute) COVID (Acute) Ambulatory dysfunction (Acute) Posttraumatic wound infection (Acute) Cellulitis of forearm, left (Acute) Genu valgum, acquired (Acute) Unilateral primary osteoarthritis, left knee (Acute) Personal history of colonic polyps (Acute) Medical History (Updated 07/06/21 @ 21:25 by Charlette Price MD, [place]) Compartment syndrome Deep venous thrombosis DIVERTICULOSIS Gout Hyperlipidemia Melanosis coli Peripheral venous insufficiency LEFT LEG Polyp of colon TUBULAR ADENOMA [id number] ADENOMA Psoriasis STROKE EMBOLIC Urinary retention Surgical History (Updated 06/28/21 @ 15:49 by Raquel Rajan MD) BACK OPERATION (~04/2008) h/o GBS epidural abscess, [place] [facility] [place] Colonoscopy - IV Sedation (06/10/10) [id number] ADENOMA 06/18/16 no pathological features from ascending colon polyp Colonoscopy - IV Sedation (06/18/16) [id number] ADENOMA 06/18/16 no pathological features from ascending colon polyp Family History Mother Dementia Father Alzheimer's disease Sister Alzheimer's disease Parkinson's disease Social History Smoking/Tobacco Use Status: Former Tobacco Use Smoking risk assessment performed?: Yes Alcohol Intake: former Drug use: Never Substance use type: does not use Details: quit smoking 30 yrs ago Do you feel safe at home: Yes Do you feel safe in your relationship?: Yes Exam Narrative Exam Narrative: Oriented times three. Speaking in complete sentences. Back pain Results Last Vital Signs Temp 97.5 F L 07/06/21 03:42 Pulse 54 L 07/06/21 03:42 Resp 16 07/06/21 03:42 BP 104/56 L 07/06/21 03:42 Pulse Ox 98 07/06/21 03:42 Labs Result diagrams: 07/06/21 06:20 07/06/21 06:20 Labs: Laboratory Results - last 24 hr 07/06/21 07/06/21 06:20 06:20 WBC 5.81 RBC 3.36 L Hgb 10.1 L Hct 30.0 L MCV 89.3 MCH 30.1 MCHC 33.7 RDW 16.9 H Plt Count 267 MPV 13.0 H Immature Gran % See Differential Neutrophils % 40.0 Band Neutrophils % 2 Lymphocytes % 36.0 Monocytes % 183.0 Eosinophils % 3.0 Basophils % 1.0 Nucleated RBC % 0 Absolute Neutrophils 2.44 Absolute Lymphocytes 2.09 Absolute Monocytes 10.63 H Absolute Eosinophils 0.17 Absolute Basophils 0.06 RBC Morphology See Below Poikilocytosis 2+ Sodium 139 Potassium 4.4 Chloride 105 Carbon Dioxide 27.6 Anion Gap 6.4 BUN 22 H Creatinine 1.0 Estimated GFR/1.73 m2 >= 60.00 Glucose 89 Calcium 8.8 Magnesium 2.2
[2021-07-06 08:09] VITALS: BP 116/58; PULSE 57; RESP 16; TEMP 35.8; O2SAT 96
--- NOTE | 2021-07-06 09:21 | PTTR_ITS ---
Date of service: 07/06/21 Time of Service: 09:21 PT Notes Visit Reasons: Acute rhabdomyolysis, SELENE, Fall, Leg weakness PT Inapatient Treatment Note Date: 07/06/2021 SUBJECTIVE: Continues to report aching pain in the R hip with activity. States that he feels that he is gaining but is agreeable that there is more work to be done. Amenable to going to SNF to continue to work on mobility goals. Indicates that the AFO does not make much differnce with his walking. OBJECTIVE: PAIN: Reports up to 3-4/10 pain in the R hip with movement. TRANSFERS Sit to stand: CGA Stand to sit: SBA GAIT Device: FWW Weight bearing: Full Assist: SBA Distance: 200' + 150' Deviation: Cues provided to minimize trunk flexion. THEREX: Worked on a increasing independence with sit to stand movement transitions and on increasing bilateral hip flexion using stepping exercises on stairs. ASSESSMENT: Activity tolerance improving. [place] with sit to stand activity using BUE for support. DISCHARGE RECOMMENDATIONS: [] Home with no services [] [] Home with services [specify] [] Home with outpatient PT [] [X] SNF for continued rehabilitation. Patient will benefit [facility] for continued skilled physical therapy services in order to progress mobility level, strength, and balance in preparation for a safe discharge to home. [] Residential Care [] [] SNF versus LTC based on ability to participate and progress [] Treatment time: [id number] x 15 minutes, 27113 x 11 minutes beginning at 9:21 AM.
[2021-07-06 11:24] VITALS: BP 99/54; PULSE 55; RESP 16; TEMP 35.5; O2SAT 99
--- NOTE | 2021-07-06 11:58 | PTTR_ITS ---
PT Notes Visit Reasons: Acute rhabdomyolysis, SELENE, Fall, Leg weakness 07/06/2021 SUBJECTIVE: Adan notes he continues to feeling some discomfort in the hip flexor on the R when leaning forward in the chair and when actively flexing the hip. OBJECTIVE: Pt seen for PT today: second session as noted below TRANSFERS Sit to stand: CGA Stand to sit: CGA GAIT Device: FWW Weight bearing: Full Assist: SBA Distance: 200' Deviation: Forward flexed at the trunk THEREX: Review his exercises to be performed independently in the room. ASSESSMENT: Pt having easier time getting out of low chair. No LOB or path deviations with his gait. Continues to rely heavily on the FWW. PLAN: Continue per POC. Treatment time: x1 India Sawyer PTA Clinic location: [facility] [place], [place]
--- NOTE | 2021-07-06 14:43 | PGE_ITS ---
Date of Service Date of service: 07/06/21 Time of Service: 14:46 Assessment and Plan Assessment and plan (1) UTI (urinary tract infection): Start date: 07/06/21 Start time: 14:55 Status: Resolved Assessment and plan: Finished antibiotics. christian in place will do voiding trial with Dr. Kauffman as an outpatient. Draining clear yellow urine. Feels great (2) Weakness: Start date: 07/06/21 Start time: 14:55 Status: Acute Assessment and plan: Feels good today Accepted to the [facility] for tomorrow (3) Ureterolithiasis: Start date: 07/06/21 Start time: 14:56 Status: Acute Assessment and plan: S/p cysto/L ureteral stent and stone retrieval from the bladder 06/30/21. 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: Start date: 07/06/21 Start time: 14:56 Status: Acute Assessment and plan: As above (5) Hydronephrosis: Start date: 07/06/21 Start time: 14:57 Status: Acute Assessment and plan: As above (6) Back pain: Start date: 07/05/21 Start time: 13:34 Status: Acute Assessment and plan: As above (7) Bilateral leg weakness: Start date: 07/06/21 Start time: 14:57 Status: Acute Assessment and plan: Improving with PT He only c/o spasms and pain occasionally to right thigh, continue robaxin and will add voltaren as needed for pain (8) Abrasion of sacral region: Start date: 07/06/21 Start time: 14:57 Status: Acute Assessment and plan: CT pelvis negative. Continue routine wound care. (9) Ambulatory dysfunction: Start date: 07/06/21 Start time: 14:57 Status: Acute Assessment and plan: As above. Continue PT, Accepted to [facility] for tomorrow (10) DVT prophylaxis: Start date: 07/06/21 Start time: 14:58 Status: Acute Assessment and plan: On therapeutic eliquis for h/o DVT/PE. (11) Discharge planning issues: Start date: 07/06/21 Start time: 14:58 Status: Acute Assessment and plan: Patient accepted to [facility] for tomorrow Discussed with Dr. Pillai Subjective Subjective Patient reports: no new complaints Interval history since last seen: Patient is doing well ambulating around . Patient accepted to the [facility] for the morning. Exam Narrative Exam Narrative: General: Pleasant elderly male who is A&Ox3, sitting up in a chair, looks much happier, he feels good HEENT: EOMI, MMM Heart: RRR, no m/r/g Lungs: CTAB Abdomen: soft, nontender, nondistended Extremities: 4/5 strength in BLEs, no edema : christian catheter in place draining clear yellow urine Objective Last Vital Signs Temp 35.5 C L 07/06/21 11:24 Pulse 55 L 07/06/21 11:24 Resp 16 07/06/21 11:24 BP 99/54 L 07/06/21 11:24 Pulse Ox 99 07/06/21 11:24 Laboratory Results - last 24 hr 07/03/21 07/06/21 07/06/21 08:00 06:20 06:20 WBC 5.81 RBC 3.36 L Hgb 10.1 L Hct 30.0 L MCV 89.3 MCH 30.1 MCHC 33.7 RDW 16.9 H Plt Count 267 MPV 13.0 H Immature Gran % See Differential Neutrophils % 40.0 Band Neutrophils % 2 Lymphocytes % 36.0 Monocytes % 183.0 Eosinophils % 3.0 Basophils % 1.0 Nucleated RBC % 0 Absolute Neutrophils 2.44 Absolute Lymphocytes 2.09 Absolute Monocytes 10.63 H Absolute Eosinophils 0.17 Absolute Basophils 0.06 RBC Morphology See Below Poikilocytosis 2+ Sodium 139 Potassium 4.4 Chloride 105 Carbon Dioxide 27.6 Anion Gap 6.4 BUN 22 H Creatinine 1.0 Estimated GFR/1.73 m2 >= 60.00 Glucose 89 Calcium 8.8 Magnesium 2.2 Stool Campylobacter PCR Cancelled Stool Salmonella PCR Cancelled Stool Shigella PCR Cancelled Shiga Toxin (PCR) Cancelled
[2021-07-06 15:17] LABS: Source: Left Ureter
[2021-07-06 16:23] VITALS: BP 114/62; PULSE 54; RESP 18; TEMP 35.5; O2SAT 100
[2021-07-06] MEDS: Diclofenac 1% Gel 100 GM TUBE TP ×2 (16:37→19:29)
--- NOTE | 2021-07-06 16:48 | PDOC.CMDIS ---
Care Management Discharge Reason for Hospitalization: UTI, Ureterolithiasis, Rhabdomyolysis, Abrasion of sacral region, Weakness, Diarrhea, Dehydration
--- NOTE | 2021-07-06 18:33 | PDOC.CMPRO ---
- If Service Date Differs Date of service: 07/06/21 Time of Service: 18:33 Care Management Progress Note S/O: Adan was accepted to the [facility] for tomorrow morning. CM continues to follow. A: 80 year old male admitted to [facility] on 06/27/21 for UTI, Ureterolithiasis, Rhabdomyolysis, Abrasion of sacral region, Weakness, Diarrhea, Dehydration. P: Anticipate Adan will discharge to the [facility] tomorrow morning, and transport via private vehicle with [facility]. CM will continue to follow.
[2021-07-06] MEDS: Methocarbamol 750 MG TAB PO (19:15)
[2021-07-06] MEDS: Normal Saline Flush 10 ML SYR IVP (19:18)
[2021-07-06] MEDS: Acetaminophen 500 MG TAB 1000 MG PO (19:19)
[2021-07-06 19:27] VITALS: BP 111/54; PULSE 57; RESP 16; TEMP 36.2; O2SAT 98
[2021-07-07 00:10] LABS: COVID-19 PCR Negative (Negative); Source Nasal/Nares
[2021-07-07 03:45] VITALS: BP 107/53; PULSE 53; RESP 18; TEMP 35.5; O2SAT 99
[2021-07-07 08:03] VITALS: BP 109/53; PULSE 51; RESP 15; TEMP 36; O2SAT 98
--- NOTE | 2021-07-07 08:31 | DSE_ITS ---
Date of service: 07/07/21 Time of Service: 08:32 DS: Diagnosis Discharge Diagnosis (1) UTI (urinary tract infection): Start date: 07/07/21 Start time: 08:35 Status: Resolved Asessment and Plan: s/p cysto L urethral stent and stone retrieval from the bladder 06/30/21. finished a course of antibiotics x 5 days of ceftriaxone christian placed d/t increased PVR over 400 will do voiding trial as outpatient with Dr. 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 Being discharged to [facility] for PT management (4) Weakness: Start date: 07/07/21 Start time: 08:49 Status: Acute Asessment and Plan: as above going to the [facility] (5) Palliative care patient: Start date: 07/07/21 Start time: 08:51 Status: Acute Asessment and Plan: Now DNI after being seen by palliative. Will continue to be followed in the community discussed with Dr. Pillai Discharge Plan Disposition Patient Disposition: SNF (LEVEL 1) [facility] Condition: Stable Discharge Details Reason For Visit: Acute rhabdomyolysis, SELENE, Fall, Leg weakness Admit Date/Time: 06/28/21 16:10 Admit Provider: Adan Lawrence Attending Provider: Adan Lawrence Primary Care Provider: Jessa Cool [facility] Course Hospital Course: 80 y.o male admitted to [facility] d/t weakness and falls. He lives by himself. Found to have elevated CPK in the ED on admission with elevated creatinine, diagnosed with UTI, as well as a ureterovesical stone on the left.? He has also been having diarrhea; seen in ED initially and sent home on levaquin. Returned the same day after his CPK came back higher and was asked to be admitted to hospitalist group. During admission he was evaluated by Dr. Kauffman on 06/30 he was brought to OR for cystoscopy with evacuation of bladder stone and left retrograde pyelogram, insert left ureteral stent. He was initially straight cathing however PVR's were greater than 400 consistently therefore christian was inserted and patient will followed with voiding trial as outpatient by Dr. Kauffman . He had 5 days of ceftriaxone. He also has herniated discs causing ambulatory dysfunction and pain. he has been working with PT feeling better. He understands that he would benefit from SNIF for further PT. He also gets severe pain in thigh moving with spasms. So therefore he takes robaxin and tramadol when needed, which is helpful. his weakness is improved but still requiring PT, therefore he needs rehab and is being discharged to the [facility]. Home Meds and New Rx's Prescriptions: New sennosides [Senokot] 8.6 mg Tablet 1 tab PO BID PRN PRNQty: 30 0RF tramadol 50 mg Tablet 50 mg PO QID PRN PRNQty: 20 0RF methocarbamol 750 mg Tablet 750 mg PO QID PRN PRNQty: 30 0RF gabapentin 100 mg Capsule 100 mg PO TID Qty: 30 0RF Continued atorvastatin 40 mg tablet 40 mg PO DAILY 0RF multivitamin [Daily Vitamin] 1 EACH tablet 1 ea PO DAILY 0RF cholecalciferol (vitamin D3) [Vitamin D3] 400 UNIT capsule 400 unit PO DAILY 0RF tamsulosin 0.4 mg capsule 0.8 mg PO DAILY Qty: 180 3RF Acetaminophen [Tylenol] 1,000 mg PO TID PRN PRNQty: 0 0RF melatonin 3 mg tablet 3 - 6 mg PO HS 0RF Label Comments: TAKE TWO TABLETS BY MOUTH AT BEDTIME NEEDED FOR SLEEP Eliquis 2.5 mg tablet 2.5 mg PO BID 0RF Discharge Instructions Instructions: Christian Catheter Placement and Care (DC), Cervical Disc Herniation (DC), Weakness (DC), Urinary Tract Infection in Older Adults (DC) Additional Instructions: Follow up with PCP in 1-2 weeks Continue to work with PT Discharge to [facility] Stand Alone Forms: Nursing Discharge Form Activity:: Activity as Tolerated Equipment/Supplies:: No Equipment Needed Diet:: Normal Diet Discharge Orders Discharge Orders: Discharge Order (Routine); Ordered 07/07/21 Ordered By: Briseyda Moreno DS: Summary Time Spent with Patient providing and/or coordinating discharge services: Greater than 30 minutes Status at Discharge Functional status at discharge: uses cane/walker Overall status at discharge: patient is not back to baseline Mental Status: mental status grossly normal Speech and Movement: speech and movement normal Mood: congruent mood Affect: normal affect Exam Narrative Exam Narrative: General: Pleasant elderly male who is A&Ox3, sitting up in a chair eating breakfast, looks much happier, he feels good HEENT: EOMI, MMM Heart: RRR, no m/r/g Lungs: CTAB Abdomen: soft, nontender, nondistended Extremities: 4/5 strength in BLEs, no edema : christian catheter in place draining clear yellow urine Psych Mental Status: mental status grossly normal Speech and Movement: speech and movement normal Mood: congruent mood Affect: normal affect DS: Data Vitals/I&O Vitals and I&O: Vital Signs Temperature 36.0 C L 07/07/21 08:03 Temperature Source Tympanic 07/07/21 08:03 Pulse 51 L 07/07/21 08:03 Pulse Rhythm Regular 07/07/21 04:54 Respiratory Rate 15 07/07/21 08:03 Respiratory Effort Non-Labored 07/07/21 04:54 Respiratory Depth Normal 07/07/21 04:54 Respiratory Pattern Normal 07/07/21 04:54 Blood Pressure 109/53 L 07/07/21 08:03 Pulse Oximetry 98 07/07/21 08:03 Respiratory End-tidal CO2 29 06/30/21 13:00 Oxygen Delivery Method Room Air 07/07/21 08:03 Oxygen Flow Rate 0 07/07/21 08:03 Pain Level 0 07/06/21 19:27 Comment 07/02/21 22:45 Intake & Output 07/06/21 07/06/21 07/07/21 11:59 23:59 11:59 Intake Total 370 / 800 430 / 800 Output Total 1450 / 2325 875 / 2325 1875 / 1875 Balance -1080 / -1525 -445 / -1525 -1875 / -1875 Intake: IV Oral 370 / 790 420 / 790 Output: Urine 1450 / 2325 875 / 2325 187 / 1875 Other: Urine Color Pale Yellow Yellow Yellow Urine Appearance Clear Clear Clear Stool Size Moderate Stool Characteristics Soft Brown Data Completed and Pending Completed studies during hospitalization [Text1]: FINDINGS: Ventricles and Extra axial spaces: Normal in size and morphology for the patient's age. Hemorrhage: None. Cerebral parenchyma: No acute territorial infarct is present.? There are areas of decreased attenuation in the white matter most consistent with small vessel ischemic disease.? Midline shift: None. Brainstem/Cerebellum: Normal. Calvarium: Normal. Visualized Paranasal sinuses/Mastoids: Mild mucosal thickening in the left sphenoid sinus.? The remaining visualized paranasal sinuses are clear as are the mastoid air cells.? Soft Tissues: Unremarkable. IMPRESSION: No acute intracranial process.? FINDINGS: Bones:? The last intervertebral disc space is designated the L5/S1 level for the numbering purpose of this examination. The vertebral body heights are well maintained. There is a mild left convex scoliosis of the lumbar spine.? There is also mild reversal of the normal lumbar lordosis.? There is no acute fracture or subluxation.? Marked degenerative changes are present throughout the lumbar spine with disc space narrowing, vacuum discs, facet arthropathy and endplate osteophytes.? Multilevel central spinal canal stenosis is seen.? The findings are most marked at L3-4 and L4-L5. There are old united and nonunited right rib fractures.? There also old transverse process fractures in the lumbar spine. Soft Tissues:? The visualized SI joints and sacrum are will maintained. The paraspinal soft tissues are unremarkable. There is a small infiltrate seen in the left lung base.? There is a 6 mm stone at the left UVJ causing mild hydr onephrosis.? There is bilateral nephrolithiasis.? Bilateral renal cysts are present.? There is colonic diverticulosis but no evidence of acute diverticulitis.? There is thickening of the wall of the urinary bladder.? This may be due to incomplete distension, cystitis or chronic bladder outlet obstruction. IMPRESSION: 1. No acute fracture or subluxation in the lumbar spine. 2. Marked degenerative changes in the lumbar spine causing central spinal canal stenosis as described above. 3. 6 mm left UVJ stone causing mild hydronephrosis. 4. Urinary bladder wall thickening.? This may be due to incomplete distension, cystitis or chronic bladder outlet obstruction.? FINDINGS: MEDIASTINUM: Normal.? HEART: Normal. PULMONARY VASCULATURE: Normal. LUNGS: Clear.? The calcified granuloma are again seen in appear to lie in the right mid lung.? The lungs are hyperinflated suggesting underlying COPD. PLEURAL SPACE: No pleural effusion or pneumothorax. BONE:Within normal limits for the patient's age.? OTHER FINDINGS:Normal.? IMPRESSION: No acute pulmonary findings. FINDINGS: Brain: There is no acute intracranial hemorrhage. There is lucency in the cerebral white matter, likely microvascular disease although non-specific. No evidence of mass. There is no mass effect or midline shift. Singh white differentiation is intact. There are no extra-axial fluid collections. Cerebral ventricles: The ventricles and sulci are enlarged, consistent with volume loss / atrophy. No hydrocephalus. Paranasal sinuses: Minimal scattered mucosal thickening in paranasal sinuses. No air-fluid levels or evidence of acute sinusitis. Mastoid air cells:? No significant mastoid effusion. Vasculature: There is vascular calcification. Bones/joints: Degenerative changes are noted at C1-C2 with partially calcified soft tissue adjacent to odontoid. Soft tissues: Unremarkable as visualized. IMPRESSION: 1. No evidence of acute intracranial abnormality. No evidence of acute infarction, hemorrhage, or mass. 2. Atrophy and microvascular disease. FINDINGS: Brain: There is no acute intracranial hemorrhage. There is lucency in the cerebral white matter, likely microvascular disease although non-specific. No evidence of mass. There is no mass effect or midline shift. Singh white differentiation is intact. There are no extra-axial fluid collections. Cerebral ventricles: The ventricles and sulci are enlarged, consistent with volume loss / atrophy. No hydrocephalus. Paranasal sinuses: Minimal scattered mucosal thickening in paranasal sinuses. No air-fluid levels or evidence of acute sinusitis. Mastoid air cells:? No significant mastoid effusion. Vasculature: There is vascular calcification. Bones/joints: Degenerative changes are noted at C1-C2 with partially calcified soft tissue adjacent to odontoid. Soft tissues: Unremarkable as visualized. IMPRESSION: 1. No evidence of acute intracranial abnormality. No evidence of acute infarction, hemorrhage, or mass. 2. Atrophy and microvascular disease. FINDINGS: Bones:? The osseous structures and articular surfaces are intact.? Bony alignment is satisfactory.? No cellulitic or osteomyelitic changes are identified.? Degenerative changes are seen in the lower lumbar spine.? Postsurgical changes are seen in the lower lumbar spine.? No lytic or sclerotic lesions are identified. Soft Tissues: There is a 6 mm left UVJ stone causing mild hydronephrosis.? There is a trace amount of fluid in the pelvis.? There is atherosclerosis of the abdominal aorta and its runoff.? There is a small focus of air in the urinary bladder.? This may be be due to recent catheterization.? Infection cannot be excluded.? Please correlate clinically.? There does appear to be mild circumferential thickening of the urinary bladder wall. IMPRESSION: 1. No acute fracture or subluxation. 2. 6 mm left UVJ stone with mild hydronephrosis. 3. Nonspecific urinary bladder wall thickening.? Cystitis cannot be excluded.? There is a small focus of air in the urinary bladder.? This may be due to recent catheterization however infection cannot be excluded.? Please correlate clinically.? IMPRESSION: 1. Degenerative lumbosacral spine changes. 2. No evidence of pelvic fracture or diastasis. No hip fracture or dislocation. 3. Nonspecific bladder wall thickening. Cannot exclude cystitis. There is a small focal air bubble in the superior bladder within a diverticulum. See sagittal image 40. See coronal image 13. Recommend correlation with urinalysis. Patient also is noted to have a 6 mm bladder calculus. 4. Enlarged right inguinal lymph node measuring 2.3 x 2.1 cm. Conus medullaris is at normal level.? There is no evidence of conus mass nor subjacent clumping of intrathecal nerve roots to suggest arachnoiditis.? The distal thecal sac appears unremarkable.There is no evidence of Tarlov intrasacral cysts nor other significant findings within the sacral canal Bones:There are no compression fractures evident. 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 With respect to the individual levels... T12-L1: Unremarkable L1-2: Moderate disc height loss. Mild annular bulging posteriorly. Central canal dimensions are lower normal. No significant foraminal stenosis. L2-3: Mild disc height loss. There is increased signal in the anterior aspect the disc space, without enhancement at this level. Posteriorly there is no significant disc herniation. Central canal dimensions are lower normal. No significant foraminal stenosis.Mild degenerative changes in the facet joints. L3-4: This level now exhibits fusion across the disc space, particularly on the right side. There is annular bulging. Mild-moderate central spinal canal stenosis. Moderate-severe foraminal stenosis on the right side. Mild-moderate foraminal stenosis on the left side. Mild facet arthropathy. L4-5: Advanced disc space narrowing, more so on the right than the left side. There is a disc protrusion posterolateral right extending posteriorly 5 millimeters, approximately 7 millimeters wide and with caudal extension approximately 6 millimeters. This occupies the right lateral recess and impresses the thecal sac. This finding was not evident on the 2010 MRI. Moderate central canal stenosis. Moderate foraminal stenosis on the right side and left side. Facet arthropathy-moderate. L5-S1: This level exhibits advanced disc space narrowing, relatively uniform. Posterior bony ridging. Central canal dimensions are lower normal. No significant foraminal stenosis. Mild facet degenerative changes. Soft tissues:? There is a cyst in the prior side superior pole of the left kidney noted.? This measures approximately 5 cm by 3.7 cm.? There is a smaller cyst in the posterior cortex of the opposite-right kidney noted which measures approximately 1.5 cm. IMPRESSION: 1. Compared to 2010 there is again evidence of multilevel laminectomies. There is no evidence of new abnormal fluid collection such is epidural abscess, as per request. There has been some progression of degenerative disc disease. In addition, there is a posterolateral right disc herniation at L4-5 level. Also significant canal stenosis and foraminal stenosis at this level. 2. There is some fusion across the L3-4 disc space on the right side mild central canal stenosis. Moderate-severe foraminal stenosis on the right side. Mild-moderate foraminal stenosis on the left side 3. There is a non expansile bone lesion left side of L3 vertebral body. This has appearance of a probable hemangioma although is more evident on the 2010 study. FINDINGS: Fluoroscopy was provided intraoperatively during urologic procedure. See procedure report for details. Labs on day of discharge: Labs from last 24 hours 07/06/21 07/03/21 06/30/21 21:15 08:00 12:25 Stool Campylobacter PCR Cancelled Stool Salmonella PCR Cancelled Stool Shigella PCR Cancelled Stone Source Left Ureter Stone Comment SEE BELOW Kidney Stone Analysis Not Applicable COVID-19 Source Nasal/Nares SARS-CoV-2 (PCR) Negative Shiga Toxin (PCR) Cancelled PFSH All Active Problems Palliative care patient (Acute) Herniation of intervertebral disc between L4 and L5 (Acute) Hydronephrosis (Acute) Ambulatory dysfunction (Acute) Back pain (Acute) Ureterolithiasis (Acute) Weakness (Acute) Bilateral leg weakness (Acute) Bilateral leg weakness (Acute) Fall at home (Acute) Abrasion of sacral region (Acute) BPH loc w urin obs/LUTS (Acute) Leg wound, right (Acute) Pulmonary nodule (Chronic) Traumatic hematoma of buttock (Acute) COVID-19 (Acute) Healing wound present on both lower extremities (Chronic) Falls (Acute) Rhabdomyolysis (Acute) Weakness (Acute) Discharge planning issues (Acute) DVT prophylaxis (Acute) Fall (Acute) COVID (Acute) Ambulatory dysfunction (Acute) Posttraumatic wound infection (Acute) Cellulitis of forearm, left (Acute) Genu valgum, acquired (Acute) Unilateral primary osteoarthritis, left knee (Acute) Personal history of colonic polyps (Acute) Medical History Compartment syndrome Deep venous thrombosis DIVERTICULOSIS Gout Hyperlipidemia Melanosis coli Peripheral venous insufficiency LEFT LEG Polyp of colon TUBULAR ADENOMA [id number] ADENOMA Psoriasis STROKE EMBOLIC Urinary retention Surgical History BACK OPERATION (~04/2008) h/o GBS epidural abscess, 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 Colonoscopy - IV Sedation (06/10/10) [id number] ADENOMA 06/18/16 no pathological features from ascending colon polyp Colonoscopy - IV Sedation (06/18/16) [id number] ADENOMA 06/18/16 no pathological features from ascending colon polyp Family History Mother Dementia Father Alzheimer's disease Sister Alzheimer's disease Parkinson's disease Social History Smoking/Tobacco Use Status: Former Tobacco Use Smoking risk assessment performed?: Yes Alcohol Intake: former Drug use: Never Substance use type: does not use Details: quit smoking 30 yrs ago Do you feel safe at home: Yes Do you feel safe in your relationship?: Yes
[2021-07-07] MEDS: Tamsulosin 0.4 MG CAPCR 0.8 MG PO (08:43)
[2021-07-07] MEDS: Gabapentin 100 MG CAP PO (08:43)
[2021-07-07] MEDS: Apixaban 2.5 MG TAB PO (08:44)
[2021-07-07] MEDS: Normal Saline Flush 10 ML SYR IVP (08:46)
--- NOTE | 2021-07-07 12:15 | CMDISCH_ITS ---
- If Service Date Differs Date of service: 07/07/21 Time of Service: 12:15 LACE Index Scoring Tool - Questions: Length of Stay (in days): 7 - 13 Acuity (Admit via E.D.?): Yes E.D. Visits: 4 - Answers: Total Score: 12 Risk of Readmission: High Risk Care Management Discharge Reason for Hospitalization: UTI, Ureterolithiasis, Rhabdomyolysis, Abrasion of sacral region, Weakness, Diarrhea, Dehydration Discharge Plan: Adan transferred to the [facility] for short term rehab prior to returning home. He was transported via [facility] private vehicle, coordinated by CM. He will follow up with his PCP and discharge plan of care. Patient/Family Education Needs: Review discharge instructions regarding activity levels and medications, discussion of self care needs including ask me three. Services Needed at Discharge: Jail Facility ([facility]), Transportation ([facility])
--- NOTE | 2021-07-07 17:30 | PT.INDS ---
Date of service: 07/07/21 PT Notes Visit Reasons: Acute rhabdomyolysis, SELENE, Fall, Leg weakness Physical Therapy Inpatient Discharge Summary Date: 07/07/2021 Dates of Service: 06/29/2021 through 07/06/2021 This is a clinical summary of care provided for the duration of dates listed above. No charge was made in the completion of this documentation. Referring Doctor: Raquel Rajan MD PT Orders: PT CONSULT: Eval/treat Precautions: Fall. Standard. Activity as tolerated. AFO on L with all ambulation activities. Patient Profile/Admitting Diagnosis: Adan is a 80-year-old male who presented to the ED on 06/27/2021 due to BLE weakness and fall. He is diagnosed with urinary tract infection, ureteric lithiasis, rhabdomyolysis, acute kidney injury, abrasion of sacral region, diarrhea, and repeated falls. PMHX: All Active Problems?(Updated 06/27/21 @ 21:15 by Adan Lawrence MD) Diarrhea (Acute) UTI (urinary tract infection) (Acute) Ureterolithiasis (Acute) Weakness (Acute) Bilateral leg weakness (Acute) Rhabdomyolysis (Acute) Bilateral leg weakness (Acute) Acute kidney injury (Acute) Fall at home (Acute) Abrasion of sacral region (Acute) BPH loc w urin obs/LUTS (Acute) Leg wound, right (Acute) Pulmonary nodule (Chronic) Traumatic hematoma of buttock (Acute) COVID-19 (Acute) Healing wound present on both lower extremities (Chronic) Falls (Acute) Rhabdomyolysis (Acute) Weakness (Acute) Discharge planning issues (Acute) DVT prophylaxis (Acute) Fall (Acute) COVID (Acute) Ambulatory dysfunction (Acute) Posttraumatic wound infection (Acute) Cellulitis of forearm, left (Acute) Genu valgum, acquired (Acute) Unilateral primary osteoarthritis, left knee (Acute) Personal history of colonic polyps (Acute) Medical History?(Updated 06/27/21 @ 21:15 by Adan Lawrence MD) Compartment syndrome Deep venous thrombosis DIVERTICULOSIS Gout Hyperlipidemia Melanosis coli Peripheral venous insufficiency LEFT LEG Polyp of colon TUBULAR ADENOMA [id number] ADENOMA Psoriasis STROKE EMBOLIC Urinary retention Surgical History? BACK OPERATION (~04/2008) Colonoscopy - IV Sedation (06/10/10) [id number] ADENOMA 06/18/16 no pathological features from ascending colon polyp Colonoscopy - IV Sedation (06/18/16) [id number] ADENOMA 06/18/16 no pathological features from ascending colon polyp Social History/Home Situation: Lives alone in a a private home with 4 steps to enter, rails on both sides. He has 12 steps to the basement, rails on both sides where he does laundry. He has a lady who comes in once a week for house chores. Independent with all other ADLs. Still drives. Equipment Owned/DME: FWW, [facility] Subjective:? NT. See most recent BLOOD BANK TECHNOLOGIST notes. Objective: General Observation: NT. See most recent BLOOD BANK TECHNOLOGIST notes. Mental Status: NT. See most recent BLOOD BANK TECHNOLOGIST notes. Pain: NT. See most recent BLOOD BANK TECHNOLOGIST notes. ROM: Right Upper Extremity: ? Shoulder Flexion WFL. Shoulder abduction WFL. Elbow flexion WFL. Wrist flexion WFL. Functional opening and closing of hand WFL. Left Upper Extremity:? Shoulder Flexion WFL. Shoulder abduction WFL. Elbow flexion WFL. Wrist flexion WFL. Functional opening and closing of hand WFL. Right Lower Extremity: Hip flexion WFL. Hip abduction WFL. Knee flexion WFL. Ankle dorsiflexion WFL. Ankle plantarflexion WFL. Left Lower Extremity: Hip flexion WFL. Hip abduction WFL. Knee flexion WFL. Ankle dorsiflexion absent. Ankle plantarflexion absent. Strength: Right Upper Extremity: Shoulder flexors 4/5. Shoulder abductors 4/5. Elbow flexors 4/5. Elbow extensors 4/5. Homeopathic Doctor strong. Left Upper Extremity: Shoulder flexors 4/5. Shoulder abductors 4/5. Elbow flexors 4/5. Elbow extensors 4/5. Homeopathic Doctor strong. Right Lower Extremity: Hip flexors 4-/5. Hip abductors 4-/5. Knee flexors 4-/5. Knee extensors 4-/5. Ankle dorsiflexors 4-/5. Ankle plantarflexors 4-/5. Left Lower Extremity: Hip flexors 4/5. Hip abductors 4/5. Knee flexors 4/5. Knee extensors 4/5. Ankle dorsiflexors 1/5. Ankle plantarflexors 1/5. Bed Mobility/Transfers: Sit to stand stand by assist Stand to sit stand by assist Bed to reclining stand by assist Gait: Tolerates level surface ambulation distance of up to 200 feet requiring standby assist. Minimal cues given for posture and walker management. Balance: Static Sitting: Normal Dynamic Sitting: Normal Static Standing: Fair Dynamic Standing: Fair Assessment: Adan requires the use of a front-wheeled walker and assistance of 1 caregiver for all mobility ADL performance due to functional mobility decline.? Patient presents with clinical signs and symptoms consistent with current/admitting diagnoses that have resulted to mobility limitations, gait instability, generalized weakness, and overall ADL decline as demonstrated by the following impairment level findings: 1.? Decreased strength to B UE/LE major muscle groups with R more affected than the L 2.? Impaired standing balance 3.? Impaired activity tolerance 4.? Shortness of breath 5.? Fatigue Impairments are contributing to the following functional limitations: 1.? Difficulty with ambulation without assistive device and physical assistance 2.? Increased completion time for mobility ADL performance 3.? Increased risk for falls 4.? Difficulty with managing steps alone safely Goals: Goals X1 week 1. Supine-Sit independent NOT MET 2. Sit-Supine independent NOT MET 3. Sit-Stand independent NOT MET 4. Stand-Sit independent with FWW NOT MET 5. Bed-Chair independent with FWW NOT MET 6. Chair-Bed independent with FWW NOT MET 7. Independent gait on level surface with use of FWW for at least 300 feet without report of pain nor dyspnea NOT MET 8. Independent stair negotiation while holding onto B rails for at least 12 steps without report of pain nor dyspnea? NOT MET 9. Independent with home exercise program NOT MET 10. Good static and dynamic standing balance/tolerance NOT MET DISCHARGE RECOMMENDATIONS: [] ? Home with no services [] [X] ? Home with services.? Patient will benefit from home health PT services in order to progress mobility level using least restrictive assistive ambulatory device, assess home safety, identify additional equipment needs, and establish a functional maintenance program that will increase ability of patient to remain at home. [] ? Home with outpatient PT [] [] ? SNF for continued rehabilitation [] [] ? [facility] [] [] ? SNF versus LTC based on ability to participate and progress [] TREATMENT CODE/TIME: NH Thank you for the opportunity to participate in the care of this patient. Luz Hurtado PT, DPT, CLT [facility], [place]
== END 2021-07-07 10:10 | disposition skilled nursing facility (03) | DRG 690 ==
LOC: ER 19:54 → MS 21:20
PROVIDERS: Internal Medicine; Nurse Practitioner Family; Urology; Admitting Provider Family Medicine; Emergency Provider Physician Assistant; PCP Family Medicine; Visit Provider Family Medicine
PROC: 0T9780Z Drainage of Left Ureter with Drainage Device, Via Natural or Artificial Opening Endoscopic (ICD-10-PCS; CPT 52332; principal; 2021-06-30 12:30)
DX: N13.6 Pyonephrosis (principal); M62.82 Rhabdomyolysis; N17.9 Acute kidney failure, unspecified; W18.30XA Fall on same level, unspecified, initial encounter; M51.16 Intervertebral disc disorders with radiculopathy, lumbar region; R53.1 Weakness; N40.1 Benign prostatic hyperplasia with lower urinary tract symptoms; R29.6 Repeated falls; Z86.16 Personal history of COVID-19; M10.9 Gout, unspecified; Z86.718 Personal history of other venous thrombosis and embolism; I87.2 Venous insufficiency (chronic) (peripheral); R33.9 Retention of urine, unspecified; Z86.73 Personal history of transient ischemic attack (TIA), and cerebral infarction without residual deficits; L40.9 Psoriasis, unspecified; S31.010A Laceration without foreign body of lower back and pelvis without penetration into retroperitoneum, initial encounter; L89.141 Pressure ulcer of left lower back, stage 1; E86.0 Dehydration; R19.7 Diarrhea, unspecified; M21.372 Foot drop, left foot
CPT/HCPCS: 52332; 52310; 36410; 36415; 36416; 72158; 80048; 80053; 82550; 82962; 84145; 87040; 87505; 87635; 93005; 96360; 96361; 96365; 97110; 97162; 97530; 99222; 99232; 99284; 99285; U0005; 70450; 71046; 72131; 72192; 74420; 81003; 81015; 82365; 83735; 84443; 84484; 85025; 86140; 87086; 93010; 99231; 99233; G0378; J0696; J1885; J2405; J3475; Q9967

== ENCOUNTER → 2021-06-29 08:06 | Outpatient (BNVA) | payer MEDICARE, OTHER, SELFPAY | PROVIDERS: PCP Family Medicine; Referring Provider Family Medicine; Visit Provider Urology | DX: R69 Illness, unspecified (principal) ==

== ENCOUNTER → 2021-06-30 11:25 | Outpatient (BNVA) | payer MEDICARE, SELFPAY | PROVIDERS: PCP Family Medicine; Referring Provider Family Medicine; Visit Provider Urology | DX: R69 Illness, unspecified (principal) ==

== ENCOUNTER → 2021-07-13 08:02 | Outpatient (BNVA) | payer MEDICARE, OTHER, SELFPAY | PROVIDERS: PCP Family Medicine; Referring Provider Family Medicine; Visit Provider Nurse Practitioner Gerontology | DX: R33.8 Other retention of urine (principal) | CPT/HCPCS: 99214 ==

== ENCOUNTER 2021-07-14 14:30 | Outpatient (REF) | payer MEDICARE, OTHER, SELFPAY ==
[2021-07-14 15:53] LABS: Abs Immature Grans 0.05 10^3/uL (0.0-0.06); Absolute Basophil Count 0.03 10^3/uL (0.0-0.2); Absolute Eosinophil Count 0.16 10^3/uL (0.0-0.7); Absolute Lymphocyte Count 1.46 10^3/uL (1.2-3.4); Absolute Monocyte Count 0.68 10^3/uL (0.1-0.8); Absolute Neutrophil Count 1.32 10^3/uL (1.2-6.7); Basophils % 0.8; Eosinophils % 4.3; HCT 31.9 % (40.0-50.0); HGB 10.3 g/dL (13.5-17.5); Immature Grans % 1.4; Lymphocytes % 39.5; MCH 29.7 pg (27.0-33.0); MCHC 32.3 % (32.0-36.0); MCV 91.9 fL (80-95); MPV 13.5 fL (8.0-11.0); Monocytes % 18.4; Neutrophils % 35.6; Nucleated RBC 0 %; Platelet Count 309 10^3/uL (130-400); RBC 3.47 10^6/uL (4.36-5.78); RDW 16.8 % (11.8-14.1); RDW-SD 56.2 fL
[2021-07-14 15:59] LABS: Iron 62 ug/dL (65-175)
[2021-07-14 16:25] LABS: ALT 49 U/L (16-63); AST 33 U/L (15-37); Albumin 3.1 g/dL (3.4-5.0); Alkaline Phosphatase 101 U/L (46-116); Anion Gap 7.3 mmol/L (3-11); BUN 19 mg/dL (7-18); Bilirubin, Total 0.6 mg/dL (0.2-1.0); CO2 26.7 mmol/L (21.0-32.0); Calcium 8.8 mg/dL (8.5-10.1); Chloride 104 mmol/L (98-107); Ferritin 970 ng/mL (26-388); Folate 13.7 ng/mL (8.6-20.0); Glucose 79 mg/dL (74-106); Magnesium 1.9 mg/dL (1.8-2.4); Potassium 4.5 mmol/L (3.5-5.1); Sodium 138 mmol/L (136-145); TSH (W/Ref FT4) 2.53 uIU/mL (0.36-3.74); Total Protein 7.6 g/dL (6.4-8.2); Vitamin B12 1059 pg/mL (193-986)
[2021-07-14 16:30] LABS: Hemoglobin A1C 6.7 % (<5.7)
[2021-07-14 16:53] LABS: Diff Comment Diff Reviewed; RBC Morphology Normal
[2021-07-16 05:47] LABS: Vitamin D 25 Total 49.2 ng/mL (30-100)
== END 2021-07-14 14:31 | disposition home or self-care (01) ==
LOC: LBN 14:30
PROVIDERS: PCP Family Medicine; Visit Provider Nurse Practitioner Gerontology
DX: N13.30 Unspecified hydronephrosis (principal); E78.5 Hyperlipidemia, unspecified; J44.9 Chronic obstructive pulmonary disease, unspecified; Z51.5 Encounter for palliative care; E11.9 Type 2 diabetes mellitus without complications; Z79.899 Other long term (current) drug therapy
CPT/HCPCS: 80053; 82306; 82607; 82728; 82746; 83036; 83540; 83735; 84443; 85025

== ENCOUNTER 2021-08-06 01:53 | Outpatient (CLI) | payer MEDICARE, OTHER, SELFPAY ==
--- NOTE | 2021-08-06 06:45 | DI.US_ITS ---
Exam(s) US RENAL EXAM: US RENAL CLINICAL HISTORY: r/o residual hydronephrosis,ureterolithiasis,n13.30,n20.1. TECHNIQUE: Singh scale, color and spectral Doppler were used. COMPARISON: CT CT PELVIC WO from 06/27/[address] LUMBAR SPINE WO from 06/27/2021 FINDINGS: Renal size in cm: Right: 9.5. Left: 9.6. Echogenicity: Normal. Hydronephrosis: No. Cyst or mass: There is a 1 x 1.2 x 1.2 cm simple cyst in the upper pole of the right kidney. This is present on the CT scan from 06/27/2021. There is a 4.8 x 4.5 x 4.7 cm simple cyst in the superior anton e of the left kidney which is unchanged. No follow-up is recommended. Nephrolithiasis: Bilateral nonobstructing stones are seen. There is a 6 mm echogenic focus in the in ferior pole of the right kidney. There is a 3 mm echogenic focus in the inferior pole of the left ki dney. Other findings: None. Bladder:There is a Moore catheter within the urinary bladder. The bladder is nondistended limiting e valuation. Ureteral jets: Right: Not visualized on this examination. Left: Not visualized on this examination. Prevoid vol:13 cc Postvoid vol:Not performed during this examination. There is a Moore catheter present. Prostate: 78 cc Renal color flow: Symmetric and within normal limits. IMPRESSION: 1. Bilateral nephrolithiasis. 2. No evidence of hydronephrosis. DATA REPOSITORY:
== END 2021-08-06 02:13 ==
PROVIDERS: PCP Family Medicine; Visit Provider Urology
DX: N13.30 Unspecified hydronephrosis (principal); N20.1 Calculus of ureter
CPT/HCPCS: 76770

== ENCOUNTER → 2021-08-11 10:06 | Outpatient (BNVA) | payer MEDICARE, OTHER, SELFPAY | PROVIDERS: PCP Family Medicine; Referring Provider Family Medicine; Visit Provider Nurse Practitioner Gerontology | DX: R33.8 Other retention of urine (principal) | CPT/HCPCS: 99214 ==

== ENCOUNTER 2021-08-19 15:55 | Outpatient (REF) | payer MEDICARE, OTHER, SELFPAY ==
[2021-08-19 19:40] LABS: COMMENT (LAB VIEW ONLY) 71.27 mg/dL; Microalb ug/mg Crea 11.8 ug/mg Cr
== END 2021-08-19 15:56 | disposition home or self-care (01) ==
LOC: NCHCN 15:55
PROVIDERS: PCP Family Medicine; Visit Provider Family Medicine
DX: E11.9 Type 2 diabetes mellitus without complications (principal)
CPT/HCPCS: 82043; 82570

== ENCOUNTER → 2021-08-24 08:06 | Outpatient (BNVA) | payer MEDICARE, OTHER, SELFPAY | PROVIDERS: PCP Family Medicine; Referring Provider Family Medicine; Visit Provider Nurse Practitioner Gerontology | DX: R33.8 Other retention of urine (principal) | CPT/HCPCS: 99214 ==

== ENCOUNTER 2021-08-27 14:21 | Outpatient (CLI) | payer MEDICARE, OTHER, SELFPAY ==
[2021-08-27 13:03] LABS: HCT 32.7 % (40.0-50.0); HGB 10.8 g/dL (13.5-17.5); MPV 12.4 fL (8.0-11.0); Nucleated RBC 0 %; Platelet Count 309 10^3/uL (130-400); RBC 3.48 10^6/uL (4.36-5.78); RDW 17.2 % (11.8-14.1); RDW-SD 59.3 fL; WBC 3.95 10^3/uL (4.4-10.8)
[2021-08-27 14:03] LABS: Absolute Eosinophil Count 0.32 10^3/uL (0.0-0.7); Absolute Lymphocyte Count 2.09 10^3/uL (1.2-3.4); Absolute Monocyte Count 0.24 10^3/uL (0.1-0.8); Absolute Neutrophil Count 1.22 10^3/uL (1.2-6.7); Atypical Lymphocytes % 2; Other Cells % 2
[2021-08-27 14:04] LABS: Diff Comment Manual Differential; RBC Morphology Normal
== END 2021-08-27 14:22 | disposition home or self-care (01) ==
LOC: LBO 14:22
PROVIDERS: PCP Family Medicine; Visit Provider Internal Medicine Hematology
DX: D46.9 Myelodysplastic syndrome, unspecified (principal)
CPT/HCPCS: 36415; 85025

== ENCOUNTER → 2021-09-09 15:22 | Outpatient (BNVA) | payer MEDICARE, OTHER, SELFPAY | PROVIDERS: PCP Family Medicine; Visit Provider Nurse Practitioner Gerontology | DX: R33.8 Other retention of urine (principal) | CPT/HCPCS: 99214 ==

== ENCOUNTER → 2021-10-02 10:00 | Outpatient (BNVA) | payer MEDICARE, OTHER, SELFPAY | PROVIDERS: PCP Family Medicine; Referring Provider Family Medicine; Visit Provider Urology | DX: R33.8 Other retention of urine (principal) | CPT/HCPCS: 99214 ==

== ENCOUNTER 2021-10-23 10:38 | Emergency (ER) | payer MEDICARE, OTHER, SELFPAY ==
[2021-10-23 10:53] VITALS: BP 134/65; PULSE 57; RESP 22; TEMP 36.3; O2SAT 98
--- NOTE | 2021-10-23 11:45 | DI.RAD_ITS ---
Exam(s) XR CERVICAL SPINE COMP 4-5V EXAM: XR CERVICAL SPINE COMP 4-5V CLINICAL HISTORY: neck pain. TECHNIQUE: 2D digital imaging was performed. Images were obtained. AP, odontoid, lateral and bilat eral oblique images were obtained. COMPARISON: No exams were available for comparison FINDINGS: The odontoid is intact. The lateral masses are well aligned. There is a mild left convex curvature o f the cervical spine. There is narrowing of the C3-4 and C6-C7 disc spaces. Anterior osteophytes ar e present throughout the cervical spine. No acute fracture or subluxation is present. Moderately jase re narrowing of the neural foramen is seen on the right at C3-4, C4-C5 and C5-C6. It is seen on the l jethro degree at C6-C7. On the left there is neural foraminal stenosis seen from C3-4 through C7-T1. T he cervical thoracic junction is well maintained. The prevertebral soft tissues are unremarkable. Rosie ng apices are clear. IMPRESSION: Marked degenerative changes seen throughout the cervical spine. DATA REPOSITORY: RADIATION DOSE DELIVERED:
[2021-10-23] MEDS: traMADol 50 MG TAB PO (13:25)
[2021-10-23] MEDS: Cyclobenzaprine 10 MG TAB PO (13:25)
[2021-10-23 13:59] LABS: Abs Immature Grans 0.06 10^3/uL (0.0-0.06); Absolute Basophil Count 0.01 10^3/uL (0.0-0.2); Absolute Eosinophil Count 0.15 10^3/uL (0.0-0.7); Absolute Lymphocyte Count 0.97 10^3/uL (1.2-3.4); Absolute Monocyte Count 1.08 10^3/uL (0.1-0.8); Absolute Neutrophil Count 3.59 10^3/uL (1.2-6.7); Basophils % 0.2; Eosinophils % 2.6; HCT 33.7 % (40.0-50.0); HGB 11.5 g/dL (13.5-17.5); Lymphocytes % 16.6; MCH 30.7 pg (27.0-33.0); MCHC 34.1 % (32.0-36.0); MCV 90 fL (80-95); MPV 12.3 fL (8.0-11.0); Monocytes % 18.4; Neutrophils % 61.2; Platelet Count 259 10^3/uL (130-400); RBC 3.74 10^6/uL (4.36-5.78); RDW 15.9 % (11.8-14.1); RDW-SD 52.9 fL; WBC 5.86 10^3/uL (4.4-10.8)
--- NOTE | 2021-10-23 14:12 | ED.GENADUL_ITS ---
Discharge Plan Disposition Patient Disposition: HOME Condition: Improving Discharge Details Clinical Impression: Neck pain Primary Care Provider: Jessa Cool ED Provider: Hipolito Turner Home Meds and New Rx's Prescriptions: New oxycodone-acetaminophen [Percocet] 5-325 mg tablet 1 tab PO Q8H PRNQty: 8 0RF cyclobenzaprine 5 mg tablet 5 mg PO TID PRNQty: 8 0RF Continued atorvastatin 40 mg tablet 40 mg PO DAILY multivitamin [Daily Vitamin] 1 EACH tablet 1 ea PO DAILY cholecalciferol (vitamin D3) [Vitamin D3] 400 UNIT capsule 400 unit PO DAILY tamsulosin 0.4 mg capsule 0.8 mg PO DAILY Qty: 180 3RF Acetaminophen [Tylenol] 1,000 mg PO TID PRN PRNQty: 0 0RF melatonin 3 mg tablet 3 - 6 mg PO HS Label Comments: TAKE TWO TABLETS BY MOUTH AT BEDTIME NEEDED FOR SLEEP Eliquis 2.5 mg tablet 2.5 mg PO BID sennosides [Senokot] 8.6 mg Tablet 1 tab PO BID PRN PRNQty: 30 0RF tramadol 50 mg Tablet 50 mg PO QID PRN PRNQty: 20 0RF methocarbamol 750 mg Tablet 750 mg PO QID PRN PRNQty: 30 0RF gabapentin 100 mg Capsule 100 mg PO TID Qty: 30 0RF Discharge Instructions Instructions: Neck Pain (ED) Additional Instructions: Laboratory values and imaging do not reveal any obvious emergent process. We discussed further evaluation with a lumbar puncture but at this time this was declined. Flexeril and Percocet as directed, both of these medications may cause drowsiness. I also recommend taking [id number] stool softener while taking this medication as they can cause constipation. Wear the soft c-collar as needed, advance activity as tolerated. Please watch for new or worsening symptoms and return to the ER for any concerns. Cool and/or warm compresses every 2 hours for 20 minutes. Lastly, please contact your primary care provider on Tuesday to discuss your ER visit need for outpatient reevaluation. Discharge Data Discharge Date/Time-TO BE ENTERED AT DEPARTURE: 10/23/21 18:24 Medical Decision Making <Sarmad Walton NP - Last Filed: 10/25/21 08:13> Patient presenting to the emergency department for chief complaint of neck pain. Patient states 4 days ago he had a minor fall and landed on his right buttock but thought nothing of it and went along with his day. The next day patient woke up with some neck pain mostly at the basilar skull. Pain was mild initially but has become progressively worse and patient states throbbing pain that he feels with every heartbeat radiating up into his neck. Patient denies any fever chills, nausea vomiting. Does state headache at the base of his skull. He is having difficulty with range of motion of his neck but denies any palpable tenderness. Physical exam shows no palpable tenderness, significant cervical rigidity is noted. No neurological symptoms were noted. We will plan on treating patient's pain and discomfort along with x-ray imaging. Did consider CTA given patient's age and severity of pain but due to limited IV contrast discussed case with radiologist and we will plan on treating patient's pain and discomfort with plain film imaging and then reassessing patient. Review of plain film imaging shows significant stenosis but no acute fracture. Reassessed patient and patient stated no improvement of pain control after receiving Flexeril and tramadol. We will plan on giving patient more medication and ordering CTA. Labs are reviewed and patient does have anemia which is not much change from baseline. Reviewed CMP and does show slight elevation of AST and ALT but otherwise unremarkable nondiagnostic CMP. After ordering CTA radiology did call and stated that MRA was available which I feel is appropriate given contrast shortage. Orders were changed. Imaging Data Radiologic Study: Imaging: X-Ray Radiologist's impression: FINDINGS: The odontoid is intact. The lateral masses are well aligned. There is a mild left convex curvature of the cervical spine. There is narrowing of the C3-4 and C6-C7 disc spaces. Anterior osteophytes are present throughout the cervical spine. No acute fracture or subluxation is present. Moderately severe narrowing of the neural foramen is seen on the right at C3-4, C4-C5 and C5-C6. It is seen on the lesser degree at C6-C7. On the left there is neural foraminal stenosis seen from C3-4 through C7-T1. The cervical thoracic junction is well maintained. The prevertebral soft tissues are unremarkable. Lung apices are clear. IMPRESSION: Marked degenerative changes seen throughout the cervical spine. Lab Data Lab results reviewed: Yes I reviewed the patient's lab results. <PASCUAL Ndiaye Last Filed: 10/23/21 18:06> Patient presenting to the emergency department for chief complaint of neck pain. Patient states 4 days ago he had a minor fall and landed on his right buttock but thought nothing of it and went along with his day. The next day patient woke up with some neck pain mostly at the basilar skull. Pain was mild initially but has become progressively worse and patient states throbbing pain that he feels with every heartbeat radiating up into his neck. Patient denies any fever chills, nausea vomiting. Does state headache at the base of his skull. He is having difficulty with range of motion of his neck but denies any palpable tenderness. Physical exam shows no palpable tenderness, significant cervical rigidity is noted. No neurological symptoms were noted. We will plan on treating patient's pain and discomfort along with x-ray imaging. Did consider CTA given patient's age and severity of pain but due to limited IV contrast discussed case with radiologist and we will plan on treating patient's pain and discomfort with plain film imaging and then reassessing patient. Review of plain film imaging shows significant stenosis but no acute fracture. Reassessed patient and patient stated no improvement of pain control after receiving Flexeril and tramadol. We will plan on giving patient more medication and ordering CTA. Labs are reviewed and patient does have anemia which is not much change from baseline. Reviewed CMP and does show slight elevation of AST and ALT but otherwise unremarkable nondiagnostic CMP. After ordering CTA radiology did call and stated that MRA was available which I feel is appropriate given contrast shortage. Orders were changed. [id number] Hipolito Turner PA-C I assumed care of this 81-year-old gentleman from my colleague VINI Walton, please see his initial HPI and examination. At time of signout awaiting MRA of brain and neck without contrast. Patient reports neck discomfort status post fall 4 days ago, worsening in nature. Denies a global headache, fever, focal numbness, weakness, etc. Patient had blood work and plain films, at time of signout the patient is in diagnostic imaging. He has already received analgesia and muscle relaxer with little relief. His IV was accidentally dislodged. Plan is to provide a soft collar and a 0.5 IM of Dilaudid once he returns from diagnostic imaging. Upon my evaluation of the patient he appears well, nontoxic. Patient is able to move his neck laterally to the right however he is not able to break midline when moving to the left. He is able to partially bring his chin inferiorly to his chest but not fully. I am able to reproduce a small amount of discomfort to his left sternocleidomastoid region but otherwise there is no reproducible palpable discomfort. Negative Kernig and Brudzinski sign. Clinically this appears to be more of a musculoskeletal presentation. The MRA of the brain and neck were read by radiology as negative. Patient reports modest improvement of his discomfort with IM Dilaudid and the soft collar. Clinically low suspicion for meningitis although we did discuss his presentation, lack of fever, normal white count, x-ray and MRI findings, and risk versus benefits of lumbar puncture for further evaluation. At this time he declines a lumbar puncture but assures me he will return to the ER for new or worsening symptoms. He feels well enough for discharge and would like a prescription for short-term analgesia and he will continue wearing the soft collar. Standard discharge and return precautions were provided. Patient understands, is agreeable to this plan, and has no additional questions or concerns upon discharge. This documentation was generated using [employer] system, please disregard any oddities of phrase or misspellings. Medical Records Medical records reviewed: Yes I reviewed the patient's medical records. Imaging Data Radiologic Study #2: Attestation: I personally reviewed and interpreted this imaging study as follows: Imaging: MRI Radiologist's impression: Exam(s) MR ANGIO NECK WO EXAM: MR ANGIO NECK WO CLINICAL HISTORY: neck pain. TECHNIQUE: Multiplanar multisequence MRA of the Neck was performed. COMPARISON: No exams were available for comparison FINDINGS: Common Carotid: Right: No dissection, occlusion or significant stenosis. Left: No dissection, occlusion or significant stenosis. External Carotid: Right: No evidence of occlusion or significant stenosis. Left: No evidence of occlusion or significant stenosis. Internal Carotid: Right: No dissection, occlusion or significant stenosis. Left: No dissection, occlusion or significant stenosis. Vertebral Artery: Right: No dissection, occlusion or significant stenosis. Left: No dissection, occlusion or significant stenosis. The visualized paraspinal soft tissues are unremarkable. IMPRESSION: 1. No evidence of dissection, occlusion or significant stenosis. 2. Results of this exam have been verbally communicated with provider. Radiologic Study #3: Attestation: I personally reviewed and interpreted this imaging study as follows: Imaging: MRI Radiologist's impression: Exam(s) MR ANGIO BRAIN WO CLINICAL HISTORY: headache. TECHNIQUE: Multiplanar multisequence MRA of the brain was performed. COMPARISON: None. FINDINGS: Carotid Arteries: No aneurysm, occlusion or significant stenosis. Anterior Cerebral Arteries: Right: No aneurysm, occlusion or significant stenosis. Left: No aneurysm, occlusion or significant stenosis. Middle Cerebral Arteries: Right: No aneurysm, occlusion or significant stenosis. Left: No aneurysm, occlusion or significant stenosis. Posterior Cerebral Arteries: Right: No aneurysm, occlusion or significant stenosis. Left: No aneurysm, occlusion or significant stenosis. Vertebral Arteries: Right: No aneurysm, occlusion or significant stenosis. Left: No aneurysm, occlusion or significant stenosis. Basilar Artery: No aneurysm, occlusion or significant stenosis. Limited MRI of the brain shows cerebral atrophy consistent with the patient's age. There are areas of hyperintense signal seen on the white matter on the T2 images consistent with small vessel ischemic disease. Diffusion-weighted images show no evidence of an acute infarct. IMPRESSION: 1. Normal MRA examination of the [place]. 2. Results of this exam have been verbally communicated with provider. Lab Data Lab results reviewed: Yes I reviewed the patient's lab results. Labs: Laboratory Tests Range/Units 10/23/21 10/23/21 13:45 13:45 WBC (4.4-10.8) 10^3/uL 5.86 RBC (4.36-5.78) 10^6/uL 3.74 L Hgb (13.5-17.5) g/dL 11.5 L Hct (40.0-50.0) % 33.7 L MCV (80-95) fL 90 MCH (27.0-33.0) pg 30.7 MCHC (32.0-36.0) % 34.1 RDW (11.8-14.1) % 15.9 H Plt Count (130-400) 10^3/uL 259 MPV (8.0-11.0) fL 12.3 H Immature Gran % 1.0 Neutrophils % 61.2 Lymphocytes % 16.6 Monocytes % 18.4 Eosinophils % 2.6 Basophils % 0.2 Nucleated RBC % (0.0-0.3) % 0.0 Absolute Neutrophils (1.2-6.7) 10^3/uL 3.59 Absolute Lymphocytes (1.2-3.4) 10^3/uL 0.97 L Absolute Monocytes (0.1-0.8) 10^3/uL 1.08 H Absolute Eosinophils (0.0-0.7) 10^3/uL 0.15 Absolute Basophils (0.0-0.2) 10^3/uL 0.01 RBC Morphology Normal Sodium (136-145) mmol/L 137 Potassium (3.5-5.1) mmol/L 4.0 Chloride (98-107) mmol/L 102 Carbon Dioxide (21.0-32.0) mmol/L 25.1 Anion Gap (3-11) mmol/L 9.9 BUN (7-18) mg/dL 17 Creatinine (0.70-1.30) mg/dL 0.8 Estimated GFR/1.73 m2 (mL/min/1.73m2) >= 60.00 Glucose (74-106) mg/dL 121 H Calcium (8.5-10.1) mg/dL 9.0 Total Bilirubin (0.2-1.0) mg/dL 0.9 AST (15-37) U/L 47 H ALT (16-63) U/L 74 H Alkaline Phosphatase (46-116) U/L 103 Total Protein (6.4-8.2) g/dL 7.8 Albumin (3.4-5.0) g/dL 3.8 HPI <Sarmad Walton NP - Last Filed: 10/25/21 08:13> General Mode of arrival: ambulatory . Date/Time Provider Initiated Documentation: 10/23/21 10:57 . Limitations to Documentation: no limitations . Information obtained by: patient and RN notes reviewed . History of Present Illness 81 year old M presents to the emergency department with the chief complaint of neck pain, described as severe, with intensity rated at 9. Quality is described as aching and sharp, and is localized to the head and neck. Patient reports no radiation. Patient started experiencing this day(s) (3) and it has been constant. No relieving factors improve symptom(s), No exacerbating factors reported . Patient notes loss of appetite and malaise; denies fever/chills, nausea/vomiting, rash and weakness. Patient did receive the following treatments prior to arrival, NSAID Related Data Home Medications Medication Instructions Recorded Confirmed cholecalciferol (vitamin D3) 10 400 unit PO DAILY 05/29/13 10/23/21 mcg (400 unit) capsule (Vitamin D3) multivitamin (Daily Vitamin tablet) 1 ea PO DAILY 05/29/13 10/23/21 Acetaminophen [Tylenol] 1,000 mg PO TID PRN PRN ##0 01/14/21 06/27/21 atorvastatin 40 mg tablet 40 mg PO DAILY 02/27/21 10/23/21 tamsulosin 0.4 mg capsule 0.8 mg PO DAILY #180 caps 03/23/21 10/23/21 melatonin 3 mg tablet 3 - 6 mg PO HS 06/27/21 06/27/21 apixaban 2.5 mg tablet (Eliquis) 2.5 mg PO BID 07/01/21 10/23/21 gabapentin 100 mg capsule 100 mg PO TID #30 caps 07/07/21 methocarbamol 750 mg tablet 750 mg PO QID PRN PRN #30 tabs 07/07/21 sennosides 8.6 mg tablet (Senokot) 1 tab PO BID PRN PRN #30 tabs 07/07/21 tramadol 50 mg tablet 50 mg PO QID PRN PRN #20 tabs 07/07/21 10/23/21 cyclobenzaprine 5 mg tablet 5 mg PO TID PRN #8 tabs 10/23/21 oxycodone-acetaminophen 5 mg-325 1 tab PO Q8H PRN #8 tabs 10/23/21 mg tablet (Percocet) Previous Rx's Medication Instructions Recorded Acetaminophen [Tylenol] 1,000 mg PO TID PRN PRN ##0 01/14/21 tamsulosin 0.4 mg capsule 0.8 mg PO DAILY #180 caps 03/23/21 gabapentin 100 mg capsule 100 mg PO TID #30 caps 07/07/21 methocarbamol 750 mg tablet 750 mg PO QID PRN PRN #30 tabs 07/07/21 sennosides 8.6 mg tablet (Senokot) 1 tab PO BID PRN PRN #30 tabs 07/07/21 tramadol 50 mg tablet 50 mg PO QID PRN PRN #20 tabs 07/07/21 cyclobenzaprine 5 mg tablet 5 mg PO TID PRN #8 tabs 10/23/21 oxycodone-acetaminophen 5 mg-325 1 tab PO Q8H PRN #8 tabs 10/23/21 mg tablet (Percocet) Allergies Allergy/AdvReac Type Severity Reaction Status Date / Time No Known Allergies Allergy Unverified 09/09/21 15:38 paper tape Allergy Intermediate skin Uncoded 09/09/21 15:38 breakdown General Stated Complaint: Nk/Back Pain ELY: 3 Review of Systems <Sarmad Walton NP - Last Filed: 10/25/21 08:13> Constitutional Constitutional: Denies chills, Denies fever(s), Reports headache(s) and Reports malaise Eyes Eyes: Denies change in vision ENT Ears, Nose, Mouth, and Throat: Denies otalgia, Denies facial pain, Reports he adache(s) and Reports neck pain Cardiovascular Cardiovascular: Denies chest pain and Denies dyspnea Respiratory Respiratory: Denies dyspnea Gastrointestinal Gastrointestinal: Denies abdominal pain, Denies diarrhea, Denies nausea and Denies vomiting Musculoskeletal Musculoskeletal: Reports as per HPI, Denies muscle weakness, Reports neck pain, Denies radiating pain into limb, Reports stiffness and Denies tingling Integumentary/Breasts Skin/Breast: Denies rash Neurologic Neurologic: Reports as per HPI, Reports headache(s), Denies localized weakness, Denies sensory deficit, Denies tingling and Denies paresthesias PFSH <Sarmad Walton NP - Last Filed: 10/25/21 08:13> All Active Problems (Updated 10/23/21 @ 18:03 by PASCUAL Ndiaye) Neck pain (Acute) Herniation of intervertebral disc between L4 and L5 (Acute) Ambulatory dysfunction (Acute) Back pain (Acute) Bilateral leg weakness (Acute) Leg wound, right (Acute) Pulmonary nodule (Chronic) Traumatic hematoma of buttock (Acute) COVID-19 (Acute) Healing wound present on both lower extremities (Chronic) Falls (Acute) Rhabdomyolysis (Acute) Weakness (Acute) Fall (Acute) COVID (Acute) Ambulatory dysfunction (Acute) Posttraumatic wound infection (Acute) Cellulitis of forearm, left (Acute) Genu valgum, acquired (Acute) Unilateral primary osteoarthritis, left knee (Acute) Personal history of colonic polyps (Acute) Medical History Compartment syndrome Deep venous thrombosis DIVERTICULOSIS Gout Hyperlipidemia Melanosis coli Palliative care patient Peripheral venous insufficiency LEFT LEG Polyp of colon TUBULAR ADENOMA [id number] ADENOMA Psoriasis STROKE EMBOLIC Urinary retention Surgical History BACK OPERATION (~04/2008) h/o GBS epidural abscess, treated at [facility] [place] in 2007 Colonoscopy - IV Sedation (06/10/10) [id number] ADENOMA 06/18/16 no pathological features from ascending colon polyp Colonoscopy - IV Sedation (06/18/16) [id number] ADENOMA 06/18/16 no pathological features from ascending colon polyp Family History Mother Dementia Father Alzheimer's disease Sister Alzheimer's disease Parkinson's disease Social History Smoking/Tobacco Use Status: Former Tobacco Use Smoking risk assessment performed?: Yes Alcohol Intake: former Drug use: Never Substance use type: does not use Details: quit smoking 30 yrs ago Do you feel safe at home: Yes Do you feel safe in your relationship?: Yes Exam <Sarmad Walton NP - Last Filed: 10/25/21 08:13> Const General: cooperative, healthy appearing, no acute distress and well groomed Orientation: alert, awake and oriented x3 HENMT Head: normal to inspection Ears: hearing grossly normal bilaterally and TM's normal bilaterally Mouth: oral mucosae normal and moist mucous membranes Throat: posterior oropharynx normal Eyes Visual Jose: normal visual jose by confrontation Alignment and Position: alignment normal Periorbital: periorbital findings normal Eyelids: eyelids normal Sclera: sclerae normal Pupils: PERRL EOM: EOM intact bilaterally Neck Neck: normal visual inspection, no lymphadenopathy, no meningeal signs, no anterior neck swelling, nontender and torticollis Resp Effort & Inspection: normal respiratory effort and able to speak in complete sentences Auscultation: clear to auscultation bilaterally Cardio Rate: regular rate Rhythm: regular rhythm Heart Sounds: S1 normal and S2 normal Back/Spine/Pelvis Cervical Spine: No cervical muscular tenderness, pain with cervical ROM, cervical spasm and No cervical spinal tenderness Neuro General: patient alert, patient awake, patient oriented x3, gait normal, tone normal, moves all extremities and not confused Cognition: normal cognition Speech: speech normal Motor: muscle tone normal throughout, strength 5/5 throughout and no movement abnormalities noted Sensory Exam: no sensory deficits noted Course <Sarmad Walton NP - Last Filed: 10/25/21 08:13> Vital Signs Vital signs: Vital Signs Temperature 36.3 C L 10/23/21 10:53 Pulse 57 L 10/23/21 10:53 Respiratory Rate 22 10/23/21 10:53 Blood Pressure 134/65 10/23/21 10:53 Pulse Oximetry 98 10/23/21 10:53 Temperature 36.3 C L 10/23/21 10:53 Temperature Source Temporal Artery Scan 10/23/21 10:53 Pulse 57 L 10/23/21 10:53 Respiratory Rate 22 10/23/21 10:53 Respiratory Effort 10/23/21 13:27 Blood Pressure 134/65 10/23/21 10:53 Blood Pressure Position Sitting 10/23/21 10:53 Pulse Oximetry 98 10/23/21 10:53 Oxygen Delivery Method Room Air 10/23/21 10:53 Oxygen Flow Rate 0 10/23/21 10:53 Pain Level 8 10/23/21 13:27 Sign Out <Sarmad Walton NP - Last Filed: 10/25/21 08:13> Sign Out Data: Sign Out Comment: Patient pending MRA brain and neck results for significant nuchal rigidity and neck pain. Patient being given IM pain medication and plan for reassessment for any further testing if needed. Last updated by Sarmad Walton NP at 10/23/21 16:17 PAWSS <Sarmad Walton NP - Last Filed: 10/25/21 08:13> Have you Been Recently Intoxicated or Drunk Within the Last 30 days?: No Have you Ever Experienced Previous Episodes of Alcohol Withdrawal?: No Have you ever Experienced Withdrawal Seizures?: No Have you ever Experienced Delirium Tremens(DT)s?: No Have you ever undergone Alcohol Rehabilitation Treatment (i.e, inpt ot outpatient treatment programs)?: No Have you ever Experienced Blackouts?: No Have you ever Combined Alcohol with other Downers within the last 90 days?: No Have you ever Combined Alcohol with any other Substance of Abuse during the last 90 days?: No Positive Blood Alcohol level on Presentation? [PCS.BAL]: No Evidence of Increased Autonomic Activity (i.e. HR>120, tremor, sweating, agitation, nausea)?: No Result: 0 <PASCUAL Ndiaye - Last Filed: 10/23/21 18:06> Result: 0
[2021-10-23 14:24] LABS: ALT 74 U/L (16-63); AST 47 U/L (15-37); Albumin 3.8 g/dL (3.4-5.0); Alkaline Phosphatase 103 U/L (46-116); Anion Gap 9.9 mmol/L (3-11); BUN 17 mg/dL (7-18); Bilirubin, Total 0.9 mg/dL (0.2-1.0); CO2 25.1 mmol/L (21.0-32.0); CREATININE 0.8 mg/dL (0.70-1.30); Chloride 102 mmol/L (98-107); Glucose 121 mg/dL (74-106); Sodium 137 mmol/L (136-145); Total Protein 7.8 g/dL (6.4-8.2)
[2021-10-23 14:30] LABS: Diff Comment Agrees w/ Instrument; RBC Morphology Normal
--- NOTE | 2021-10-23 14:56 | NUR.NOTE ---
Nursing Note: pt is now sleeping comfortably awaiting scan
--- NOTE | 2021-10-23 15:00 | DI.MRI_ITS ---
Exam(s) MR ANGIO BRAIN WO CLINICAL HISTORY: headache. TECHNIQUE: Multiplanar multisequence MRA of the brain was performed. COMPARISON: None. FINDINGS: Carotid Arteries: No aneurysm, occlusion or significant stenosis. Anterior Cerebral Arteries: Right: No aneurysm, occlusion or significant stenosis. Left: No aneurysm, occlusion or significant stenosis. Middle Cerebral Arteries: Right: No aneurysm, occlusion or significant stenosis. Left: No aneurysm, occlusion or significant stenosis. Posterior Cerebral Arteries: Right: No aneurysm, occlusion or significant stenosis. Left: No aneurysm, occlusion or significant stenosis. Vertebral Arteries: Right: No aneurysm, occlusion or significant stenosis. Left: No aneurysm, occlusion or significant stenosis. Basilar Artery: No aneurysm, occlusion or significant stenosis. Limited MRI of the brain shows cerebral atrophy consistent with the patient's age. There are areas o f hyperintense signal seen on the white matter on the T2 images consistent with small vessel ischemic disease. Diffusion-weighted images show no evidence of an acute infarct. IMPRESSION: 1. Normal MRA examination of the [place]. 2. Results of this exam have been verbally communicated with provider. DATA REPOSITORY:
--- NOTE | 2021-10-23 15:00 | DI.MRI_ITS ---
Exam(s) MR ANGIO NECK WO EXAM: MR ANGIO NECK WO CLINICAL HISTORY: neck pain. TECHNIQUE: Multiplanar multisequence MRA of the Neck was performed. COMPARISON: No exams were available for comparison FINDINGS: Common Carotid: Right: No dissection, occlusion or significant stenosis. Left: No dissection, occlusion or significant stenosis. External Carotid: Right: No evidence of occlusion or significant stenosis. Left: No evidence of occlusion or significant stenosis. Internal Carotid: Right: No dissection, occlusion or significant stenosis. Left: No dissection, occlusion or significant stenosis. Vertebral Artery: Right: No dissection, occlusion or significant stenosis. Left: No dissection, occlusion or significant stenosis. The visualized paraspinal soft tissues are unremarkable. IMPRESSION: 1. No evidence of dissection, occlusion or significant stenosis. 2. Results of this exam have been verbally communicated with provider. DATA REPOSITORY:
--- NOTE | 2021-10-23 15:18 | NUR.NOTE ---
Nursing Note: woke pt for MRI transport. woke easily. pt was groggy and had a difficult time signing name but oriented and able to follow all commands and answer all hx questions for MRI
[2021-10-23] MEDS: HYDROmorphone 2 MG/ML VIAL 0.5 MG IM (16:37)
[2021-10-23 18:22] VITALS: BP 128/80; PULSE 68; RESP 18; TEMP 37; O2SAT 98
== END 2021-10-23 18:24 | disposition home or self-care (01) ==
PROVIDERS: Nurse Practitioner Family; Emergency Provider Physician Assistant; PCP Family Medicine
DX: M54.2 Cervicalgia (principal); R51.9 Headache, unspecified; R29.1 Meningismus; R29.6 Repeated falls
CPT/HCPCS: 70544; 70547; 80053; 96372; 99285; 72050; 85025; 99284

== ENCOUNTER 2021-12-11 01:22 | Outpatient (CLI) | payer MEDICARE, OTHER, SELFPAY ==
[2021-12-11 13:11] LABS: HCT 32.9 % (40.0-50.0); HGB 10.9 g/dL (13.5-17.5); MCH 30.3 pg (27.0-33.0); MCHC 33.1 % (32.0-36.0); MCV 91 fL (80-95); MPV 12.4 fL (8.0-11.0); Platelet Count 310 10^3/uL (130-400); RDW-SD 53.5 fL; WBC 3.75 10^3/uL (4.4-10.8)
[2021-12-11 13:32] LABS: Absolute Neutrophil Count 1.61 10^3/uL (1.2-6.7)
[2021-12-11 13:33] LABS: Absolute Basophil Count 0.08 10^3/uL (0.0-0.2); Absolute Eosinophil Count 0.26 10^3/uL (0.0-0.7); Atypical Lymphocytes % 2; Diff Comment Manual Differential; RBC Morphology Normal
== END 2021-12-11 01:23 | disposition home or self-care (01) ==
LOC: LBO 01:22
PROVIDERS: PCP Family Medicine; Visit Provider Internal Medicine Hematology
DX: D46.9 Myelodysplastic syndrome, unspecified (principal)
CPT/HCPCS: 36415; 85025

== ENCOUNTER → 2021-12-16 12:56 | Outpatient (BNVA) | payer MEDICARE, OTHER, SELFPAY | PROVIDERS: PCP Family Medicine; Referring Provider Family Medicine; Visit Provider Nurse Practitioner Gerontology | DX: R33.8 Other retention of urine (principal); R39.15 Urgency of urination | CPT/HCPCS: 99214 ==

== ENCOUNTER 2022-02-05 06:46 | Day surgery (SDC) | payer MEDICARE, OTHER, SELFPAY ==
[2022-02-05 06:55] VITALS: BP 98/44; PULSE 57; RESP 18; TEMP 36.3; O2SAT 99
[2022-02-05] MEDS: Tropicam./Phenyleph. (1/2.5%) 5 ML BTL OS ×3 (07:18→07:24)
--- NOTE | 2022-02-05 07:37 | W.ANESPRE ---
General Info Date of Service Date Performed: 02/05/22 Height: 6 ft 5 in Weight: 76.5 kg Body Mass Index (BMI): 20.0 Surgical Procedure: Operation Date: 02/05/22 08:25 Proposed Procedure Side Surgeon p Cataract Extraction with IOL Implant Left Sergio Cole MD Meds Allergies and Home Medications Allergies Allergy/AdvReac Type Severity Reaction Status Date / Time adhesive AdvReac Intermediate Verified 02/05/22 07:07 Home Medication Medication Instructions Recorded cholecalciferol (vitamin D3) 10 400 unit PO DAILY 05/29/13 mcg (400 unit) capsule (Vitamin D3) multivitamin (Daily Vitamin tablet) 1 ea PO DAILY 05/29/13 Acetaminophen [Tylenol] 1,000 mg PO TID PRN PRN ##0 01/14/21 atorvastatin 40 mg tablet 40 mg PO DAILY 02/27/21 tamsulosin 0.4 mg capsule 0.8 mg PO DAILY #180 caps 03/23/21 apixaban 2.5 mg tablet (Eliquis) 2.5 mg PO BID 07/01/21 sennosides 8.6 mg tablet (Senokot) 1 tab PO BID PRN PRN #30 tabs 07/07/21 melatonin 3 mg tablet 3 - 6 mg PO PRN 01/07/22 Current Visit Medications: Current Medications Generic Name Dose Route Start Last Admin Trade Name Freq PRN Reason Stop Dose Admin Acetaminophen 1,000 mg 02/05/22 06:00 Acetaminophen 500 Mg Tab PO Q4H PRN PRN Miscellaneous Medication 0 ml 02/05/22 06:00 Prednisolone 1%, Moxifloxacin 0.5%, Nepafenac 0.1% 5ml Btl OS DIRECTED NANCY Miscellaneous Medication 0 ml 02/05/22 06:00 02/05/22 07:24 Tropicam./Phenyleph. 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 Posttraumatic wound infection T14.8XXA, L08.9 Cellulitis of forearm, left L03.114 Ambulatory dysfunction R26.2 COVID U07.1 Rhabdomyolysis M62.82 Fall W19.XXXA Falls W19.XXXA Rhabdomyolysis M62.82 Weakness R53.1 Healing wound present on both lower extremities COVID-19 U07.1 Traumatic hematoma of buttock S30.0XXA Pulmonary nodule R91.1 Leg wound, right S81.801A Bilateral leg weakness R29.898 Back pain M54.9 Ambulatory dysfunction R26.2 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 [place] in 2007 Colonoscopy - IV Sedation (06/10/10) [id number] ADENOMA 06/18/16 no pathological features from ascending colon polyp Colonoscopy - IV Sedation (06/18/16) [id number] ADENOMA 06/18/16 no pathological features from ascending colon polyp Tobacco Smoking/Tobacco Use Status: Former Tobacco Use Alcohol Alcohol Intake: former Substance Use Substance use: Never Substance use type: does not use Vital Signs and Lab Results Vital Signs Most Recent Vital Signs in EMR: Most Recent Vital Signs Temp Pulse Resp BP Pulse Ox 36.3 C L 57 L 18 98/44 L 99 02/05/22 06:55 02/05/22 06:55 02/05/22 06:55 02/05/22 06:55 02/05/22 06:55 Lab Results Blood Type / Crossmatch: No Data to Display Complete Blood Count: No Data to Display Complete Metabolic Panel: No Data to Display Liver Function Panel: No Data to Display Coagulation Panel: No Data to Display Cardiac Panel: No Data to Display Arterial Blood Gas: No Data to Display Venous Blood Gas: No Data to Display Pancreas Panel: No Data to Display Thyroid Panel: No Data to Display Infectious Disease: No Data to Display Blood Cultures: No Data to Display Toxicology Panel: No Data to Display Anesthesia Assessment and Plan Anesthesia History Personal History: No History of Anesthesia Complications Family History: No Family History of Anesthesia Complications Exercise Tolerance Exercise Tolerance: Metabolic Equivalents>4 Cardiac & Pulmonary Exam Cardiac Exam: Normal S1/S2 Heart Sounds Pulmonary Exam: Clear Bilateral Breath Sounds Implantable Cardiac Device Does patient have a Pacemaker or an ICD?: No Airway Exam Known Difficult Airway: No Mallampati Class: 2 Mouth Opening: Narrow (< 3cm) Thyromental Distance: Greater than 3 cm Neck Range of Motion: Full ROM Neck Circumference: Normal Teeth Condition: Normal Dentition ASA Classification ASA Score: ASA 3 Emergency Case?: No NPO Status NPO Status: NPO Clears >2 hours, Solids >8 hours Anesthesia Plan Resuscitation Status: Full Code Anesthesia Technique: MAC Anesthesia Airway Planned: Natural Airway Monitors Used: Standard Monitors
[2022-02-05] MEDS: Tetracaine 0.5% 4 ML BTL OS (08:15)
[2022-02-05] MEDS: Duovisc Viscoelastic System EACH 1 EACH (08:16)
[2022-02-05] MEDS: Balanced Salt Soln.-PLUS 500 ML BAG (08:16)
[2022-02-05] MEDS: Lidocaine 2% Jelly 6 ML SYR (08:17)
[2022-02-05] MEDS: Povidone-Iodine Ophth 30 ML BTL (08:18)
[2022-02-05 08:34] VITALS: BP 102/56; RESP 49; TEMP 36.2; O2SAT 99
--- NOTE | 2022-02-05 08:34 | W.PM.DSUDISC ---
Discharge Plan Disposition Patient Disposition: HOME Condition: Good Discharge Details Attending Provider: Sergio Cole Primary Care Provider: Jessa Cool Home Meds and New Rx's Prescriptions: No Action atorvastatin 40 mg tablet 40 mg PO DAILY multivitamin [Daily Vitamin] 1 EACH tablet 1 ea PO DAILY cholecalciferol (vitamin D3) [Vitamin D3] 400 UNIT capsule 400 unit PO DAILY tamsulosin 0.4 mg capsule 0.8 mg PO DAILY Qty: 180 3RF Acetaminophen [Tylenol] 1,000 mg PO TID PRN PRNQty: 0 0RF Eliquis 2.5 mg tablet 2.5 mg PO BID sennosides [Senokot] 8.6 mg Tablet 1 tab PO BID PRN PRNQty: 30 0RF melatonin 3 mg tablet 3 - 6 mg PO PRN Label Comments: TAKE TWO TABLETS BY MOUTH AT BEDTIME NEEDED FOR SLEEP Discharge Instructions Stand Alone Forms: Post-op Topical Cataract, Press Ganey (DSU) Discharge Orders Discharge Orders: Discharge Order (Routine); Ordered 02/05/22 Ordered By: Sergio Cole DS: Diagnosis Discharge Diagnosis (1) Posterior subcapsular age-related cataract of left eye: Status: Resolved (2) Nuclear sclerotic cataract of left eye: Status: Resolved (3) Cortical cataract of left eye: Status: Resolved
--- NOTE | 2022-02-05 08:35 | ROE_ITS ---
Date of service: 02/05/22 Time of Service: 08:35 Operative Note Operative Note DATE OF PROCEDURE: 02/05/22 PRE-OP DIAGNOSIS: Nuclear/cortical/posterior subcapsular cataract, left eye Poorly dilating pupil, left eye POST-OP DIAGNOSIS: same PROCEDURE: Cataract extraction using phacoemulsification with intraocular lens implant, left eye Pupillary dilation using pupillary expansion device SURGEON: Sergio Cole ANESTHESIA TYPE: Local By Surgeon and MAC Refer to Anesthesia Record PATHOLOGY: none sent COMPLICATIONS: None Patient was transported to: same day Patient's condition: stable Implants: Elian Clareon [id number] Indications: Progressive decreased vision due to cataract, left eye Poorly dilating pupil, left eye Procedure Description: CATARACT SURGERY OPERATIVE REPORT PREOPERATIVE DIAGNOSIS: Nuclear/cortical/posterior subcapsular cataract, left eye Poorly dilating pupil, left eye POSTOPERATIVE DIAGNOSIS: Same OPERATION: Cataract extraction using phacoemulsification with posterior chamber intraocular lens implant, left eye. Pupillary dilation and iris stabilization using 7.0 mm pupillary expansion device. IOL: IOL Java Support Engineer/Model: Elian Clareon [id number] IOL Power: + 16.0 diopters IOL Serial Number: [id number] Optic Diameter: 6.0mm Haptic/Overall Diameter: 13.0mm PHACO INFO: Elian Centurion Vision System with OZil and Active Fluidics Cumulative Dispersed Energy (CDE): 19.14 seconds SURGEON: Sergio Cole MD, RANDA ANESTHESIA: Monitored Anesthesia Care (MAC), with local sub-tenon's anesthetic infiltration COMPLICATIONS: None SPECIMENS: None INDICATIONS FOR PROCEDURE: The patient is a 81-year-old gentleman with history of diminished visual acuity in his left eye secondary to development of nuclear/cortical/posterior subcapsular cataract. The option of cataract surgery was offered to the patient and he wished to proceed. He has a history of myopia and desires to remain somewhat nearsighted so he can read without glasses postoperatively. Postoperative refractive target is -2.0 diopters. PROCEDURE: The correct surgical eye was identified and marked as the left eye and the pupil was dilated in the preoperative area using mydriatics and cycloplegics. The dilated pupil size was 4.0 mm. The patient elected to proceed without oral sedation. The patient was brought to the operating room where cardiopulmonary monitoring was instituted and surgical time-out was performed, confirming the correct operative eye and IOL power. Topical anesthesia was administered and ophthalmic povidone-iodine 5% was instilled into the conjunctival fornices. Lidocaine gel was applied to the cornea and the gil-ocular area was prepped with Betadine 10% solution and draped in the usual sterile fashion for intraocular surgery, including an aperture drape. A Tegaderm transparent film dressing was cut in half and used to cover the lashes and lid margins. Care was taken to sequester the lashes and lid margins under the Tegaderm dressing. A lid speculum was placed between the lids of the operative eye and the Elian LuxOR Revalia operating microscope was maneuvered into position. Aylin scissors were then used to make a conjunctival buttonhole approximately 6mm posterior to the limbus in the inferonasal quadrant. Blunt dissection was carried out to expose bare sclera, and a blunt-tipped sub-tenon?s anesthesia cannula was introduced and passed posteriorly along the globe where non- preserved plain lidocaine was injected into posterior sub-Tenon?s space. A sideport knife was used to make a paracentesis port superior/superiortemporally. Intraocular phenylephrine/lidocaine was injected into the anterior chamber. The anterior chamber was then filled with viscoelastic. A keratome knife was used construct a two-plane near-clear corneal tunnel extending 2.0mm into clear cornea in the temporal position. . A flap was raised on the anterior capsule and capsulorhexis forceps were used to complete a continuous curvilinear capsulorhexis of 5.0 mm. Balanced salt solution was then used to perform cortical cleaving hydrodissection and nuclear hydrodelineation until the lens could be freely rotated within the capsular bag. The lens nucleus was then disassembled and removed within the capsular bag and iris plane using phacoemulsification. Residual cortical material was removed using the 45-degree angled silicone I/A tip with 0.3mm port. The posterior capsule was carefully polished to remove as much residual lens epithelial cells as safely possible. The capsular bag was then inflated and the anterior chamber deepened with viscoelastic. The lens implant described above was inserted into the capsular bag using the Elian Autonome Injector. A Kuglen hook was used to dial the IOL into position. The pupillary expansion device was then removed in the reverse order of its insertion. Residual viscoelastic was then removed first from posterior to the IOL, then from the anterior chamber using the I/A handpiece. The lens implant was noted to center nicely within the capsular bag. The incisions were stromally hydrated, and the anterior chamber was reformed using BSS. Then 0.5cc of moxifloxacin 1.0mg/ml were injected into the capsular bag and anterior chamber. The incisions were checked with a Weck spear and found to be secure. Several drops of ophthalmic povidone-iodine 5% were then applied to the eye followed by two drops of Imprimis combination prednisolone/moxifloxacin/nepafenac solution. The drapes were removed and a clear plastic protective eye shield was placed over the eye. The patient was then returned to Same Day Surgery in stable condition.
--- NOTE | 2022-02-05 09:46 | W.ANESPOSTOP ---
Postoperative Evaluation Date, Time and Location Date Performed: 02/05/22 Time Performed: 08:40 Patient Location: Day Surgery Unit Vital Signs Most Recent Imported Vital Signs: Most Recent Vital Signs Temp Pulse Resp BP Pulse Ox 36.2 C L 57 L 49 H 102/56 L 99 02/05/22 08:34 02/05/22 06:55 02/05/22 08:34 02/05/22 08:34 02/05/22 08:34 Pain Score Most Recent Pain Score: Most Recent Pain Score Pain Level 0 02/05/22 08:34 Assessment Mental Status: Awake (Alert & Oriented to Patient Baseline) Airway and Respiratory Function: Patent airway with normal (patient baseline) respiratory exam Cardiovascular Function: Hemodynamically Stable Hydration Status: Adequately Hydrated Nausea & Vomiting: No Nausea or Vomiting Pain: Pt. Denies Any Pain Peripheral Nerve Block: Patient did not receive a nerve block
== END 2022-02-05 09:08 | disposition home or self-care (01) ==
LOC: SUR 06:46
PROVIDERS: PCP Family Medicine; Visit Provider Ophthalmology
PROC: (CPT 66982; principal; 2022-02-05 08:15)
DX: H25.042 Posterior subcapsular polar age-related cataract, left eye (principal); H57.03 Miosis
CPT/HCPCS: 66982; V2632

== ENCOUNTER → 2022-02-18 15:22 | Outpatient (CLI) | payer MEDICARE, OTHER, SELFPAY ==
--- NOTE | 2022-02-18 15:26 | DI.RAD_ITS ---
Exam(s) XR FOOT RT COMPLETE EXAM: XR FOOT RT COMPLETE CLINICAL HISTORY: NON-PRESSURE CHRONIC ULCER-L97.509, NEUROPATHIC ULCER OF FOOT TECHNIQUE: COMPARISON: CR LEFT FOOT COMPLETE from 08/22/2009 FINDINGS: Three views were obtained. The bones of the foot appear somewhat demineralized. There is a moderate flatfoot deformity. There are multiple calcific or osseous radiodensities in the soft tissues of th e hindfoot at the plantar surface. Small enthesophyte is noted at the plantar fascia attachment. There is a mild hallux valgus deformity. There are moderate degenerative changes at the 1st MTP join t. Mild mi articular degenerative changes noted elsewhere in the foot. No gross erosive or destructive lesion. IMPRESSION: RADIATION DOSE DELIVERED: Total DLP
== END ==
PROVIDERS: PCP Family Medicine; Visit Provider Podiatrist Foot & Ankle Surgery
DX: M20.11 Hallux valgus (acquired), right foot (principal); M19.071 Primary osteoarthritis, right ankle and foot
CPT/HCPCS: 73630

== ENCOUNTER 2022-03-10 15:56 | Outpatient (CLI) | payer MEDICARE, OTHER, SELFPAY ==
[2022-03-10 15:43] LABS: HCT 31.3 % (40.0-50.0); HGB 10.4 g/dL (13.5-17.5); MCH 31.3 pg (27.0-33.0); MCHC 33.2 % (32.0-36.0); MCV 94 fL (80-95); MPV 12.3 fL (8.0-11.0); Platelet Count 306 10^3/uL (130-400); RBC 3.32 10^6/uL (4.36-5.78); RDW 17.8 % (11.8-14.1); RDW-SD 62.4 fL; WBC 5.73 10^3/uL (4.4-10.8)
[2022-03-10 15:45] LABS: ESR 27 mm/hr (0-20)
[2022-03-10 16:14] LABS: ALT 32 U/L (16-63); AST 31 U/L (15-37); Albumin 3.5 g/dL (3.4-5.0); Alkaline Phosphatase 91 U/L (46-116); Anion Gap 3.7 mmol/L (3-11); BUN 24 mg/dL (7-18); Bilirubin, Total 0.6 mg/dL (0.2-1.0); CO2 30.3 mmol/L (21.0-32.0); Calcium 9.3 mg/dL (8.5-10.1); Chloride 105 mmol/L (98-107); Estimated GFR 76.56 (mL/min/1.73m2); Glucose 105 mg/dL (74-106); Potassium 4.2 mmol/L (3.5-5.1); Sodium 139 mmol/L (136-145); Total Protein 8.2 g/dL (6.4-8.2)
[2022-03-11 19:02] LABS: CRP, High Sensitivity >15.00 mg/L (See Note)
== END 2022-03-10 15:57 | disposition home or self-care (01) ==
LOC: LBO 15:57
PROVIDERS: PCP Family Medicine; Visit Provider Podiatrist Foot & Ankle Surgery
DX: L97.511 Non-pressure chronic ulcer of other part of right foot limited to breakdown of skin; L08.89 Other specified local infections of the skin and subcutaneous tissue
CPT/HCPCS: 36415; 80053; 85027; 85652; 86141

== ENCOUNTER → 2022-03-17 09:23 | Outpatient (BNVA) | payer MEDICARE, OTHER, SELFPAY | PROVIDERS: PCP Family Medicine; Referring Provider Family Medicine; Visit Provider Nurse Practitioner Gerontology | DX: R33.8 Other retention of urine (principal) | CPT/HCPCS: 99214 ==

== ENCOUNTER → 2022-03-18 10:11 | Outpatient (CLI) | payer MEDICARE, OTHER, SELFPAY ==
--- NOTE | 2022-03-18 09:30 | DI.RAD_ITS ---
Exam(s) XR FOOT RT COMPLETE EXAM: XR FOOT RT COMPLETE CLINICAL HISTORY: R hallux infection,l08.9 TECHNIQUE: COMPARISON: CR XR FOOT RT COMPLETE from 02/18/2022 FINDINGS: Three views were obtained. In comparison with prior examination of February 18, there is interval lo ss of bone at the tuft of the distal phalanx of the great toe. Assuming that there has not been an i nterval surgical procedure, the findings would be highly suggestive of osteomyelitis. No other gross erosive process seen. Moderate degenerative changes noted involving the IP joints. IMPRESSION: Bone loss suggestive of osteomyelitis involving the tuft of the distal phalanx of the great toe. Ple ase correlate with any surgical history. RADIATION DOSE DELIVERED: Total DLP
== END ==
PROVIDERS: PCP Family Medicine; Visit Provider Podiatrist Foot & Ankle Surgery
DX: R93.7 Abnormal findings on diagnostic imaging of other parts of musculoskeletal system (principal)
CPT/HCPCS: 73630

== ENCOUNTER → 2022-03-26 13:54 | Outpatient (CLI) | payer MEDICARE, OTHER, SELFPAY ==
--- NOTE | 2022-03-26 12:45 | DI.MRI_ITS ---
Exam(s) MR LOWER EXTREMITY RT WO/W EXAM: MR LOWER EXTREMITY RT WO/W CLINICAL HISTORY: osteomyelitis R foot,infection,ulcer,l08.9,l97.509 TECHNIQUE: Multiplanar multisequence MRI was performed. Both pre and post contrast infused sequence s were performed. Contrast used was intravenous 15 mL Dotarem COMPARISON: CR XR FOOT RT COMPLETE from 02/18/2022 CR XR FOOT RT COMPLETE from 03/18/2022 FINDINGS: There is a skin ulcer over the distal aspect of the great toe. MARROW:On precontrast images there is stir bright signal throughout the distal phalanx of the great t oe and there is also confluent abnormal hypointense intraosseous signal in the distal phalanx, this b eing highly specific finding for osteomyelitis. There is also enhancement throughout the distal phal anx on the post contrast infused sequences. There is no abnormal intraosseous signal nor abnormal enhancement evident in the proximal phalanx of the great toe. There is no prominent joint effusion in the interphalangeal joint. There are degenerative changes in the metatarsophalangeal joint of the great toe. There is no abnorm al intraosseous signal seen within the 2 sesamoid bones subjacent to the head of the great toe metata rsal. MUSCLES: There is no evidence of abnormal signal nor mass in the visualized muscles.No tenosynovitis evident. EXTRAMUSCULAR SOFT TISSUES: No abnormal signal, mass, or fluid collection. OTHER: None. IMPRESSION: 1. Findings are consistent with osteomyelitis of the distal phalanx of the great toe. There does not appear to be involvement of the proximal phalanx of the great toe at this time. 2. Significant degenerative changes in the metatarsophalangeal joint of the great toe but no evidence of infectious process at this level. 3. DATA REPOSITORY:
[2022-03-26] MEDS: Normal Saline Flush 10 ML SYR IVP (14:32)
== END ==
PROVIDERS: PCP Family Medicine; Visit Provider Podiatrist Foot & Ankle Surgery
DX: M86.8X7 Other osteomyelitis, ankle and foot (principal); M19.071 Primary osteoarthritis, right ankle and foot
CPT/HCPCS: 73720

== ENCOUNTER 2022-04-22 11:22 | Day surgery (SDC) | payer MEDICARE, SELFPAY ==
[2022-04-22 11:45] VITALS: BP 112/48; PULSE 54; RESP 15; TEMP 36.5; O2SAT 100
--- NOTE | 2022-04-22 12:34 | ANES.PREOP_ITS ---
General Info Date of Service Date Performed: 04/22/22 Height: 6 ft 5 in Weight: 77.6 kg Body Mass Index (BMI): 20.2 Surgical Procedure: Operation Date: 04/22/22 13:10 Proposed Procedure Side Surgeon p Toe Amputation w/Removal of All Infected Bone Right Mayda Pantoja DPM Actual Procedure Side Surgeon p Toe Amputation w/Removal of All Infected Bone Right Mayda Pantoja DPM Pre-Op Diagnosis Post-Op Diagnosis Right hallux osteomyelitis Meds Allergies and Home Medications Allergies Allergy/AdvReac Type Severity Reaction Status Date / Time adhesive AdvReac Intermediate Verified 04/22/22 11:42 Home Medication Medication Instructions Recorded cholecalciferol (vitamin D3) 10 400 unit PO DAILY 05/29/13 mcg (400 unit) capsule (Vitamin D3) multivitamin (Daily Vitamin tablet) 1 ea PO DAILY 05/29/13 Acetaminophen [Tylenol] 1,000 mg PO TID PRN PRN ##0 01/14/21 atorvastatin 40 mg tablet 40 mg PO DAILY 02/27/21 tamsulosin 0.4 mg capsule 0.8 mg PO DAILY #180 caps 03/23/21 apixaban 2.5 mg tablet (Eliquis) 2.5 mg PO BID 07/01/21 sennosides 8.6 mg tablet (Senokot) 1 tab PO BID PRN PRN #30 tabs 07/07/21 melatonin 3 mg tablet 3 - 6 mg PO PRN 01/07/22 Current Visit Medications: Current Medications Generic Name Dose Route Start Last Admin Trade Name Freq PRN Reason Stop Dose Admin Ringer's Solution 1,000 mls @ 80 mls/hr 04/22/22 06:00 IV 05/21/22 23:59 INFUSION NANCY Cefazolin Sodium/Dextrose 2 gm in 50 mls @ 100 mls/hr 04/22/22 06:00 Ancef Duplex IVPB 04/22/22 16:00 PREOP NANCY IV Miscellaneous Supplies 1 each 04/22/22 06:00 Iv Access IV 05/21/22 23:59 DIRECTED NANCY Sodium Chloride 0 ml 04/22/22 06:00 Normal Saline Flush 10 Ml Syr IV 05/21/22 23:59 PRN PRN Sodium Chloride 0 ml 04/22/22 06:00 Normal Saline 10 Ml Vial IJ 05/21/22 23:59 DIRECTED PRN Sterile Water 0 ml 04/22/22 06:00 Water,Injection,Sterile 10 Ml Vial IJ 05/21/22 23:59 DIRECTED PRN PFSH Active Problems Active Problems: Problem Status Onset Code Infection of right foot L08.9 Neuropathic ulcer of foot L97.509 Posterior subcapsular age-related cataract of left eye H25.042 Nuclear sclerotic cataract of left eye H25.12 Cortical cataract of left eye H26.9 Personal history of colonic polyps Z86.010 Unilateral primary osteoarthritis, left knee M17.12 Genu valgum, acquired M21.069 Posttraumatic wound infection T14.8XXA, L08.9 Cellulitis of forearm, left L03.114 Ambulatory dysfunction R26.2 COVID U07.1 Rhabdomyolysis M62.82 Fall W19.XXXA Falls W19.XXXA Rhabdomyolysis M62.82 Weakness R53.1 Healing wound present on both lower extremities COVID-19 U07.1 Traumatic hematoma of buttock S30.0XXA Pulmonary nodule R91.1 Leg wound, right S81.801A Bilateral leg weakness R29.898 Back pain M54.9 Ambulatory dysfunction R26.2 Herniation of intervertebral disc between L4 and L5 M51.26 Corns and callosity L84 Other hammer toe (acquired) M20.40 Neuropathy G62.9 Medical History Medical History Compartment syndrome Deep venous thrombosis 2007 DIVERTICULOSIS Gout Hyperlipidemia Melanosis coli Pain, foot, chronic Palliative care patient Peripheral venous insufficiency LEFT LEG Polyp of colon TUBULAR ADENOMA [id number] ADENOMA Psoriasis STROKE EMBOLIC-2007 Urinary retention Surgical History Surgical History BACK OPERATION (~04/2008) h/o GBS epidural abscess, treated at [facility] [place] in 2007 Colonoscopy - IV Sedation (06/10/10) [id number] ADENOMA 06/18/16 no pathological features from ascending colon polyp Colonoscopy - IV Sedation (06/18/16) [id number] ADENOMA 06/18/16 no pathological features from ascending colon polyp Tobacco Smoking/Tobacco Use Status: Former Tobacco Use Alcohol Alcohol Intake: former Substance Use Substance use: Never Substance use type: does not use Vital Signs and Lab Results Vital Signs Most Recent Vital Signs in EMR: Most Recent Vital Signs Temp Pulse Resp BP Pulse Ox 36.5 C 54 L 15 112/48 L 100 04/22/22 11:45 04/22/22 11:45 04/22/22 11:45 04/22/22 11:45 04/22/22 11:45 Lab Results Blood Type / Crossmatch: No Data to Display Complete Blood Count: No Data to Display Complete Metabolic Panel: No Data to Display Liver Function Panel: No Data to Display Coagulation Panel: No Data to Display Cardiac Panel: No Data to Display Arterial Blood Gas: No Data to Display Venous Blood Gas: No Data to Display Pancreas Panel: No Data to Display Thyroid Panel: No Data to Display Infectious Disease: No Data to Display Blood Cultures: No Data to Display Toxicology Panel: No Data to Display Imaging and Studies Imaging and Studies Study information below may be from another EMR and interpreted by another provider. Please see original notes in EMR for more complete details. EKG Summary: 06/27/2021: Conclusion Sinus rhythm...normal P axis, V-rate 60- 99 Prolonged VT interval...VT >220, V-rate 50- 90 Anteroseptal infarct, age indeterminate...Q >35mS, T neg, V1-V2. Sinus. Normal axis. Artifact V1-2. No STEMI. I have reviewed and interpreted ECG and agree with software generated interpretation. Anesthesia Assessment and Plan Anesthesia History Personal History: No History of Anesthesia Complications Family History: No Family History of Anesthesia Complications Exercise Tolerance Exercise Tolerance: Metabolic Equivalents>4 Pertinent Negatives Pertinent Negatives: No Symptoms of GERD, No Major Cardiovascular Symptoms or Complaints and No Major Pulmonary Symptoms or Complaints Cardiac & Pulmonary Exam Cardiac Exam: Normal S1/S2 Heart Sounds Pulmonary Exam: Clear Bilateral Breath Sounds Implantable Cardiac Device Does patient have a Pacemaker or an ICD?: No Airway Exam Known Difficult Airway: No Mallampati Class: 2 Mouth Opening: Narrow (< 3cm) Thyromental Distance: Greater than 3 cm Neck Range of Motion: Full ROM Neck Circumference: Normal Teeth Condition: Normal Dentition ASA Classification ASA Score: ASA 3 Emergency Case?: No NPO Status NPO Status: NPO Clears >2 hours, Solids >8 hours Anesthesia Plan Resuscitation Status: Full Code Anesthesia Technique: General Anesthesia Airway Planned: Natural Airway Monitors Used: Standard Monitors Preoperative Comments:: Discussed plan with patient, plan for anesthetic between MAC and GA, will depend on patient tolerates Propofol.
[2022-04-22] MEDS: Lactated Ringers 1,000 ML 80 ML IV (12:40)
[2022-04-22 12:45] VITALS: BMI 20.2
[2022-04-22] MEDS: ceFAZolin 2 GM/50 ML BAG IVPB (12:56)
[2022-04-22] MEDS: Bupivacaine 0.5% Pres-Free 30 ML VIAL (13:07)
--- NOTE | 2022-04-22 13:30 | AMP_PTH ---
PATIENT: Adan Terrell LOC: [facility] U#:[id number] AGE/SX: 81/M ROOM: RE04/22/[address]: Mayda Pantoja : 1940 BED: DIS: 04/22/2022 SPEC #: [id number] RECD: 04/22/22 15:57 STATUS: MARISOL REQ #: [id number] NANCY: 04/22/22 13:[address]: Mayda Pantoja DEPT: Surgical Specimen RECD BY: Gaye Pagan ENTERED: 04/22/22 15:58 SP TYPE: Amputation OTHR DR: Jessa Cool Tissues: 1 - AMPUTATION FINGERS/TOES(NOT TRAUMA) Procedures: GROSS AND MICRO LEVEL 4 DECALCIFICATION Comments: [id number]
[2022-04-22 14:03] VITALS: BP 112/60; PULSE 52; RESP 16; TEMP 36.1; O2SAT 98
--- NOTE | 2022-04-22 14:22 | W.PM.OP ---
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 After prepping the skin, local anesthetic block was performed about the patient's right first ray utilizing 20 cc of 0.5% Marcaine plain. The foot was then scrubbed, prepped, draped using the usual aseptic manner and technique. A pneumatic ankle tourniquet was placed about the patient's right ankle prior to the prep. Attention was directed to the right first ray where a modified fishmouth incision was used to disarticulate the distal phalanx of the right hallux at the area of the DIPJ. The head of the proximal phalanx was inspected and noted to be intact and not violated. The distal phalanx was resected along with the distal aspect of the digits, and sent for pathological evaluation. All bleeders were cauterized as necessary. All necrotic nonviable tissue was excised. Wound was irrigated with 3 L normal saline. The deep tissue was reapproximated coapted with 3-0 Vicryl and skin and subcutaneous tissue was reapproximated coapted utilizing combination of 3-0 and 4-0 nylon. The wound was dressed with Xeroform, dry sterile dressing, and a well-padded Mikel wrap. He was transferred to the PACU with vital signs stable and vascular status intact and instructions to limit his activity upon discharge, keep his dressing dry and intact, follow-up with myself in clinic in 4 to 5 days, sooner as needed, and elevate his foot and 2 pillows at home. He is to limit activity and return to clinic for follow-up evaluation next week, sooner as needed
[2022-04-22 14:35] VITALS: BP 122/71; PULSE 52; RESP 17; TEMP 36.1; O2SAT 99
--- NOTE | 2022-04-22 16:42 | W.ANESPOSTOP ---
Postoperative Evaluation Date, Time and Location Date Performed: 04/22/22 Time Performed: 14:10 Patient Location: Day Surgery Unit Vital Signs Most Recent Imported Vital Signs: Most Recent Vital Signs Temp Pulse Resp BP Pulse Ox 36.1 C L 52 L 17 122/71 99 04/22/22 14:35 04/22/22 14:35 04/22/22 14:35 04/22/22 14:35 04/22/22 14:35 Pain Score Most Recent Pain Score: Most Recent Pain Score Pain Level 0 04/22/22 14:35 Assessment Mental Status: Awake (Alert & Oriented to Patient Baseline) Airway and Respiratory Function: Patent airway with normal (patient baseline) respiratory exam Cardiovascular Function: Hemodynamically Stable Hydration Status: Adequately Hydrated Nausea & Vomiting: No Nausea or Vomiting Pain: Pt. Denies Any Pain Peripheral Nerve Block: Other (LA by surgeon)
== END 2022-04-22 15:30 | disposition home or self-care (01) ==
PROVIDERS: PCP Family Medicine; Visit Provider Podiatrist Foot & Ankle Surgery
PROC: (CPT 28825; principal; 2022-04-22 13:00)
DX: M86.8X8 Other osteomyelitis, other site (principal); E78.5 Hyperlipidemia, unspecified; M10.9 Gout, unspecified
CPT/HCPCS: 28825; 88300; 88305; 88311; J0690

== ENCOUNTER 2022-06-03 08:49 | Outpatient (CLI) | payer MEDICARE, SELFPAY ==
[2022-06-03 08:54] LABS: Abs Immature Grans 0.04 10^3/uL (0.0-0.06); Absolute Basophil Count 0.02 10^3/uL (0.0-0.2); Absolute Lymphocyte Count 1.64 10^3/uL (1.2-3.4); Absolute Monocyte Count 0.62 10^3/uL (0.1-0.8); Absolute Neutrophil Count 1.29 10^3/uL (1.2-6.7); Basophils % 0.5; Eosinophils % 2.7; HCT 34.5 % (40.0-50.0); HGB 11.2 g/dL (13.5-17.5); Immature Grans % 1.1; Lymphocytes % 44.2; MCH 30.4 pg (27.0-33.0); MCHC 32.5 % (32.0-36.0); MCV 94 fL (80-95); MPV 12.9 fL (8.0-11.0); Monocytes % 16.7; Neutrophils % 34.8; Platelet Count 215 10^3/uL (130-400); RBC 3.68 10^6/uL (4.36-5.78); RDW 16.6 % (11.8-14.1); RDW-SD 57.3 fL; WBC 3.71 10^3/uL (4.4-10.8)
== END 2022-06-03 08:50 | disposition home or self-care (01) ==
LOC: LBO 08:54
PROVIDERS: PCP Family Medicine; Visit Provider Internal Medicine Hematology
DX: D46.9 Myelodysplastic syndrome, unspecified (principal); D53.9 Nutritional anemia, unspecified
CPT/HCPCS: 36415; 85025

== ENCOUNTER 2022-07-31 16:48 | Outpatient (REF) | payer MEDICARE, SELFPAY ==
[2022-07-31 17:15] LABS: COMMENT (LAB VIEW ONLY) 79.62 mg/dL; Microalb ug/mg Crea 36.8 ug/mg Cr
== END 2022-07-31 16:49 | disposition home or self-care (01) ==
LOC: NCHCN 16:48
PROVIDERS: PCP Family Medicine; Visit Provider Family Medicine
DX: E11.9 Type 2 diabetes mellitus without complications (principal)
CPT/HCPCS: 82043; 82570

== ENCOUNTER → 2022-09-22 08:42 | Outpatient (BNVA) | payer MEDICARE, SELFPAY | PROVIDERS: PCP Family Medicine; Visit Provider Nurse Practitioner Gerontology | DX: R33.8 Other retention of urine (principal) | CPT/HCPCS: 99214 ==

== ENCOUNTER 2022-11-01 12:59 | Outpatient (CLI) | payer MEDICARE, SELFPAY ==
[2022-11-01 12:46] LABS: Abs Immature Grans 0.15 10^3/uL (0.0-0.06); Absolute Basophil Count 0.01 10^3/uL (0.0-0.2); Absolute Eosinophil Count 0.06 10^3/uL (0.0-0.7); Absolute Lymphocyte Count 1.17 10^3/uL (1.2-3.4); Absolute Monocyte Count 0.47 10^3/uL (0.1-0.8); Absolute Neutrophil Count 1.31 10^3/uL (1.2-6.7); Basophils % 0.3; Eosinophils % 1.9; HCT 30.2 % (40.0-50.0); HGB 10.1 g/dL (13.5-17.5); Immature Grans % 4.7; Lymphocytes % 36.9; MCH 31.4 pg (27.0-33.0); MCHC 33.4 % (32.0-36.0); MCV 94 fL (80-95); Monocytes % 14.8; Neutrophils % 41.4; RBC 3.22 10^6/uL (4.36-5.78); RDW 16.9 % (11.8-14.1); WBC 3.17 10^3/uL (4.4-10.8)
[2022-11-01 13:17] LABS: Diff Comment Diff Reviewed; Platelet Count 81 10^3/uL (130-400); RBC Morphology Normal
== END 2022-11-01 13:00 | disposition home or self-care (01) ==
LOC: LBO 13:00
PROVIDERS: PCP Family Medicine; Visit Provider Internal Medicine Hematology
DX: D46.9 Myelodysplastic syndrome, unspecified (principal)
CPT/HCPCS: 36415; 85025

== ENCOUNTER 2022-11-29 15:10 | Outpatient (CLI) | payer MEDICARE, SELFPAY ==
[2022-11-29 10:33] LABS: Abs Immature Grans 0.09 10^3/uL (0.0-0.06); Absolute Basophil Count 0.01 10^3/uL (0.0-0.2); Absolute Eosinophil Count 0.03 10^3/uL (0.0-0.7); Absolute Monocyte Count 0.56 10^3/uL (0.1-0.8); Basophils % 0.3; HCT 27.7 % (40.0-50.0); HGB 9.4 g/dL (13.5-17.5); Immature Grans % 2.9; Lymphocytes % 38.8; MCH 31.4 pg (27.0-33.0); MCHC 33.9 % (32.0-36.0); MCV 93 fL (80-95); Monocytes % 18.1; Neutrophils % 38.9; RBC 2.99 10^6/uL (4.36-5.78); RDW 17.2 % (11.8-14.1); RDW-SD 58.5 fL; WBC 3.09 10^3/uL (4.4-10.8)
[2022-11-29 10:53] LABS: Platelet Count 81 10^3/uL (130-400)
[2022-11-29 11:43] LABS: Folate > 20.0 ng/mL (8.6-20.0); Vitamin B12 863 pg/mL (193-986)
[2022-11-30 21:34] LABS: Copper, Serum 119 mcg/dL (73-129)
[2022-12-02 09:08] LABS: Methylmalonic Acid 0.28 nmol/mL (<=0.40)
== END 2022-11-29 15:11 | disposition home or self-care (01) ==
LOC: LBO 15:11
PROVIDERS: PCP Family Medicine; Visit Provider Nurse Practitioner Adult Health
DX: D61.818 Other pancytopenia (principal); R74.8 Abnormal levels of other serum enzymes
CPT/HCPCS: 36415; 80186; 82525; 82607; 82746; 85025

== ENCOUNTER 2023-01-04 12:50 | Outpatient (CLI) | payer MEDICARE, SELFPAY ==
[2023-01-04 10:38] LABS: HGB 7.5 g/dL (13.5-17.5); MCH 30.9 pg (27.0-33.0); MCHC 32.6 % (32.0-36.0); MCV 95 fL (80-95); RBC 2.43 10^6/uL (4.36-5.78); RDW 18.8 % (11.8-14.1); RDW-SD 64.5 fL; WBC 2.86 10^3/uL (4.4-10.8)
[2023-01-04 11:03] LABS: Absolute Eosinophil Count 0.03 10^3/uL (0.0-0.7); Absolute Lymphocyte Count 1.37 10^3/uL (1.2-3.4); Absolute Monocyte Count 0.14 10^3/uL (0.1-0.8); Absolute Neutrophil Count 1.32 10^3/uL (1.2-6.7); Atypical Lymphocytes % 6; Bands % 2; Diff Comment Manual Differential; Platelet Count 40 10^3/uL (130-400); RBC Morphology Normal
[2023-01-06 13:50] LABS: Erythropoietin 65.7 mIU/mL (2.6 - 18.5)
== END 2023-01-04 12:51 | disposition home or self-care (01) ==
LOC: LBO 12:50
PROVIDERS: PCP Family Medicine; Visit Provider Nurse Practitioner Adult Health
DX: D46.9 Myelodysplastic syndrome, unspecified (principal)
CPT/HCPCS: 36415; 82668; 85025

== ENCOUNTER 2023-01-11 08:51 | Outpatient (RCR) | payer MEDICARE, SELFPAY ==
[2023-01-11 10:18] LABS: HCT 22.1 % (40.0-50.0); HGB 7.3 g/dL (13.5-17.5); MCH 30.8 pg (27.0-33.0); MCV 93 fL (80-95); RBC 2.37 10^6/uL (4.36-5.78); RDW 19.2 % (11.8-14.1); RDW-SD 64.4 fL; WBC 2.72 10^3/uL (4.4-10.8)
[2023-01-11 10:40] LABS: Platelet Count 29 10^3/uL (130-400)
[2023-01-11 11:52] VITALS: BP 103/57; PULSE 56; RESP 17; TEMP 36.6; O2SAT 100
[2023-01-11 12:07] VITALS: BP 107/57; PULSE 54; RESP 17; TEMP 36.2; O2SAT 98
[2023-01-11 12:23] VITALS: BP 104/64; PULSE 51; RESP 17; TEMP 36.5; O2SAT 99
[2023-01-11 12:55] VITALS: BP 107/61; PULSE 56; RESP 17; TEMP 36.7; O2SAT 99
[2023-01-11 13:33] VITALS: BP 110/43; PULSE 54; RESP 17; TEMP 36.7; O2SAT 98
[2023-01-11] MEDS: Normal Saline Flush 10 ML SYR IVP (13:52)
== END 2023-01-13 23:59 | disposition home or self-care (01) ==
LOC: INF 08:51
PROVIDERS: PCP Family Medicine; Visit Provider Internal Medicine Hematology
DX: D46.9 Myelodysplastic syndrome, unspecified (principal)
CPT/HCPCS: 36415; 36430; 85027; 86850; 86900; 86901; 86920; P9016

== ENCOUNTER 2023-01-24 01:44 | Outpatient (RCR) | payer MEDICARE, SELFPAY ==
[2023-01-14 00:11] VITALS: BP 110/43; PULSE 54; RESP 17; TEMP 36.7
== END 2023-02-12 23:59 | disposition home or self-care (01) ==
LOC: INF 01:44
PROVIDERS: PCP Family Medicine; Visit Provider Internal Medicine Hematology